=== PATIENT | female | born 1990 | race Caucasian/White ===

== ENCOUNTER 2017-06-29 10:03 | Day surgery (SDC) | payer MEDICAID, SELFPAY ==
[2017-06-29] VITALS (7 sets, daily range): BP systolic 105–130; BP diastolic 70–84; PULSE 74–80; RESP 16–18; TEMP 36.2–36.6; O2SAT 95–99; BMI 42.8
[2017-06-29] MEDS: MethylPREDNISolone Acetate 80 MG/ML Vial (11:20)
--- NOTE | 2017-06-29 11:20 | RAD_ITS ---
STUDY: SACROILIAC JOINT INJECTION. REASON FOR EXAM: Female, 27 years old. Chronic low back pain. FLUOROSCOPY TIME (if supplied): (0:06) minutes/seconds TECHNIQUE: A single image was obtained. There is evidence of a needle placement in the right sacroiliac joint. COMPARISON: None. FINDINGS: Fluoroscopic services provided for right sacroiliac joint injection. RAD/S-I Jts 3 or More Views IMPRESSION: Right sacroiliac joint injection. Electronically Signed: Rafael Tang MD at 13:27 EST Tel [phone], Service support ,
[2017-06-29] MEDS: Bupivacaine 0.25% 30 ML Vial (11:21)
--- NOTE | 2017-06-29 14:16 | OP.PCM_ITS ---
Problem List (1) Sacroiliac joint dysfunction Status: Chronic (2) Sacroiliitis Status: Chronic Report of Operation Date of Procedure: 06/29/17 Pre-Operative Diagnosis: Sacroiliitis, sacroiliac joint dysfunction Post-Operative Diagnosis: Sacroiliitis, sacroiliac joint dysfunction Description of Surgical Findings:: Procedure: Right- sided sacroiliac joint steroid injection under fluoroscopy guidance Preoperative diagnosis: Sacroiliitis, SI joint dysfunction Postoperative diagnosis: Sacroiliitis SI joint dysfunction Anesthesia: MAC Blood loss: Normal Complications: None Procedure in detail: History and physical today was reviewed risk and benefits this procedure explained, the patient understood and agreed to procedure informed consent was obtained IV inserted per routine protocol patient was taken to the operating placed in the prone position a pillow position underneath the abdomen the right side of her lower back and buttock area was prepped and draped in a sterile fashion using iodine ?3 and the fluoroscopy guidance and an oblique view the right SI joint was visualized the skin and subcutaneous tissue anesthetized approximately 3 cc of 1% lidocaine using a 25- gauge regular needle under direct physician fluoroscopy at approximately 15? angle using a 22-gauge 3-1/2 inch spinal needle needle was advanced via the skin the tip of the needle was maneuvered directed towards the inferior one third of the posterior SI joint once tip of the knee was at the vicinity of the SI joint after negative aspiration for blood or CSF a total of 1 cc of contrast were injected to confirm correct placement of the needle as well as cephalo- caudad spread after repeated negative aspiration confirmation AP oblique as well as lateral view a total of 4 cc of preservative-free 0.25% Marcaine with 40 mg of the throat was injected easily in and around the the sacral iliac joint. The needle was then removed intact patient experienced no sinus symptoms intravascular or intrathecal injection patient experienced no paresthesia the procedure was completed without any apparent difficulty any competition the patient appeared to tolerate well. Assessment and plan: This is a 27-year-old female with sacroiliitis SI joint dysfunction status post right-sided sacroiliac joint steroid injection under fluoroscopy guidance patient will continue current medications patient for approximately 2 weeks for possible repeat of procedure if indicated.
== END 2017-06-29 11:53 | disposition home or self-care (01) ==
LOC: SDC 10:04 → AC 10:05
PROVIDERS: Visit Provider Anesthesiology Pain Medicine
PROC: 3E0U3GC Introduction of Other Therapeutic Substance into Joints, Percutaneous Approach (ICD-10-PCS; CPT 27096; principal; 2017-06-29 11:15)
DX: M46.1 Sacroiliitis, not elsewhere classified (principal); M53.3 Sacrococcygeal disorders, not elsewhere classified; R51 Headache; F17.200 Nicotine dependence, unspecified, uncomplicated; Z79.899 Other long term (current) drug therapy
CPT/HCPCS: 01992; 27096; 72202; 76000; J7120

== ENCOUNTER → 2017-07-07 13:54 | Outpatient (CLI) | payer MEDICAID, SELFPAY ==
--- NOTE | 2017-07-07 14:00 | RAD_ITS ---
STUDY: X-RAY - LEFT KNEE REASON FOR EXAM: Female, 27 years old. Pain. Possible meniscal tear TECHNIQUE: 4 view(s) of the knee. COMPARISON: None. FINDINGS: Normal visualized distal femur. Normal visualized proximal tibia and fibula. Normal proximal tibiofibular articulation. Normal medial femorotibial compartment. Normal lateral femorotibial compartment. Normal patellofemoral articulation. There is a small calcification anterior to the patella in the subcutaneous soft tissues, probably representing a phlebolith. RAD/Knee 4 or More Views IMPRESSION: Small calcification anterior to the patella in the subcutaneous soft tissues, probably representing a phlebolith.. Otherwise normal examination Electronically Signed: Adam Lara MD, FACR at 14:30 EST , Service support ,
== END ==
DX: M25.562 Pain in left knee (principal)
CPT/HCPCS: 73564

== ENCOUNTER 2017-08-18 20:16 | Emergency (ER) | payer MEDICAID, SELFPAY ==
[2017-08-18 20:16] VITALS: BP 125/82; PULSE 83; RESP 14; TEMP 36.5; O2SAT 98; BMI 40.7
--- NOTE | 2017-08-18 20:39 | ED.VISSUMM ---
- ER Visit Summary Date of Service: 08/18/17 Chief Complaint: Tongue pain History of Present Illness: The patient is a 27 F presents to the emergency department with tongue pain. Patient states her symptoms began about 2 or 3 days ago. She states that she accidentally ate some hot wings at work. Since then, she has had increased swelling and pain of the tongue. States it feels full in her mouth. She denies any trouble speaking or swallowing. She states she went to urgent care. She had a negative strep. There were concern with her tongue swelling center here. She has never had this before. Physical Examination: Vital signs reviewed General: Well-nourished, well-developed Head: Normocephalic, atraumatic Eyes: Pupils equal and reactive, extraocular muscles intact ENT: Patient has no significant edema of the tongue. There is no significant ulceration. There is no trismus or stridor. She does have some mild erythema of the midline. Neck, supple, no lymphadenopathy Heart: Regular rate and rhythm Respiratory: No distress, clear bilaterally Abdomen: Soft, nontender, nondistended, no peritoneal signs Back: Nontender Extremities: Nontender, no edema, no cords Skin: Normal color no rash Neuro: Alert and oriented, no focal or lateralizing deficits Test Results: [] Emergency Department Course and Treatment: The patient has no significant appreciable edema of the tongue. There is no ulceration or evidence of infection. I do feel this is a local reaction from her exposure. The patient will be treated with viscous lidocaine and Decadron. I do not feel further workup is necessary. I did cancer genetic counselor her that if her symptoms persist or change, she should be reevaluated. She is comfortable this plan of care. Treatment Plan: [] Disposition: Charge Impression: Tongue irritation This note was generated with [employer] dictation software. It may contain incorrect words, spelling, and punctuation that were not noted in review of the chart prior to signing ED Disposition - Plan for ED Patient: Chief Complaint: Sore Throat Instructions: ED Erythema Prescriptions: Lidocaine HCl [Lidocaine HCl Viscous] 15 ml MM TID #150 ml Referrals: Antonette Kenyon DO [Primary Care Provider] -
--- NOTE | 2017-08-18 20:44 | ED.DCSUM_ITS ---
- ER Visit Summary Date of Service: 08/18/17 Chief Complaint: Tongue pain History of Present Illness: The patient is a 27 F presents to the emergency department with tongue pain. Patient states her symptoms began about 2 or 3 days ago. She states that she accidentally ate some hot wings at work. Since then, she has had increased swelling and pain of the tongue. States it feels full in her mouth. She denies any trouble speaking or swallowing. She states she went to urgent care. She had a negative strep. There were concern with her tongue swelling center here. She has never had this before. Physical Examination: Vital signs reviewed General: Well-nourished, well-developed Head: Normocephalic, atraumatic Eyes: Pupils equal and reactive, extraocular muscles intact ENT: Patient has no significant edema of the tongue. There is no significant ulceration. There is no trismus or stridor. She does have some mild erythema of the midline. Neck, supple, no lymphadenopathy Heart: Regular rate and rhythm Respiratory: No distress, clear bilaterally Abdomen: Soft, nontender, nondistended, no peritoneal signs Back: Nontender Extremities: Nontender, no edema, no cords Skin: Normal color no rash Neuro: Alert and oriented, no focal or lateralizing deficits Test Results: [] Emergency Department Course and Treatment: The patient has no significant appreciable edema of the tongue. There is no ulceration or evidence of infection. I do feel this is a local reaction from her exposure. The patient will be treated with viscous lidocaine and Decadron. I do not feel further workup is necessary. I did drug and alcohol counsellor her that if her symptoms persist or change, she should be reevaluated. She is comfortable this plan of care. Treatment Plan: [] Disposition: Charge Impression: Tongue irritation This note was generated with [employer] dictation software. It may contain incorrect words, spelling, and punctuation that were not noted in review of the chart prior to signing ED Disposition - Plan for ED Patient: Chief Complaint: Sore Throat Instructions: ED Erythema Prescriptions: Lidocaine HCl [Lidocaine HCl Viscous] 15 ml MM TID #150 ml Referrals: Antonette Kenyon DO [Primary Care Provider] -
--- NOTE | 2017-08-18 21:06 | ED.RN ---
Verbal and written d/c instructions given. All questions answered. Gait slow and steady out of department.
== END 2017-08-18 21:07 | disposition home or self-care (01) ==
PROVIDERS: Emergency Provider Emergency Medicine
DX: K14.6 Glossodynia (principal); Z72.0 Tobacco use; Z79.899 Other long term (current) drug therapy
CPT/HCPCS: 99283

== ENCOUNTER 2017-12-20 | Emergency (ER) | payer MEDICAID, SELFPAY ==
[2017-12-20 00:02] VITALS: BP 130/85; PULSE 100; RESP 15; TEMP 37.1; O2SAT 99; BMI 42.7
[2017-12-20 00:10] LABS: Bedside Glucose 106 mg/dL (70-110)
--- NOTE | 2017-12-20 00:14 | ED.VISSUMM ---
- ER Visit Summary Date of Service: 12/20/17 Chief Complaint: Left facial pain History of Present Illness: The patient is a 27 F past medical history of pseudotumor cerebri. Multiple prior surgeries. Patient states that she developed head pressure Thursday night. She denies nausea or vomiting. No fever. No head or facial trauma. She is on no blood thinners. Of note she has had 3 prior CAT scans done at [facility] in the last 3-4 years all of which were unremarkable. She denies any neurological deficits. Physical Examination: Well-appearing young female. Vital signs are stable and afebrile. Her blood pressure is 130/85. She does not look septic or toxic. She is in no acute distress. H EENT exam unremarkable. Pupils round reactive light. Extra motions are intact. Normal speech. No signs of trauma to her face or scalp. No rashes. TMs are normal bilaterally. She has reproducible tenderness on the left side of her face. There is no signs of swelling, redness or rash. Possible minimal left facial droop. Able to open and close her eyes without any difficulty. Forehead is spared. Normal speech. Neck no lymphadenopathy. Trachea midline. She has some musculoskeletal tenderness on the left. No meningismus. Full range of motion to her neck. She is able to touch her chin to her chest. Lungs clear to auscultation bilaterally. Heart regular rate and rhythm no murmur. Abdomen soft nontender. She is moving all 4 extremities. They are neurovascularly intact. Equal and symmetrical 5 out of 5 embedded nurse strength. Equal symmetrical dorsi and plantar flexion. Fingertip to nose and heel to molina all within normal limits. Back exam normal. Skin normal no rashes. She has a completely normal neurologic exam except possibly a very minimal left facial droop. Test Results: None. Patient has had 3 CAT scans of the brain the last several years all of which have been negative. Emergency Department Course and Treatment: Patient be given IM Toradol and discharged to home to follow-up with primary care physician. Treatment Plan: Tylenol and Motrin for pain. Follow-up with her PCP. Disposition: Discharge Impression: Acute left facial pain of uncertain etiology. This note was generated with [employer] software. It may contain incorrect words, spelling, and punctuation that were not noted in review of the chart prior to signing ED Disposition - Plan for ED Patient: Chief Complaint: Dizziness Referrals: Antonette Kenyon DO [Primary Care Provider] -
[2017-12-20] MEDS: Ketorolac 60 MG/2 ML Vial IM (00:18)
--- NOTE | 2017-12-20 00:19 | ED.DCSUM_ITS ---
- ER Visit Summary Date of Service: 12/20/17 Chief Complaint: Left facial pain History of Present Illness: The patient is a 27 F past medical history of pseudotumor cerebri. Multiple prior surgeries. Patient states that she developed head pressure Thursday night. She denies nausea or vomiting. No fever. No head or facial trauma. She is on no blood thinners. Of note she has had 3 prior CAT scans done at [facility] in the last 3-4 years all of which were unremarkable. She denies any neurological deficits. Physical Examination: Well-appearing young female. Vital signs are stable and afebrile. Her blood pressure is 130/85. She does not look septic or toxic. She is in no acute distress. H EENT exam unremarkable. Pupils round reactive light. Extra motions are intact. Normal speech. No signs of trauma to her face or scalp. No rashes. TMs are normal bilaterally. She has reproducible tenderness on the left side of her face. There is no signs of swelling, redness or rash. Possible minimal left facial droop. Able to open and close her eyes without any difficulty. Forehead is spared. Normal speech. Neck no lymphadenopathy. Trachea midline. She has some musculoskeletal tenderness on the left. No meningismus. Full range of motion to her neck. She is able to touch her chin to her chest. Lungs clear to auscultation bilaterally. Heart regular rate and rhythm no murmur. Abdomen soft nontender. She is moving all 4 extremities. They are neurovascularly intact. Equal and symmetrical 5 out of 5 tack picker strength. Equal symmetrical dorsi and plantar flexion. Fingertip to nose and heel to molina all within normal limits. Back exam normal. Skin normal no rashes. She has a completely normal neurologic exam except possibly a very minimal left facial droop. Test Results: None. Patient has had 3 CAT scans of the brain the last several years all of which have been negative. Emergency Department Course and Treatment: Patient be given IM Toradol and discharged to home to follow-up with primary care physician. Treatment Plan: Tylenol and Motrin for pain. Follow-up with her PCP. Disposition: Discharge Impression: Acute left facial pain of uncertain etiology. This note was generated with [employer] software. It may contain incorrect words, spelling, and punctuation that were not noted in review of the chart prior to signing ED Disposition - Plan for ED Patient: Chief Complaint: Dizziness Referrals: Antonetet Kenyon DO [Primary Care Provider] -
--- NOTE | 2017-12-20 00:19 | ED.DEP ---
ED Disposition - Plan for ED Patient: Disposition: Home or Assisted Living Chief Complaint: Dizziness Instructions: ED Cephalgia Unspecified Referrals: Antonette Kenyon DO [Primary Care Provider] - 1-2 Days if not improving Additional Instructions: Motrin and Tylenol for pain. If not improving follow-up with your primary care physician in the next several days. Return to ER if feeling worse.
--- NOTE | 2017-12-20 00:40 | ED.RN ---
PT GIVEN WRITTEN AND VERBAL DISCHARGE INSTRUCTIONS. PT EDUCATED TO RETURN TO ED WITH ANY NEW OR WORSENED SX N/T, WEAKNESS, SLURRED SPEECH. PT VERBALIZES UNDERSTANDING. PT DENIES ANY FURTHER QUESTIONS. REPORTS HER NECK IS LESS STIFF THAN IT WAS BEFORE. PT AMBULATES OUT OF DEPT WITH SPOUSE.
== END 2017-12-20 00:44 | disposition home or self-care (01) ==
LOC: ED 00:29
PROVIDERS: Emergency Provider Emergency Medicine
DX: R51 Headache (principal); G93.2 Benign intracranial hypertension; Z72.0 Tobacco use; Z79.899 Other long term (current) drug therapy
CPT/HCPCS: 82962; 96372; 99282

== ENCOUNTER 2018-10-11 07:56 | Emergency (ER) | payer MEDICAID, SELFPAY ==
[2018-07-01 15:07] VITALS: BMI 42.8
[2018-10-11 07:57] VITALS: BP 135/98; PULSE 98; RESP 16; TEMP 36.4; O2SAT 98; BMI 44.6
[2018-10-11 07:59] VITALS: BP 135/98; PULSE 98; RESP 16; TEMP 36.4; O2SAT 98
--- NOTE | 2018-10-11 08:12 | ED.VISSUMM ---
- ER Visit Summary Date of Service: 10/11/18 Chief Complaint: UTI History of Present Illness: The patient is a 28 F with a 4 or 5-day history of dysuria and urinary frequency. Patient's been trying to drink cranberry juice. She states pain is gotten worse and she is now having cramping and spasms in the suprapubic area. She states her urine is very foul-smelling. She has not had fever or chills. She is now noting some mild back pain. Patient has had prior hysterectomy. Physical Examination: Vital signs unremarkable. She is afebrile. Patient sitting upright in bed no acute distress. Heart is regular rate and rhythm. Lung sounds are clear. Abdomen is soft with tenderness of the suprapubic region. Back examination was no CVA tenderness. Test Results: Urine will be sent for a culture. Emergency Department Course and Treatment: Patient be treated with a 3-day course of Bactrim and Pyridium to help with pain. She be given naproxen. Treatment Plan: [] Disposition: Discharge Impression: Cystitis This note was generated with [employer] dictation software. It may contain incorrect words, spelling, and punctuation that were not noted in review of the chart prior to signing ED Disposition - Plan for ED Patient: Disposition: Home or Assisted Living Instructions: ED UTI Cystitis Female Prescriptions: Naproxen [Naprosyn] 500 mg PO BID PRN PRN #20 tablet PRN Reason: Pain Smz/Tmp Ds [Bactrim Ds] 1 tablet PO BID #6 tablet Phenazopyridine HCl [Pyridium] 200 mg PO TID #10 tablet Referrals: Stefan Aguiar MD [Primary Care Provider] - 1 Week
[2018-10-11] MEDS: Phenazopyridine 95 MG Tablet 190 MG PO (08:20)
[2018-10-11] MEDS: Naproxen 500 MG Tablet PO (08:21)
[2018-10-11] MEDS: Smz/Tmp Ds Tablet 1 TABLET PO (08:21)
== END 2018-10-11 08:24 | disposition home or self-care (01) ==
PROVIDERS: Emergency Provider Emergency Medicine; Family Provider Family Medicine; PCP Family Medicine
DX: N30.90 Cystitis, unspecified without hematuria (principal); Z72.0 Tobacco use
CPT/HCPCS: 87086; 87088; 99283

== ENCOUNTER 2018-10-13 16:30 | Emergency (ER) | payer MEDICAID, SELFPAY ==
[2018-10-13 15:51] VITALS: BMI 44.6
[2018-10-13 16:31] VITALS: BP 138/78; PULSE 121; RESP 18; TEMP 36.2; O2SAT 96; BMI 44.6
--- NOTE | 2018-10-13 16:44 | ED.VISSUMM ---
- ER Visit Summary Date of Service: 10/13/18 Chief Complaint: Pelvic pain History of Present Illness: The patient is a 28 F presenting with pelvic pain. Patient was sent by her CASH SALES AUDIT CLERK Dr. Frost for pelvic ultrasound to rule out ovarian torsion. She has a known left ovarian cyst. She states she has been having pain for the past 6 days. She was seen in the ED as well as at [facility]. She states she had a CT scan at [facility] that showed an ovarian cyst. When she followed up with Dr. Frost today she sent her for ultrasound of her pelvis. Physical Examination: Vitals are stable. Patient is afebrile. Alert no acute distress. HEENT exam is unremarkable. Neck is supple. Lungs are clear and equal bilaterally. Heart is regular rate and rhythm. Abdomen is soft left pelvic tenderness with no rebound or guarding Extremities are unremarkable. Skin is warm and dry. Remainder of exam is unremarkable. Emergency Department Course and Treatment: Patient was given Dilaudid, Zofran IV. CBC shows white count 12.8. hCG negative. Urinalysis unremarkable. Pelvic ultrasound shows status post hysterectomy. Nonvisualization right ovary. Marked enlargement of left ovary with a large irregular cyst. This is markedly enlarged when compared to the prior CT scan. On repeat evaluation, patient's pain is controlled. Discussed with Dr. Frost. Patient will be added on to the surgery schedule for tomorrow. Patient is agreeable with this plan. She will be n.p.o. after midnight. She will quill picking machine operator her prescription from Dr. Frost. Disposition: Discharge home Impression: Left ovarian cyst This note was generated with [employer] dictation software. It may contain incorrect words, spelling, and punctuation that were not noted in review of the chart prior to signing ED Disposition - Plan for ED Patient: Instructions: ED Cyst Ovarian Referrals: Stefan Aguiar MD [Primary Care Provider] - Jania Frost MD [STAFF PHYSICIAN] -
--- NOTE | 2018-10-13 16:49 | US_ITS ---
STUDY: ULTRASOUND TRANSVAGINAL CLINICAL: Female, 28 years old. Ovarian cysts. Left pelvic pain. History of hysterectomy. TECHNIQUE: Transvaginal COMPARISON: CT of the abdomen and pelvis, May 21, 2017. FINDINGS: The uterus is surgically absent. The right ovary is not visualized. There is no evidence of right adnexal mass. Normal left ovary, measuring 14.6 x 10.1 x 8.8 cm. There is a 13.5 x 6.5 x 8.3 cm irregular cyst. There is normal vascularity in the left adnexa. Polycystic ovary disease: No. US/Transvaginal Non- IMPRESSION: 1. Status post hysterectomy. 2. Nonvisualization right ovary. 3. Marked enlargement of left ovary with a large irregular cyst. This is markedly enlarged when compared to the prior CT scan. Electronically Signed: Luis Strickland DO at 18:22 EDT Tel [phone], Service support ,
[2018-10-13] MEDS: HYDROmorphone 0.5 MG/0.5 ML SYRINGE IV (16:52)
[2018-10-13] MEDS: Ondansetron 4 MG/2 ML Vial IV (16:52)
[2018-10-13] MEDS: 0.9% Normal Saline 1,000 ML 1000 ML IV (16:52)
[2018-10-13 17:17] LABS: Absolute Lymphocyte Count 2.64 X10^3/ul (0.83-4.51); Absolute Neutrophil Count 9.1 X10^3/uL (2.0-7.7); Basophil# 0.02 X10^3/uL; Basophil% 0.2 % (0-1); Eosinophil# 0.14 X10^3/uL; Eosinophils% 1.1 % (0-5); Hematocrit 39.6 % (37-47); Hemoglobin 13.1 g/dl (12.0-15.0); Lymphocyte # 2.64 X10^3/ul (4.0); Lymphocyte % 20.7 % (19-41); Mean Corp Hgb Conc 33.1 g/gl (32-36); Mean Corpuscular Hgb 29.4 pg (27.0-32.0); Mean Corpuscular Volume 88.8 fL (81-99); Mean Platelet Vol. 10.7 fl (6.2-12.0); Monocyte# 0.87 X10^3/uL; Monocyte% 6.8 % (0-10); Neutrophil # 9.07 X10^3/uL (2.7-7.7); Neutrophil % 70.9 % (47-70); Platelet Count 302 K/mm3 (150-450); RBC Distribution Width CV 13.7 % (11.6-14.6); RBC Distribution Width SD 43.7 fl (35.1-43.9); Red Blood Count 4.46 M/mm3 (4.2-5.4); White Blood Count 12.8 K/mm3 (4.4-11.0)
[2018-10-13 17:23] LABS: POSITIVE COUNT NO; POSITIVE DIFFERENTIAL NO; POSITIVE MORPHOLOGY NO
[2018-10-13 18:27] LABS: Internal QC Validated? YES +Cl - CLEAR BKGD; Pregnancy, Serum, hCG Quali. NEGATIVE Negative
[2018-10-13 18:34] LABS: Color, Urine Yellow (Yellow); Glucose, Dipstick Normal (Normal); Ketone-Dipstick 15 mg/dl (Negative); Leukocyte Esterase-Dipstick 100 /ul (Negative); Nitrite-Dipstick Negative (Negative); Occult Blood-Urine 10 /ul (Negative); Protein-Dipstick 30 mg/dl (Negative); Specific Gravity, Urine 1.025 (1.002-1.030); Urine Bilirubin Dipstick Negative (Negative); Urine Clarity Clear (Clear); Urine Urobilinogen 1 mg/dl (Normal)
[2018-10-13] MEDS: HYDROmorphone 1 MG/ML Syringe IV (18:45)
[2018-10-13 18:52] LABS: Bacteria 1+ /hpf (None Seen); Mucous, Urine 1+ /hpf (<or=2+); Red Blood Cells-Urine 0-5 SEEN /hpf (0-5); Squamous Epithelial Cells - UA 0-5 SEEN /hpf (5-10); White Blood Cells 0-5 SEEN /hpf (0-5)
[2018-10-13 19:08] VITALS: BP 117/89; PULSE 82; RESP 16; O2SAT 98
--- NOTE | 2018-10-13 20:18 | ED.DEP ---
ED Disposition - Plan for ED Patient: Instructions: ED Cyst Ovarian Referrals: Stefan Aguiar MD [Primary Care Provider] - Jania Frost MD [STAFF PHYSICIAN] -
[2018-10-13 20:37] VITALS: BP 121/78; PULSE 78; RESP 16; O2SAT 98
== END 2018-10-13 20:38 | disposition home or self-care (01) ==
LOC: ED 17:17
PROVIDERS: Emergency Provider Emergency Medicine; Family Provider Family Medicine; PCP Family Medicine
DX: N83.202 Unspecified ovarian cyst, left side (principal); Z72.0 Tobacco use
CPT/HCPCS: 76830; 81001; 84703; 85025; 93976; 96361; 96374; 96375; 96376; 99283; J7030; A4216; J2405

== ENCOUNTER 2018-10-14 16:00 | Observation (INO) | payer MEDICAID, SELFPAY ==
[2018-10-13 16:31] VITALS: BMI 44.6
[2018-10-14] VITALS (10 sets, daily range): BP systolic 109–141; BP diastolic 63–82; PULSE 78–96; RESP 16–22; TEMP 36.4–37.3; O2SAT 88–100; BMI 44.4
--- NOTE | 2018-10-14 08:06 | PCM.HP.STD ---
Problem List (1) Ovarian cyst Status: Acute (2) Acute pelvic pain Status: Acute (3) Smoker Status: Chronic (4) Family history of skin cancer Status: Chronic (5) Recent weight loss Status: Chronic (6) History of abdominoplasty Status: Chronic (7) Swelling of vulva Status: Chronic Comment: mons pubis swelling (8) Late effect of complications of surgical and medical care Status: Chronic Comment: painful scar contour deformity lower anterior abdominal wall (9) Sacroiliac joint dysfunction Status: Chronic (10) Sacroiliitis Status: Chronic History of Present Illness Date of Admission: 10/14/18 The patient is a 28 year old F presents with acute pelvic pain and ovarian cyst. she has been seen in the ER twice in the last few days and pelvic ultrasound showed ovarian cyst 13 cm in size. she had her pain controlled with IV dilaudid and was comfortable going home and planning surgery for today. she denies any vaginal bleeding. Past Medical History Past Medical History (Chronic Problems): Chronic Problems (Last Reviewed 10/13/18 @ 15:50 by Lisa Sal) Smoker (Chronic) Family history of skin cancer (Chronic) Recent weight loss (Chronic) History of abdominoplasty (Chronic) Swelling of vulva (Chronic) mons pubis swelling Late effect of complications of surgical and medical care (Chronic) painful scar contour deformity lower anterior abdominal wall Sacroiliac joint dysfunction (Chronic) Sacroiliitis (Chronic) Medical History: Medical History (Last Updated 10/14/18 @ 08:11 by Jania Frost MD) Carpal tunnel syndrome G56.00 Fatigue R53.83 H/O: hysterectomy Z90.710 Headache R51 pseudo angel cerebri Allergies nickel Allergy (Verified 10/13/18 16:31) Rash diphenhydramine [From Benadryl] Adverse Reaction (Verified 10/13/18 16:31) Other morphine Adverse Reaction (Verified 10/13/18 16:31) Other NUCOPHED Allergy (Uncoded 10/13/18 16:31) Swelling Home Medications: Ambulatory Orders Medication Instructions Recorded Naproxen [Naprosyn] 500 mg PO BID PRN PRN #20 tab 10/11/18 Smz/Tmp Ds [Bactrim Ds] 1 tab PO BID #6 tab 10/11/18 Surgical History: Surgical History (Last Reviewed 10/13/18 @ 15:50 by Lisa Sal) History of abdominoplasty Z98.890 2014 Revision abdominoplasty 2015 History of carpal tunnel surgery Z98.890 RIGHT HAND 2014 LEFT HAND 2016 History of delivery Z98.891 04/28/2006, 08/13/2007 Smoking Status: Current every day smoker Review of Systems Constitutional: Denies: Fever, Malaise Eyes: Denies: Blurred vision, Vision Change HEENT: Denies: Head Aches, Visual Changes Cardiovascular: Denies: Chest Pain, Palpitations Respiratory: Denies: Cough, Shortness of Breath, Wheezing Gastrointestinal: Reports: Abdominal Pain, Nausea. Denies: Diarrhea, Vomiting Genitourinary: Denies: Dysuria, Hematuria Gynecological: Denies: Vaginal bleeding, Vaginal discharge Musculoskeletal: Denies: Joint Pain, Muscle pain Skin: Denies: Lesions, Rash Neurological: Denies: Blurred vision, Focal weakness, Headaches Psychiatric: Denies: Anxiety, Depression Endocrine: Denies: Heat/ Cold Intolerance Hematologic/ Lymphatic: Denies: Easy Bruising, Easy Bleeding VTE Information - Inpt Only VTE Present on Admission: No - Physical Exam General: Alert, Oriented x3 HEENT: EOMI, Normocephalic Oral: Moist Mucosa Neck: Trachea Midline, Thyroid Normal Size and Texture Lungs: Clear to auscultation, Normal air movement Cardiovascular: Regular rate Abdomen: Soft, Tender Extremities: No edema Body Mass Index (BMI) 44.6 Finger Stick Blood Glucose 106 Assessment/Plan All Active Problems (Last Reviewed 10/13/18 @ 15:50 by Lisa Sal) Ovarian cyst (Acute) Acute pelvic pain (Acute) 28 yo with pelvic pain and ovarian cyst plan laparoscopic ovarian cystectomy/possible oophorectomy.
--- NOTE | 2018-10-14 12:00 | OV_PTH ---
PATIENT: GORAN MENDEZ LOC: MS3 U#:[id number] AGE/SX: 28/F ROOM: MS311 RE10/14/[address]: Dr. Jania Frost MD : [id number] BED: 1 DIS: 10/15/2018 SPEC #: [id number] RECD: 10/15/18 08:20 STATUS: MARILEE GARZA #: [id number] STEPHANIE: 10/14/18 12:[address]: Jania Frost DEPT: SURGICAL PATHOLOGY RECD BY: Collin Krishnan ENTERED: 10/15/18 09:21 SP TYPE: OVARY OTHR DR: MD Stefan Galeana MD Tissues: Left ovary Procedures: Surgery Specimen Level IV HEADER OPERATION: Extensive laparoscopic lysis of adhesions, laparoscopic left oophorectomy PRE-OP DIAGNOSIS: Left ovarian cyst TISSUE SUBMITTED: Left ovary MICROSCOPIC DIAGNOSIS Left ovary, oophorectomy: Follicular and hemorrhagic corpus luteal cysts. AM:teja 10/19/18 MICROSCOPIC DESCRIPTION Slides are reviewed. GROSS DESCRIPTION Received in fixative is one container labeled with the patient's name and designated left ovary. The specimen consists of a lobulated fragment of pink-sepulveda soft tissue measuring 5.5 x 3 x 2.3 cm and weighing 21.7 gm. The external surface of the specimen is inked and the specimen is serially sectioned to reveal multiple cysts ranging in size from 0.2 to 1 cm in greatest dimension. Gasket Former sections are submitted in four cassettes. / AM:teja 10/15/18 TC:5 CPT: 95787
[2018-10-14] MEDS: Bupivacaine 0.25% 30 ML Vial (13:30)
--- NOTE | 2018-10-14 14:10 | OP.PCM_ITS ---
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 Small bowel to anterior abdominal wall adhesions. Sigmoid to bladder adhesions. department assistant: Lazaro Munoz Type of Anesthesia:: General Special Medications: none Specimen's removed: left ovary Estimated Blood Loss (mL): 100 Fluids Replaced: crystalloid Description of Procedure: Patient was taken to the operating room and placed under general anesthesia was prepped and draped in normal sterile fashion in the dorsal lithotomy position. Sponge stick was placed in the vagina SCDs were on preoperatively and bladder was drained of clear urine. Attention was then paid to the abdomen in the left upper quadrant incision was made and 5 mm port site placed under direct visualization. Abdomen was insufflated with CO2 gas and an additional left and right lower quadrant 5 m port was placed under direct visualization. Severe adhesions were noted see operative findings for details. The ovary was noted to be enlarged and cystic on the left side and buried underneath the sigmoid colon and therefore general surgery was consulted. Please see general surgery for their operative dictation. After all lysis of adhesions were completed and the left ovary was removed the 12 mm port site was closed with a Terrence Dominguez and an 0 Vicryl suture in the fascia and then all port sites were removed and instruments removed from the vagina/port sites were closed with 3-0 Monocryl and patient was awoken and taken recovery in stable condition. Grafts/Implants Used: none - Complications none - Admit VTE Documentation VTE Present on Admission: No VTE Mechan Device Prophylaxis: SCD's
--- NOTE | 2018-10-14 14:10 | DCINST_ITS ---
Discharge Diet: No Restrictions - Increase fluid intake for the next 48 hours. Discharge Activity: Return to Normal Activity, May Drive - when you are no longer taking narcotic pain medications., May Shower, May Take a Tub Bath - in 7 days Additional Activity Instructions:: Ambulate often the next week after surgery. Nothing in the vagina for 5 days. Call your doctor if your incision/area has: Continuous Slow Oozing, Sudden Increased Bleeding, Increased Pain/ Swelling, Increased Redness, Foul Smelling Discharge Call your doctor if you observe: Fever of 101 or Higher Allergies/Adverse Reactions: Allergies nickel Allergy (Verified 10/14/18 09:38) Rash diphenhydramine [From Benadryl] Adverse Reaction (Verified 10/14/18 09:38) Other morphine Adverse Reaction (Verified 10/14/18 09:38) Other NUCOPHED Allergy (Uncoded 10/14/18 09:38) Swelling Medications to take at Discharge Naproxen [Naprosyn] 500 mg PO BID PRN PRN #20 tab 10/11/18 Smz/Tmp Ds [Bactrim Ds] 1 tab PO BID #6 tab 10/11/18 Primary Care Physician: Stefan Aguiar MD [Primary Care Provider] - Test Results: Test results from this visit will be discussed in further detail at your follow- up appointment, if applicable. Please Follow Up With: Jania Frost MD - [phone] When: 2-3 weeks
[2018-10-14] MEDS: Ketorolac 30 MG/ML Syringe IV ×2 (15:29→21:14)
[2018-10-14] MEDS: Dextrose 5%-Lactated Ringers 1,000 ML 150 ML IV ×2 (16:16→22:41)
[2018-10-14] MEDS: HYDROmorphone 1 MG/ML Syringe IV ×2 (16:22→18:19)
[2018-10-14] MEDS: 0.9% NaCl Peripheral Flush Adult/Peds IV ×3 (16:22→21:13)
--- NOTE | 2018-10-14 17:28 | PCM.OPRPT ---
Problem List (1) Intra-abdominal adhesions Status: Acute Report of Operation Date of Procedure: 10/14/18 Pre-Operative Diagnosis: Intra-abdominal adhesions Post-Operative Diagnosis: Same Surgery/Procedure Performed:: Laparoscopic lysis of intra-abdominal adhesions Type of Anesthesia:: General Description of Procedure: I was called by Dr. Stefan Kat to come in with assistance with the intra-abdominal adhesions. The patient was in the supine position and her legs were up in stirrups the patient had 3 ports in her abdomen. The surgery is being performed for a large ovarian cyst on the left side in order to gain access to this area the pelvic adhesions needed to be taken down sharply. I placed a #5 trocar in the right upper quadrant. I used sharp dissection and took down all of the intra-abdominal adhesions without injury to the small intestine. Once I had these down I then went to the sigmoid colon and took these down with the vidian sure strap and mobilized the sigmoid colon off of the large left ovarian cyst. I had good hemostasis. When this was completed Dr. Stefan Kat remove the left ovary. She closed the abdomen. - Admit VTE Documentation VTE Present on Admission: No VTE Mechan Device Prophylaxis: SCD's VTE Pharm Prophylaxis ordered?: No Reason prophylaxis not ordered:: Treatment Not Indicated
--- NOTE | 2018-10-14 17:31 | OP.PCM_ITS ---
Problem List (1) Intra-abdominal adhesions Status: Acute Report of Operation Date of Procedure: 10/14/18 Pre-Operative Diagnosis: Intra-abdominal adhesions Post-Operative Diagnosis: Same Surgery/Procedure Performed:: Laparoscopic lysis of intra-abdominal adhesions Type of Anesthesia:: General Description of Procedure: I was called by Dr. Stefan Kta to come in with assistance with the intra- abdominal adhesions. The patient was in the supine position and her legs were up in stirrups the patient had 3 ports in her abdomen. The surgery is being performed for a large ovarian cyst on the left side in order to gain access to this area the pelvic adhesions needed to be taken down sharply. I placed a #5 trocar in the right upper quadrant. I used sharp dissection and took down all of the intra-abdominal adhesions without injury to the small intestine. Once I had these down I then went to the sigmoid colon and took these down with the vidian sure strap and mobilized the sigmoid colon off of the large left ovarian cyst. I had good hemostasis. When this was completed Dr. Stefan Kat remove the left ovary. She closed the abdomen. - Admit VTE Documentation VTE Present on Admission: No VTE Mechan Device Prophylaxis: SCD's VTE Pharm Prophylaxis ordered?: No Reason prophylaxis not ordered:: Treatment Not Indicated
--- NOTE | 2018-10-14 17:50 | PCM.PN.OB ---
Patient Problems: Active and Suspected Problems (Last Updated 10/14/18 @ 08:11 by Jania Frost MD) Intra-abdominal adhesions (Acute) Subjective: patient seen pain fairly controlled no CP SOB N V - Physical Exam General: Alert, Oriented x3 Vital Signs Temp Pulse Resp BP Pulse Ox 97.9 F 78 16 109/73 98 10/14/18 16:09 10/14/18 16:09 10/14/18 16:09 10/14/18 16:09 10/14/18 16:09 Oxygen Flow Rate (L/min) 2 Oxygen Delivery Method Nasal Cannula Weight: 250 lb 10.649 oz Body Mass Index (BMI) 44.4 Finger Stick Blood Glucose 106 Intake and Output for Last 24 Hours 10/12/18 10/13/18 10/14/18 23:59 23:59 23:59 Intake Total 1800 / 1800 Output Total 100 / 100 Balance 1700 / 1700 Laboratory Tests Past 24 Hrs 10/14/18 09:45 Blood Type O POSITIVE Antibody Screen NEGATIVE Medical Necessity - Tobacco Use Smoking Status: Current every day smoker Assessment/Plan All Active Problems (Last Updated 10/14/18 @ 08:11 by Jania Frost MD) Ovarian cyst (Acute) Acute pelvic pain (Acute) Intra-abdominal adhesions (Acute) s/p extensive lysis of adhesions and left oophorectomy POD 0 1. gen surgery intraoperative consult for adhesiolysis- appreciate diet managment, advance once good bowel sounds 2. routine post op care- ambulate, lovenox tomorrow for DVT prophylaxis, scds in bed 3. IVFs
[2018-10-14] MEDS: Acetaminophen 500 MG Tablet 1000 MG PO (18:18)
--- NOTE | 2018-10-14 22:32 | EKG12_ITS ---
Test Reason : CP Blood Pressure : / mmHG Vent. Rate : 087 BPM Atrial Rate : 087 BPM P-R Int : 138 ms QRS Dur : 074 ms QT Int : 356 ms P-R-T Axes : 046 074 063 degrees QTc Int : 428 ms Normal sinus rhythm Normal ECG Confirmed by UMU YOU ([id number]), field map editor RENÉE GARCIA ([id number]) on 10/20/2018 12:52:52 PM Referred By: Jania Frost Confirmed By:MICHELLE YOU
[2018-10-15] MEDS: HYDROmorphone 1 MG/ML Syringe IV ×2 (01:07→08:43)
[2018-10-15] MEDS: oxyCODONE 5 MG Tablet PO (02:23)
[2018-10-15 04:07] VITALS: BP 120/64; PULSE 81; RESP 18; TEMP 36.9; O2SAT 97
[2018-10-15] MEDS: Ketorolac 30 MG/ML Syringe IV (04:09)
[2018-10-15 07:26] LABS: Hemoglobin 10.6 g/dl (12.0-15.0); Mean Corp Hgb Conc 32.1 g/gl (32-36); Mean Corpuscular Hgb 29.1 pg (27.0-32.0); Mean Corpuscular Volume 90.7 fL (81-99); Platelet Count 279 K/mm3 (150-450); RBC Distribution Width CV 13.5 % (11.6-14.6); RBC Distribution Width SD 43.5 fl (35.1-43.9); Red Blood Count 3.64 M/mm3 (4.2-5.4); White Blood Count 13.3 K/mm3 (4.4-11.0)
[2018-10-15 07:30] LABS: Scan Indicated on CBC? Y/N NO
--- NOTE | 2018-10-15 07:58 | PCM.PN.OB ---
Patient Problems: Active and Suspected Problems (Last Updated 10/14/18 @ 08:11 by Jania Frost MD) Intra-abdominal adhesions (Acute) Subjective: Doing well. Pain controlled. Had BM this am. Plans home today. - Physical Exam General: Alert, Oriented x3 Abdomen: Soft, Non-Distended, - - dressing dry and intact Vital Signs Temp Pulse Resp BP Pulse Ox 98.5 F 81 18 120/64 97 10/15/18 04:07 10/15/18 04:07 10/15/18 04:07 10/15/18 04:07 10/15/18 04:07 Oxygen Flow Rate (L/min) 2 Oxygen Delivery Method Room Air Weight: 250 lb 10.649 oz Body Mass Index (BMI) 44.4 Finger Stick Blood Glucose 106 Intake and Output for Last 24 Hours 10/13/18 10/14/18 10/15/18 23:59 23:59 23:59 Intake Total 3666 / 3666 1441 / 1441 Output Total 1000 / 1000 1400 / 1400 Balance 2666 / 2666 41 / 41 Laboratory Tests Past 24 Hrs 10/14/18 10/15/18 09:45 06:27 WBC 13.3 H RBC 3.64 L Hgb 10.6 L Hct 33.0 L MCV 90.7 MCH 29.1 MCHC 32.1 RDW 13.5 RDW Differential 43.5 Plt Count 279 MPV 11.0 Blood Type O POSITIVE Antibody Screen NEGATIVE Medical Necessity - Tobacco Use Smoking Status: Current every day smoker Assessment/Plan All Active Problems (Last Updated 10/14/18 @ 08:11 by Jania Frost MD) Ovarian cyst (Acute) Acute pelvic pain (Acute) Intra-abdominal adhesions (Acute) Postop left oopherectomy with adhesions. Routine care Discharge home today
[2018-10-15 08:56] VITALS: BP 93/58; PULSE 83; RESP 18; TEMP 36.9; O2SAT 99
== END 2018-10-15 10:33 | disposition home or self-care (01) ==
LOC: MS3 10-15 08:54 → SDC 10-15 09:10
PROVIDERS: Admitting Provider Obstetrics & Gynecology; Family Provider Family Medicine; PCP Family Medicine; Referring Provider Obstetrics & Gynecology; Visit Provider Obstetrics & Gynecology
PROC: (CPT 58661; principal; 2018-10-14 11:45)
DX: N83.12 Corpus luteum cyst of left ovary (principal); Z90.710 Acquired absence of both cervix and uterus; F17.200 Nicotine dependence, unspecified, uncomplicated; K66.0 Peritoneal adhesions (postprocedural) (postinfection); F41.9 Anxiety disorder, unspecified
CPT/HCPCS: 00840; 58661; 36415; 85027; 86850; 86900; 88305; 93005; 96361; 96374; 96375; 96376; 99218; 99406; J7120; A4216; G0378; G0379; J2405

== ENCOUNTER → 2018-11-01 | Outpatient (CLI) | payer MEDICAID, SELFPAY ==
[2018-11-01 14:47] VITALS: BMI 44.4
[2018-11-01 15:57] LABS: Estradiol 92.5 pg/mL; Follicle Stimulating Hormone 4.6 mIU/mL
== END | disposition home or self-care (01) ==
LOC: PAVLAB 14:56
PROVIDERS: Family Provider Family Medicine; PCP Family Medicine; Visit Provider Obstetrics & Gynecology
DX: N95.1 Menopausal and female climacteric states (principal)
CPT/HCPCS: 36415; 82670; 83001

== ENCOUNTER 2019-01-03 20:03 | Emergency (ER) | payer MEDICAID, SELFPAY ==
[2018-11-01 14:47] VITALS: BMI 44.4
[2019-01-03 20:05] VITALS: BP 113/63; PULSE 98; PULSE 99; RESP 17; RESP 18; TEMP 37.7; O2SAT 96; O2SAT 98; BMI 41.6
[2019-01-03 21:31] LABS: Mucous, Urine 0 SEEN /hpf (<or=2+)
[2019-01-03 21:33] LABS: Color, Urine Yellow (Yellow); Glucose, Dipstick Normal (Normal); Ketone-Dipstick 5 mg/dl (Negative); Leukocyte Esterase-Dipstick 25 /ul (Negative); Nitrite-Dipstick Negative (Negative); Occult Blood-Urine Negative /ul (Negative); Protein-Dipstick 15 mg/dl (Negative); Specific Gravity, Urine 1.025 (1.002-1.030); Urine Bilirubin Dipstick Negative (Negative); Urine Clarity Sl. Cloudy (Clear); Urine Urobilinogen Normal (Normal)
[2019-01-03 21:50] LABS: Absolute Lymphocyte Count 2.82 X10^3/uL (0.83-4.51); Absolute Neutrophil Count 7.1 X10^3/uL (2.0-7.7); Basophil# 0.04 X10^3/uL; Basophil% 0.4 % (0-1); Eosinophil# 0.13 X10^3/uL; Eosinophils% 1.2 % (0-5); Hematocrit 39.4 % (37-47); Lymphocyte # 2.82 X10^3/ul (4.0); Lymphocyte % 25.7 % (19-41); Mean Corpuscular Hgb 29.8 pg (27.0-32.0); Mean Corpuscular Volume 90.4 fL (81-99); Mean Platelet Vol. 10.6 fl (6.2-12.0); Monocyte# 0.81 X10^3/uL; Monocyte% 7.4 % (0-10); NRBC Flagged by Analyzer 0 % (0-5); Neutrophil # 7.13 X10^3/uL (2.7-7.7); Neutrophil % 64.9 % (47-70); Platelet Count 318 K/mm3 (150-450); RBC Distribution Width CV 13.3 % (11.6-14.6); RBC Distribution Width SD 44.1 fl (35.1-43.9); Red Blood Count 4.36 M/mm3 (4.2-5.4)
[2019-01-03 21:56] LABS: Internal QC Validated? YES +Cl - CLEAR BKGD; Pregnancy, Serum, hCG Quali. NEGATIVE Negative
--- NOTE | 2019-01-03 22:00 | CT_ITS ---
STUDY: CT ABDOMEN AND PELVIS WITH CONTRAST REASON FOR EXAM: Female, 28 years old. Right lower quadrant pain. Previous left ovary removal. TECHNIQUE: Transaxial images were obtained from the dome of the diaphragm to the symphysis pubis with oral contrast. 100ML IV/Oral Isovue 370 was administered. Sagittal and coronal images were reconstructed. Individualized dose optimization techniques were used for this CT. COMPARISON: 05/21/2017 CT abdomen and pelvis. FINDINGS: Partially visualized lower chest: [Lung bases unremarkable.] Liver: [No concerning lesions.] Hepatic hypodensities several of which show peripheral enhancement and are most likely hemangiomas are similar to previous Gallbladder and biliary tree: No visible gallstones. No pericholecystic inflammation. No biliary ductal dilation. Pancreas: No pancreatic lesions or inflammation. Spleen: Normal size, no splenic lesions. Incidental calcified granulomas. Adrenal glands: No concerning masses. Kidneys and ureters: No hydronephrosis or renal stones. No concerning masses. No ureteral dilation. Bowel: [Noninflamed appendix.] No obstruction or inflammation of the bowel. Urinary bladder: No stones or wall thickening. Reproductive: Status post hysterectomy. Despite the provided history of left ovary removal, there is a 7.8 x 10.0 x 10.8 cm TRV X AP X craniocaudad complex cystic mass in the left adnexa, with a 3.4 cm diameter daughter cyst within the anterior, upper aspect of this larger cystic mass which extends into the left lower pelvis. Right ovary unremarkable. Vascular: No abdominal aortic aneurysm. Retroperitoneal and peritoneal spaces: No ascites or free air. No retroperitoneal lesions. Osseous: No acute osseous abnormality. Abdominal and pelvic wall: No concerning findings. Chronic postoperative changes into wall the pelvis. CT/Abdomen/Pelvis WITH Contrast IMPRESSION: Despite the provided history of previous left ovary removal, there is a 10.8 cm in greatest dimension complex cystic mass in the left adnexa emanating from the expected location of the left ovary. 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 A seroma or postoperative fluid collection is less likely given the presence of the daughter cyst within this larger cyst. Please correlate with detailed operative history. PROJECT PROGRAM MANAGER consult suggested. Electronically Signed: Renato Nixon, at 0:34 EDT Tel , Service support ,
[2019-01-03 22:02] LABS: Red Blood Cells-Urine 0-5 SEEN /hpf (0-5); Squamous Epithelial Cells - UA 0-5 SEEN /hpf (5-10); White Blood Cells 5-10 SEEN /hpf (0-5)
[2019-01-03 22:03] LABS: Bacteria 1+ /hpf (None Seen)
[2019-01-03 22:06] LABS: Anion Gap 5 (5-15); BUN 11 mg/dL (7-18); BUN/Creat Ratio 15.3 RATIO (10-20); Chloride 106 mmol/L (98-107); Creatinine, Serum 0.72 mg/dL (0.55-1.02); EST Glomerular Filtration Rate 101 mL/min (>60); Est Glom Filt Rate - Afr Amer 122 mL/min (>60); Estimated Creatinine Clearance 94.51 ml/min; Glucose 87 mg/dL (74-106); Potassium 4.1 mmol/L (3.5-5.1); Sodium Level 136 mmol/L (136-145)
[2019-01-03] MEDS: HYDROmorphone 0.5 MG/0.5 ML SYRINGE IV (22:21)
[2019-01-03] MEDS: Ondansetron 4 MG/2 ML Vial IV (22:21)
[2019-01-03 22:25] VITALS: BP 121/87; PULSE 90; RESP 16; TEMP 36.6; O2SAT 100
[2019-01-04] VITALS: RESP 14
--- NOTE | 2019-01-04 00:01 | ED.VISSUMM ---
- ER Visit Summary Date of Service: 01/04/19 Chief Complaint: Lower abdominal pain History of Present Illness: The patient is a 28 F who presents with lower abdominal pain that has been getting progressively worse over the past week. Patient describes her pain as stabbing. Patient states nothing makes the pain better or worse. Patient states this feels similar to the pain she had before her last surgery. Patient states she had a recent left oophorectomy and adhesio lysis. Patient states this was performed by both Dr. Frost and Dr. Munoz. She admits to nausea but denies any vomiting. Patient states pain radiates into her back. Patient states she does have some pressure in her lower abdomen is worse with urination. Patient admits to subjective chills but denies any fevers. Physical Examination: Vital signs are stable. Patient is afebrile. Patient is in no acute distress. Oral mucosa is pink and moist. Neck is supple. Trachea is midline. There is no JVD noted. Heart was regular rate and rhythm. Lungs are clear and equal bilateral. Abdomen is soft. Bowel sounds are normal. There is lower abdominal tenderness. There is no rebound or guarding noted. Skin is warm dry. Cranial nerves II through XII are intact. There are no focal motor or sensory deficits noted. The remaining physical exam is within normal limits. Test Results: CBC and basic metabolic profile within normal limits. Urinalysis showed leukocyte esterase of 25 with 5-10 white blood cells and 1+ bacteria. There is 0-[address] scan of the abdomen and pelvis was obtained. There is a 10.8 cm complex cyst in the area of the left adnexa. This is concerning for left ovarian neoplasm however, patient has had a left oophorectomy. Emergency Department Course and Treatment: Patient was given IV fluids. Patient was given a dose of Dilaudid and Zofran here. Case was discussed with Dr. Frost. She will be in to evaluate the patient. She will admit the patient for observation. Patient understood and was agreeable with the plan. All questions were answered. Disposition: Admit to hospital for observation Impression: 1. Left adnexal cyst 2. Pelvic pain This note was generated with [employer] software. It may contain incorrect words, spelling, and punctuation that were not noted in review of the chart prior to signing ED Disposition - Plan for ED Patient: Disposition: Acute Care Hospital [facility] Diagnosis: Adnexal cyst, Pelvic pain Referrals: Stefan Aguiar MD [Primary Care Provider] - Jania Frost MD [STAFF PHYSICIAN] -
--- NOTE | 2019-01-04 00:19 | ED.RN ---
PT REQUESTING PAIN MEDICATION, DR. OLMEDO AWARE.
--- NOTE | 2019-01-04 01:54 | PCM.CONS.GEN ---
Problem List (1) Adnexal cyst Status: Acute (2) Pelvic pain Status: Acute Reason for Consult Date of Consultation: 01/04/19 Reason for Consultation: pelvic pain left pelvic lesion History of Present Illness: The patient is a 28 year old F presents with an increasing one-week history of left-sided pelvic pain. To 9 months ago she had a left oophorectomy and extensive lysis of adhesions due to large left ovarian cyst and pelvic pain. Patient states she started feeling pain similar to what she had before and it began increasing to the point that she is painful enough to warrant evaluation. CT scan shows a 10 cm left-sided cystic fluid collection in the left ovarian fossa with a small circular cystic structure within larger fluid collection possible ovarian remnant versus fluid collection. Patient is afebrile and hemodynamically stable with no leukocytosis or anemia. pain is improved with IV Dilaudid and antiemetics. Past Medical History Past Medical History (Chronic Problems): Chronic Problems (Last Reviewed 11/01/18 @ 14:29 by Leyla Brasher) Sacroiliitis (Chronic) Sacroiliac joint dysfunction (Chronic) Late effect of complications of surgical and medical care (Chronic) painful scar contour deformity lower anterior abdominal wall Swelling of vulva (Chronic) mons pubis swelling History of abdominoplasty (Chronic) Recent weight loss (Chronic) Family history of skin cancer (Chronic) Smoker (Chronic) Medical History: Medical History (Last Reviewed 11/01/18 @ 14:29 by Leyla Brasher) Carpal tunnel syndrome G56.00 Fatigue R53.83 H/O: hysterectomy Z90.710 Headache R51 pseudo angel cerebri Allergies nickel Allergy (Verified 01/03/19 20:05) Rash diphenhydramine [From Benadryl] Adverse Reaction (Verified 01/03/19 20:05) Other morphine Adverse Reaction (Verified 01/03/19 20:05) Other NUCOPHED Allergy (Uncoded 10/14/18 09:38) Swelling Home Medications: Ambulatory Orders Medication Instructions Recorded NK 01/03/19 Surgical History: Surgical History (Last Updated 11/01/18 @ 14:31 by Leyla Brasher) History of abdominoplasty Z98.890 2014 Revision abdominoplasty 2015 History of carpal tunnel surgery Z98.890 RIGHT HAND 2014 LEFT HAND 2016 History of delivery Z98.891 04/28/2006, 08/13/2007 S/P left oophorectomy Onset Date: ~10/14/18 Z90.721 Lap, extensive lysis of adhesions Surgical History: hysterectomy, - - left 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 Smoking Status: Current every day smoker Review of Systems Constitutional: Reports: Chills Cardiovascular: Denies: Chest Pain, Syncope Respiratory: Denies: Cough Gastrointestinal: Reports: Abdominal Pain, Nausea, - - positive flatus Genitourinary: Denies: Dysuria Gynecological: Denies: Vaginal bleeding, Vaginal discharge Musculoskeletal: Denies: Back Pain Patient Problems: Active and Suspected Problems (Last Reviewed 11/01/18 @ 14:29 by Lyela Brasher) Adnexal cyst (Acute) Pelvic pain (Acute) - Physical Exam General: Alert, Oriented x3 HEENT: Normocephalic Neck: Thyroid Normal Size and Texture Lungs: Normal air movement Cardiovascular: Regular rate Abdomen: Non-Distended, Passing Flatus, Tender Extremities: No edema Skin: No rashes Psych/Mental Status: Normal Affect Vital Signs Temp Pulse Resp BP Pulse Ox 97.9 F 90 14 121/87 H 100 01/03/19 22:25 01/03/19 22:25 01/04/19 00:00 01/03/19 22:25 01/03/19 22:25 Oxygen Delivery Method Room Air Weight: 235 lb 0.204 oz Body Mass Index (BMI) 41.6 Finger Stick Blood Glucose 106 Laboratory Tests Past 24 Hrs 01/03/19 01/03/19 01/03/19 21:18 21:31 21:31 WBC 11.0 RBC 4.36 Hgb 13.0 Hct 39.4 MCV 90.4 MCH 29.8 MCHC 33.0 RDW Std Deviation 44.1 H RDW Coeff of Terry 13.3 Plt Count 318 MPV 10.6 Immature Gran % (Auto) 0.400 Neut % (Auto) 64.9 Lymph % (Auto) 25.7 Mcminn % (Auto) 7.4 Eos % (Auto) 1.2 Baso % (Auto) 0.4 Absolute Neuts (auto) 7.1 Absolute Lymphs (auto) 2.82 Nucleated RBC % 0 Sodium 136 Potassium 4.1 Chloride 106 Carbon Dioxide 25.0 Anion Gap 5 BUN 11 Creatinine 0.72 Estim Creat Clear Calc 94.51 Est GFR (MDRD) Af Amer 122 Est GFR (MDRD) Non-Af 101 BUN/Creatinine Ratio 15.3 Glucose 87 Calcium 9.0 Serum , Qual Urine Color Yellow Urine Clarity Sl. Cloudy Urine pH 5.0 Ur Specific Alviso 1.025 Urine Protein 15 H Urine Glucose (UA) Normal Urine Ketones 5 H Urine Occult Blood Negative Urine Nitrite Negative Urine Bilirubin Negative Urine Urobilinogen Normal Ur Leukocyte Esterase 25 H Urine RBC 0-5 SEEN Urine WBC 5-10 SEEN Ur Squamous Epith Cells 0-5 SEEN Urine Bacteria 1+ Urine Mucus 0 SEEN 01/03/19 21:31 WBC RBC Hgb Hct MCV MCH MCHC RDW Std Deviation RDW Coeff of Terry Plt Count MPV Immature Gran % (Auto) Neut % (Auto) Lymph % (Auto) Mcminn % (Auto) Eos % (Auto) Baso % (Auto) Absolute Neuts (auto) Absolute Lymphs (auto) Nucleated RBC % Sodium Potassium Chloride Carbon Dioxide Anion Gap BUN Creatinine Estim Creat Clear Calc Est GFR (MDRD) Af Amer Est GFR (MDRD) Non-Af BUN/Creatinine Ratio Glucose Calcium Serum , Qual NEGATIVE Urine Color Urine Clarity Urine pH Ur Specific [place] Urine Protein Urine Glucose (UA) Urine Ketones Urine Occult Blood Urine Nitrite Urine Bilirubin Urine Urobilinogen Ur Leukocyte Esterase Urine RBC Urine WBC Ur Squamous Epith Cells Urine Bacteria Urine Mucus Assessment/Plan All Active Problems (Last Reviewed 11/01/18 @ 14:29 by Leyla Brasher) Adnexal cyst (Acute) Pelvic pain (Acute) Ovarian cyst (Acute) Acute pelvic pain (Acute) Intra-abdominal adhesions (Acute) 28 yo presents with left pelvic cystic mass and pain, ovarian remnant vs fluid collection discussed with patients options of STO and general surgery consult for surgical evaluation. patient requesting to be managed as an outpatient and fu in the office tomorrow and have imaging done. patient stable for discharge to be followed up closely as OP. ct home [facility] [place] script and fu in office 01/04/19 for general surgery consult Multi Select Codes - Visit Charges Office Visit/Consults: [id number] OV L4 Est
[2019-01-04] MEDS: HYDROmorphone 1 MG/ML Syringe IV (01:55)
[2019-01-04] MEDS: proMETHazine 25 MG/ML Syringe 12.5 MG IV (01:55)
[2019-01-04 02:11] VITALS: PULSE 97; RESP 14; O2SAT 98
== END 2019-01-04 02:12 | disposition home or self-care (01) ==
PROVIDERS: Emergency Provider Emergency Medicine; Family Provider Family Medicine; PCP Family Medicine
DX: N83.8 Other noninflammatory disorders of ovary, fallopian tube and broad ligament (principal); R10.2 Pelvic and perineal pain; Z90.721 Acquired absence of ovaries, unilateral; Z72.0 Tobacco use
CPT/HCPCS: 74177; 80048; 81001; 84703; 85025; 96374; 96375; 96376; 99283; Q9967; A4216; J2405

== ENCOUNTER → 2019-01-04 11:36 | Outpatient (CLI) | payer MEDICAID, SELFPAY ==
[2019-01-03 20:05] VITALS: BMI 41.6
[2019-01-04 11:58] VITALS: BP 115/70; PULSE 86; RESP 14; TEMP 37.1; O2SAT 99; BMI 41.3
--- NOTE | 2019-01-04 12:45 | NURSING ---
DR MACHADO TO BEDSIDE TO SPEAK WITH PT AND S.O. ABOUT PROCEDURE. PT NOT IN AGREEMENT TO HAVE DRAIN EXITING BUTTOCK AREA DESPITE RISK FOR ANTERIOR ENTRY. [facility] ALSO AT BEDSIDE SPEAKING WITH PT. TO REFUSED PROCEDURE. FIELD SUPPORT ENGINEERCRYSTAL, NOTIFIED DR ALEXANDER OF PATIENT'S WISHES. THIS RN CALLED DR RUFFIN AND LEFT VMAIL WITH CALL BACK NUMBER TO UPDATE ON PT.
[2019-01-04 13:02] LABS: Absolute Lymphocyte Count 2.05 X10^3/uL (0.83-4.51); Absolute Neutrophil Count 5.3 X10^3/uL (2.0-7.7); Basophil# 0.04 X10^3/uL; Basophil% 0.5 % (0-1); Eosinophil# 0.12 X10^3/uL; Eosinophils% 1.5 % (0-5); Hematocrit 38.1 % (37-47); Hemoglobin 12.3 g/dL (12.0-15.0); Lymphocyte # 2.05 X10^3/ul (4.0); Lymphocyte % 25.2 % (19-41); Mean Corp Hgb Conc 32.3 g/dL (32-36); Mean Corpuscular Hgb 29.3 pg (27.0-32.0); Mean Corpuscular Volume 90.7 fL (81-99); Mean Platelet Vol. 10.7 fl (6.2-12.0); Monocyte# 0.64 X10^3/uL; Monocyte% 7.9 % (0-10); NRBC Flagged by Analyzer 0 % (0-5); Neutrophil # 5.27 X10^3/uL (2.7-7.7); Neutrophil % 64.5 % (47-70); Platelet Count 280 K/mm3 (150-450); RBC Distribution Width CV 13.4 % (11.6-14.6); RBC Distribution Width SD 44.1 fl (35.1-43.9); White Blood Count 8.2 K/mm3 (4.4-11.0)
[2019-01-04 13:07] LABS: Anion Gap 3 (5-15); BUN 10 mg/dL (7-18); Calcium,Total 8.8 mg/dL (8.5-10.1); Chloride 107 mmol/L (98-107); Creatinine, Serum 0.71 mg/dL (0.55-1.02); EST Glomerular Filtration Rate 102 mL/min (>60); Est Glom Filt Rate - Afr Amer 123 mL/min (>60); Estimated Creatinine Clearance 95.84 ml/min; Glucose 89 mg/dL (74-106); Potassium 4.1 mmol/L (3.5-5.1); Sodium Level 137 mmol/L (136-145)
[2019-01-05 15:07] LABS: Cancer Antigen 125 2303 10.8 U/mL (0.0-38.1)
== END ==
PROVIDERS: Obstetrics & Gynecology; Family Provider Family Medicine; PCP Family Medicine; Referring Provider Surgery; Visit Provider Surgery
DX: R19.00 Intra-abdominal and pelvic swelling, mass and lump, unspecified site (principal); N83.209 Unspecified ovarian cyst, unspecified side; N94.9 Unspecified condition associated with female genital organs and menstrual cycle
CPT/HCPCS: 80048; 85025; 86304; J7040; A4216

== ENCOUNTER 2019-01-05 20:12 | Emergency (ER) | payer MEDICAID, SELFPAY ==
[2019-01-04 11:58] VITALS: BMI 41.3
[2019-01-05 20:13] VITALS: BP 120/83; PULSE 96; RESP 24; TEMP 36.3; O2SAT 98; BMI 44.2
[2019-01-05 22:27] VITALS: BP 115/78; PULSE 92; RESP 14; O2SAT 98
--- NOTE | 2019-01-05 22:51 | US_ITS ---
HISTORY: Follow-up adnexal cyst. Severe pain. Hysterectomy. Left ovary was removed. Ovarian remnant remains. Comparison CT scan is dated January 03, 2019 Previous ultrasound is available from October 13, 2018. 65 images. Findings: Transabdominal imaging: The left ovarian cystic mass is demonstrated. The uterus is been removed. The right ovary is not identified. No free fluid is perceived. Endovaginal imaging: The left ovary and cystic mass on the left ovary measured 13.3 x 7.9 x 8.4 cm It has well-defined margins and is anechoic centrally. There is an invagination of the second septated cystic portion into the depth of the lesion. Normal left ovarian parenchyma about the cyst is not perceived. Right ovarian remnant is demonstrated. It measures 2.5 x 1.7 x 2 cm. Color Doppler imaging fails to demonstrate flow within the right ovary. Pulse-wave Doppler imaging suggests possible flow. US/Transvaginal Non- IMPRESSION: 13.3 x 7.9 x 8.4 cm cystic left adnexal mass consistent with a left ovarian cyst similar to that seen on the recent CT scan. This structure is very similar to the ultrasound of October 13, 2018. The previous study better demonstrated the compressed left ovarian parenchyma in the periphery of the cysts. Absence of change suggests benignity. As I cannot identify any left ovarian parenchyma, I cannot assess for blood flow to the left ovarian parenchyma. Therefore, I cannot exclude left ovarian torsion. at 0006 Reported and signed by: Nixon Goldman MD Electronically Signed: Nixon Goldman MD at 0:05 EDT Tel , Service support ,
[2019-01-05] MEDS: 0.9% Normal Saline 1,000 ML 1000 ML IV (23:09)
[2019-01-05] MEDS: Ondansetron 4 MG/2 ML Vial IV (23:09)
[2019-01-05] MEDS: fentaNYL 100 MCG/2 ML Ampul 50 MCG IV (23:09)
[2019-01-05 23:10] LABS: Absolute Lymphocyte Count 2.85 X10^3/uL (0.83-4.51); Absolute Neutrophil Count 5.7 X10^3/uL (2.0-7.7); Basophil# 0.03 X10^3/uL; Basophil% 0.3 % (0-1); Eosinophil# 0.14 X10^3/uL; Eosinophils% 1.5 % (0-5); Hematocrit 35.9 % (37-47); Hemoglobin 11.6 g/dL (12.0-15.0); Lymphocyte # 2.85 X10^3/ul (4.0); Lymphocyte % 30.1 % (19-41); Mean Corp Hgb Conc 32.3 g/dL (32-36); Mean Corpuscular Hgb 29.5 pg (27.0-32.0); Mean Corpuscular Volume 91.3 fL (81-99); Mean Platelet Vol. 10.7 fl (6.2-12.0); Monocyte# 0.74 X10^3/uL; Monocyte% 7.8 % (0-10); NRBC Flagged by Analyzer 0 % (0-5); Neutrophil # 5.68 X10^3/uL (2.7-7.7); Platelet Count 287 K/mm3 (150-450); RBC Distribution Width CV 13.5 % (11.6-14.6); RBC Distribution Width SD 45.4 fl (35.1-43.9); Red Blood Count 3.93 M/mm3 (4.2-5.4); White Blood Count 9.5 K/mm3 (4.4-11.0)
[2019-01-05 23:14] LABS: Partial Thromboplast Time 30.2 Seconds (24.1-36.2); Prothrombin Time (Protime)PT. 12.6 SECONDS (11.7-14.9)
[2019-01-05 23:21] LABS: Anion Gap 4 (5-15); BUN 12 mg/dL (7-18); BUN/Creat Ratio 15.6 RATIO (10-20); Calcium,Total 8.9 mg/dL (8.5-10.1); Chloride 107 mmol/L (98-107); Creatinine, Serum 0.77 mg/dL (0.55-1.02); EST Glomerular Filtration Rate 93 mL/min (>60); Est Glom Filt Rate - Afr Amer 113 mL/min (>60); Estimated Creatinine Clearance 88.37 ml/min; Glucose 83 mg/dL (74-106); Potassium 4.1 mmol/L (3.5-5.1); Sodium Level 139 mmol/L (136-145)
--- NOTE | 2019-01-05 23:41 | ED.VIS.GEN ---
History of Present Illness Chief Complaint: Abd Pain Informant: Patient Onset: Days - 10 Narrative: Patient having lower pelvis pain left side past 10 days. History of hysterectomy, reports 10 weeks ago had her left ovary removed due to large cyst by Dr. Weems. Reports was in the ED 2 evenings ago found to have a large cyst left adnexa reporting to having remnants of the ovary. She reports Dr. Weems did see her in the emergency department, reports that plans of admission for surgery. Reports there were calls made to surgery team, stating that her that decision was made for percutaneous drainage. She states she went outpatient yesterday, due to her anxiety, was unable to get it performed, therefore was told she needed to find a specialist that could perform it for her. This evening 2 hours ago, this was prior to arrival she is felt a tearing sensation with pain in her pelvis. Nausea without vomiting. No fevers. Still has her right ovary however no pain on that side. Review of records noted CT scan performed 2 evenings ago noted a large left ovarian complex cyst lesion. Largest diameter 10.8 cm. Prior similar symptoms: Yes Past Medical History - Allergies and Home Meds Allergies/Adverse Reactions: Allergies nickel Allergy (Verified 01/05/19 22:25) Rash diphenhydramine [From Benadryl] Adverse Reaction (Verified 01/05/19 22:25) Other morphine Adverse Reaction (Verified 01/05/19 22:25) Other NUCOPHED Allergy (Uncoded 01/05/19 22:25) Swelling Primary Care Physician: Stefan Aguiar MD [Primary Care Provider] - Surgical History: hysterectomy, - - left oophorectomy 10/14/18 Smoking Status: Current every day smoker Review of Systems General: Denies: Chills, Fever, Sweats Eyes: Denies: Visual changes - bilaterally, Diplopia ENT: Denies: Rhinorrhea, Sore throat Cardiovascular: Denies: Chest pain, Palpitations Respiratory: Denies: Dyspnea, Cough, Dyspnea on exertion Gastrointestinal: Reports: Nausea. Denies: Abdominal pain, Vomiting, Diarrhea, Melena, Hematochezia Genitourinary: Reports: - - Pelvic pain. Denies: Dysuria, Hematuria, Frequency Musculoskeletal: Denies: Back pain, Extremity Pain Skin: Denies: Rash, Wounds Neurological: Denies: Headache, Weakness, Numbness Physical Exam Vital Signs/Narrative: Vital Signs Temp Pulse Resp BP Pulse Ox 01/05/19 22:27 92 14 115/78 98 01/05/19 20:13 97.3 F L 96 24 H 120/83 H 98 Inital Vital Signs reviewed: Yes General: Well nourished, Well developed, Obese, - - Tearful, nontoxic Head: Normocephalic, Atraumatic Eyes: Perrl, EOMI ENT: Moist mucous membranes, No rhinorrhea Neck: Supple, Nontender Cardiovascular: Regular rate, Regular rhythm, No murmurs Respiratory: No distress, CTA bilaterally, Chest nontender Abdomen: Soft, Nondistended, Normal bowel sounds, - - Tender at left pelvis without guarding or rebound Back: Nontender, Normal Inspection Extremities: Nontender, No edema Skin: Normal color, No rash Neurological: Alert, Oriented x3, Cranial nerves II-XII grossly intact, Normal Strength, Normal Sensation Psychological: Tearful Diagnostic/Tx/Re-eval - Medical Decision Making After evaluation with her reported history, I discussed with Dr. Weems knows the patient well, states she saw the patient had multiple calls to the specialist from different hospitals including [facility], reports with the discussions the recommendations for was for percutaneous drainage and not surgery. Reports there was 2 attempts for percutaneous drainage however with her anxiety this was discontinued. She reports that she told the patient she would admit the patient for plan sedation through the OR for the procedure however patient reported to her that she had to get to a job therefore declined that admission. She reports and agrees with laboratory work-up and ultrasound for evaluation. States the cyst is still there she will she is willing to keep the patient for plan OR for the percutaneous drainage. Currently results are pending. Clinical Impression(s) from Imaging Studies Transvaginal US 01/05/19 22:51 IMPRESSION: 13.3 x 7.9 x 8.4 cm cystic left adnexal mass consistent with a left ovarian cyst similar to that seen on the recent CT scan. This structure is very similar to the ultrasound of October 13, 2018. The previous study better demonstrated the compressed left ovarian parenchyma in the periphery of the cysts. Absence of change suggests benignity. As I cannot identify any left ovarian parenchyma, I cannot assess for blood flow to the left ovarian parenchyma. Therefore, I cannot exclude left ovarian torsion. at 0006 Reported and signed by: Nixon Goldman MD Electronically Signed: Nixon Goldman MD at 0:05 EDT Tel , Service support , Abnormal Lab Results 01/05/19 01/05/19 01/05/19 22:40 22:40 22:40 WBC 9.5 RBC 3.93 L Hgb 11.6 L Hct 35.9 L MCV 91.3 MCH 29.5 MCHC 32.3 RDW Std Deviation 45.4 H RDW Coeff of Terry 13.5 Plt Count 287 MPV 10.7 Immature Gran % (Auto) 0.300 Neut % (Auto) 60.0 Lymph % (Auto) 30.1 Assumption % (Auto) 7.8 Eos % (Auto) 1.5 Baso % (Auto) 0.3 Absolute Neuts (auto) 5.7 Absolute Lymphs (auto) 2.85 Nucleated RBC % 0 PT 12.6 INR 1.0 APTT 30.2 Sodium 139 Potassium 4.1 Chloride 107 Carbon Dioxide 28.0 Anion Gap 4 L BUN 12 Creatinine 0.77 Estim Creat Clear Calc 88.37 Est GFR (MDRD) Af Amer 113 Est GFR (MDRD) Non-Af 93 BUN/Creatinine Ratio 15.6 Glucose 83 Calcium 8.9 Patient treated for pain symptoms labs are stable. Ultrasound noted adnexal cyst 13.3 cm at its largest. Report of radiology cannot rule out ovarian torsion however over has been removed. Reevaluation the patient, she discussed again that she had a second opinion from the [facility] gynecology yesterday morning prior to her potential procedure. Reported that she surgery can be performed into Wednesdays. I discussed the plan of care from gynecology here, she did not want percutaneous drainage therefore she did not want admission. Discussed with patient she needs to follow-up with her medical insurance coding specialist for care that she desires, discuss if she has worsening symptoms she discussed with her knee specialist for definitive treatment. All questions were answered. I did update Dr. Weems. ED Disposition - Plan for ED Patient: Disposition: Home or Assisted Living Diagnosis: complex left adnexal cyst Prescriptions: Ondansetron [Zofran Odt] 4 mg PO Q8H PRN PRN #10 tablet PRN Reason: Nausea Referrals: Stefan Aguiar MD [Primary Care Provider] - Additional Instructions: Follow-up with your bi lead specialist at [facility] as you have scheduled for definitive treatment.
[2019-01-06 00:38] VITALS: BP 118/87; PULSE 80; RESP 15; O2SAT 98
[2019-01-06] MEDS: HYDROmorphone 1 MG/ML Syringe IV (00:39)
[2019-01-06] MEDS: Ondansetron 4 MG/2 ML Vial IV (00:41)
[2019-01-06 00:44] VITALS: BP 118/87; PULSE 87; RESP 16; O2SAT 98
== END 2019-01-06 00:59 | disposition home or self-care (01) ==
PROVIDERS: Emergency Provider Emergency Medicine; Family Provider Family Medicine; PCP Family Medicine
DX: N83.202 Unspecified ovarian cyst, left side (principal); F17.200 Nicotine dependence, unspecified, uncomplicated; E66.9 Obesity, unspecified
CPT/HCPCS: 76830; 80048; 85025; 85610; 85730; 93976; 96361; 96374; 96375; 96376; 99283; J7030; A4216; J2405

== ENCOUNTER 2019-06-22 16:44 | Emergency (ER) | payer MEDICAID, SELFPAY ==
[2019-06-22 16:45] VITALS: BP 129/74; PULSE 106; RESP 16; TEMP 36.6; O2SAT 98; BMI 42.5
--- NOTE | 2019-06-22 17:12 | ED.VIS.GEN ---
History of Present Illness Chief Complaint: Abd Pain Detail of Chief Complaint: Poor a couple of weeks now severe stabbing with nausea and vomiting Informant: Patient Onset: Today - They severe described as stabbing, Weeks Context: Sudden Onset - Suddenly worse today. Timing: Intermittent Quality: Pain Location: Left of the umbilicus Current Severity: Mild Maximum Severity: Moderate Worsened by: Movement, vomiting Relieved by: Nothing Associated Symptoms: No associated fever or chills. History diarrhea secondary to IBD Narrative: Patient is a 29-year-old woman who presents with abdominal pain that is been present for 2 to 3 weeks. The pain abruptly got worse today and associated with nausea and vomiting. She is had diarrhea 3-4 times per day. She has history of Crohn's. She has not noted any blood in the stool. She is scheduled for an EGD and colonoscopy by Dr. Munoz. She did have laparoscopic surgery by Dr. Munoz and Dr. Jania Frost for adhesions and ovarian cyst that needed removal. She denies fever or chills. She denies night sweats. She denies unintentional weight loss. She does complain of headache with visual disturbance secondary to pseudotumor cerebri . She denies rhinorrhea, congestion or postnasal drainage. Denies sore throat. She denies cough or shortness of breath. She denies chest discomfort. She denies dysuria, frequency, urgency or hematuria. Prior similar symptoms: Yes Recent Illness/Hospitalization: No - Past Medical History (1) Intra-abdominal adhesions Status: Acute (2) Ovarian cyst Status: Acute (3) History of abdominoplasty Status: Chronic (4) Sacroiliac joint dysfunction Status: Chronic Past Medical History - Allergies and Home Meds Allergies/Adverse Reactions: Allergies nickel Allergy (Verified 06/22/19 16:48) Rash diphenhydramine [From Benadryl] Adverse Reaction (Verified 06/22/19 16:48) Other morphine Adverse Reaction (Verified 06/22/19 16:48) Other NUCOPHED Allergy (Uncoded 06/22/19 16:48) Swelling Primary Care Physician: Bertrand Bailey,Out of [NON-STAFF] - Prior records reviewed: Yes Surgical History: hysterectomy, - - left oophorectomy 10/14/18 Lives: Spouse/ Significant Other Smoking Status: Current every day smoker Alcohol: Rare Drugs: None Review of Systems General: Denies: Chills, Fever, Malaise, Sweats, Weight loss Eyes: Denies: Visual changes - bilaterally, Blurred Vision - bilaterally ENT: Denies: Rhinorrhea, Sore throat Cardiovascular: Denies: Chest pain, Palpitations Respiratory: Denies: Dyspnea, Cough, Dyspnea on exertion Gastrointestinal: Reports: Abdominal pain, Nausea, Vomiting, Diarrhea. Denies: Constipation, Melena, Hematochezia Genitourinary: Denies: Dysuria, Hematuria, Frequency Musculoskeletal: Denies: Myalgias, Arthralgias, Neck pain, Back pain, Swelling, Extremity Pain, -, - Skin: Denies: Rash, Wounds Endocrine: Denies: Polyuria, Polydipsia Hematologic: Denies: Easy bruising, Easy bleeding Physical Exam Vital Signs/Narrative: Vital Signs Temp Pulse Resp BP Pulse Ox 06/22/19 16:45 97.8 F 106 H 16 129/74 H 98 Inital Vital Signs reviewed: Yes General: Well nourished, Well developed, Obese, Acute Distress Head: Normocephalic, Atraumatic Eyes: Perrl, EOMI. Negative for: Pale conjunctiva, Scleral icterus ENT: No rhinorrhea, TM's clear. Negative for: Nasal congestion Neck: Supple, Nontender, No lymphadenopathy, No JVD Cardiovascular: Regular rate, Regular rhythm, No murmurs, Normal S1, Normal S2 Respiratory: No distress, CTA bilaterally, Chest nontender Abdomen: Soft, Nondistended, Normal bowel sounds, No masses, Ventral hernia. Negative for: Nontender Rectal: Deferred Back: Nontender, Normal Inspection Extremities: Nontender, No edema Skin: Normal color, No rash Neurological: Alert, Oriented x3, Cranial nerves II-XII grossly intact, Normal Strength, Normal Sensation Psychological: Normal affect, Normal Mood Diagnostic/Tx/Re-eval Impressions Abdomen/Pelvis CT 06/22/19 18:36 IMPRESSION: Resolution of the large lobulated cystic mass along the left pelvic sidewall on the prior study. The remainder of the findings are grossly unchanged. Electronically Signed: Luis Strickland DO at 20:30 EST Tel [phone], Service support , 06/22/19 18:36 Abdomen/Pelvis WITH Contrast [CT] Stat Laboratory Results 06/22/19 06/22/19 17:15 17:15 WBC 11.3 H RBC 4.53 Hgb 13.3 Hct 40.7 MCV 89.8 MCH 29.4 MCHC 32.7 RDW Std Deviation 45.1 H RDW Coeff of Terry 13.7 Plt Count 322 MPV 10.6 Immature Gran % (Auto) 0.400 Neut % (Auto) 68.6 Lymph % (Auto) 21.9 Nelson % (Auto) 7.1 Eos % (Auto) 1.6 Baso % (Auto) 0.4 Absolute Neuts (auto) 7.7 Absolute Lymphs (auto) 2.46 Nucleated RBC % 0 Sodium 136 Potassium 3.9 Chloride 105 Carbon Dioxide 26.0 Anion Gap 5 BUN 12 Creatinine 0.81 Estim Creat Clear Calc 86.90 Est GFR (MDRD) Af Amer 105 Est GFR (MDRD) Non-Af 87 BUN/Creatinine Ratio 14.7 Glucose 130 H Calcium 8.9 Since her white count was elevated CT was obtained. CT does not reveal any acute pathology to explain her pain or leukocytosis. Patient was informed of her results. She was discharged home. She was directed keep her appointment with Dr. Munoz for scheduled EGD and colonoscopy. - Medical Decision Making Patient reported ripping pain when she coughed and je from a supine position. There may be a ventral hernia. Will administer IV analgesia and will obtain blood work. Once patient's pain has improved we will reevaluate to determine if imaging is warranted. Inform the etiology of her pain is unknown. Patient asked if supplements she is taking could cause this. Her significant other states that her pain started when she started taking the supplements. I recommended not taking supplements. ED Disposition - Plan for ED Patient: Disposition: Home or Assisted Living Diagnosis: Abdominal pain of unknown etiology Instructions: ABDOMINAL PAIN, Unknown Cause, (Female) Referrals: [facility] Doctor,Out of [NON-STAFF] - Lazaro Munoz MD [STAFF PHYSICIAN] - Keep Sharyn appointment Additional Instructions: I recommend that you discontinue taking the supplement since the pain started after you taking the dietary supplements.
[2019-06-22] MEDS: Ketorolac 15 MG/ML Vial IV (17:22)
[2019-06-22 17:42] LABS: Anion Gap 5 (5-15); BUN 12 mg/dL (7-18); BUN/Creat Ratio 14.7 RATIO (10-20); Calcium,Total 8.9 mg/dL (8.5-10.1); Chloride 105 mmol/L (98-107); Creatinine, Serum 0.81 mg/dL (0.55-1.02); EST Glomerular Filtration Rate 87 mL/min (>60); Est Glom Filt Rate - Afr Amer 105 mL/min (>60); Glucose 130 mg/dL (74-106); Potassium 3.9 mmol/L (3.5-5.1); Sodium Level 136 mmol/L (136-145)
[2019-06-22 17:50] LABS: Absolute Lymphocyte Count 2.46 X10^3/uL (0.83-4.51); Absolute Neutrophil Count 7.7 X10^3/uL (2.0-7.7); Basophil# 0.05 X10^3/uL; Basophil% 0.4 % (0-1); Eosinophil# 0.18 X10^3/uL; Eosinophils% 1.6 % (0-5); Hematocrit 40.7 % (37-47); Hemoglobin 13.3 g/dL (12.0-15.0); Lymphocyte # 2.46 X10^3/ul (4.0); Lymphocyte % 21.9 % (19-41); Mean Corp Hgb Conc 32.7 g/dL (32-36); Mean Corpuscular Hgb 29.4 pg (27.0-32.0); Mean Corpuscular Volume 89.8 fL (81-99); Mean Platelet Vol. 10.6 fl (6.2-12.0); Monocyte% 7.1 % (0-10); NRBC Flagged by Analyzer 0 % (0-5); Neutrophil # 7.72 X10^3/uL (2.7-7.7); Neutrophil % 68.6 % (47-70); Platelet Count 322 K/mm3 (150-450); RBC Distribution Width CV 13.7 % (11.6-14.6); RBC Distribution Width SD 45.1 fl (35.1-43.9); Red Blood Count 4.53 M/mm3 (4.2-5.4); White Blood Count 11.3 K/mm3 (4.4-11.0)
--- NOTE | 2019-06-22 18:36 | CT_ITS ---
STUDY: CT ABDOMEN AND PELVIS WITH CONTRAST REASON FOR EXAM: Female, 29 years old. Pain and vomiting. Leukocytosis. History of kidney stones. History of hysterectomy. RADIATION DOSAGE (If Supplied By Facility): CTDIvol = ( 19.40 ) mGy, DLP = ( 1420.48 ) mGycm TECHNIQUE: Transaxial images were obtained from the dome of the diaphragm to the symphysis pubis with oral contrast. Oral and amp; IV Gastrografin and amp; 100mL Isovue-300 was administered. Sagittal and coronal images were reconstructed. Individualized dose optimization techniques were used for this CT. COMPARISON: January 03, 2019. FINDINGS: The visualized lung bases are unremarkable. The visualized portions of the heart are within normal limits. The liver is enlarged. There is a irregular low attenuation area in the mid right lobe may represent a partially filled in hemangioma. Vague low attenuations are also seen about the right portal vein. Normal gallbladder and extrahepatic biliary system. There are multiple benign calcified granulomata of the spleen. Normal pancreas. Normal bilateral adrenal glands. Normal right kidney. Normal left kidney. Normal visualized stomach. Normal small intestine. Normal colon. The appendix is visualized and appears normal. Normal abdominal aorta. Normal inferior vena cava. Normal retroperitoneum. Normal urinary bladder. Normal vaginal cuff. No pelvic lymphadenopathy. There is follicles seen within a retained right ovary along the right pelvic sidewall. There is a small hypodensity along the left pelvic sidewall which may represent a small retained ovary. Large cystic mass in this area on the prior study is now absent. No free air or free fluid is seen within the peritoneal cavity. Umbilical hernia of omental fat. Stable osseous changes. CT/Abdomen/Pelvis WITH Contrast IMPRESSION: Resolution of the large lobulated cystic mass along the left pelvic sidewall on the prior study. The remainder of the findings are grossly unchanged. Electronically Signed: Luis Strickland DO at 20:30 EST Tel [phone], Service support ,
[2019-06-22] MEDS: Ondansetron ODT 4 MG Tablet PO (18:47)
[2019-06-22 21:12] VITALS: BP 121/95; PULSE 81; RESP 16; O2SAT 99
[2019-06-22 22:07] VITALS: PULSE 89; RESP 16; O2SAT 98
== END 2019-06-22 22:07 | disposition home or self-care (01) ==
PROVIDERS: Emergency Provider Emergency Medicine; PCP Nurse Practitioner Primary Care
DX: R10.33 Periumbilical pain (principal); E66.9 Obesity, unspecified; F17.200 Nicotine dependence, unspecified, uncomplicated
CPT/HCPCS: 74177; 80048; 85025; 96374; 99284; Q9967; A4216

== ENCOUNTER 2019-07-27 07:48 | Day surgery (SDC) | payer MEDICAID, SELFPAY ==
[2019-07-06 08:57] VITALS: BMI 42.5
--- NOTE | 2019-07-06 11:48 | HP_ITS ---
Intake Vital Signs 07/06/19 Height 5 ft 4 in 07/06/19 Weight: 243 lb 1 oz 07/06/19 BMI 41.7 07/06/19 BP 104/70 07/06/19 Blood Pressure Location Rt brachial 07/06/19 Position Sitting 07/06/19 Respiration 18 07/06/19 Pulse 87 07/06/19 Pulse Oximetry (%) 99 Intake Visit Reasons: Colonoscopy Chief Complaint: abd pain Pillowcase Cleaner Required: No Is patient in pain?: No Allergies diphenhydramine [From Benadryl] Allergy (Mild, Verified 07/06/19 08:55) rash nickel Allergy (Verified 06/22/19 16:48) Rash morphine Adverse Reaction (Verified 07/06/19 08:55) mental status change NUCOPHED Allergy (Uncoded 06/22/19 16:48) Swelling Medications Chrom Yariel/Brindal Childs [Garcinia Cambogia Tablet] 3 ea PO BIDCM 06/22/19 [History Confirmed 07/06/19] Ergocalciferol [Vitamin D] 50,000 unit PO TUSA 06/22/19 [History Confirmed 07/06/19] Mills-3 Fatty Acids/Fish Oil [Fish Oil 1,000 mg Capsule] 1 ea PO DAILY 06/22/19 [History Confirmed 07/06/19] bisacodyl 5 mg tablet,delayed release 5 mg PO ONCE PRN 07/06/19 [History Confirmed 07/06/19] calcium carbonate 200 mg calcium (500 mg) chewable tablet 200 mg PO BID PRN 07/06/19 [History Confirmed 07/06/19] ferrous sulfate 325 mg (65 mg iron) tablet 325 mg PO DAILY 07/06/19 [History Confirmed 07/06/19] Is last menstrual period known: No Post menopausal: No Patient : No PFSH Medical History Anxiety (Acute) Carpal tunnel syndrome (Acute) Fatigue (Acute) GERD (gastroesophageal reflux disease) (Acute) Headache (Acute) pseudo angel cerebri (Acute) Surgical History H/O: hysterectomy (Acute) History of abdominoplasty (Acute) History of arthroplasty of right knee (Acute) History of carpal tunnel surgery (Acute) History of delivery (Acute) S/P left oophorectomy (Acute ~10/14/18) Family History Mother Arthritis High cholesterol Thyroid disorder Diabetes Grandmother History of blood transfusion Bowel disease Skin cancer Colon cancer Diabetes Kidney disease Breast cancer Heart disease Grandfather Diabetes Hypertension CVA (cerebral vascular accident) Kidney disease Colon cancer Father Diabetes Heart disease High cholesterol Hypertension Social History (Updated 07/06/19 @ 11:48 by Lazaro Munoz MD) Smoking Status: Current every day smoker alcohol intake: never substance use type: does not use caffeine: Yes what type of physical activity do you participate in: none seatbelt use: always do you feel safe at home: Yes 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 Patient has had a longstanding history of persistent lower abdominal pain that is fairly constant she has alternating diarrhea constipation and every once in a while will notice some rectal bleeding. She has significant GERD many times needs to take numerous times in order to relieve this. She has never had an upper endoscopy. In the past the patient has had a CAT scan which showed some thickening of the right side of her colon. ROS General General: Yes fatigue; no weight change, appetite, colon cancer, breast cancer or weakness HEENT HEENT: No difficulty swallowing, eye injury, eye surgery, swollen glands or hoarseness Endo Endocrine: No thyroid disease, diabetes mellitus, thyroid cancer, Hair loss, heat intolerance or cold intolerance Musc Musculoskeletal: Yes back problems; no arthritis, rheumatoid arthritis, gout or joint pain Cardio Cardiovascular: No murmur, pacemaker, heart disease, atrial fibrillation, high blood pressure, heart attack, heart stent, palpitations, shortness of breat with exertion or chest pain Psych Psychiatric: Yes anxiety; no depression or hearing voices Resp Respiratory: No shortness of breath, No sleep apnea, No cough, No COPD, No asthma, No emphysema, No wheezing Gastro Gastrointestinal: Yes abdominal pain, No nausea or vomiting, Yes diarrhea, Yes constipation, No blood in stool, No acid reflux, Yes hemorrhoids, No ulcers, No gallbladder problem, No black,tarry stools Paul Hematologic: No blood thinners, No blood disorders, No bleeding, No anemia, No blood clots Neuro Neurologic: No weakness Exam Const General: no acute distress, well developed, well hydrated Orientation: oriented to person, oriented to place, oriented to time [facility] Head: normocephalic, atraumatic Ears: external ears normal Mouth: moist mucous membranes Eyes Sclera: sclerae normal Pupils: normal by confrontation Neck Neck: no lymphadenopathy noted Neck mass: No Thyroid: thyroid normal, symmetrical Chest Chest palpation & inspection: normal inspection of the chest Resp Effort & Inspection: normal respiratory effort Auscultation: clear to auscultation bilaterally Percussion: percussion normal Cardio Rate: regular rate Rhythm: regular rhythm Heart Sounds: no murmurs GI Inspection: obesity Palpation: soft, no hepatosplenomegaly, no masses, nontender Rectal Exam: other Other: Rectal exam deferred. Extrem General: normal to inspection, no clubbing, cyanosis or edema Assessment & Plan Problems 1. Gastroesophageal reflux disease, esophagitis presence not specified K21.9 2. Rectal hemorrhage K62.5 3. Lower abdominal pain R10.30 Plan I have discussed the above with the patient. I have offered the patient colonoscopy As well as an EGDfor evaluation. I have explained the risks/benefits of the procedure and described the procedure. I have discussed the risks with the patient, including but not limited to: infection, bleeding, perforation of the GI tract requiring emergency surgery, inability to complete the procedure, injury to any internal organs, complications of anesthesia, etc. - the patient understands and agrees to proceed. I have answered all the patient's questions to the patient's satisfaction and the patient has no further questions. The patient has been given instructions for the colon cleansing preparation. We will be doing random colon biopsies on her. Coding Level of Care Code Off vis,new,level 3 Diagnoses Gastroesophageal reflux disease, esophagitis presence not specified K21.9 ??Esophagitis presence: esophagitis presence not specified Rectal hemorrhage K62.5 Lower abdominal pain R10.30 07/06/19 1149 <Electronically signed by Lazaro sadler MD> Date _ Lazaro Munoz MD
[2019-07-27 08:05] VITALS: BP 123/86; PULSE 100; RESP 20; TEMP 36.7; O2SAT 100; BMI 41.1
[2019-07-27] MEDS: Lactated Ringers 1,000 ML 100 ML IV (08:14)
--- NOTE | 2019-07-27 08:30 | HP.PCM_ITS ---
History and Physical Date of Admission: 07/27/19 [facility] Medical Records Department [address] [place] [address] History and Physical 07/06/19 1148 MR#: [id number] Acct: [id number] Name: GORAN MENDEZ Rep #:[id number] : 1990 29 From: Lazaro Munoz MD PCP: GREG Dueñas [place] [facility] [place] Intake Vital Signs 07/06/19 Height 5 ft 4 in 07/06/19 Weight: 243 lb 1 oz 07/06/19 BMI 41.7 07/06/19 BP 104/70 07/06/19 Blood Pressure Location Rt brachial 07/06/19 Position Sitting 07/06/19 Respiration 18 07/06/19 Pulse 87 07/06/19 Pulse Oximetry (%) 99 Intake Visit Reasons: Colonoscopy Chief Complaint: abd pain [employer] Counter Person Required: No Is patient in pain?: No Allergies diphenhydramine [From Benadryl] Allergy (Mild, Verified 07/06/19 08:55) rash nickel Allergy (Verified 06/22/19 16:48) Rash morphine Adverse Reaction (Verified 07/06/19 08:55) mental status change NUCOPHED Allergy (Uncoded 06/22/19 16:48) Swelling Medications Chrom Yariel/Brindal Childs [Garcinia Cambogia Tablet] 3 ea PO BIDCM 06/22/19 [History Confirmed 07/06/19] Ergocalciferol [Vitamin D] 50,000 unit PO TUSA 06/22/19 [History Confirmed 07/06/19] Edgerton-3 Fatty Acids/Fish Oil [Fish Oil 1,000 mg Capsule] 1 ea PO DAILY 06/22/19 [History Confirmed 07/06/19] bisacodyl 5 mg tablet,delayed release 5 mg PO ONCE PRN 07/06/19 [History Confirmed 07/06/19] calcium carbonate 200 mg calcium (500 mg) chewable tablet 200 mg PO BID PRN 07/06/19 [History Confirmed 07/06/19] ferrous sulfate 325 mg (65 mg iron) tablet 325 mg PO DAILY 07/06/19 [History Confirmed 07/06/19] Is last menstrual period known: No Post menopausal: No Patient : No PFSH Medical History Anxiety (Acute) Carpal tunnel syndrome (Acute) Fatigue (Acute) GERD (gastroesophageal reflux disease) (Acute) Headache (Acute) pseudo angel cerebri (Acute) Surgical History H/O: hysterectomy (Acute) History of abdominoplasty (Acute) History of arthroplasty of right knee (Acute) History of carpal tunnel surgery (Acute) History of delivery (Acute) S/P left oophorectomy (Acute ~10/14/18) Family History Mother Arthritis High cholesterol Thyroid disorder Diabetes Grandmother History of blood transfusion Bowel disease Skin cancer Colon cancer Diabetes Kidney disease Breast cancer Heart disease Grandfather Diabetes Hypertension CVA (cerebral vascular accident) Kidney disease Colon cancer Father Diabetes Heart disease High cholesterol Hypertension Social History (Updated 07/06/19 @ 11:48 by Lazaro Munoz MD) Smoking Status: Current every day smoker alcohol intake: never substance use type: does not use caffeine: Yes what type of physical activity do you participate in: none seatbelt use: always do you feel safe at home: Yes 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 Patient has had a longstanding history of persistent lower abdominal pain that is fairly constant she has alternating diarrhea constipation and every once in a while will notice some rectal bleeding. She has significant GERD many times needs to take numerous times in order to relieve this. She has never had an upper endoscopy. In the past the patient has had a CAT scan which showed some thickening of the right side of her colon. ROS General General: Yes fatigue; no weight change, appetite, colon cancer, breast cancer or weakness HEENT HEENT: No difficulty swallowing, eye injury, eye surgery, swollen glands or hoarseness Endo Endocrine: No thyroid disease, diabetes mellitus, thyroid cancer, Hair loss, heat intolerance or cold intolerance Musc Musculoskeletal: Yes back problems; no arthritis, rheumatoid arthritis, gout or joint pain Cardio Cardiovascular: No murmur, pacemaker, heart disease, atrial fibrillation, high blood pressure, heart attack, heart stent, palpitations, shortness of breat with exertion or chest pain Psych Psychiatric: Yes anxiety; no depression or hearing voices Resp Respiratory: No shortness of breath, No sleep apnea, No cough, No COPD, No asthma, No emphysema, No wheezing Gastro Gastrointestinal: Yes abdominal pain, No nausea or vomiting, Yes diarrhea, Yes constipation, No blood in stool, No acid reflux, Yes hemorrhoids, No ulcers, No gallbladder problem, No black,tarry stools Paul Hematologic: No blood thinners, No blood disorders, No bleeding, No anemia, No blood clots Neuro Neurologic: No weakness Exam Const General: no acute distress, well developed, well hydrated Orientation: oriented to person, oriented to place, oriented to time [facility] Head: normocephalic, atraumatic Ears: external ears normal Mouth: moist mucous membranes Eyes Sclera: sclerae normal Pupils: normal by confrontation Neck Neck: no lymphadenopathy noted Neck mass: No Thyroid: thyroid normal, symmetrical Chest Chest palpation & inspection: normal inspection of the chest Resp Effort & Inspection: normal respiratory effort Auscultation: clear to auscultation bilaterally Percussion: percussion normal Cardio Rate: regular rate Rhythm: regular rhythm Heart Sounds: no murmurs GI Inspection: obesity Palpation: soft, no hepatosplenomegaly, no masses, nontender Rectal Exam: other Other: Rectal exam deferred. Extrem General: normal to inspection, no clubbing, cyanosis or edema Assessment & Plan Problems 1. Gastroesophageal reflux disease, esophagitis presence not specified K21.9 2. Rectal hemorrhage K62.5 3. Lower abdominal pain R10.30 Plan I have discussed the above with the patient. I have offered the patient colonoscopy As well as an EGDfor evaluation. I have explained the risks/benefits of the procedure and described the procedure. I have discussed the risks with the patient, including but not limited to: infection, bleeding, perforation of the GI tract requiring emergency surgery, inability to complete the procedure, injury to any internal organs, complications of anesthesia, etc. - the patient understands and agrees to proceed. I have answered all the patient's questions to the patient's satisfaction and the patient has no further questions. The patient has been given instructions for the colon cleansing preparation. We will be doing random colon biopsies on her. Coding Level of Care Code Off vis,new,level 3 Diagnoses Gastroesophageal reflux disease, esophagitis presence not specified K21.9 ??Esophagitis presence: esophagitis presence not specified Rectal hemorrhage K62.5 Lower abdominal pain R10.30 07/06/19 1149 <Electronically signed by Lazaro sadler MD> Date _ Lazaro Munoz MD 07/07/19 1036 <Electronically signed by Lazaro sadler MD> Date: Time: __ Lazaro Munoz MD CC: [employer]OUNTS SUPERVISOR-C Jewel Caba; Lazaro Munoz MD ~ Date Dictated: 07/06/19 1148 Date Transcribed: 07/06/19 1551 Director Of Institutional Sales: NR Signed I have re-examined the patient. There are no clinical changes since date of exam.
--- NOTE | 2019-07-27 08:45 | GASB_PTH ---
PATIENT: GORAN MENDEZ LOC: EN U#:[id number] AGE/SX: 29/F ROOM: RE07/27/[address]: Dr. Lazaro Munoz MD : 1990 BED: DIS: 07/27/2019 SPEC #: [id number] RECD: 07/27/19 11:40 STATUS: MARILEE GREG #: [id number] STEPHANIE: 07/27/19 08:[address]: Lazaro Munoz DEPT: SURGICAL PATHOLOGY RECD BY: Sydney Ricardo ENTERED: 07/27/19 12:37 SP TYPE: Gastric Bx OTHR DR: Jewel Caba, DATA ENTRY ASSISTANT-C Tissues: A - BOWEL BIOPSY B - Gastric mucous membrane C - Colon, NOS Procedures: Surgery Specimen Level IV HEADER OPERATION: Colonoscopy, [place] [place]OP DIAGNOSIS: GERD, rectal hemorrhage, lower abdominal pain TISSUE SUBMITTED: A. Small bowel biopsy, B. Antrum biopsy for histo and H. pylori, C. Random colonic biopsy MICROSCOPIC DIAGNOSIS A. Small bowel biopsy: A fragment of small intestinal mucosa, no pathologic diagnosis. B. Antrum, biopsy: Mild gastritis. See microscopic description and comment. C. Colon, random biopsy: Fragments of colonic mucosa, no pathologic diagnosis. SJ:rg 07/28/19 COMMENT B. The results of immunohistochemistry for Helicobacter pylori will be reported separately ([id number]). MICROSCOPIC DESCRIPTION Slides are reviewed. B. The specimen shows fragments of gastric mucosa with chronic inflammatory cell infiltrates in the lamina propria consisting of lymphocytes and plasma cells, consistent with mild chronic gastritis. GROSS DESCRIPTION A - Received in fixative is one container labeled with the patient's name and designated small bowel biopsy. The specimen consists of one irregular fragment of light sepulveda soft tissue that measures 0.5 x 0.3 x 0.1 cm. The specimen is totally submitted in one cassette. B - Received in fixative is one container labeled with the patient's name and designated antrum biopsy. The specimen consists of one irregular fragment of light sepulveda soft tissue that measures 0.6 x 0.2 x 0.1 cm. The specimen is totally submitted in one cassette. C - Received in fixative is one container labeled with the patient's name and designated random colon biopsy. The specimen consists of multiple irregular fragments of light sepulveda soft tissue that in aggregate measure 2 x 0.6 x 0.1 cm. The specimen is totally submitted in one cassette. / SJ:rg 07/27/19 TC:3 CPT: 46916 x3
--- NOTE | 2019-07-27 08:45 | IMM_PTH ---
PATIENT: GORAN MENDEZ LOC: EN U#:[id number] AGE/SX: 29/F ROOM: RE07/27/[address]: Dr. Lazaro Munoz MD : 1990 BED: DIS: 07/27/2019 SPEC #: [id number] RECD: 07/27/19 15:29 STATUS: MARILEE GREG #: [id number] STEPHANIE: 07/27/19 08:[address]: Lazaro Munoz DEPT: IMMUNOHISTOCHEMISTRY RECD BY: Mari Gibbons ENTERED: 07/27/19 15:29 SP TYPE: IMMUNO OTHR DR: GREG Dueñas Tissues: B - Stomach, NOS Procedures: H Pylori (initial) PHYSICIAN & INSTITUTION [place] [address] SPECIMEN INFORMATION: Tissue Source: B - Antrum biopsy Clinical Info: GERD, rectal hemorrhage, lower abdomen pain Specimen Number: [id number] CPT code: 31554 METHODOLOGY: Deparaffinized sections of prefer/formalin-fixed tissue or PAP/DQ stained slides are incubated with monoclonal/polyclonal antibodies/oligonucleotide probes. Localization is made via biotin free immunoperoxidase method. Appropriate controls are performed and reacted as expected. Results on target cell population are indicated in the following table: RESULTS: ANTIBODY / CLONE RESULT Block B H Pylori (polyclonal) negative These tests were developed and their performance characteristics determined by [facility]. They may not have been cleared or approved by the U.S. Food and Drug Administration. The FDA has determined that such clearance or approval is not necessary. INTERPRETATION: B. Antrum biopsy: Negative for Helicobacter pylori organisms. SJ:teja 07/28/19
[2019-07-27 09:09] VITALS: BP 109/68; BP 123/86; PULSE 79; RESP 20; TEMP 36.5; O2SAT 95
--- NOTE | 2019-07-27 09:11 | OP.EGD_ITS ---
Patient Name: Heather Parrish Procedure Date: 07/27/2019 8:37 AM Date of : 1990 Age: 29 Procedure: Upper GI endoscopy Indications: Gastro-esophageal reflux disease, Nausea Providers: Lazaro Munoz MD Referring MD: Jewel Caba Medicines: See the Anesthesia note for documentation of the administered medications Patient Profile: This is a 29 year old female. Refer to note in patient chart for documentation of history and physical. Complications: No immediate complications. Procedure: Pre-Anesthesia Assessment: - Prior to the procedure, a History and Physical was performed, and patient medications and allergies were reviewed. The patient's tolerance of previous anesthesia was also reviewed. The risks and benefits of the procedure and the sedation options and risks were discussed with the patient. All questions were answered, and informed consent was obtained. Prior Anticoagulants: The patient has taken no previous anticoagulant or antiplatelet agents. ASA Grade Assessment: II - A patient with mild systemic disease. After reviewing the risks and benefits, the patient was deemed in satisfactory condition to undergo the procedure. After obtaining informed consent, the endoscope was passed under direct vision. Throughout the procedure, the patient's blood pressure, pulse, and oxygen saturations were monitored continuously. The gastroscope was introduced through the mouth, and advanced to the second part of duodenum. The upper GI endoscopy was accomplished without difficulty. The patient tolerated the procedure well. Scope In: 8:45:46 AM Scope Out: 8:48:13 AM Total Procedure Duration Time 0 hours 2 minutes 27 seconds Findings: The examined esophagus was normal. The Z-line was regular and was found 40 cm from the incisors. No biopsies or other specimens were collected for this exam. The entire examined stomach was normal. Biopsies were taken with a cold forceps for Helicobacter pylori testing. The examined duodenum was normal. Biopsies for histology were taken with a cold forceps for evaluation of celiac disease. Impression: - Normal esophagus. - Z-line regular, 40 cm from the incisors. No specimens collected. - Normal stomach. Biopsied. - Normal examined duodenum. Biopsied. Recommendation: - Await pathology results. - Repeat upper endoscopy (date not yet determined) for surveillance. - Return to my office in 1 week. - Continue present medications. Procedure Code(s): --- Professional --- 01872, Esophagogastroduodenoscopy, flexible, transoral; with biopsy, single or multiple Diagnosis Code(s): --- Professional --- K21.9, Gastro-esophageal reflux disease without esophagitis R11.0, Nausea CPT copyright 2017 [employer]. All rights reserved. The codes documented in this report are preliminary and upon icd 9 coder review may be revised to meet current compliance requirements. MD Lazaro You MD 07/27/2019 9:09:13 AM This report has been signed electronically. Number of Addenda: 0 Note Initiated On: 07/27/2019 8:37 AM
--- NOTE | 2019-07-27 09:11 | OP.CCLET_ITS ---
07/27/2019 Jewel Caba Re : Upper GI endoscopy procedure for Heather Parrish Dear Rosales This procedure was performed on Saturday, July 27, 2019. My impressions and recommendations are as follows: Impressions : - Normal esophagus. - Z-line regular, 40 cm from the incisors. No specimens collected. - Normal stomach. Biopsied. - Normal examined duodenum. Biopsied. Recommendations : - Await pathology results. - Repeat upper endoscopy (date not yet determined) for surveillance. - Return to my office in 1 week. - Continue present medications. My findings are described in the full procedure note, which is enclosed. If I can be of further assistance, please feel free to contact me at Doctor phone number(s): , Fax: [phone], Work: . Sincerely, MD Lazaro You MD 07/27/2019 9:09:13 AM This report has been signed electronically.
--- NOTE | 2019-07-27 09:14 | OP.COLON_ITS ---
Patient Name: Heather Parrish Procedure Date: 07/27/2019 8:49 AM Date of : 1990 Age: 29 Procedure: Colonoscopy Indications: Clinically significant diarrhea of unexplained origin, Rectal bleeding, Abnormal CT of the GI tract Providers: Lazaro Munoz MD Referring MD: Jewel Caba Medicines: See the Anesthesia note for documentation of the administered medications Patient Profile: This is a 29 year old female. Refer to note in patient chart for documentation of history and physical. Last Colonoscopy: date unknown. Unable to locate last colonoscopy report. Complications: No immediate complications. Procedure: Pre-Anesthesia Assessment: - Prior to the procedure, a History and Physical was performed, and patient medications and allergies were reviewed. The patient's tolerance of previous anesthesia was also reviewed. The risks and benefits of the procedure and the sedation options and risks were discussed with the patient. All questions were answered, and informed consent was obtained. Prior Anticoagulants: The patient has taken no previous anticoagulant or antiplatelet agents. ASA Grade Assessment: II - A patient with mild systemic disease. After reviewing the risks and benefits, the patient was deemed in satisfactory condition to undergo the procedure. - Prior to the procedure, a History and Physical was performed, and patient medications and allergies were reviewed. The patient's tolerance of previous anesthesia was also reviewed. The risks and benefits of the procedure and the sedation options and risks were discussed with the patient. All questions were answered, and informed consent was obtained. Prior Anticoagulants: The patient has taken no previous anticoagulant or antiplatelet agents. ASA Grade Assessment: II - A patient with mild systemic disease. After reviewing the risks and benefits, the patient was deemed in satisfactory condition to undergo the procedure. After I obtained informed consent, the scope was passed under direct vision. Throughout the procedure, the patient's blood pressure, pulse, and oxygen saturations were monitored continuously. The colonoscope was introduced through the anus and advanced to the cecum, identified by appendiceal orifice and ileocecal valve. The colonoscopy was performed without difficulty. The patient tolerated the procedure well. The quality of the bowel preparation was good. Scope In: 8:50:40 AM Scope Withdrawal Time 0 hours 7 minutes 27 seconds Scope Out: 9:04:11 AM Total Procedure Duration Time 0 hours 13 minutes 31 seconds Findings: The colon (entire examined portion) appeared normal. Biopsies for histology were taken with a cold forceps from the entire colon for evaluation of microscopic colitis. Scattered small and large-mouthed diverticula were found in the sigmoid colon. No biopsies or other specimens were collected for this exam. Non-bleeding internal hemorrhoids were found during retroflexion. The hemorrhoids were mild and small. The exam was otherwise without abnormality. Impression: - The entire examined colon is normal. Biopsied. - Diverticulosis in the sigmoid colon. No specimens collected. - Non-bleeding internal hemorrhoids. - The examination was otherwise normal. Recommendation: - Discharge patient to home. - Resume previous diet. - Continue present medications. - Await pathology results. - Repeat colonoscopy in 10 years for surveillance. Patient will more than likely need another colonoscopy in greater than 10 years. We will wait to make further assessment after we get the random colon biopsies back. - Return to my office in 1 week. Procedure Code(s): --- Professional --- 93926, Colonoscopy, flexible; with biopsy, single or multiple Diagnosis Code(s): --- Professional --- K64.8, Other hemorrhoids R19.7, Diarrhea, unspecified K62.5, Hemorrhage of anus and rectum K57.30, Diverticulosis of large intestine without perforation or abscess without bleeding R93.3, Abnormal findings on diagnostic imaging of other parts of digestive tract CPT copyright 2017 [employer]. All rights reserved. The codes documented in this report are preliminary and upon pickling solution maker review may be revised to meet current compliance requirements. MD Lazaro You MD 07/27/2019 9:14:02 AM This report has been signed electronically. Number of Addenda: 0 Note Initiated On: 07/27/2019 8:49 AM
[2019-07-27 09:15] VITALS: BP 108/68; BP 123/86; PULSE 77; RESP 18; O2SAT 94
--- NOTE | 2019-07-27 09:15 | OP.CCLET_ITS ---
07/27/2019 Jewel Caba Re : Colonoscopy procedure for Heather Parrish Dear Rosales This procedure was performed on Saturday, July 27, 2019. My impressions and recommendations are as follows: Impressions : - The entire examined colon is normal. Biopsied. - Diverticulosis in the sigmoid colon. No specimens collected. - Non-bleeding internal hemorrhoids. - The examination was otherwise normal. Recommendations : - Discharge patient to home. - Resume previous diet. - Continue present medications. - Await pathology results. - Repeat colonoscopy in 10 years for surveillance. Patient will more than likely need another colonoscopy in greater than 10 years. We will wait to make further assessment after we get the random colon biopsies back. - Return to my office in 1 week. My findings are described in the full procedure note, which is enclosed. If I can be of further assistance, please feel free to contact me at Doctor phone number(s): , Fax: [phone], Work: . Sincerely, MD Lazaro You MD 07/27/2019 9:14:02 AM This report has been signed electronically.
[2019-07-27 09:20] VITALS: BP 115/64; BP 123/86; PULSE 78; RESP 20; O2SAT 94
[2019-07-27 09:27] VITALS: BP 121/64; BP 123/86; PULSE 80; RESP 20; TEMP 36.9; O2SAT 95
[2019-07-27 09:40] VITALS: BP 123/86
== END 2019-07-27 09:41 | disposition home or self-care (01) ==
LOC: EN 07:49 → AC 07:50
PROVIDERS: PCP Nurse Practitioner Primary Care; Referring Provider Nurse Practitioner Primary Care; Visit Provider Surgery
PROC: 0DJD8ZZ Inspection of Lower Intestinal Tract, Via Natural or Artificial Opening Endoscopic (ICD-10-PCS; CPT 45378; principal; 2019-07-27 08:40)
DX: K29.70 Gastritis, unspecified, without bleeding (principal); K57.30 Diverticulosis of large intestine without perforation or abscess without bleeding; K64.8 Other hemorrhoids; K21.9 Gastro-esophageal reflux disease without esophagitis; D64.9 Anemia, unspecified; F17.200 Nicotine dependence, unspecified, uncomplicated
CPT/HCPCS: 43239; 45380; 88305; 88342; J7120; J1610; J2405

== ENCOUNTER 2019-12-28 08:19 | Day surgery (SDC) | payer MEDICAID, SELFPAY ==
--- NOTE | 2019-11-17 03:03 | HP_ITS ---
Intake H&P no changes I have re-examined the patient. There are no clinical changes since date of exam. Intake Visit Reasons: Bilat elbows Chief Complaint: left elbow Accompanied by: self Is patient in pain?: Yes Pain scale (1-10): 10 Allergies diphenhydramine [From Benadryl] Allergy (Mild, Verified 08/03/19 08:07) rash nickel Allergy (Verified 08/03/19 08:07) Rash morphine Adverse Reaction (Verified 08/03/19 08:07) mental status change NUCOPHED Allergy (Uncoded 07/27/19 08:04) Swelling Medications Ergocalciferol [Vitamin D] 50,000 unit PO TUSA 06/22/19 [History Confirmed 11/17/19] calcium carbonate 200 mg calcium (500 mg) chewable tablet 200 mg PO BID PRN 07/06/19 [History Confirmed 11/17/19] pregabalin 25 mg capsule ea PO 11/17/19 [History Confirmed 11/17/19] PFSH Medical History Sacroiliitis (Chronic) Sacroiliac joint dysfunction (Chronic) Late effect of complications of surgical and medical care (Chronic) Swelling of vulva (Chronic) Recent weight loss (Chronic) Family history of skin cancer (Chronic) Smoker (Chronic) Ovarian cyst (Acute) Acute pelvic pain (Acute) Intra-abdominal adhesions (Acute) Anxiety (Acute) Carpal tunnel syndrome (Acute) Fatigue (Acute) GERD (gastroesophageal reflux disease) (Acute) Headache (Acute) pseudo angel cerebri (Acute) Surgical History (Updated 08/03/19 @ 08:09 by Erin Quan) History of abdominoplasty (Chronic) H/O: hysterectomy (Acute) History of abdominoplasty (Acute) History of arthroplasty of right knee (Acute) History of carpal tunnel surgery (Acute) History of delivery (Acute) History of esophagogastroduodenoscopy (EGD) (Acute ~07/27/19) S/P left oophorectomy (Acute ~10/14/18) history c-scope (Acute ~07/27/19) Social History (Updated 11/17/19 @ 15:[address] 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 Abby Pressley, DO 11/17/19 7214. GORAN MERCADO is a 29 year old F NEW patient here today for left arm pain. She has numbness of her left 3rd through 5th digits and she has pain from her left elbow to her wrist. She states that the numbness is constant but the burning and pins/needles comes and goes frequently. She states she is loosing strength of her left arm. She states she wears a splint at night but this is not effective. She is unable to put any pressure on her left elbow without this causing her symptoms to worsen. She has tried health and social care teacher and ulnar nerve massage. She has had a left carpal tunnel release around 8-10 years ago. She has tried NSAIDs in the past but they are no longer effective. She has full extension of her left elbow. She has had BL carpal tunnel releases done and she has had right ulnar nerve transposition. Ortho Exam Left Elbow Skin/Wound: No eccymosis, No erythema, No Swelling Test: Yes Ulnar Nerve Subluxation, Yes Froment's, Yes Hypothenar Atrophy ROM: Yes Flexion 0-140, Extension 0, Supination 0-90 and Pronation 0-80 ELBOW: left elbow subluxation Assessment & Plan Problems 1. Ulnar neuropathy at elbow of left upper extremity G56.22 Plan Patient educated that she does have symptoms of ulnar neuropathy. Patient educated that since she has tried the conservative treatments with the night bracing, HEP and NSAIDs she would be a canidate for surgery. Reviewed the pre- operative plans with the patient. Risks and benefits of the procedure were fully explained, including but not limited to infection, neurovascular injury, continued pain, arthritis, stiffness, need for further surgery, re-injury, DVT, PE, general risks of anesthesia, and loss of limb or life. The patient understands all the risks and does wish to proceed with written consent. Patient wishes to proceed with left ulnar nerve release vs transposition. We discussed the current risk associated COVID-19. While it is understood that there is a community spread of COVID 19 the risk of delta COVID-19 while at [facility] is very low, however, the risk cannot be completely mitigated because of the community spread of the disease. We discussed in detail the risk of exposure to and or potential harm posed by the COVID-19 virus with having a surgery/procedure at this time versus the risk of delaying the surgery/procedure. Is not possible to know either the risk of delaying the surgery procedure or chance of getting an infection with perfect accuracy, but a joint decision was made to proceed at this time with a schedule surgery/procedure as indicated on the consent form. Patient was notified that we will need to comply with any screening or testing [facility] wishes to perform or that surgery may be delayed for any positive results. Follow up 2 weeks post op or sooner if pain, swelling, numbness or associated symptoms, or concerns develop. All questions answered. Patient in agreement of plan. Coding Level of Care Code Off vis,new,level 3 Diagnoses Ulnar neuropathy at elbow of left upper extremity G56.22 11/17/19 1504 <Electronically signed by Abby Pressley DO> Date Abby Pressley DO
[2019-11-18 08:06] VITALS: BMI 41.1
[2019-12-12 13:49] VITALS: BMI 41.1
[2019-12-28] VITALS (7 sets, daily range): BP systolic 100–138; BP diastolic 56–98; PULSE 78–96; RESP 16–18; TEMP 36.1–36.3; O2SAT 92–100; BMI 43.3
[2019-12-28] MEDS: Lactated Ringers 1,000 ML 100 ML IV ×2 (08:57→11:30)
[2019-12-28] MEDS: Cefazolin 2 GM in 0.9% Normal Saline 100 ML IV (11:06)
--- NOTE | 2019-12-28 12:35 | PCM.DC.ORTHO ---
Discharge Diet: No Restrictions - Leave dressing clean dry and intact, call with concerns, follow-up in 2 weeks Discharge Activity: May Not Drive May shower in (days): 1 Ice area for (Minutes): 20 - Every hour while awake. Weight Bearing Status: Weight bearing as tolerated Keep extremity elevated above heart level: Operative Extremity Call your doctor if your incision/area has: Continuous Slow Oozing, Sudden Increased Bleeding, Increased Pain/ Swelling, Increased Redness, Foul Smelling Discharge Call your doctor if you observe: Fever of 101 or Higher, Coldness, Increased Pain, Numbness or Tingling, Change in Color, Calf discomfort Allergies/Adverse Reactions: Allergies diphenhydramine [From Benadryl] Allergy (Mild, Verified 12/28/19 08:35) rash nickel Allergy (Verified 12/28/19 08:35) Rash morphine Adverse Reaction (Verified 12/28/19 08:35) mental status change NUCOPHED Allergy (Uncoded 12/28/19 08:35) Swelling Medications to take at Discharge Ergocalciferol [Vitamin D] 50,000 unit PO TUSA 06/22/19 calcium carbonate 200 mg calcium (500 mg) chewable tablet 200 mg PO BID PRN 07/06/19 pregabalin 25 mg capsule 25 mg PO DAILY 11/17/19 Oxycodone HCl/Acetaminophen [Percocet 5/325] 1 - 2 tab PO Q6H PRN PRN 5 Days #28 tab 12/28/19 The following prescriptions were given: Oxycodone HCl/Acetaminophen [Percocet 5/325] 1 - 2 tab PO Q6H PRN PRN 5 Days #28 tab PRN Reason: Pain Transmission Status: Received by YOBANY TRE[address] [place] [address] Primary Care Physician: Jewel Caba NP-C [Primary Care Provider] - Test Results: Test results from this visit will be discussed in further detail at your follow-up appointment, if applicable. Please Follow Up With: Abby Pressley, DO - [phone]
--- NOTE | 2019-12-28 12:36 | PCM.OPRPT ---
Report of Operation Date of Procedure: 12/28/19 Pre-Operative Diagnosis: left ulnar neuritis/cubital tunnel Post-Operative Diagnosis: same Surgery/Procedure Performed:: left ulnar nerve release/cubital tunnel release supervisor looping: Eliot Manjarrez Type of Anesthesia:: General Anesthesiologist: Milton Chand Estimated Blood Loss (mL): min Fluids Replaced: 1000ml lr Description of Procedure: Preop note Patient is a 29-year-old female with continued left arm ulnar nerve symptoms. Patient states she had the same symptoms on the right side she had an ulnar nerve release done at an outside physician and had immune mediated improvement. Patient has a nerve conduction study which is not consistent with ulnar neuritis however her symptoms are consistent with ulnar neuritis with positive cubital tunnel symptoms maximal flexion for 20 seconds did produce her findings and advancing Tinel's at the level of the positive Tinel's at the level of the elbow mute medially also did produce symptoms. We did discuss the risks of doing a surgery not having relief patient states that she had good relief of symptoms with her right elbow surgery and she is have the same symptoms of the left we did discuss clinical symptoms clinical syndrome of ulnar neuritis and patient elected to proceed with left ulnar nerve release possible transposition. Risk benefits and alternatives surgery discussed with patient. Risk include but not limited to blood loss, blood clot, infection, neurovascular, failure procedure, loss of life and loss of limb. Patient is aware would like proceed with left ulnar nerve release and/or transposition Operative note Patient seen and examined preop holding area. Left arm was marked marked. Patient brought to the operating room placed supine on the operating table. Sign, anesthesia, antibiotics were administered. The left arm was prepped and draped in usual sterile fashion we did place a sterile tourniquet after she was prepped and draped. We then marked out our incision for a medial epicondyle and olecranon and made our incision site about 3 cm proximal and distal to the center location between the 2 bony landmarks. We then elevate exsanguinated tourniquet was raised on the arm to a pressure of 250 torr. Timeout was performed. We then used a 15 blade to create our skin incision. We dissected down to the level of the ulnar nerve which was palpated. We found it proximally first and then released it sequentially down distally. We started proximally patient had we released the cubital tunnel retinaculum, 2 heads of the FCU the arcade of [place] in between Elizalde's ligament and the MCL. She was quite tight at the medial epicondyle epitrochlear area and she had a adhesed in the notch when this was completely released and all 7 sites of compression. We then after releasing the nerve we did flex and extend the arm and the nerve did not sublux out of its location behind the medial condyle. I then again irrigated the incision with copious muscle sterile saline. We closed the deep fatty Giblerto fascia layer with 2-0 Vicryl the skin subcuticular with 3-0 Vicryl in a running 4 Monocryl. Sterile dressings were applied tourniquet deflated. Patient taught procedure no complication transfer recovery room stable condition after splint was applied also to the left upper extremity. Postoperative note Pharmacy has prescription for pain Call with increased pain numbness tingling further issues arise Discussed with family Dragon disclaimer This note was generated with [employer] dictation software. It may contain incorrect words, spelling, and punctuation that were not noted in checking the note before signing.
[2019-12-28] MEDS: oxyCODONE 5 MG Tablet PO (14:36)
[2019-12-28] MEDS: Acetaminophen 325 MG Tablet PO (14:37)
== END 2019-12-28 14:56 | disposition home or self-care (01) ==
LOC: SDC 08:20 → AC 08:21
PROVIDERS: Anesthesiology; PCP Nurse Practitioner Primary Care; Referring Provider Orthopaedic Surgery; Visit Provider Orthopaedic Surgery
PROC: (CPT 64718; principal; 2019-12-28 09:50)
DX: G56.22 Lesion of ulnar nerve, left upper limb (principal); F17.200 Nicotine dependence, unspecified, uncomplicated; Z20.828 Contact with and (suspected) exposure to other viral communicable diseases
CPT/HCPCS: 64718; 87635; 94799; J7120; J2405; U0003

== ENCOUNTER 2021-10-13 15:57 | Emergency (ER) | payer MEDICAID, SELFPAY ==
[2021-10-13 15:58] VITALS: BP 124/96; PULSE 102; RESP 16; TEMP 36.8; O2SAT 98; BMI 44.2
--- NOTE | 2021-10-13 18:00 | RAD_ITS ---
STUDY: LEFT FOOT X-RAY SERIES OF 1801 HOURS ON 10/13/2021 CLINICAL: 31-year-old female with trauma to left foot and pain. TECHNIQUE: 3 view(s) of the left foot. COMPARISON: None. FINDINGS: There is a normal variant accessory bone to the posterior medial left tarsonavicular--also noted on a study of the right foot on 11/04/2016. There is no evidence of fractures or dislocations. No osseous lytic or sclerotic or mass lesions are present. There is no evidence of arthritic or degenerative changes. Mild hammertoe deformities of second through fifth toes. Soft tissue swelling of the dorsal aspect of the distal left foot. RAD/Foot min 3 Views IMPRESSION: 1. No fractures or dislocations. 2. Normal variant accessory bone to the posterior medial left tarsonavicular. 3. No evidence of arthritic or degenerative changes. 4. Mild hammertoe deformities of the second through fifth toes. 5. Soft tissue swelling the dorsal aspect of the distal left foot. Electronically Signed: Alejandro Penaloza MD at 18:28 EDT ,
--- NOTE | 2021-10-13 18:58 | ED.VIS.LOWEX ---
HPI History of Present Illness Chief Complaint: Lower Extremity Injury Narrative Narrative: Patient presents with plantar pain of the left foot, it is distal plantar region. She stepped on a cord a few days ago. No other injury PFSH PFSH Medical History (Updated 10/13/21 @ 19:[address] Giles Goodman MD) Acute pelvic pain Anxiety Carpal tunnel syndrome Family history of skin cancer Fatigue GERD (gastroesophageal reflux disease) Headache Intra-abdominal adhesions Late effect of complications of surgical and medical care Ovarian cyst pseudo angel cerebri Recent weight loss Sacroiliac joint dysfunction Sacroiliitis Smoker Swelling of vulva Home Medications dicyclomine 10 mg capsule 10 mg PO DAILY cap 05/31/20 [History Last Taken Unknown] naproxen [Naprosyn] 500 mg PO BID #14 tab 10/13/21 [Rx Last Taken Unknown] Allergy/AdvReac Type Severity Reaction Status Date / Time diphenhydramine Allergy Mild rash Verified 10/13/21 16:01 [From Benadryl] nickel Allergy Rash Verified 10/13/21 16:01 morphine AdvReac mental Verified 10/13/21 16:01 status change NUCOPHED Allergy Swelling Uncoded 10/13/21 16:01 Family History Mother Arthritis High cholesterol Thyroid disorder Diabetes Grandmother History of blood transfusion Bowel disease Skin cancer Colon cancer Diabetes Kidney disease Breast cancer Heart disease Grandfather Diabetes Hypertension CVA (cerebral vascular accident) Kidney disease Colon cancer Father Diabetes Heart disease High cholesterol Hypertension Surgical History H/O: hysterectomy history c-scope (~07/27/19) History of abdominoplasty History of abdominoplasty History of arthroplasty of right knee History of carpal tunnel surgery History of delivery History of esophagogastroduodenoscopy (EGD) (~07/27/19) S/P left oophorectomy (~10/14/18) Social History Smoking Status: Current every day smoker tobacco type: cigarettes alcohol intake: never substance use type: does not use caffeine: Yes what type of physical activity do you participate in: none seatbelt use: always do you feel safe at home: Yes 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 Head: Normocephalic, Atraumatic Neck: No C-spine tenderness Cardiovascular: Normal distal pulses Back: Nontender, Normal Inspection. Extremities: Left foot shows tenderness over the plantar region distally. There is no abrasions or lacerations no step-offs. No bony tenderness on the dorsum of the foot. Skin: No abrasions, no lacerations Neurological: Normal strength and sensation Const Vital Signs: 10/13/21 15:58 Temperature 98.3 F Temperature Source Temporal Pulse Rate 102 H Respiratory Rate 16 Blood Pressure 124/96 H Blood Pressure Mean 105 Pulse Ox 98 Oxygen Delivery Method Room Air MDM MDM MDM Narrative Medical decision making narrative: Patient has a normal x-ray. She has a contusion which I will treat symptomatically. Radiography Diagnostic Testing: Clinical Impression(s) from Imaging Studies Foot X-Ray 10/13/21 18:00 IMPRESSION: 1. No fractures or dislocations. 2. Normal variant accessory bone to the posterior medial left tarsonavicular. 3. No evidence of arthritic or degenerative changes. 4. Mild hammertoe deformities of the second through fifth toes. 5. Soft tissue swelling the dorsal aspect of the distal left foot. Electronically Signed: Alejandro Penaloza MD at 18:28 EDT , X-ray read by me and radiologist is normal Discharge Plan Triage Chief Complaint: Lower Extremity Injury ED Provider: Giles Goodman Dx/Rx/DC Orders Clinical Impression: Contusion of foot, Acute foot pain Instructions: Bone Contusion Prescriptions: New naproxen [Naprosyn] 500 mg tablet 500 mg PO BID Qty: 14 RF: 0 No Action dicyclomine 10 mg capsule 10 mg PO DAILY RF: 0 Primary Care Provider: Erika Reynolds Referrals: Erika Reynolds MD [Primary Care Provider] - Toyin Moreno DPM [STAFF PHYSICIAN] - 3-5 Days Disposition Disposition: Home, Self Care
--- NOTE | 2021-10-13 19:10 | NURSING ---
shoe given to pt. pt refused to have shoe put on. taken shoe home in bag.
== END 2021-10-13 19:10 | disposition home or self-care (01) ==
PROVIDERS: Emergency Provider Emergency Medicine; PCP Internal Medicine; Visit Provider Emergency Medicine
DX: S90.32XA Contusion of left foot, initial encounter (principal); W22.8XXA Striking against or struck by other objects, initial encounter; F17.210 Nicotine dependence, cigarettes, uncomplicated
CPT/HCPCS: 73630; 99283

== ENCOUNTER → 2021-11-12 | Outpatient (CLI) | payer MEDICAID, SELFPAY | END | disposition home or self-care (01) | LOC: MRI 15:54 | PROVIDERS: PCP Internal Medicine; Visit Provider Orthopaedic Surgery | DX: M46.1 Sacroiliitis, not elsewhere classified (principal); M53.3 Sacrococcygeal disorders, not elsewhere classified ==

== ENCOUNTER → 2021-11-15 | Outpatient (CLI) | payer MEDICAID, SELFPAY ==
--- NOTE | 2021-11-15 06:44 | CT_ITS ---
STUDY: CT CHEST WITH T WITHOUT CONTRAST REASON FOR EXAM: Female, 31 years old. COncern for Sarcoidosis RADIATION DOSAGE (If Supplied By Facility): CTDIvol = ( 14.91 ) mGy, DLP = ( 684.94 ) mGycm TECHNIQUE: Transaxial imaging was performed pre-and post contrast administration of IV 100mL Isovue-300. Individualized dose optimization techniques were used for this CT. COMPARISON: None. FINDINGS: The lungs are normal. There is no demonstrated pleural abnormality. Normal heart and pericardium. Coronary artery calcification Normal mediastinum. Normal hilar regions. Normal enhanced and unenhanced pulmonary arteries. Normal aorta arch and descending thoracic aorta. Normal osseous structures. There is no demonstrated abnormality of the visualized upper abdomen. CT/Chest WITH Contrast IMPRESSION: Normal unenhanced and enhanced CT chest examination. Electronically Signed: Irvin Kahn MD at 11:06 EDT ,
== END | disposition home or self-care (01) ==
LOC: CT 06:43
PROVIDERS: PCP Internal Medicine; Referring Provider Internal Medicine Critical Care Medicine; Visit Provider Internal Medicine Critical Care Medicine
DX: M32.9 Systemic lupus erythematosus, unspecified (principal)
CPT/HCPCS: 71260; Q9967

== ENCOUNTER → 2021-11-29 | Outpatient (CLI) | payer MEDICAID, SELFPAY ==
--- NOTE | 2021-11-29 14:02 | PFTCOMP ---
COMPLETE PULMONARY FUNCTION TEST INTERPRETATION Brief HPI: Patient is a 31-year-old female, currently under the care of myself, who presents to [facility] for complete pulmonary function tests secondary to diagnosis of SLE. Respiratory therapist reports good effort and reproducible results. Interpretation: Forced expiration spirometry shows no large airways obstructive ventilatory defect with an FEV1 of 73% predicted. There is no significant bronchodilator response by strict ATS criteria. Spirograms are of good quality and plateau normally. The respiratory flow volume loop shows decreased expiratory flow rates at high lung volumes consistent with small airways obstruction. Lung volumes by body plethysmography show a normal total lung capacity at 4.43 L, 90% predicted. All other lung volumes are within normal limits. Diffusion capacity by carbon monoxide is decreased at 47% predicted. The airway resistance is normal. No previous pulmonary function tests were available for review. Impression: Isolated reduction diffusion capacity consistent with a pulmonary vascular disorder
== END | disposition home or self-care (01) ==
LOC: PSN 09:16
PROVIDERS: PCP Internal Medicine; Referring Provider Internal Medicine Critical Care Medicine; Visit Provider Internal Medicine Critical Care Medicine
DX: M32.9 Systemic lupus erythematosus, unspecified (principal)
CPT/HCPCS: 94010; 94060; 94726; 94729

== ENCOUNTER → 2022-01-01 | Outpatient (CLI) | payer MEDICAID, SELFPAY | END | disposition home or self-care (01) | LOC: SL 20:15 | PROVIDERS: PCP Internal Medicine; Referring Provider Internal Medicine Critical Care Medicine; Visit Provider Internal Medicine Critical Care Medicine | DX: G47.10 Hypersomnia, unspecified (principal) | CPT/HCPCS: 95810 ==

== ENCOUNTER 2022-04-30 07:47 | Day surgery (SDC) | payer MEDICAID, SELFPAY ==
[2022-04-30] VITALS (11 sets, daily range): BP systolic 109–128; BP diastolic 54–90; PULSE 69–87; RESP 14–16; TEMP 36.1–37; O2SAT 91–97; BMI 41.3
[2022-04-30] MEDS: Lactated Ringers 1,000 ML 15 ML IV (08:00)
--- NOTE | 2022-04-30 08:28 | PCM.HP.STD ---
HPI - General HPI Narrative GORAN MERCADO, is a 31 F who presents for right knee arthroscopy, lateral release, possible other intra articular procedures. No changes to H and P. Narcotic counselling done. Wishes to proceed. MR#: [id number] Acct: [id number] Name:GORAN ARRIAGA Rep #: [id number] : 1990 ? ? Provider: Dr. Contreras Alvarado MD Age/Sex:? 31/F ? ? Location: [facility] Status: Signed Intake Intake Visit Reasons:?RIGHT KNEE Chief Complaint: right knee pain Is patient in pain?: Yes (right knee) Pain scale (1-10): 8 Allergies Antihistamines - Alkylamine Allergy (Severe, Verified 03/25/22 14:25) Rash/Behaviorsdiphenhydramine [From Benadryl] Allergy (Mild, Verified 03/25/22 14:25) rashcodeine Allergy (Verified 03/25/22 14:25) Swellingnickel Allergy (Verified 03/25/22 14:25) Rashpseudoephedrine Allergy (Verified 03/25/22 14:25) Swellingmorphine Adverse Reaction (Verified 03/25/22 14:25) mental status change Medications phentermine 37.5 mg tablet 37.5 mg PO DAILY 03/25/22 [History Confirmed 03/25/22] PFSH Medical History?(Updated 03/25/22 @ 15:47 by Contreras Alvarado MD) Acute pelvic pain Anxiety Carpal tunnel syndrome Family history of skin cancer Fatigue GERD (gastroesophageal reflux disease) Headache Intra-abdominal adhesions Late effect of complications of surgical and medical care Ovarian cyst Patellofemoral syndrome, right pseudo angel cerebri Recent weight loss Sacroiliac joint dysfunction Sacroiliitis Smoker Swelling of vulva Surgical History?(Updated 12/13/21 @ 12:20 by Marsha Sahu) H/O: hysterectomy history c-scope (~07/27/19) History of abdominoplasty History of abdominoplasty History of arthroplasty of right knee History of carpal tunnel surgery History of delivery History of esophagogastroduodenoscopy (EGD) (~07/27/19) S/P left oophorectomy (~10/14/18) Family History? Mother Arthritis High cholesterol Thyroid disorder DiabetesGrandmother History of blood transfusion Bowel disease Skin cancer Colon cancer Diabetes Kidney disease Breast cancer Heart diseaseGrandfather Diabetes Hypertension CVA (cerebral vascular accident) Kidney disease Colon cancerFather Diabetes Heart disease High cholesterol Hypertension Social History?(Updated 11/08/21 @ 07:43 by Kelly Marley) Smoking Status:? Current every day smoker tobacco type: cigarettes Tobacco: How many years used:? 19 Electronic Cigarette Use:? not used second hand exposure:? Yes alcohol intake:? never substance use type:? does not use caffeine:? Yes what type of physical activity do you participate in:? none seatbelt use:? always do you feel safe at home:? 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 Contreras Alvarado MD 03/25/22 0907. GORAN MERCADO is a 31 year old F here today for right knee pain.? Since age 8, worsening pain. 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 Has a brain tumor, has extreme claustrophobia had a panic attack last MRI, is unable and refuses. Had a growth removed on the left knee removed posteriorly in the past. Possibly had a prior knee scope or other procedure on the right side as a teenager, can't remember exactly why, and have them drained. Pain there all the time, wakes the patient up, standing and sitting are bad. 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 [place] - had cortisone a few years ago with no help.? She is down to smoking half a pack of cigarettes a day from 3 packs. Pain mostly medially, feels unstable. Ortho Exam General General: Yes no acute distress Neurologic: Yes alert and Yes oriented x3 Psychologic: Yes reasonable and appropriate Right Knee Skin/Wound: Yes CDI, No erythema, No ecchymosis and No swelling Knee ROM: Yes ROM-Flexion 0-140 Examination: Yes Med jt line tenderness, No Lat jt line tenderness, No TTP inf pole patella, Yes Crepitus, Yes Pain with flexion, Yes Pain with extention, Yes Grecia's Test, No TTP Patellar tendon, No TTP Tibial tubercle, No TTP Pes Anserine and No Illiotibial band tenderness Quad Atrophy: No Stability: NML: Anterior Drawer, NML: Rufina, NML: Posterior Drawer, NML: Valgus 0, NML: Valgus 30, NML: Varus 0 and NML: Varus 30 Patella Translation: 1 Apprehension with Lateral Translation: No Patella Grind: Yes KNEE: Increased habitus.? Valgus alignment of her lower extremities.? She moderately to severely guarded at the knee making the ligamentous exam difficult.? Normal sensation and motor function in the foot the foot is warm and well-perfused.? Negative J sign.? Most of her pain seems centered at the medial aspect of the knee even with light touch. no effusion Left Knee Patella Translation: 1 Supplemental Info Trays taken today of the right knee 4 views were obtained.? Joint spaces are well-maintained slight sclerosis of the medial tibial plateau.? There is lateral tilt on the patellofemoral sunrise view. Coding Level of Care Code Off vis,new,level 4 Diagnoses Right knee pain? M25.561 Patellofemoral syndrome, right? M22.2X1 Time Spent (min) 45 Assessment and Plan Assessment and Plan (1) Right knee pain: (2) Patellofemoral syndrome, right: ?Status:?Acute ?Plan: 31-year-old female with right knee pain evidence of lateral tilt of the patella on x-rays with some medial sided pain in her knee as well as some pain seeming to arise from the patellofemoral joint / lateral overload.? She is extremely claustrophobic unable to obtain an MRI and unwilling to try again. She has had a past history of extensive conservative management including 2 cortisone injections.? We talked about other options for her activity modifications bracing anti-inflammatories Iovera cryotherapy skin procedure or surgery which would be right knee diagnostic arthroscopy as well as doing a lateral release possible debridement and possible partial meniscectomy.? I did warn her that this is less than ideal given that we lack a complete picture of the knee with being unable to obtain an MRI.? There could be findings that I would encounter that may necessitate simply documenting or diagnosing that I would be unable to treat at that time although I think the chance of this is fairly low.? We discussed the pros and cons risks and benefits of each of these methods of treatment she would like to go ahead with a surgical solution for this. Pros and cons risks and benefits were discussed with the patient including but not limited to infection, pain, stiffness, bleeding, damage to surrounding structures, neurovascular injury, instability of the patella, chondromalacia, recurrence or retear, failure or wear of hardware or fixation, instability, fracture, deep vein thrombosis and pulmonary embolism, anesthetic risks, patient dissatisfaction, need for further surgery and other risks.? Patient understood and wished to proceed with surgery, and signed the informed consent documentation. [facility] Medical History Acute pelvic pain Anemia Anxiety Anxiety Carpal tunnel syndrome Family history of skin cancer Fatigue GERD (gastroesophageal reflux disease) Headache History of pain when walking Intra-abdominal adhesions Late effect of complications of surgical and medical care Ovarian cyst Patellofemoral syndrome, right pseudo angel cerebri Recent weight loss Sacroiliac joint dysfunction Sacroiliitis Smoker Swelling of vulva Wears glasses Home Medications NK 04/23/22 [History Last Taken Unknown] Allergy/AdvReac Type Severity Reaction Status Date / Time Antihistamines - Alkylamine Allergy Severe Rash/Behavi Verified 04/30/22 08:00 ors diphenhydramine Allergy Mild rash Verified 04/30/22 08:00 [From Benadryl] codeine Allergy Swelling Verified 04/30/22 08:00 nickel Allergy Rash Verified 04/30/22 08:00 pseudoephedrine Allergy Swelling Verified 04/30/22 08:00 morphine AdvReac mental Verified 04/30/22 08:00 status change Family History (Reviewed 03/26/22 @ 14:00 by Latanya Clark ARCHITECTURAL EXAMINER, ARCHITECTURAL EXAMINER-C) Mother Arthritis High cholesterol Thyroid disorder Diabetes Grandmother History of blood transfusion Bowel disease Skin cancer Colon cancer Diabetes Kidney disease Breast cancer Heart disease Grandfather Diabetes Hypertension CVA (cerebral vascular accident) Kidney disease Colon cancer Father Diabetes Heart disease High cholesterol Hypertension Surgical History H/O: hysterectomy history c-scope (~07/27/19) History of abdominoplasty History of abdominoplasty History of arthroplasty of right knee History of carpal tunnel surgery History of delivery History of esophagogastroduodenoscopy (EGD) (~07/27/19) Hx of decompression of ulnar nerve S/P left oophorectomy (~10/14/18) Social History (Reviewed 03/26/22 @ 14:00 by Latanya Clark ARCHITECTURAL EXAMINER, ARCHITECTURAL EXAMINER-C) Smoking Status: Current every day smoker tobacco type: cigarettes Tobacco: How many years used: 19 Electronic Cigarette Use: not used second hand exposure: Yes alcohol intake: never substance use type: does not use caffeine: Yes what type of physical activity do you participate in: none seatbelt use: always do you feel safe at home: Yes 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
[2022-04-30] MEDS: Cefazolin 2 GM in 0.9% Normal Saline 100 ML IV (08:50)
[2022-04-30] MEDS: Epinephrine (1 mg/ml) 1 MG/ML VIAL (09:14)
--- NOTE | 2022-04-30 10:04 | PCM.OPRPT ---
Problems Associated Problem List Diagnoses (1) Patellofemoral syndrome, right: (2) Osteoarthritis of right knee: (3) Tear of medial meniscus of right knee: Report of Operation Date of Procedure: 04/30/22 Pre-Operative Diagnosis: right knee PF pain Post-Operative Diagnosis: same, OA medial compartment, MM tear Surgery/Procedure Performed:: Right knee arthritis, debridement, partial medial meniscectomy, lateral release. Description of Surgical Findings:: small fraying inner surface anterior horn MM, grade 1-2 OA medial compartment Surgeon: Contreras Alvarado Type of Anesthesia: General and Local Anesthesiologist: Nikolas Akers Estimated Blood Loss (mL): 10 Description of Procedure: Patient was brought to the operating room theater.? Placed supine on the operating room table.? All bony prominences appropriately padded.? SCD on the nonoperative side.? 2 g IV Ancef administered prior to the start of the procedure.? General anesthesia induced.? Stress positioner for the patient's right lower extremity.? Tourniquet applied to the right thigh appropriately padded.? Right lower extremity prepped and draped in the usual sterile fashion with chlorhexidine-based prep solution allowing over 3 minutes drying time prior to draping.? Preoperative timeout performed to confirm the site patient and the surgery. Began by making standard anterolateral and anteromedial arthroscopy portals.? I examined the full intra-articular extent of the knee.? No loose bodies gutters normal.? Patellofemoral joint cartilage normal, tight lateral facet compartment. Grade 1-2 chondrosis of the medial compartment on both the femoral and tibial sides again gently debrided to smooth margins.? Small amount inner surface fraying anterior horn MM, debrided minimally. ? Took arthroscopy pictures throughout.? Lateral compartment was entered.? Cartilage was normal normal meniscus stable and solid to probing.? ACL and PCL appeared normal. Ligamentum mucosum removed. Probed posterior aspect MM, slight fraying undersurface near junction of mid body and posterior horn area. Stimulated healing with spinal needle trephination, but this area stable no tears necessitating repair. Made accessory superolateral portal. Using J hook cautery, performed lateral release along length of patella, 1cm inferior to the retinaculum. Normal drive through sign and medial and lateral translation of patella without excess instability after. Arthroscope withdrawn case terminated tourniquet let down meticulous hemostasis achieved.? 3-0 Monocryl to close the portals.? 10 cc of quarter percent plain bupivacaine instilled around the portal sites.? Skin cleaned with wet and dry dressing followed by Acacian of Steri-Strips Adaptic 4 x 4 gauze ABD pad dressings and a sterile 6 inch Tobias bandage. Patient woken up with her general anesthetic transferred off the operating room table taken postanesthetic care unit in stable condition.? All sponge and monitoring counts were correct no complications.? Plan to the patient weightbearing as tolerated on crutches discharged home per day surgery criteria. Complications none Admit VTE Documentation VTE Present on Admission: No VTE Mechan Device Prophylaxis: SCD's Reason prophylaxis not ordered:: Treatment Not Indicated Procedures Musculoskeletal [id number]-29xxx: Other Procedure See Report
--- NOTE | 2022-04-30 10:11 | DCINST_ITS ---
Discharge Instructions Diet Discharge Diet: No restrictions Activity Discharge Activity: Return to Normal Activity and Use Crutches Weight Bearing Status: Weight bearing as tolerated Dressing / Incision Call your doctor if your incision/area has: Continuous Slow Oozing, Sudden Increased Bleeding, Increased Pain/ Swelling, Increased Redness, Foul Smelling Discharge and Swelling at the incision site Remove Dressing in: leave in place till F/U Cleanse incision/area with: Do not get Incision Wet Follow Up Care Please Follow Up With: Contreras Alvarado MD When: 2 days if able, otherwise 2 weeks Test Results: Test results from this visit will be discussed in further detail at your follow- up appointment, if applicable. Discharge Plan Admission Attending Provider: Contreras Alvarado Primary Care Provider: Erika Reynolds Discharge Orders/Prescriptions Prescriptions: New oxycodone-acetaminophen [Percocet] 5-325 mg tablet 1 tab PO Q4H MDD 6 PRN (Reason: pain) 7 Days Qty: 20 0RF Referrals / Follow Up: Erika Reynolds MD [Primary Care Provider] - Contreras Alvarado MD [Med Staff - Active Staff] - Disposition Disposition (needs filled in before D/C Order can be placed): Home, Self Care
[2022-04-30] MEDS: Acetaminophen 325 MG Tablet PO (11:48)
[2022-04-30] MEDS: oxyCODONE 5 MG Tablet PO (11:48)
== END 2022-04-30 12:20 | disposition home or self-care (01) ==
LOC: SDC 07:48 → AC 07:48
PROVIDERS: PCP Internal Medicine; Referring Provider Orthopaedic Surgery Sports Medicine; Visit Provider Orthopaedic Surgery Sports Medicine
PROC: (CPT 29870; principal; 2022-04-30 08:50)
DX: S83.241A Other tear of medial meniscus, current injury, right knee, initial encounter (principal); M22.2X1 Patellofemoral disorders, right knee; M17.11 Unilateral primary osteoarthritis, right knee; X58.XXXA Exposure to other specified factors, initial encounter; F17.210 Nicotine dependence, cigarettes, uncomplicated
CPT/HCPCS: 29881; 29873; 01400; J7120; J2405

== ENCOUNTER 2022-06-03 11:30 | Outpatient (RCR) | payer MEDICAID, SELFPAY ==
--- NOTE | 2022-05-14 15:23 | HP.PTEVAL_ITS ---
Patient's Visit Information GORAN MERCADO is a 31 year old F referred to Physical Therapy by Dr. Contreras Alvarado MD with a diagnosis of Right Knee Sx. Date of Evaluation: 05/14/22 Physical Therapist: Carolina Chopra DPT - Visit Plan Frequency: 2x /Week Duration: 4 Weeks Plan: Focus on LE and core strength/stabilization after right knee surgery 04/30/22. HEP Given IE: quad set, Extn Stretching, heel slides supine and seated, SLR, HS Stretch - Subjective Patient reports that she went in 04/30/22 for right knee surgery- he just cleaned it out. 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 She can sit or stand. She reports that she can bend the knee but it hurts and she feels like the knee wants to hyper extend when she is walking and just feels weak. Worst: 4/10 Agg: bending and straightening all the way. She can't sit or stand for too long. Best: 0/10 most of the time. Eases: move it or sit down- ice machine. No radiating pain- stays in the knee. Reports the pain is more muscle pains. No N/T in the toes. Went back to see MD and he said everything looks great- and then told her she only needed to come back until 6 weeks just in case she needs it. She feels that her knee is 99% better. Sleep: disturbed- no preference on position. PMHx/Meds: no changes since yesterday but wanted to make sure Lupus Dx was in the chart. - Objective Posture: FH, RS- can correct but does not maintain. Gait: decreased stance on the right LE with poor heel/toe pattern due to decreased ROM, Stairs: asc/desc non recip with 2 HR- poor control with descent and pushes off and uses UE for propulsion with recip.HR/TR: able. SLS: 5 sec reports instability ROM: 10-100 degrees with pain at end ranges. Strength: Core: fair, Hip: 4/5 throughout Knee: 4/5 with strength testing- quad set is visible but not strong- mild lag with SLR- better with verbal cues to contract then lift, Ankle: 5/5. Flex: HS: mild, Gastroc: mild. Girth: Patella 45 cm, 6 above 66 cm - Balance/Special Test Scores Lower Extremity Functional Score: 28 - Goals Goal 1:: Patient will be I with HEP and progression Goal Time Frame: 4-6 Weeks Goal 2:: Patient will ambulate >300 feet with a normalized gait pattern Goal Time Frame: 4-6 Weeks Goal 3:: Patient will asc/desc 8 stairs recip with 1 HR Goal Time Frame: 4-6 Weeks Goal 4:: Patient will report 80% improvement Goal Time Frame: 4-6 Weeks - Rehabilitation Potential Physical Therapy Diagnosis: Patient presents with hypomobility- she has decreased LE and core strength/stabilization, proprioception, ROM and muscular endurance leading to abnormal gait and increased pain with ADL's Rehabilitation Potential: Good - Anticipated Interventions Patient/Client Instruction: Educate patient on: Benefits of Fitness Program Therapeutic Exercise to Include: Strength training, Endurance training, Balance training, Coordination, Agility training, Body mechanics, Postural training, Flexibilty training, Gait and locomotor training, Neuromotor development, Passive ROM, Active ROM, Dynamic Lumbar Stabilization, Scapular Strength/Stabilization For the Purpose of:: To improve muscle performance and motor function TENS: Yes Cryotherapy (ice pack, ice massage): Yes Thermo therapy (hot pack): Yes Ultrasound (thermal/non thermal): No Thank you for the opportunity to evaluate your patient. For Medicare and Medicare HMO plans, please review the plan of care and approve it. It will need to be FAXED BACK to us at [phone] for Medicare purposes. For Medicare only, by signing this I certify the plan of care. Please let me know if there are questions or concerns regarding this plan of care. Physician Signature: Date:
--- NOTE | 2022-08-18 07:19 | HP.PT.NRP ---
GORAN MERCADO was seen in my office for initial evaluation on 05/14/22. The following Plan of Care was established for this patient: Initial Frequency: 2x /Week Initial Duration: 4 Weeks Patient/Client Instruction: Educate patient on: Benefits of Fitness Program Therapeutic Exercise to Include: Strength training, Endurance training, Balance training, Coordination, Agility training, Body mechanics, Postural training, Flexibilty training, Gait and locomotor training, Neuromotor development, Passive ROM, Active ROM, Dynamic Lumbar Stabilization, Scapular Strength/Stabilization For the Purpose of:: To improve muscle performance and motor function TENS: Yes Cryotherapy (ice pack, ice massage): Yes Thermo therapy (hot pack): Yes Ultrasound (thermal/non thermal): No This patient was last seen in our office . Pertinent comments regarding their Physical therapy will appear below: Patient was last seen Jun 03 in PT- she was to try home exercise program and follow up as needed. She has not contacted PT in over 30 days and is appropriate to be d/c. At this point I will be discontinuing this patient from physical therapy. I would be happy to see this patient again in the future if found appropriate by the physician. Thank you! Carolina Chopra, BLESSINGT Balance/Gait/Functional tests - Balance/Special Test Scores Lower Extremity Functional Score: 64
== END 2022-06-03 19:00 | disposition home or self-care (01) ==
LOC: PT 11:30
PROVIDERS: PCP Internal Medicine; Referring Provider Orthopaedic Surgery Sports Medicine; Visit Provider Orthopaedic Surgery Sports Medicine
DX: M17.11 Unilateral primary osteoarthritis, right knee (principal); S83.241D Other tear of medial meniscus, current injury, right knee, subsequent encounter
CPT/HCPCS: 97110; 97161; 97164

== ENCOUNTER 2022-11-25 23:07 | Emergency (ER) | payer MEDICAID, SELFPAY ==
[2022-11-25 23:11] VITALS: BP 137/83; PULSE 90; RESP 18; TEMP 36.1; O2SAT 99; BMI 43.1
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
== END 2022-11-25 23:59 | disposition home or self-care (01) ==
LOC: ED 23:50
PROVIDERS: Emergency Provider Emergency Medicine; PCP Internal Medicine; Visit Provider Emergency Medicine
DX: S61.412A Laceration without foreign body of left hand, initial encounter (principal); F17.210 Nicotine dependence, cigarettes, uncomplicated; Z23 Encounter for immunization; W26.0XXA Contact with knife, initial encounter
CPT/HCPCS: 12001; 90715; 99282

== ENCOUNTER 2023-07-25 19:07 | Emergency (ER) | payer BC, SELFPAY ==
[2023-07-25 19:08] VITALS: BP 140/85; PULSE 98; RESP 15; TEMP 36.6; O2SAT 97; BMI 44.4
--- NOTE | 2023-07-25 19:48 | EX.ED.VIS.HA ---
HPI <Beena Chapa RN - Last Filed: 07/25/23 20:37> History of Present Illness Chief Complaint: Headache Informant: patient Onset/Context/Timing Onset: Weeks (1) Context: Gradual Timing: Continuous Quality -Headache: Positive for Similar Prior Headaches and Other (Stabbing) Location: Right side Current Severity: 10/10 Maximum Severity: 10/10 Worsened by: Light Relieved by: Darkness, rest Associated Symptoms/Injury Associated Symptoms: Positive for Nausea, Visual Changes and Photophobia; Negative for Fever, Vomiting, Sinus Pressure, Numbness, Tingling, Preceding Aura, Blurred Vision or Visual Loss Narrative Narrative: Patient with past medical history significant for pseudotumor cerebri, fibromyalgia, lupus, and migraines presented to the ED for right-sided headache beginning within the last week. Patient also reports a nosebleed with clear drainage for the past 2 to 3 weeks that she attributes to increased intracranial pressure from her pseudotumor cerebri. Patient reports taking Tylenol 500 mg with last dose at 3:30 PM today without relief. She also endorses photosensitivity, dizziness, and nausea. She does report that she did hit the right side of her head on a car door today. Denies LOC. Patient reports she sees a neuro local company tanker driver for her pseudotumor cerebri. She says she knows her pressure is increased at this time based on her current symptoms. She said her last measured pressure was 80. Patient reports that she is normally transferred from here to [facility] for neuro optometry. She states she does not want to go there today. Patient denies fever, chills, chest pain, shortness of breath vomiting, or diarrhea. Prior similar symptoms: Yes Recent Illness/Hospitalization: No PFSH <Beena Chapa RN - Last Filed: 07/25/23 20:37> PFSH Medical History Acute pelvic pain Anemia Anxiety Anxiety Carpal tunnel syndrome Family history of skin cancer Fatigue GERD (gastroesophageal reflux disease) Headache History of pain when walking Intra-abdominal adhesions Late effect of complications of surgical and medical care Left knee pain Osteoarthritis of right knee Ovarian cyst Patellofemoral syndrome, right pseudo angel cerebri Recent weight loss Sacroiliac joint dysfunction Sacroiliitis Smoker Swelling of vulva Tear of medial meniscus of right knee Wears glasses Home Medications acetaminophen 500 mg tablet (Tylenol Extra Strength) 500 mg PO Q6H PRN pain 05/02/22 [History Last Taken Unknown] Allergy/AdvReac Type Severity Reaction Status Date / Time Antihistamines - Alkylamine Allergy Severe Rash/Behavi Verified 07/25/23 19:13 ors diphenhydramine Allergy Mild rash Verified 07/25/23 19:13 [From Benadryl] codeine Allergy Swelling Verified 07/25/23 19:13 nickel Allergy Rash Verified 07/25/23 19:13 pseudoephedrine Allergy Swelling Verified 07/25/23 19:13 lidocaine AdvReac Intermediate MRSA Verified 07/25/23 19:13 morphine AdvReac mental Verified 07/25/23 19:13 status change Family History Mother Arthritis High cholesterol Thyroid disorder Diabetes Grandmother History of blood transfusion Bowel disease Skin cancer Colon cancer Diabetes Kidney disease Breast cancer Heart disease Grandfather Diabetes Hypertension CVA (cerebral vascular accident) Kidney disease Colon cancer Father Diabetes Heart disease High cholesterol Hypertension Surgical History H/O: hysterectomy history c-scope (~07/27/19) History of abdominoplasty History of abdominoplasty History of arthroplasty of right knee History of carpal tunnel surgery History of delivery History of esophagogastroduodenoscopy (EGD) (~07/27/19) Hx of decompression of ulnar nerve S/P left oophorectomy (~10/14/18) Social History Smoking Status: Current every day smoker tobacco type: cigarettes Tobacco: How many years used: 19 Electronic Cigarette Use: not used second hand exposure: Yes alcohol intake: never substance use type: does not use caffeine: Yes what type of physical activity do you participate in: none seatbelt use: always do you feel safe at home: Yes 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 <Beena Chapa RN - Last Filed: 07/25/23 20:37> ROS ED Constitutional Constitutional ED: Denies chills, fever(s) or sweats Eyes Eyes: Reports blurry vision; Denies change in vision or diplopia ENT ENT ED: Reports ear pain and rhinorrhea; Denies sore throat Cardiovascular Cardiovascular: Denies chest pain, orthopnea, palpitations or racing heartbeat Respiratory/Chest Respiratory/Chest: Denies cough, dyspnea or orthopnea Gastrointestinal Gastrointestinal: Reports nausea; Denies abdominal pain, constipation, diarrhea or vomiting Genitourinary Genitourinary ED: Denies dysuria, hematuria or urinary frequency Musculoskeletal Musculoskeletal: Reports arthralgias and myalgias Integumentary Denies abscess, Abrasions or rash Neurologic Neurologic: Reports headache(s); Denies paresthesias or weakness EXAM <Beena Chapa RN - Last Filed: 07/25/23 20:37> Physical Exam Narrative Exam Narrative: Patient awake alert, well-kept. Const Vital Signs: 07/25/23 19:08 Temperature 97.9 F Temperature Source Temporal Pulse Rate 98 Respiratory Rate 15 Blood Pressure 140/85 H Blood Pressure Mean 103 Pulse Ox 97 Oxygen Delivery Method Room Air Positive well nourished and well developed General Appearance ED: well developed and NAD HEENT Reports normocephalic and moist mucous membranes HEENT Narrative: Tenderness to right temporal area with palpation. tenderness Face and Sinus: Negative for sinus tenderness Eyes PERRL and EOMs intact bilaterally Neck no lymphadenopathy, supple and no meningeal signs General: Negative for tenderness Resp normal respiratory effort and clear to auscultation bilaterally Auscultation: Negative for rales, rhonchi or wheezes Cardio regular rate, regular rhythm, S1 normal heart sound and S2 normal heart sound GI non-tender and non-distended Auscultation: normoactive bowel sounds Palpation: soft Extremity normal to inspection, full ROM and normal capillary refill General Extremety ED: Negative for edema or tenderness General Extremity: Negative for edema Neuro oriented x3 [place] Coma Scale: document GCS findings Spontaneous Obeys Commands Oriented 15 Sensorium / Orientation: awake and alert Gait (Neuro): normal gait Motor Exam: strength 5/5 throughout Psych mental status grossly normal Skin Lesions: no lesions Rashes: no rashes <Dr. Fernandez Conklin MD - Last Filed: 07/25/23 20:18> Physical Exam Const Vital Signs: 07/25/23 19:08 Temperature 97.9 F Temperature Source Temporal Pulse Rate 98 Respiratory Rate 15 Blood Pressure 140/85 H Blood Pressure Mean 103 Pulse Ox 97 Oxygen Delivery Method Room Air Neuro [place] Coma Scale: document GCS findings 15 MDM <Beena Chapa RN - Last Filed: 07/25/23 20:37> [facility] Narrative Medical decision making narrative: Patient was ordered Toradol and Zofran IV for pain and nausea. I have personally performed a face to face assessment of the patient and have reviewed the [facility] Note. I performed a substantive portion of the visit including all aspects of the following. My luciano findings include: History is 33-year-old female history of pseudotumor cerebri. Gets frequent headaches. Has had extensive workup including CAT scans and MRIs. She has had lumbar puncture cerebral fluid drainage done at the [facility]. Basically having a headache again today. No fever. No trauma. No blood thinners. No new symptoms. Exam is [well-appearing 33-year-old female. Vital signs stable afebrile. H EENT exam pupils round react light. Extra motions are intact. No facial droop. Normal speech. No trauma to her face or scalp. Neck nontender no meningismus. Able to flex touch chin to chest. Lungs clear to auscultation. Heart regular rhythm no murmur. Chest wall and ribs nontender. Abdomen soft nontender. Moving all 4 extremities. 5 out of 5 medical charge entry specialist strength left 4-5 on the right that is chronic she always has less medical charge entry specialist strength on the right. Dorsi and plantarflexion intact. She is awake alert. Answer questions following commands. NIH score is 0. She has chronic decreased medical charge entry specialist strength on the right compared to left is not new.] Medical Decision Making [patient with pseudotumor cerebri. With a headache. Treated with IV Toradol and Zofran. Will be reassessed. I do not think she needs any imaging. She has had numerous CAT scans and MRIs of her brain. There is no anatomical abnormalities seen in the past.] Other additions or changes: [None] History & Record Review Discussion w/independent historian: Patient Differential Diagnosis Differential Diagnosis: Migraine Management Discussion w/another healthcare provider: Other (Dr. Conklin, ED provider) Treatment and Re-Evaluation Narrative: Upon reevaluation, patient sitting in bed awake and alert. Patient reports her headache has decreased to 8/10 from 10/10. Patient reports we will not be able to get rid of her headache completely. She feels she is fine to go home. Patient to be discharged. <Dr. Fernandez Conklin MD - Last Filed: 07/25/23 20:18> [facility] Narrative Medical decision making narrative: Patient was ordered Toradol and Zofran IV for pain and nausea. I have personally performed a face to face assessment of the patient and have reviewed the [facility] Note. I performed a substantive portion of the visit including all aspects of the following. My luciano findings include: History is 33-year-old female history of pseudotumor cerebri. Gets frequent headaches. Has had extensive workup including CAT scans and MRIs. She has had lumbar puncture cerebral fluid drainage done at the [facility]. Basically having a headache again today. No fever. No trauma. No blood thinners. No new symptoms. Exam is [well-appearing 33-year-old female. Vital signs stable afebrile. H EENT exam pupils round react light. Extra motions are intact. No facial droop. Normal speech. No trauma to her face or scalp. Neck nontender no meningismus. Able to flex touch chin to chest. Lungs clear to auscultation. Heart regular rhythm no murmur. Chest wall and ribs nontender. Abdomen soft nontender. Moving all 4 extremities. 5 out of 5 medical charge entry specialist strength left 4-5 on the right that is chronic she always has less medical charge entry specialist strength on the right. Dorsi and plantarflexion intact. She is awake alert. Answer questions following commands. NIH score is 0. She has chronic decreased medical charge entry specialist strength on the right compared to left is not new.] Medical Decision Making [patient with pseudotumor cerebri. With a headache. Treated with IV Toradol and Zofran. Will be reassessed. I do not think she needs any imaging. She has had numerous CAT scans and MRIs of her brain. There is no anatomical abnormalities seen in the past.] Other additions or changes: [None] Discharge Plan Triage Chief Complaint: Headache ED Provider: Fernandez Conklin Dx/Rx/DC Orders Clinical Impression: Migraine Instructions: ED, Migraine (Classical) Prescriptions: No Action acetaminophen [Tylenol Extra Strength] 500 mg tablet 500 mg PO Q6H PRN (Reason: pain) Primary Care Provider: Erika Reynolds Referrals: Erika Reynolds MD [Primary Care Provider] - Activity Restrictions/Additional Instructions: Follow-up with neuro optometry in 1 to 2 weeks. Drink plenty of fluids to avoid dehydration. Return for worsening or concerning symptoms. Disposition Disposition: Home, Self Care
--- OUTSIDE RECORDS SUMMARY | 2023-07-25 19:50 | XMS RPT_ITS | CCD ---
Author Name Unknown Address [address] [place] [address] Organization [facility] Care Team Providers Care Dinkey Brakeman Name Role Phone Neftali Valladares Primary Care Provider [phone] Rod Reynolds MD Primary Care Provider [phone] Neftali Valladares Primary Care Provider Rod Reynolds MD Primary Care Provider RAYMOND, INDERPRIT Attending Unavailable GANTA, ROD Primary Care Unavailable ALISHA, MONICA Referring Unavailable RAYMOND, INDERPRIT Attending Unavailable GANTA, ROD Primary Care Unavailable RAYMOND, INDERPRIT Referring Unavailable RAYMOND, INDERPRIT Referring Unavailable RAYMOND, INDERPRIT Attending Unavailable GANTA, ROD Primary Care Unavailable Gail LEMUS, Rod Primary Care Provider Rod Reynolds MD Primary Care Provider [phone] ARNAUD VAUGHAN Referring Unavailable JESSICA BUCK Attending Unavailable GANTA, ROD Primary Care Unavailable GANTA, ROD Primary Care Unavailable GANTA, ROD Attending Unavailable GANTA, RDO Primary Care Unavailable GANTA, ROD Primary Care Unavailable GANTA, ROD Attending Unavailable GANTA, ROD Primary Care Unavailable GANTA, ROD Attending Unavailable GANTA, ROD Primary Care Unavailable JOIARNAUD Attending Unavailable GANTA, ROD Primary Care Unavailable ARNAUD VAUGHAN Referring Unavailable GANTA, ROD Primary Care Unavailable ARNAUD VAUGHAN Referring Unavailable GANTA, ROD Primary Care Unavailable ALEX MEEK Attending Unavailable GANTA, ROD Primary Care Unavailable TESTALEX RIZVI Referring Unavailable GANTA, ROD Primary Care Unavailable GANTA, ROD Primary Care Unavailable RAMON JOSEPH Referring Unavailable GANTA, ROD Primary Care Unavailable ARNAUD VAUGHAN Attending Unavailable GANTA, ROD Primary Care Unavailable ARNAUD VAUGHAN Attending Unavailable Allergies Allergy Classification Reported Allergen(s) Allergy Type Date of Onset Reaction(s) Facility (20 sources) Cefaclor; Translations: [CEFACLOR] Drug Allergy 07-15-19 06 Mental Status Change [place], [place] (20 sources) diphenhydrAMINE Drug Allergy 09-08-19 15 Other (See Comments), Other: See Comments [place] (20 sources) Morphine; Translations: [MORPHINE] Drug Allergy 10-24-19 09 Other (See Comments), Mental Status Change [place] (20 sources) nickel; Translations: [NICKEL] Drug Allergy 09-26-19 06 Rash [facility] Work Phone: (20 sources) Propylamine derivative antihistamine; Translations: [ANTIHISTAMINES - ALKYLAMINE] Drug Allergy 11-14-19 21 Other: See Comments [facility] Work Phone: (2 sources) diphenhydrAMINE; Translations: [DIPHENHYDRAMINE HCL] Drug Allergy 09-08-19 15 [facility] Other [facility] (4 sources) Bupivacaine Drug Allergy 04-17-20 23 [facility] (4 sources) Lidocaine Drug Allergy 04-17-20 [facility] NEGATED: Highlighted row has been ruled out! (1 source) Other Propensity to adverse reactions 10-08-19 17 Swelling [facility] Medications Current Medications Medication Drug Class(es) Dates Sig (Normalized) Sig (Original) codeine phosphate 2 mg/ml / guaiFENesin 20 mg/ml oral solution (1 source) Opioid Agonist Start: 11-13-2021 End: 11-18-2021 take 5-10 mL by mouth four times daily as needed for cough codeine-guaiFENesi n (ROBITUSSIN AC) 10-100 mg/5 mL syrup Indications: URI with cough and congestion Take 5-10 mL by mouth four times daily as needed for cough for up to 5 days. May cause drowsiness. 120 mL 0 11/13/2021 11/18/2021 Active Completed/Discontinued Medications Medication Drug Class(es) Dates Sig (Normalized) Sig (Original) acetaminophen 500 mg oral tablet (20 sources) take 1 tablet by mouth every six hours as needed acetaminophen (TYLENOL) 500 mg tablet Take 500 mg by mouth every 6 hours as needed. 0 Active Problems Active Problems Problem Classification Problem Date Documented Date Episodic/Chronic Anal and rectal conditions (1 source) Perianal pain; Translations: [Other specified diseases of anus and rectum] 04-18-2023 Episodic Asthma (20 sources) Intrinsic asthma without status asthmaticus; Translations: [Mild intermittent asthma, uncomplicated] Onset: 06-26-2015 06-26-2015 Chronic Diabetes mellitus without complication (3 sources) Hyperglycemia; Translations: [Hyperglycemia, unspecified] Episodic Genitourinary symptoms and ill-defined conditions (1 source) Increased frequency of urination; Translations: [Frequency of micturition] Episodic Hemorrhoids (3 sources) External hemorrhoids; Translations: [Residual hemorrhoidal skin tags] Onset: 04-17-2023 04-14-2023 Episodic Immunity disorders (1 source) Sarcoidosis; Translations: [Sarcoidosis, unspecified] Chronic Mood disorders (20 sources) Depressive disorder; Translations: [Other specified depressive episodes] Onset: 10-25-2008 10-25-2008 Chronic Nonmalignant breast conditions (4 sources) Breast lump; Translations: [Unspecified lump in the left breast, lower inner quadrant] Episodic Nutritional deficiencies (4 sources) Vitamin D deficiency; Translations: [Vitamin D deficiency, unspecified] Onset: 10-02-2021 Chronic Nutritional deficiencies (2 sources) Iron deficiency; Translations: [Iron deficiency] Episodic Other circulatory disease (2 sources) Thready pulse; Translations: [Other specified symptoms and signs involving the circulatory and respiratory systems] Episodic Other connective tissue disease (20 sources) H/O: musculoskeletal disease; Translations: [Personal history of other diseases of the musculoskeletal system and connective tissue] 05-04-2017 Episodic Other connective tissue disease (2 sources) Pain in left foot; Translations: [Pain in left foot] Episodic Other lower respiratory disease (1 source) Cough; Translations: [Acute cough] 01-12-2023 Episodic Other nervous system disorders (20 sources) Benign intracranial hypertension; Translations: [Benign intracranial hypertension] Onset: 05-13-2013 05-13-2013 Chronic Other non-traumatic joint disorders (2 sources) Pain in right knee; Translations: [Pain in joint, lower leg] Episodic Other nutritional; endocrine; and metabolic disorders (5 sources) Morbid obesity; Translations: [Morbid (severe) obesity due to excess calories] Chronic Other nutritional; endocrine; and metabolic disorders (3 sources) Severe obesity; Translations: [Morbid (severe) obesity due to excess calories] Chronic Other skin disorders (1 source) Mass of skin; Translations: [Localized swelling, mass and lump, unspecified] Episodic Other upper respiratory disease (20 sources) Allergic rhinitis; Translations: [Allergic rhinitis, unspecified] Onset: 06-26-2015 06-26-2015 Chronic Other upper respiratory infections (1 source) Upper respiratory infection; Translations: [Acute upper respiratory infection, unspecified] Episodic Residual codes; unclassified (20 sources) Sleep apnea; Translations: [Sleep apnea, unspecified] Onset: 03-18-2022 Chronic Residual codes; unclassified (1 source) Tenderness ; Translations: [Pain, unspecified] Episodic Residual codes; unclassified (1 source) Procedure not done; Translations: [Procedure and treatment not carried out, unspecified reason] Episodic Residual codes; unclassified (1 source) Tobacco user; Translations: [Tobacco use] Episodic Sprains and strains (2 sources) Sprain of left foot; Translations: [Unspecified sprain of left foot, initial encounter] Episodic Superficial injury; contusion (1 source) Contusion of left foot; Translations: [Contusion of left foot, initial encounter] Episodic Unclassified (1 source) NO SHOW Unclassified (1 source) Acute cough; Translations: [Acute cough] Onset: 01-12-2023 Urinary tract infections (1 source) Acute cystitis; Translations: [Acute cystitis without hematuria] Episodic Viral infection (2 sources) Disease caused by 2019-nCoV; Translations: [COVID-19] Episodic Past or Other Problems Problem Classification Problem Date Documented Date Episodic/Chronic Abdominal pain (20 sources) Left lower quadrant pain; Translations: [Suprapubic pain] Onset: 01-01-2012 01-01-2012 Episodic E Codes: Natural/environment (3 sources) Repetitive motion disorder; Translations: [Overexertion from repetitive movements, initial encounter] Onset: 11-11-2022 Episodic Miscellaneous mental health disorders (20 sources) Emotional problems; Translations: [Other symptoms and signs involving emotional state] Onset: 10-25-2008 10-25-2008 Episodic Other circulatory disease (1 source) Other specified symptoms and signs involving the circulatory and respiratory systems; Translations: [Diminished pulse] Onset: 11-11-2022 Episodic Other connective tissue disease (1 source) Pain in left foot; Translations: [Left foot pain] Onset: 10-14-2022 Episodic Other non-traumatic joint disorders (20 sources) Multiple joint pain; Translations: [Pain in unspecified joint] Onset: 12-19-2021 Episodic Other non-traumatic joint disorders (20 sources) Pain in elbow; Translations: [Pain in left elbow] Onset: 03-05-2020 03-05-2020 Episodic Other non-traumatic joint disorders (1 source) Pain in unspecified joint; Translations: [Polyarthralgia] Onset: 10-02-2021 Episodic Other screening for suspected conditions (not mental disorders or infectious disease) (20 sources) High enzyme level in serum; Translations: [Other specified abnormal findings of blood chemistry] Onset: 12-19-2021 Episodic Residual codes; unclassified (20 sources) History of decompression of ulnar nerve; Translations: [Other specified postprocedural states] Onset: 03-05-2020 03-05-2020 Episodic Results Test Name Value Interpretation Reference Range Facil ity Vital Signs Date Time Vital Sign Value Performing Clinician Facility 04-17-2023 11:36-0500 Body height 160 cm Jessica Buck MD Work Phone: [facility] 04-17-2023 11:36-0500 Body temperature 97.11 [degF] Jessica Buck MD Work Phone: [facility] 04-17-2023 11:36-0500 Body weight 116.48 kg Jessica Buck MD Work Phone: [facility] 04-17-2023 11:36-0500 Diastolic blood pressure 78 mm[Hg] Jessica Buck MD Work Phone: [facility] 04-17-2023 11:36-0500 Heart rate 89 /min Jessica Buck MD Work Phone: [facility] 04-17-2023 11:36-0500 SaO2% (BldA) [Mass fraction] 99 % Jessica Buck MD Work Phone: [facility] 04-17-2023 11:36-0500 Systolic blood pressure 132 mm[Hg] Jessica Buck MD Work Phone: [facility] 04-14-2023 10:31-0500 Body weight 116.12 kg Arnaud Joi T[employer] BUILDER AND E[employer]OR.[employer]ER Work Phone: [facility] 04-14-2023 10:31-0500 Diastolic blood pressure 70 mm[Hg] Arnaud Joi T[employer] BUILDER AND [employer]OR.[employer] P[employer]ER Work Phone: [facility] 04-14-2023 10:31-0500 Heart rate 94 /min Arnaud Joi T[employer] BU[employer]DER AND E[employer]OR.[employer] P[employer]ER Work Phone: [facility] 04-14-2023 10:31-0500 SaO2% (BldA) [Mass fraction] 98 % Arnaud Joi [employer] BUILDER AND E[employer]OR.[employer] P[employer]ER Work Phone: [facility] 04-14-2023 10:31-0500 Systolic blood pressure 110 mm[Hg] Arnaud Joi T[employer] BUILDER AND E[employer]OR.[employer] P[employer]ER Work Phone: [facility] 04-07-2023 13:48-0500 Body height 157.5 cm Arnaud Joi T[employer] BUILDER AND E[employer]OR.[employer] P[employer]ER Work Phone: [facility] 04-07-2023 13:48-0500 Body weight 113.85 kg Arnaud Joi T[employer] BUILDER AND E[employer]OR.[employer] P[employer]ER Work Phone: [facility] 04-07-2023 13:48-0500 Diastolic blood pressure 70 mm[Hg] Arnaud Joi T[employer] BUILDER AND E[employer]OR.TEST P[employer]ER Work Phone: [facility] 04-07-2023 13:48-0500 Heart rate 100 /min Arnaud Joi T[employer] BUILDER AND E[employer]OR.[employer] P[employer]ER Work Phone: [facility] 04-07-2023 13:48-0500 SaO2% (BldA) [Mass fraction] 98 % Arnaud Joi T[employer] BUILDER AND E[employer]OR.[employer] P[employer]ER Work Phone: [facility] 04-07-2023 13:48-0500 Systolic blood pressure 130 mm[Hg] Arnaud Joi T[employer] BU[employer]DER AND E[employer]OR.[employer] P[employer]ER Work Phone: [facility] 01-12-2023 14:04-0400 Body temperature 99 [degF] Ramon Bogner PA-C Work Phone: [facility] 01-12-2023 [id number] Body weight 117.84 kg Ramon Bogner PA-C Work Phone: [facility] 01-12-2023 14:04-0400 Diastolic blood pressure 58 mm[Hg] Ramon Bogner PA-C Work Phone: [facility] 01-12-2023 14:04-0400 Heart rate 102 /min Ramon Bogner PA-C Work Phone: [facility] 01-12-2023 [id number] Respiratory rate 20 /min Ramon Bogner PA-C Work Phone: [facility] 01-12-2023 14:04-0400 SaO2% (BldA) [Mass fraction] 98 % Ramon Bogner PA-C Work Phone: [facility] 01-12-2023 14:04-0400 Systolic blood pressure 116 mm[Hg] Ramon Bogner PA-C Work Phone: [facility] 09-02-2022 10:51-0400 Body height 160 cm Rod Reynolds MD Work Phone: [facility] 09-02-2022 10:51-0400 Body temperature 98.01 [degF] Rod Reynolds MD Work Phone: [facility] 09-02-2022 10:51-0400 Body weight 108.41 kg Rod Reynolds MD Work Phone: [facility] 09-02-2022 10:51-0400 Diastolic blood pressure 70 mm[Hg] Rod Reynolds MD Work Phone: [facility] 09-02-2022 10:51-0400 Heart rate 92 /min Rod Reynolds MD Work Phone: [facility] 09-02-2022 10:51-0400 Respiratory rate 12 /min Rod Reynolds MD Work Phone: [facility] 09-02-2022 10:51-0400 SaO2% (BldA) [Mass fraction] 99 % Rod Reynolds MD Work Phone: [facility] 09-02-2022 10:51-0400 Systolic blood pressure 124 mm[Hg] Rod Reynolds MD Work Phone: [facility] 07-29-2022 11:38-0500 Body height 160 cm Rod Reynolds MD Work Phone: [facility] 07-29-2022 11:38-0500 Body temperature 98.29 [degF] Rod Reynolds MD Work Phone: [facility] 07-29-2022 11:38-0500 Body weight 110.22 kg Rod Reynolds MD Work Phone: [facility] 07-29-2022 11:38-0500 Diastolic blood pressure 70 mm[Hg] Rod Reynolds MD Work Phone: [facility] 07-29-2022 11:38-0500 Heart rate 92 /min Rod Reynolds MD Work Phone: [facility] 07-29-2022 11:38-0500 Respiratory rate 14 /min Rod Reynolds MD Work Phone: [facility] 07-29-2022 11:38-0500 SaO2% (BldA) [Mass fraction] 99 % Rod Reynolds MD Work Phone: [facility] 07-29-2022 11:38-0500 Systolic blood pressure 124 mm[Hg] Rod Reynolds MD Work Phone: [facility] 07-04-2022 12:01-0500 Body height 160 cm Rod Reynolds MD Work Phone: [facility] 07-04-2022 12:01-0500 Body temperature 98.4 [degF] Rod Reynolds MD Work Phone: [facility] 07-04-2022 12:01-0500 Body weight 112.04 kg Rod Reynolds MD Work Phone: [facility] 07-04-2022 12:01-0500 Diastolic blood pressure 78 mm[Hg] Rod Reynolds MD Work Phone: [facility] 07-04-2022 12:01-0500 Heart rate 66 /min Rod Reynolds MD Work Phone: [facility] 07-04-2022 12:01-0500 Respiratory rate 14 /min Rod Reynolds MD Work Phone: [facility] 07-04-2022 12:01-0500 SaO2% (BldA) [Mass fraction] 100 % Rod Reynolds MD Work Phone: [facility] 07-04-2022 12:01-0500 Systolic blood pressure 124 mm[Hg] Rod Reynolds MD Work Phone: [facility] 06-16-2022 15:05-0500 Body temperature 98.91 [degF] Aliya Hill APRN.TEST PULLER Work Phone: [facility] 06-16-2022 15:05-0500 Body weight 113.4 kg Aliya Hill APRN.TEST PULLER Work Phone: [facility] 06-16-2022 15:05-0500 Diastolic blood pressure 80 mm[Hg] Aliya Hill APRN.TEST PULLER Work Phone: [facility] 06-16-2022 15:05-0500 Heart rate 92 /min Aliya Hill APRN.TEST PULLER Work Phone: [facility] 06-16-2022 15:05-0500 Respiratory rate 18 /min Aliya Hill APRN.TEST PULLER Work Phone: [facility] 06-16-2022 15:05-0500 SaO2% (BldA) [Mass fraction] 99 % Aliya Hill APRN.TEST PULLER Work Phone: [facility] 06-16-2022 15:05-0500 Systolic blood pressure 138 mm[Hg] Aliya Hill APRN.TEST PULLER Work Phone: [facility] 03-18-2022 15:46-0400 Body weight 108.86 kg Rod Reynolds MD Work Phone: [facility] 03-18-2022 15:46-0400 Diastolic blood pressure 70 mm[Hg] Rod Reynolds MD Work Phone: [facility] 03-18-2022 15:46-0400 Heart rate 85 /min Rod Reynolds MD Work Phone: [facility] 03-18-2022 15:46-0400 SaO2% (BldA) [Mass fraction] 99 % Rod Reynolds MD Work Phone: [facility] 03-18-2022 15:46-0400 Systolic blood pressure 116 mm[Hg] Rod Reynolds MD Work Phone: [facility] 03-03-2022 16:09-0400 Body height 160 cm Rod Reynolds MD Work Phone: [facility] 03-03-2022 16:09-0400 Body weight 106.14 kg Rod Reynolds MD Work Phone: [facility] 03-03-2022 16:09-0400 Diastolic blood pressure 62 mm[Hg] Rod Reynolds MD Work Phone: [facility] 03-03-2022 16:09-0400 Heart rate 94 /min Rod Reynolds MD Work Phone: [facility] 03-03-2022 16:09-0400 Respiratory rate 16 /min Rod Reynolds MD Work Phone: [facility] 03-03-2022 16:09-0400 SaO2% (BldA) [Mass fraction] 98 % Rod Reynolds MD Work Phone: [facility] 03-03-2022 16:09-0400 Systolic blood pressure 122 mm[Hg] Rod Reynolds MD Work Phone: [facility] 10-21-2021 22:57-0400 Body height 160 cm Steven Estrada MD Work Phone: [facility] 10-21-2021 22:57-0400 Heart rate 90 /min Steven Estrada MD Work Phone: [facility] 10-21-2021 22:57-0400 Respiratory rate 16 /min Steven Estrada MD Work Phone: [facility] 10-21-2021 22:57-0400 SaO2% (BldA) [Mass fraction] 100 % Steven Estrada MD Work Phone: [facility] 10-21-2021 22:23-0400 Body temperature 98.49 [degF] Steven Estrada MD Work Phone: [facility] 10-21-2021 22:23-0400 Diastolic blood pressure 75 mm[Hg] Steven Estrada MD Work Phone: [facility] 10-21-2021 22:23-0400 Systolic blood pressure 105 mm[Hg] Steven Estrada MD Work Phone: [facility] 10-13-2021 15:26-0400 Body temperature 98.8 [degF] Prakash Pendleomero TANK BUILDER AND ERECTOR.TEST P[employer]ER Work Phone: [facility] 10-13-2021 15:26-0400 Body weight 111.13 kg Prakash Pendleomero TANK BUILDER AND ERECTOR.TEST P[employer]ER Work Phone: [facility] 10-13-2021 15:26-0400 Diastolic blood pressure 66 mm[Hg] Prakash Pendlebury TANK BUILDER AND ERECTOR.TEST P[employer]ER Work Phone: [facility] 10-13-2021 15:26-0400 Heart rate 96 /min Prakash Pendlebury TANK BUILDER AND ERECTOR.TEST P[employer]ER Work Phone: [facility] 10-13-2021 15:26-0400 Respiratory rate 16 /min Prakash Pendlebury TANK BUILDER AND ERECTOR.TEST P[employer]ER Work Phone: [facility] 10-13-2021 15:26-0400 SaO2% (BldA) [Mass fraction] 99 % Prakash Pendlebury T[employer] BUILDER AND ERECTOR.TEST P[employer]ER Work Phone: [facility] 10-13-2021 15:26-0400 Systolic blood pressure 118 mm[Hg] Prakash Pendlebury T[employer] BUILDER AND ERECTOR.TEST P[employer]ER Work Phone: [facility] 10-11-2021 09:03-0400 Body weight 110.22 kg Yg Freeman MD Work Phone: [facility] 10-11-2021 09:03-0400 Diastolic blood pressure 82 mm[Hg] Yg Freeman MD Work Phone: [facility] 10-11-2021 09:03-0400 Heart rate 76 /min Yg Freeman MD Work Phone: [facility] 10-11-2021 09:03-0400 Systolic blood pressure 122 mm[Hg] Yg Freeman MD Work Phone: [facility] 10-02-2021 14:01-0400 Body height 160 cm Sarah Raymond MD Work Phone: [facility] 10-02-2021 14:01-0400 Body temperature 98.29 [degF] Sarah Raymond MD Work Phone: [facility] 10-02-2021 14:01-0400 Body weight 110.22 kg Sarah Raymond MD Work Phone: [facility] 10-02-2021 14:01-0400 Diastolic blood pressure 103 mm[Hg] Sarah Raymond MD Work Phone: [facility] 10-02-2021 14:01-0400 Heart rate 89 /min Sarah Raymond MD Work Phone: [facility] 10-02-2021 14:01-0400 Systolic blood pressure 126 mm[Hg] Sarah Raymond MD Work Phone: [facility] 08-26-2021 11:00-0400 Body weight 111.58 kg Monica Older TANK BUILDER AND ERECTOR.[employer] P[employer]ER Work Phone: [facility] 08-26-2021 11:00-0400 Diastolic blood pressure 78 mm[Hg] Monica Older TANK BUILDER AND ERECTOR.TEST P[employer]ER Work Phone: [facility] 08-26-2021 11:00-0400 Heart rate 80 /min Monica Older T[employer] BUILDER AND ERECTOR.TEST P[employer]ER Work Phone: [facility] 08-26-2021 11:00-0400 Respiratory rate 16 /min Monica Ricketts APRN.TEST PULLER Work Phone: [facility] 08-26-2021 11:00-0400 Systolic blood pressure 126 mm[Hg] Monica Ricketts T[employer] BUILDER AND ERECTOR.TEST P[employer]ER Work Phone: [facility] 01-04-2019 20:16-0400 BP Diastolic 61 mm[Hg] [place], [place] 01-04-2019 20:16-0400 BP Systolic 108 mm[Hg] [place] 01-04-2019 20:16-0400 Pulse (Heart Rate) 73 /min [place], [place] 01-04-2019 20:16-0400 Pulse Oximetry 96 % [place] 01-04-2019 20:16-0400 Respiratory Rate 16 /min [place], [place] 01-04-2019 18:32-0400 BMI (Body Mass Index) 40.74 kg/m2 [place], [place] 01-04-2019 18:32-0400 Body Temperature 98.29 [degF] [place] 01-04-2019 18:32-0400 Body weight 104.33 kg [place] 01-04-2019 18:32-0400 Height 160 cm [place] Encounters Encounter Date Encounter Type Care Provider Facility Start: 05-03-2023 Orders Only Arnaud Joi A PRN.TEST PULLER Work Phone: Pre Anesthesia Start: 04-22-2023 ambulatory Arnaud Joi A PRN.TEST P[employer]ER Work Phone: [facility] Start: 04-22-2023 Follow-up encounter Arnaud Britton er T[employer] BUILDER AND E[employer]OR.TEST P[employer]ER Work Phone: Internal Medicine [place] Procedures Date Procedure Procedure Detail Performing Clinician Start: 11-11-2022 Radex foot complete minimum 3 views Alex Meek Work Phone: Start: 06-16-2022 End: 06-16-2022 Iadna chlamydia trachomatis amplified probe tq Aliya Hill T[employer] BUILDER AND E[employer]OR.[employer] P[employer]ER Work Phone: Start: 06-16-2022 BACTERIAL VAGINOSIS AMPLIFICATION Aliya Sergio CANO.TEST PULLER Work Phone: Start: 06-16-2022 Urnls dip stick/tabl et rgnt auto w/o microscopy [facility] Provider Start: 10-08-2021 Us breast uni real t miguel with image limited Antonella Bravo T[employer] BUILDER AND E[employer]OR.[employer] Work Phone: Start: 10-08-2021 Diagnostic mammograp hy computer-aided detcj uni Antonella Bravo T[employer] BU[employer]DER AND E[employer]OR.PROPERTY ADJUSTER Work Phone: Start: 01-04-2019 CT ABDOMEN PELVIS W CONTRAST Jemal Mone [employer] Work Phone: Start: 01-04-2019 Assay of lipase [facility] Work Phone: Start: 01-04-2019 Blood count complete auto&auto difrntl wbc [facility] Work Phone: Start: 01-04-2019 Comprehensive metabo lic panel [facility] Work Phone: Start: 01-04-2019 Urine test visual color cmprsn meths [facility] Work Phone: Start: 01-04-2019 Urnls dip stick/tabl et rgnt auto w/o microscopy [facility] Work Phone: Plan of Treatment Date Care Activity Detail Author Start: 10-23-2024 Urine microalbumin profile [facility] Start: 04-14-2024 Annual PCP Team [employer] amaris Disease Visit Annual PCP Team Chronic Disease Visit [facility] Start: 04-07-2024 Annual PCP Team [employer] amaris Disease Visit Annual PCP Team Chronic Disease Visit [facility] Start: 10-15-2023 ANNUAL PCP TEAM [employer] SPECIALIST AM[facility] DISEASE VISIT ANNUAL PCP TEAM CHRONIC DISEASE VISIT [facility] Start: 09-03-2023 ANNUAL PCP TEAM [employer]OTE[employer] SPECIALIST AM[place] DISEASE VISIT ANNUAL PCP TEAM CHRONIC DISEASE VISIT [facility] Start: 07-30-2023 ANNUAL PCP TEAM [employer]OTE[employer] SPECIALIST AM[place] DISEASE VISIT ANNUAL PCP TEAM CHRONIC DISEASE VISIT [facility] Start: 07-04-2023 ANNUAL PCP TEAM [employer]OTECTION SPECIALIST AM[place] DISEASE VISIT ANNUAL PCP TEAM CHRONIC DISEASE VISIT [facility] Start: 03-18-2023 ANNUAL PCP TEAM [employer] PROTECTION SPECIALIST [facility] DISEASE VISIT ANNUAL PCP TEAM CHRONIC DISEASE [facility]ISIT [facility] [facility] Start: 03-03-2023 ANNUAL PCP TEAM SOURCE WATER PROTECTION SPECIALIST AMARIS DISEASE VISIT ANNUAL PCP TEAM CHRONIC DISEASE VISIT [facility] Start: 01-23-2023 Influenza vaccination [facility] Start: 11-21-2022 Influenza vaccination INFLUENZA (#1) [facility] Immunizations Immunization Date Immunization Notes Care Provider Fa cility 03-20-2016 influenza, injectabl e, quadrivalent, contains preservative Monica Older TANK BUILDER AND E[employer]OR.TEST PULLER Work Phone: [facility] 03-20-2016 influenza virus vacc ine, unspecified formulation Xr Mob Work Phone: [facility] 06-26-2015 pneumococcal polysaccharide vaccine, 23 valent Monica Older TANK BUILDER AND E[employer]OR.TEST PULLER Work Phone: [facility] 03-28-2014 influenza, seasonal, injectable Monica Older TANK BUILDER AND ERECTOR.TEST PULLER Work Phone: [facility] Payers Date Payer Category Payer Medicaid [id number] 2014 Medicaid [employer] [id number] 2014-Present [phone] [address] [place] [address] Medicaid [id number] 2014 Medicaid [id number] 2014 Medicaid [id number] Social History Date Type Detail Facility Start: 01-04-2019 End: 03-17-2022 Tobacco smoking status NHIS Current every day smoker [facility] Start: 01-04-2019 End: 10-29-2022 Cigarettes smoked current (pack per day) - Reported [facility] Start: 01-04-2019 End: 10-29-2022 Alcohol intake No [facility] Start: 1990 Sex Assigned At Not on file [facility] [place], [place] End: 03-05-2023 History of tobacco use Cigarette Smoker [facility] Start: 03-28-2014 End: 04-07-2023 Tobacco use and exposure Smokeless tobacco non-user [facility] Start: 08-02-2021 End: 04-17-2023 Alcohol intake Current non-drinker of alcohol (finding) [facility] Start: 07-21-2019 End: 04-20-2021 History SDOH Alcohol Frequency 1 [facility] Start: 07-21-2019 History SDOH Alcohol Std Drinks 98 [facility] Start: 07-03-2019 End: 04-17-2022 History SDOH Social Connections Phone 5 [facility] Start: 07-03-2019 End: 04-17-2022 History SDOH Social Connections Get Together 2 [facility] Start: 07-03-2019 End: 04-17-2022 History SDOH Social Connections Living 3 [facility] Start: 07-11-2019 End: 04-17-2022 History SDOH Physical Activity DPW 0 [facility] Start: 08-05-2019 End: 04-17-2022 History SDOH Financial 4 [facility] Start: 10-06-2019 Education 18 [facility] Start: 1990 Sex Assigned At Female [facility] Start: 08-11-2021 End: 12-04-2021 Exposure to SARS-CoV-2 (event) Unable to assess [facility] Start: 09-22-2021 End: 03-18-2022 Exposure to SARS-CoV-2 (event) Not sure [facility] Do you belong to any clubs or organizations such as quaker groups, unions, fraternal or athletic groups, or school groups? No [facility] Are you now , , , , never or living with a partner? [facility] How often to you hav e a drink containing alcohol? Monthly or less [facility] How many standard dr inks containing alcohol do you have on a typical day? 1 or 2 [facility] How often do you hav e 6 or more drinks on 1 occasion? Never [facility] How hard is it for y ou to pay for the very basics like food, housing, medical care, and heating Not hard at all [facility] Do you feel stress - tense, restless, nervous, or anxious, or unable to sleep at night because your mind is troubled all the time - these days [OSQ] Rather much [facility] (I/We) worried wheth er (my/our) food would run out before (I/we) got money to buy more. Never true [facility] Start: 06-21-2019 Gender identity Identifies as female gender (finding) [facility] Start: 06-21-2019 Sexual orientation Heterosexual (finding) [facility] Start: 04-07-2023 Tobacco smoking status NHIS Ex-smoker [facility] Work Phone: End: 03-05-2023 History of tobacco use Current smoker [facility] Work Phone: Medical Equipment Procedure Code Equipment Code Equipment Origin al Text Equipment Identifier Dates [id number] Implant - [id number] Start: 06-03-2011 Clinical Notes 01-07-2012 to 05-01-2023 Telephone Encounter - Arnaud Vaughan APRN.CNP - 05/01/2023 9:05 AM Jessica Rasmussen MD - 04/17/2023 11:48 AM Dora Leonard LPN - 04/17/2023 11:35 AM ESTPatient InstructionsInstructions Note Date & Type Note Facility 05-01-2023 Miscellaneous Notes documented in this encounter [facility] 04-17-2023 Note HNO ID: [id number] Author: Jessica Buck MD Service: ? Author Type: Physician Type: Progress Notes Filed: 04/18/2023 12:53 PM Note Text: HISTORY AND PHYSICAL Heather Parrish 1990 REFERRING PHYSICIAN: Arnaud Vaughan APRN.CNP CHIEF COMPLAINT: Consult (HEMORRHOIDS/) HPI: The patient is a 32 year old female with a complaint of perianal pain. She states that this is at her hemorrhoids site. She had previous procedures at [facility] She states that she had painful external hemorrhoid in the past and these were excised by Dr. [place]. I have asked her specifically if these were thrombosed hemorrhoids and she states no. I asked specifically if her external hemorrhoid was excised and she states yes and that she had no pain after surgery. I have explained to her that the surgery results in significant postoperative pain/discomfort and I can only prescribe a limited amount of narcotic pain medications. She states that she will be OK with acetaminophen only. 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 Negative. [place] her abd pain was coming from scar tissue EGD 07/27/2019 [place]. Hpylori and small bowel bx negative KNEE SURGERY HX Right 04/30/2022 [facility] LEFT WRIST CARPAL TUNNEL ONLY Left 2012 LIG/TRNSXJ FLP TUBE ABDL/VAG APPR UNI/BI 06/03/2011 Tubal ligation OTHER SURGICAL HISTORY (PLEASE SPECIFY) HX Left 12/28/2019 Left ulnar nerve release/ubital tunnel release OVARIAN CYSTECTOMY 09/2018 [facility] PAST SURGICAL HISTORY OF 02/05/2012 right carpel tunnel,left PAST SURGICAL HISTORY OF hysterectomy without bso PAST SURGICAL HISTORY OF 06/21/2014 excision of sebaceous cyst behind right knee Dr Calderon TONSILLECTOMY PRIMARY/SECONDARY Tonsillectomy AND ADNOIDS TOT ABD HYST W/WO RMVL TUBE OVARY W/COLPURETHRXY Hysterectomy with MMK Current Outpatient Medications Medication Sig lidocaine (HEMORRHOIDAL RELIEF) crea Apply to affected area as needed. Phentermine HCl 37.5 mg tablet Take 1 tablet by mouth once daily for 30 days. acetaminophen (TYLENOL) 500 mg tablet Take 500 mg by mouth every 6 hours as needed. tirzepatide (MOUNJARO) 2.5 mg/0.5 mL pen injector Inject 2.5 mg subcutaneously one time a week. (Patient not taking: Reported on 04/14/2023) albuterol HFA (PROVENTIL HFA, VENTOLIN HFA) 90 mcg/actuation inhaler Inhale 2 Puffs as instructed every 4 hours as needed for wheezing/shortness of breath. (Patient not taking: Reported on 04/07/2023) No current facility-administered medications for this visit. ALLERGIES: Ceclor [Cefaclor], Nickel, Antihistamines - Alkylamine, Benadryl [Diphenhydramine Hcl], Bupivacaine, Lidocaine, and Morphine PERSONAL HISTORY: Social History Tobacco Use Smoking status: Former Packs/day: 0.50 Years: 5.00 Additional pack years: 0.00 Total pack years: 2.50 Types: Cigarettes Quit date: 03/05/2023 Years since quittin.1 Smokeless tobacco: Never Vaping Use Vaping Use: Never used Substance Use Topics Alcohol use: No Drug use: No FAMILY HISTORY Problem Relation Age of Onset Diabetes Mother ddd Hypertension Mother other (Other) Mother Coronary Artery Disease Father CA x 3 < age 40 Diabetes Father Hypertension Father Obesity Sister Diabetes Sister Hypertension Sister Colon Cancer Maternal Grandmother Cancer Maternal Grandmother RECTAL Kidney Disease Maternal Grandmother Diabetes Maternal Grandfather Cataract Maternal Grandfather Hypertension Maternal Grandfather Heart Attack Maternal Grandfather other (Other) Maternal Grandfather ddd Cancer Paternal Grandmother RECTAL AND BREAST, Diabetes Paternal Grandmother Hypertension Paternal Grandmother Glaucoma Paternal Grandmother Cataract Paternal Grandfather Heart Attack Daughter Seizures Daughter Bipolar disorder Daughter Insomnia Daughter The review of systems data was entered by the nurse and reviewed by ar Nursing Notes: Dora Marroquin LPN 04/17/2023 11:37 AM Signed REVIEW OF SYSTEMS: General: The patient denies fatigue, denies weight loss, denies weight gain, denies feeling hot, and denies feelings of cold. Eyes: The patient denies glaucoma, denies eye injury/surgery, wears glasses or contacts. Ear/Nose/Throat: The patient NOTES allergies, denies hayfever, denies ear infections, and denies bloody noses. Ca (more content not included)... [facility] 04-17-2023 History of Presen t illness Narrative HISTORY AND PHYSICAL Heather Parrish 1990 REFERRING PHYSICIAN: Arnaud Vaughan APRN.TEST PULLER CHIEF COMPLAINT: Consult (HEMORRHOIDS/) HPI: The patient is a 32 year old female with a complaint of perianal pain. She states that this is at her hemorrhoids site. She had previous procedures at [facility] She states that she had painful external hemorrhoid in the past and these were excised by Dr. Munoz. I have asked her specifically if these were thrombosed hemorrhoids and she states no. I asked specifically if her external hemorrhoid was excised and she states yes and that she had no pain after surgery. I have explained to her that the surgery results in significant postoperative pain/discomfort and I can only prescribe a limited amount of narcotic pain medications. She states that she will be OK with acetaminophen only. 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 Negative. [place] her abd pain was coming from scar tissue EGD 07/27/2019 [place]. Hpylori and small bowel bx negative KNEE SURGERY HX Right 04/30/2022 [place] LEFT WRIST CARPAL TUNNEL ONLY Left 2012 LIG/TRNSXJ FLP TUBE ABDL/VAG APPR UNI/BI 06/03/2011 Tubal ligation OTHER SURGICAL HISTORY (PLEASE SPECIFY) HX Left 12/28/2019 Left ulnar nerve release/ubital tunnel release OVARIAN CYSTECTOMY 09/2018 [facility] PAST SURGICAL HISTORY OF 02/05/2012 right carpel tunnel,left PAST SURGICAL HISTORY OF hysterectomy without bso PAST SURGICAL HISTORY OF 06/21/2014 excision of sebaceous cyst behind right knee Dr Calderon TONSILLECTOMY PRIMARY/SECONDARY <AGE 10 Tonsillectomy AND ADNOIDS TOT ABD HYST W/WO RMVL TUBE OVARY W/COLPURETHRXY Hysterectomy with MMK Current Outpatient Medications Medication Sig lidocaine (HEMORRHOIDAL RELIEF) crea Apply to affected area as needed. Phentermine HCl 37.5 mg tablet Take 1 tablet by mouth once daily for 30 days. acetaminophen (TYLENOL) 500 mg tablet Take 500 mg by mouth every 6 hours as needed. tirzepatide (MOUNJARO) 2.5 mg/0.5 mL pen injector Inject 2.5 mg subcutaneously one time a week. (Patient not taking: Reported on 04/14/2023) albuterol HFA (PROVENTIL HFA, VENTOLIN HFA) 90 mcg/actuation inhaler Inhale 2 Puffs as instructed every 4 hours as needed for wheezing/shortness of breath. (Patient not taking: Reported on 04/07/2023) No current facility-administered medications for this visit. ALLERGIES: Ceclor [Cefaclor], Nickel, Antihistamines - Alkylamine, Benadryl [Diphenhydramine Hcl], Bupivacaine, Lidocaine, and Morphine PERSONAL HISTORY: Social History Tobacco Use Smoking status: Former Packs/day: 0.50 Years: 5.00 Additional pack years: 0.00 Total pack years: 2.50 Types: Cigarettes Quit date: 03/05/2023 Years since quittin.1 Smokeless tobacco: Never Vaping Use Vaping Use: Never used Substance Use Topics Alcohol use: No Drug use: No FAMILY HISTORY Problem Relation Age of Onset Diabetes Mother ddd Hypertension Mother other (Other) Mother Coronary Artery Disease Father CA x 3 < age 40 Diabetes Father Hypertension Father Obesity Sister Diabetes Sister Hypertension Sister Colon Cancer Maternal Grandmother Cancer Maternal Grandmother RECTAL Kidney Disease Maternal Grandmother Diabetes Maternal Grandfather Cataract Maternal Grandfather Hypertension Maternal Grandfather Heart Attack Maternal Grandfather other (Other) Maternal Grandfather ddd Cancer Paternal Grandmother RECTAL AND BREAST, Diabetes Paternal Grandmother Hypertension Paternal Grandmother Glaucoma Paternal Grandmother Cataract Paternal Grandfather Heart Attack Daughter Seizures Daughter Bipolar disorder Daughter Insomnia Daughter The review of systems data was entered by the nurse and reviewed by ar Nursing Notes: Dora Marroquin LPN 04/17/2023 11:37 AM Signed REVIEW OF SYSTEMS: General: The patient denies fatigue, denies weight loss, denies weight gain, denies feeling hot, and denies feelings of cold. Eyes: The patient denies glaucoma, denies eye injury/surgery, wears glasses or contacts. Ear/Nose/Throat: The patient NOTES allergies, denies hayfever, denies ear infections, and denies bloody noses. Cardiovascular: The patient denies chest pain, denies heart disease, denies high blood pressure,denies cardiac stent, denies prior heart attack, denies irregular heart beat, denies high cholesterol, denies poor circulation, denies heart failure, other cardiac issues, denies claudication, denies cold feet, denies peripheral arterial stent. Respiratory: The patient denies tuberculosis, denies pneumonia, denies frequent cough, denies pulmonary embolism, denies shortness of breath, and denies coughing up blood. Gastrointestinal: The patient denies difficulty swallowing, denies acid reflux, denies ulcers, denies vomiting, denies jaundice/hepatitis, denies gallbladder problems, denies black or tarry stools, NOTES hemorrhoids, denies bleeding from rectum, NOTES diverticulitis, NOTES constipation, NOTES diarrhea, denies loss of stool control, and NOTES hernias. Kidney/Bladder: The patient NOTES kidney stones, denies urine infections, and denies bloody urine. Skin: The patient denies a history of skin cancer, NOTES bleeding/changing moles, and denies a history of skin rash. Neurologic: The patient denies a history of epilepsy/convulsions, NOTES headaches, denies head/spinal injuries, and denies stroke/TIA. Psychiatric: The patient denies psychiatric medications, denies depression, and denies voices, denies substance abuse. Endocrine: The patient denies thyroid disorders, denies diabetes, and denies hormonal problems. Hematologic: The patient denies a history of bruising, denies bleeding, and denies anemia, denies blood clots. Infections: The patient denies a history of measles and mumps, denies rheumatic fever, and denies sexually transmitted diseases. Musculoskeletal: The patient denies back pain/injury, NOTES back problems, denies sciatica, denies knee/foot trouble, NOTES arthritis, or denies gout. When was patient's last Mammogram screening? 2021 Last Colonoscopy: 2020 Dora Marroquin LPN PHYSICAL EXAMINATION: General: The patient is 32 year old female, well nourished, well hydrated in no acute distress. The patient is oriented to time, place, and person. VITALS: Blood pressure 132/78, pulse 89, temperature 36.2 C (97.1 F), height 160 cm (5' 3 ), weight 116.5 kg (256 lb 12.8 oz), last menstrual period 07/20/2011, SpO2 99 %. Body mass index is 45.49 kg/m . Head: Normal cephalic, atraumatic Eyes: pupils are equally round, sclera are clear/anicteric Neck is supple with no tracheal deviation Cardiac: regular Respiratory: Normal respiratory excursion and pattern. Abdominal exam: benign Perianal: just prying apart buttocks caused patient to yell out in pain, minimal examination of the area - caused pain, external hemorrhoid with base - small wound 2mm - no thrombosed hemorrhoid Extremities: no clubbing, cyanosis or edema. Neuro: non focal Psych: normal mood Assessment IMPRESSION: perianal severe pain, external hemorrhoid with small wound - no thrombosis PLAN: I have discussed the above with the patient. She states that she had painful external hemorrhoid in the past and these were excised by Dr. Munoz. I have asked her specifically if these were thrombosed hemorrhoids and she states no. I asked specifically if her external hemorrhoid was excised and she states yes and that she had no pain after surgery. I have explained to her that the surgery (external hemorrhoidectomy) results in significant postoperative pain/discomfort and I can only prescribe a limited amount of narcotic pain medications. She states that she will be OK with acetaminophen only. I have questioned her repeatedly on whether the previous episodes were thrombosed hemorrhoids and she states no. I have offered external hemorrhoidectomy. I have explained the procedure to the patient. I have counseled the patient as to the risks of the procedure, including but not limited to: infection, bleeding, injury to any blood vessels/nerves, scar tissue, continued postoperative pain ( I have stressed this to patient and that I will only offer a limited amount of pain medications after the procedure - the patient states that she will only use acetaminophen), wound infections, complications of anesthesia, etc. - the patient understands. The patient wishes to proceed. To be done with MAC/local at [facility] I have answered all questions to the patient s satisfaction and the patient has no further questions. I have confirmed and edited as necessary, the PFSH and ROS obtained by others. Consultation requested by Arnaud Vaughan for an opinion regarding patient's perianal pain and hemorrhoids. My final recommendations will be communicated back to the requesting physician by way of shared Medical record or letter to requesting physician via [place] mail. . Diagnoses: (K64.4) External hemorrhoids (K62.89) Perianal pain Return to Clinic: The patient will be scheduled at [facility] for procedure as above. I spent a total of 31 minutes on the date of the service which included preparing to see the patient with review of any pertinent laboratory studies/radiological imaging/medical records, [id number] patient care, obtaining oral medical history from the patient in this encounter, performing a medically appropriate examination, counseling and educating the patient/family/caregiver, and ordering and/or scheduling of medications/tests/procedures, and completing appropriate medical documentation. Jessica Buck MD documented in this encounter [facility] 04-17-2023 Nurse Note REVIEW OF SYSTEMS: General: The patient denies fatigue, denies weight loss, denies weight gain, denies feeling hot, and denies feelings of cold. Eyes: The patient denies glaucoma, denies eye injury/surgery, wears glasses or contacts. Ear/Nose/Throat: The patient NOTES allergies, denies hayfever, denies ear infections, and denies bloody noses. Cardiovascular: The patient denies chest pain, denies heart disease, denies high blood pressure,denies cardiac stent, denies prior heart attack, denies irregular heart beat, denies high cholesterol, denies poor circulation, denies heart failure, other cardiac issues, denies claudication, denies cold feet, denies peripheral arterial stent. Respiratory: The patient denies tuberculosis, denies pneumonia, denies frequent cough, denies pulmonary embolism, denies shortness of breath, and denies coughing up blood. Gastrointestinal: The patient denies difficulty swallowing, denies acid reflux, denies ulcers, denies vomiting, denies jaundice/hepatitis, denies gallbladder problems, denies black or tarry stools, NOTES hemorrhoids, denies bleeding from rectum, NOTES diverticulitis, NOTES constipation, NOTES diarrhea, denies loss of stool control, and NOTES hernias. Kidney/Bladder: The patient NOTES kidney stones, denies urine infections, and denies bloody urine. Skin: The patient denies a history of skin cancer, NOTES bleeding/changing moles, and denies a history of skin rash. Neurologic: The patient denies a history of epilepsy/convulsions, NOTES headaches, denies head/spinal injuries, and denies stroke/TIA. Psychiatric: The patient denies psychiatric medications, denies depression, and denies voices, denies substance abuse. Endocrine: The patient denies thyroid disorders, denies diabetes, and denies hormonal problems. Hematologic: The patient denies a history of bruising, denies bleeding, and denies anemia, denies blood clots. Infections: The patient denies a history of measles and mumps, denies rheumatic fever, and denies sexually transmitted diseases. Musculoskeletal: The patient denies back pain/injury, NOTES back problems, denies sciatica, denies knee/foot trouble, NOTES arthritis, or denies gout. When was patient's last Mammogram screening? 2021 Last Colonoscopy: 2020 Dora Marroquin LPN documented in this encounter [facility] 04-14-2023 Note HNO ID: [id number] Author: Arnaud Vaughan APRN.TEST PULLER Service: ? Author Type: Nurse Practitioner Type: Progress Notes Filed: 04/14/2023 11:07 AM Note Text: SUBJECTIVE Heather Parrish is a 32 year old female here today for acute concern. Chief Complaint Patient presents with: Rectal Problem: hemorrhoid returned in same spot of previous one that was removed HPI Heather Parrish is a 32 year old female. Here today for issues with a hemorrhoid in the same prior area as in the past. Has occurred several other times. Has tried topical treatments but not helpful. Irritation, no pain with bowel movements but is tender when cleaning the area/wiping, bleeding with cleaning. Gets routine colonoscopies. Dr. Munoz usually does this. Has had hemorrhoids removed in the past but requires sedation to do this so typically is done with her colonoscopy. History of diverticulosis and chron's. Her medications were reviewed today and her list is now up to date. Medications Current Outpatient Medications Medication Sig Phentermine HCl 37.5 mg tablet Take 1 tablet by mouth once daily for 30 days. acetaminophen (TYLENOL) 500 mg tablet Take 500 mg by mouth every 6 hours as needed. lidocaine (HEMORRHOIDAL RELIEF) crea Apply to affected area as needed. tirzepatide (MOUNJARO) 2.5 mg/0.5 mL pen injector Inject 2.5 mg subcutaneously one time a week. (Patient not taking: Reported on 04/14/2023) albuterol HFA (PROVENTIL HFA, VENTOLIN HFA) 90 mcg/actuation inhaler Inhale 2 Puffs as instructed every 4 hours as needed for wheezing/shortness of breath. (Patient not taking: Reported on 04/07/2023) No current facility-administered medications for this visit. ALLERGIES Allergen Reactions Ceclor [Cefaclor] Mental Status Change DROWSINESS A CHILD Nickel Rash Antihistamines - Al* Other: See Comments Skin patch test came back positive Benadryl [Diphenhyd* Other: See Comments Anxious, vomiting, rash Morphine Mental Status Change ACTIVE PROBLEM LIST Sleep Apnea - 03/18/2022 High Serum Angiotensin Converting Enzyme (Elaine) - 12/19/2021 Polyarthralgia - 12/19/2021 Pain in Left Elbow - 03/05/2020 S/P Cubital Tunnel Release - 03/05/2020 History of Sacroiliac Joint Dysfunction Intrinsic Asthma Without Status Asthmaticus - 06/26/2015 Allergic Rhinitis - 06/26/2015 Pseudotumor Cerebri - 05/13/2013 Pelvic Pain in Female - 01/01/2012 Depressive Disorder, Not Elsewhere Classified - 10/25/2008 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 Negative for constipation, diarrhea, nausea and vomiting. OBJECTIVE BP 110/70 Pulse 94 Wt 256 lb (116.1kg) SpO2 98% LMP 07/20/2011 Physical Exam Vitals and nursing note reviewed. Constitutional: General: She is awake. She is not in acute distress. Appearance: Normal appearance. She is well-developed and well-groomed. She is not ill-appearing, toxic-appearing or diaphoretic. HENT: Head: Normocephalic. Right Ear: External ear normal. Left Ear: External ear normal. Nose: Nose normal. Eyes: General: Vision grossly intact. Conjunctiva/sclera: Conjunctivae normal. Pupils: Pupils are equal, round, and reactive to light. Neck: Vascular: No JVD. Trachea: Trachea normal. Pulmonary: Effort: Pulmonary effort is normal. No accessory muscle usage, prolonged expiration or respiratory distress. Musculoskeletal: Cervical back: Neck supple. Skin: General: Skin is warm and dry. Capillary Refill: Capillary refill takes less than 2 seconds. Neurological: General: No focal deficit present. Mental Status: She is alert and oriented to person, place, and time. Mental status is at baseline. Psychiatric: Attention and Perception: Attention and perception normal. Mood and Affect: Mood and affect normal. Speech: Speech normal. Behavior: Behavior normal. Behavior is cooperative. Thought Content: Thought content normal. Cognition and Memory: Cognition and memory normal. Judgment: Judgment normal. ASSESSMENT/PLAN: 1. External hemorrhoids - ICD9: 455.3, ICD10: K64.4 Issues with severe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 cutting left palm open. Patient declined stitches in ER. Area was steri-stripped and glued. Patient has kept area covered. Steri strips and glue since have since fallen off. Area is open.. Patient has no feeling in first finger and thumb since accident. Area is warm with no redness. Answer Assessment - Initial Assessment Questions 1. APPEARANCE of INJURY: Area is an inch long 2. SIZE: Blade of knife went through about an inch 3. BLEEDING: There is blood on the gauze. 4. LOCATION: Left Palm 5. ONSET: 11/25/2022 6. MECHANISM: Cut self with pocket knife accidently 7. TETANUS: 10/23/2014 Tip of blade is jagged; and not straight. Protocols used: Neurologic Neeycdg-[id number]-WV, Cuts and Txhsjffaepi-CDMDG-PQ documented in this encounter [facility] 11-11-2022 Note HNO ID: [id number] Author: RT Houston(R) Service: ? Author Type: Source Water Protection Specialist Type: Progress Notes Filed: 11/11/2022 10:14 AM Note Text: Radiology Service Progress Note PATIENT NAME: Heather Parrish DATE OF SERVICE: November 11, 2022 TIME: 10:03 AM PATIENT IDENTITY VERIFICATION COMPLETED USING TWO (2) IDENTIFIERS: Name and Date of confirmed by patient verbally. FALL SCREENING: Has the patient had 2 falls in the last year or 1 fall with injury or currently using an Ambulatory Assistive Device (Walker, Cane, Wheelchair, Crutches, etc.)? No PATIENT GENDER DATA: Female. status: : No status: NO. PATIENT RELEVANT IMPLANT DATA REVIEWED: Yes RADIOLOGY DEPARTMENT: General X-ray: Exam(s) Completed: Lower Extremity X-Ray(s): Foot, Left PERIPHERAL IV DATA: Not applicable SIGNED BY: RT Houston(R) November 11, 2022 10:03 AM [facility] 11-11-2022 Note HNO ID: [id number] Author: Alex Meek Service: ? Author Type: Physician Type: Progress Notes Filed: 11/11/2022 12:41 PM Note Text: Initial Podiatric Office Visit: Chief Complaint: This 32 year old female who presents with chief complaint:left foot pain HPI Patient presents to clinic for evaluation of left foot. She has pain that wraps around the bottom and top of her left foot. She states the pain started on the top of her foot 2 weeks after she saw me in 2021. She states that her life got so busy that she was not able to make an appointment. She states the pain hurts her all the time. She states the pain is present when she is ambulatory and she states the pain is also present at rest. Patient has tried ice, heat, tylenol, elvation, new inserts. Nothing seems to help. She is also noticing pain in the burning is present in her left 4th toe. PAIN EVALUATION 11/11/2022 0923 Pain Level: 6 Pain Location: Foot-Left Description: Sharp;Stabbing;Cramping;Sore Duration Amount of Time: 3 Duration Units: Months Frequency: Continuous Intervention/Comfort measure: Reposition;Relaxation;Medication ;Cold;Heat;Exercise;Massage Hemoglobin A1C (%) Date Value 03/24/2022 5.6 06/08/2019 5.6 03/20/2016 5.7 PCP: Rod Reynolds MD PAST MEDICAL HISTORY Diagnosis Date Benign intracranial hypertension Bilateral headache Chronic abdominal pain crohn's/diverticulitis Depression Dysthymic disorder Depression (non-psychotic) History of sacroiliac joint dysfunction 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 acetaminophen (TYLENOL) 500 mg tablet Take 500 mg by mouth every 6 hours as needed. No current facility-administered medications for this visit. ALLERGIES Allergen Reactions Ceclor [Cefaclor] Mental Status Change DROWSINESS A CHILD Nickel Rash Antihistamines - Al* Other: See Comments Skin patch test came back positive Benadryl [Diphenhyd* Other: See Comments Anxious, vomiting, rash Morphine Mental Status Change PAST SURGICAL HISTORY Procedure Laterality Date ABDOMINOPLASTY 07/25/2014 revision-Dr Miki Man [facility] DELIVERY ONLY 2006, 2008 x 2 COLONOSCOPY 07/27/2019 [place]. Negative. [place] her abd pain was coming from scar tissue EGD 07/27/2019 [facility]. Hpylori and small bowel bx negative KNEE SURGERY HX Right 04/30/2022 Dr.Mollison- [place]- [facility] LEFT WRIST CARPAL TUNNEL ONLY Left 2013 LIG/TRNSXJ FLP TUBE ABDL/VAG APPR UNI/BI 06/03/2011 Tubal ligation OTHER SURGICAL HISTORY (PLEASE SPECIFY) HX Left 12/28/2019 Left ulnar nerve release/ubital tunnel release OVARIAN CYSTECTOMY 09/2018 [facility]- PAST SURGICAL HISTORY OF 02/05/2012 right carpel tunnel,left PAST SURGICAL HISTORY OF hysterectomy without bso PAST SURGICAL HISTORY OF 06/21/2014 excision of sebaceous cyst behind right knee Dr Calderon TONSILLECTOMY PRIMARY/SECONDARY Tonsillectomy AND ADNOIDS TOT ABD HYST W/WO RMVL TUBE OVARY W/COLPURETHRXY Hysterectomy with MMK FAMILY HISTORY Problem Relation Age of Onset Diabetes Mother ddd Hypertension Mother other (Other) Mother Coronary Artery Disease Father CA x 3 < age 40 Diabetes Father Hypertension Father Obesity Sister Diabetes Sister Hypertension Sister Colon Cancer Maternal Grandmother Cancer Maternal Grandmother RECTAL Kidney Disease Maternal Grandmother Diabetes Maternal Grandfather Cataract Maternal Grandfather Hypertension Maternal Grandfather Heart Attack Maternal Grandfather other (Other) Maternal Grandfather ddd Cancer Paternal Grandmother RECTAL AND BREAST, Diabetes Paternal Grandmother Hypertension Paternal Grandmother Glaucoma Paternal Grandmother Cataract Paternal Grandfather Heart Attack Daughter Seizures Daughter Bipolar disorder Daughter Insomnia Daughter Social History Tobacco Use Smoking status: Every Day Packs/day: 0.50 Years: 5.00 Pack years: 2.50 Types: Cigarettes Smokeless tobacco: Never Vaping Use Vaping Use: Never used Substance Use Topics Alcohol use: No Drug use: No REVIEW OF SYSTEMS GENERAL: Negative for Malaise, significant weight loss, fever RESPIRATORY: Negative for cough, wheezing and shortness of breath CARDIOVASCULAR: Negative for chest pain, leg swelling and palpitations GI: Negative for abdominal discomfort, blood in stools or black stools and change in bowel habits : Negative for dysuria, frequency and incontinence MUSCULOSKELETAL: Negative for joint pain or swelling, back pain, and muscle pain. SKIN: Negative for lesions, rash, and itching. HEMATOLOGY/LYMPHOLOGY Negative for prolonged bleeding, bruising easily, and swollen nodes. (more content not included)... [facility] 11-11-2022 Note HNO ID: [id number] Author: Harper Rojas LPN Service: ? Author Type: LICENSED NURSE Type: Progress Notes Filed: 11/11/2022 12:41 PM Note Text: AMB ROOMING INTAKE FLOWSHEET DATA Pain Pain Level: 6 Pain Location: Foot-Left Description: Sharp, Stabbing, Cramping, Sore Duration Amount of Time: 3 Duration Units: Months Frequency: Continuous Intervention/Comfort measure: Reposition, Relaxation, Medication, Cold, Heat, Exercise, Massage Patient presents with: Left Foot - Established Patient, Pain, Swelling, Numbness Harper Rojas LPN [facility] 11-11-2022 History of Presen t illness Narrative Initial Podiatric Office Visit: Chief Complaint: This 32 year old female who presents with chief complaint:left foot pain HPI Patient presents to clinic for evaluation of left foot. She has pain that wraps around the bottom and top of her left foot. She states the pain started on the top of her foot 2 weeks after she saw me in 2021. She states that her life got so busy that she was not able to make an appointment. She states the pain hurts her all the time. She states the pain is present when she is ambulatory and she states the pain is also present at rest. Patient has tried ice, heat, tylenol, elvation, new inserts. Nothing seems to help. She is also noticing pain in the burning is present in her left 4th toe. PAIN EVALUATION 11/11/2022 0923 Pain Level: 6 Pain Location: Foot-Left Description: Sharp;Stabbing;Cramping;Sore Duration Amount of Time: 3 Duration Units: Months Frequency: Continuous Intervention/Comfort measure: Reposition;Relaxation;Medication ;Cold;Heat;Exercise;Massage Hemoglobin A1C (%) Date Value 03/24/2022 5.6 06/08/2019 5.6 03/20/2016 5.7 PCP: Rod Reynolds MD PAST MEDICAL HISTORY Diagnosis Date Benign intracranial hypertension Bilateral headache Chronic abdominal pain crohn's/diverticulitis Depression Dysthymic disorder Depression (non-psychotic) History of sacroiliac joint dysfunction 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 acetaminophen (TYLENOL) 500 mg tablet Take 500 mg by mouth every 6 hours as needed. No current facility-administered medications for this visit. ALLERGIES Allergen Reactions Ceclor [Cefaclor] Mental Status Change DROWSINESS A CHILD Nickel Rash Antihistamines - Al* Other: See Comments Skin patch test came back positive Benadryl [Diphenhyd* Other: See Comments Anxious, vomiting, rash Morphine Mental Status Change PAST SURGICAL HISTORY Procedure Laterality Date ABDOMINOPLASTY 07/25/2014 revision-Dr Miki Man [facility] DELIVERY ONLY 2005, 2007 x 2 COLONOSCOPY 07/27/2019 [place]. Negative. [place] her abd pain was coming from scar tissue EGD 07/27/2019 [place]. Hpylori and small bowel bx negative KNEE SURGERY HX Right 04/30/2022 Dr.Mollison- [place] LEFT WRIST CARPAL TUNNEL ONLY Left 2012 LIG/TRNSXJ FLP TUBE ABDL/VAG APPR UNI/BI 06/03/2011 Tubal ligation OTHER SURGICAL HISTORY (PLEASE SPECIFY) HX Left 12/28/2019 Left ulnar nerve release/ubital tunnel release OVARIAN CYSTECTOMY 09/2018 [facility] PAST SURGICAL HISTORY OF 02/05/2012 right carpel tunnel,left PAST SURGICAL HISTORY OF hysterectomy without bso PAST SURGICAL HISTORY OF 06/21/2014 excision of sebaceous cyst behind right knee Dr Calderon TONSILLECTOMY PRIMARY/SECONDARY <AGE 10 Tonsillectomy AND ADNOIDS TOT ABD HYST W/WO RMVL TUBE OVARY W/COLPURETHRXY Hysterectomy with MMK FAMILY HISTORY Problem Relation Age of Onset Diabetes Mother ddd Hypertension Mother other (Other) Mother Coronary Artery Disease Father CA x 3 < age 40 Diabetes Father Hypertension Father Obesity Sister Diabetes Sister Hypertension Sister Colon Cancer Maternal Grandmother Cancer Maternal Grandmother RECTAL Kidney Disease Maternal Grandmother Diabetes Maternal Grandfather Cataract Maternal Grandfather Hypertension Maternal Grandfather Heart Attack Maternal Grandfather other (Other) Maternal Grandfather ddd Cancer Paternal Grandmother RECTAL AND BREAST, Diabetes Paternal Grandmother Hypertension Paternal Grandmother Glaucoma Paternal Grandmother Cataract Paternal Grandfather Heart Attack Daughter Seizures Daughter Bipolar disorder Daughter Insomnia Daughter Social History Tobacco Use Smoking status: Every Day Packs/day: 0.50 Years: 5.00 Pack years: 2.50 Types: Cigarettes Smokeless tobacco: Never Vaping Use Vaping Use: Never used Substance Use Topics Alcohol use: No Drug use: No REVIEW OF SYSTEMS GENERAL: Negative for Malaise, significant weight loss, fever RESPIRATORY: Negative for cough, wheezing and shortness of breath CARDIOVASCULAR: Negative for chest pain, leg swelling and palpitations GI: Negative for abdominal discomfort, blood in stools or black stools and change in bowel habits : Negative for dysuria, frequency and incontinence MUSCULOSKELETAL: Negative for joint pain or swelling, back pain, and muscle pain. SKIN: Negative for lesions, rash, and itching. HEMATOLOGY/LYMPHOLOGY Negative for prolonged bleeding, bruising easily, and swollen nodes. ENDOCRINE: Negative for cold or heat intolerance, polyuria, polydipsia and goiter. NEURO: negative Physical Exam: Constitutional: Pt is a well developed 32 year old female who is alert, oriented and cooperative Eyes: Following during examination. No redness or drainage. Respiratory: RR normal and nonlabored. Even breathing. No evidence of distress or shortness of breath. Psychology: Patient is engaged during conversation. Normal affect and mood. Does not appear depressed or anxious during encounter. Vascular: Dorsalis pedis and posterior tibial pulses palpable as b/l Capillary Fill time < 5 seconds to digits 1-5 b/l Skin temperature warm to warm proximal to distal b/l Hair growth present to digits Neurological: intact light touch/epicritic sensation b/l intact protective sensation no significant neurological deficits Dermatological: Nails 1-5 b/l appear normal. Webspaces clean and dry 1-4 b/l. Skin appears well hydrated and supple. good color, texture, turgor. No open lesions present. No callosities present. Musculoskeletal/Orthopaedic: Patient has pain to palpation of left 1st and 2nd metatarsal. Patient has pain to left forefoot. No calf pain Foot type is neutral structurally AJ ROM is full with knee extended and flexed 1st MPJ is full when loaded and no pain or crepitus are noted with ROM. MTJ, STJ are full and free of pain and crepitus. +5/5 muscle strength dorsiflexion, plantarflexion, inversion, eversion b/l Radiographs: ordered ASSESSMENT: (X50.3XXA) Repetitive stress injury (primary encounter diagnosis) (M79.672) Left foot pain (R09.89) Diminished pulse PLAN: 1. History and physical examination performed. 2. Discussed left foot pain. She is in significant pain. I recommend placing her in boot. She already has one so she will use this. 3. Will repeat xrays to assure no stress fracture 4. Discussed oral steroid. Will prescribe that 5. Will also order pvr to access perfusion to left foot 6. Smoking cessation discussed Alex Meek DPM Podiatry [address] [facility] [id number] Dept: [phone] Dept AMB ROOMING INTAKE FLOWSHEET DATA Pain Pain Level: 6 Pain Location: Foot-Left Description: Sharp, Stabbing, Cramping, Sore Duration Amount of Time: 3 Duration Units: Months Frequency: Continuous Intervention/Comfort measure: Reposition, Relaxation, Medication, Cold, Heat, Exercise, Massage Patient presents with: Left Foot - Established Patient, Pain, Swelling, Numbness Harper Rojas LPN documented in this encounter [facility] 10-14-2022 Note HNO ID: [id number] Author: RT [place](R) Service: ? Author Type: Source Water Protection Specialist Type: Progress Notes Filed: 10/14/2022 4:03 PM Note Text: Radiology Service Progress Note PATIENT NAME: Heather Parrish DATE OF SERVICE: October 14, 2022 TIME: 3:49 PM PATIENT IDENTITY VERIFICATION COMPLETED USING TWO (2) IDENTIFIERS: Name and Date of confirmed by patient verbally. FALL SCREENING: Has the patient had 2 falls in the last year or 1 fall with injury or currently using an Ambulatory Assistive Device (Walker, Cane, Wheelchair, Crutches, etc.)? No PATIENT GENDER DATA: Female. status: : No status: NO. PATIENT RELEVANT IMPLANT DATA REVIEWED: Yes RADIOLOGY DEPARTMENT: General X-ray: Exam(s) Completed: Lower Extremity X-Ray(s): Foot, Left PERIPHERAL IV DATA: Not applicable SIGNED BY: RT Houston(R) October 14, 2022 3:49 PM [facility] 10-14-2022 Note HNO ID: [id number] Author: Arnaud Vaughan APRN.TEST PULLER Service: ? Author Type: Nurse Practitioner Type: Progress Notes Filed: 10/14/2022 4:30 PM Note Text: SUBJECTIVE Heather Parrish is a 32 year old female here today for acute concerns. Chief Complaint Patient presents with: Pain: left foot for about 3 months HPI Heather Parrish is a 32 year old female established patient of Dr. Reynolds who presents today acutely for concerns of foot pain. Pain to both feet actually but left is worse than right and has some different symptoms. Onset was about 3 months ago. Pain is to the medial aspect just proximal to the big toe and then it extends down to the toe. She states it feels like a bone bruise. Pain is constant. Has tried several things at home like heat, ice, elevation. No swelling, no redness and no warmth. She also gets periodic tightening in both feet, feels like the muscles pull tight. Her medications were reviewed today and her list is now up to date. Medications Current Outpatient Medications Medication Sig metroNIDAZOLE (FLAGYL) 500 mg tablet Take 1 tablet by mouth twice daily for 7 days. Phentermine HCl 37.5 mg capsule Take 1 capsule by mouth once daily for 90 days. acetaminophen (TYLENOL) 500 mg tablet Take 500 mg by mouth every 6 hours as needed. No current facility-administered medications for this visit. ALLERGIES Allergen Reactions Ceclor [Cefaclor] Mental Status Change DROWSINESS A CHILD Nickel Rash Antihistamines - Al* Other: See Comments Skin patch test came back positive Benadryl [Diphenhyd* Other: See Comments Anxious, vomiting, rash Morphine Mental Status Change ACTIVE PROBLEM LIST Sleep Apnea - 03/18/2022 High Serum Angiotensin Converting Enzyme (Elaine) - 12/19/2021 Polyarthralgia - 12/19/2021 Pain in Left Elbow - 03/05/2020 S/P Cubital Tunnel Release - 03/05/2020 History of Sacroiliac Joint Dysfunction Intrinsic Asthma Without Status Asthmaticus - 06/26/2015 Allergic Rhinitis - 06/26/2015 Pseudotumor Cerebri - 05/13/2013 Pelvic Pain in Female - 01/01/2012 Depressive Disorder, Not Elsewhere Classified - 10/25/2008 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 Negative for joint swelling. OBJECTIVE BP 120/76 Pulse 89 Wt 245 lb (111.1kg) SpO2 98% LMP 07/20/2011 Physical Exam Vitals and nursing note reviewed. Constitutional: General: She is awake. She is not in acute distress. Appearance: Normal appearance. She is well-developed and well-groomed. She is not ill-appearing, toxic-appearing or diaphoretic. HENT: Head: Normocephalic. Right Ear: External ear normal. Left Ear: External ear normal. Nose: Nose normal. Eyes: General: Vision grossly intact. Conjunctiva/sclera: Conjunctivae normal. Pupils: Pupils are equal, round, and reactive to light. Neck: Vascular: No JVD. Trachea: Trachea normal. Cardiovascular: Pulses: Normal pulses. Dorsalis pedis pulses are 2+ on the left side. Posterior tibial pulses are 2+ on the left side. Pulmonary: Effort: Pulmonary effort is normal. No accessory muscle usage, prolonged expiration or respiratory distress. Musculoskeletal: Cervical back: Neck supple. Feet: Feet: Left foot: Skin integrity: Skin integrity normal. Toenail Condition: Left toenails are normal. Skin: General: Skin is warm and dry. Capillary Refill: Capillary refill takes less than 2 seconds. Neurological: General: No focal deficit present. Mental Status: She is alert and oriented to person, place, and time. Mental status is at baseline. Psychiatric: Attention and Perception: Attention and perception normal. Mood and Affect: Mood and affect normal. Speech: Speech normal. Behavior: Behavior normal. Behavior is cooperative. Thought Content: Thought content normal. Cognition and Memory: Cognition and memory normal. Judgment: Judgment normal. ASSESSMENT/PLAN: 1. Left foot pain - ICD9: 729.5, ICD10: M79.672 (primary diagnosis) Will check an xray given how severe her pain is and plan for follow up with podiatry. Declines any medications. - XR FOOT GENERAL 3V AP/LAT/OBL LEFT - CONSULT TO PODIATRY 2. Bilateral foot pain - ICD9: 729.5, ICD10: M79.671, M79.672 See #1 Portions of this note have been entered by ancillary staff. I have reviewed and when necessary edited, so that they are an adequate record of my encounter with this patient Please note that parts of this document were created using voice recognition software and therefore may contain grammatical errors. Patient verbalizes understanding of instructions from to (more content not included)... [facility] 10-09-2022 Note HNO ID: [id number] Author: Madison Jones APRN.TEST PULLER Service: ? Author Type: Nurse Practitioner Type: Progress Notes Filed: 10/09/2022 4:16 PM Note Text: Subjective Vaginal Problem Pertinent negatives include no chills, fever or rash. Heather Parrish is a 32 year old female who presents with vaginal odor and slight itchy irritation, she was treated in May for trichomonas and states she did not have full resolution of symptoms, she believes the medication did not work, or possibly believes she needs a higher dosage. She feels these symptoms are certainly due to trichomonas. She denies the possibility of a re-exposure to trichomonas. Review of Systems Constitutional: Negative for chills and fever. Genitourinary: Positive for frequency and vaginal discharge. See HPI Skin: Negative for itching and rash. BP 132/78 Pulse 90 Temp 36.3 ?C (97.3 ?F) (Tympanic) Resp 18 Wt 110.7 kg (244 lb) LMP 07/20/2011 SpO2 98% BMI 43.22 kg/m? 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 Negative. [place] her abd pain was coming from scar tissue EGD 07/27/2019 [place]. Hpylori and small bowel bx negative KNEE SURGERY HX Right 04/30/2022 Dr.Mollison- [place]- [facility] LEFT WRIST CARPAL TUNNEL ONLY Left 2012 LIG/TRNSXJ FLP TUBE ABDL/VAG APPR UNI/BI 06/03/2011 Tubal ligation OTHER SURGICAL HISTORY (PLEASE SPECIFY) HX Left 12/28/2019 Left ulnar nerve release/ubital tunnel release OVARIAN CYSTECTOMY 09/2018 [facility]- PAST SURGICAL HISTORY OF 02/05/2012 right carpel tunnel,left PAST SURGICAL HISTORY OF hysterectomy without bso PAST SURGICAL HISTORY OF 06/21/2014 excision of sebaceous cyst behind right knee Dr Calderon TONSILLECTOMY PRIMARY/SECONDARY Tonsillectomy AND ADNOIDS TOT ABD HYST W/WO RMVL TUBE OVARY W/COLPURETHRXY Hysterectomy with MMK ALLERGIES Ceclor [Cefaclor], Nickel, Antihistamines - Alkylamine, Benadryl [Diphenhydramine Hcl], and Morphine MEDICATIONS Phentermine HCl 37.5 mg capsule Take 1 capsule by mouth once daily for 90 days. acetaminophen (TYLENOL) 500 mg tablet Take 500 mg by mouth every 6 hours as needed. FAMILY HISTORY Problem Relation Age of Onset Diabetes Mother ddd Hypertension Mother other (Other) Mother Coronary Artery Disease Father CA x 3 < age 40 Diabetes Father Hypertension Father Obesity Sister Diabetes Sister Hypertension Sister Colon Cancer Maternal Grandmother Cancer Maternal Grandmother RECTAL Kidney Disease Maternal Grandmother Diabetes Maternal Grandfather Cataract Maternal Grandfather Hypertension Maternal Grandfather Heart Attack Maternal Grandfather other (Other) Maternal Grandfather ddd Cancer Paternal Grandmother RECTAL AND BREAST, Diabetes Paternal Grandmother Hypertension Paternal Grandmother Glaucoma Paternal Grandmother Cataract Paternal Grandfather Heart Attack Daughter Seizures Daughter Bipolar disorder Daughter Insomnia Daughter Social History Tobacco Use Smoking status: Every Day Packs/day: 0.50 Years: 5.00 Pack years: 2.50 Types: Cigarettes Smokeless tobacco: Never Vaping Use Vaping Use: Never used Substance Use Topics Alcohol use: No Drug use: No Objective Physical Exam Vitals and nursing note reviewed. Constitutional: Appearance: Normal appearance. She is obese. Genitourinary: Comments: Patient refuses exam. Will self-swab. Neurological: Mental Status: She is alert. ASSESSMENT/PLAN: 1. Urinary frequency - ICD9: 788.41, ICD10: R35.0 acute - Send urine for culture - Patient education for prevention given - UA DIP, URINE (POC) - URINE CULTURE - RADHA / TRICHOMONAS AMPLIFICATION - BACTERIAL VAGINOSIS AMPLIFICATION - GC/CHLAMYDIA DNA DET - will treat based on testing results. - Follow-up with your PCP in 3-5 days if symptoms have not improved or sooner if symptoms worsen - Discussed red flags and need for immediate medical evaluation if any occur. - Discussed supportive care treatment with fluids, rest and analgesia. - Discussed expected course of illness Madison Jones APRN.[facility] 09-02-2022 Note HNO ID: [id number] Author: Rod Reynolds MD Service: ? Author Type: Physician Type: Progress Notes Filed: 09/02/2022 1:17 PM Note Text: Reason for Visit Patient presents with: Follow Up: earl Heather Parrish is a 32 year old female who presents here today for Above Complaints. Health Maintenance HEPATITIS B(1 of 3 - 3-dose series) COVID-19 VACCINE(1) SPIROMETRY PNEUMOCOCCAL(2 - PCV) HPI Has been on the phentermine for the past 2 months and going into the 3rd months. She has lost around 11 pounds in the past 2 months. Had the knee scope and meniscus was cut and scraped out and bone scraping was done. She is feeling much better and able to exercise. She has started going to the gym now. She is still doing keto diet. 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 Negative. [place] her abd pain was coming from scar tissue EGD 07/27/2019 [place]. Hpylori and small bowel bx negative KNEE SURGERY HX Right 04/30/2022 [place]- [facility] LEFT WRIST CARPAL TUNNEL ONLY Left 2013 LIG/TRNSXJ FLP TUBE ABDL/VAG APPR UNI/BI 06/03/2011 Tubal ligation OTHER SURGICAL HISTORY (PLEASE SPECIFY) HX Left 12/28/2019 Left ulnar nerve release/ubital tunnel release OVARIAN CYSTECTOMY 09/2018 [facility]- PAST SURGICAL HISTORY OF 02/05/2012 right carpel tunnel,left PAST SURGICAL HISTORY OF hysterectomy without bso PAST SURGICAL HISTORY OF 06/21/2014 excision of sebaceous cyst behind right knee Dr Calderon TONSILLECTOMY PRIMARY/SECONDARY Tonsillectomy AND ADNOIDS TOT ABD HYST W/WO RMVL TUBE OVARY W/COLPURETHRXY Hysterectomy with MMK FAMILY HISTORY Problem Relation Age of Onset Diabetes Mother ddd Hypertension Mother other (Other) Mother Coronary Artery Disease Father CA x 3 < age 40 Diabetes Father Hypertension Father Obesity Sister Diabetes Sister Hypertension Sister Colon Cancer Maternal Grandmother Cancer Maternal Grandmother RECTAL Kidney Disease Maternal Grandmother Diabetes Maternal Grandfather Cataract Maternal Grandfather Hypertension Maternal Grandfather Heart Attack Maternal Grandfather other (Other) Maternal Grandfather ddd Cancer Paternal Grandmother RECTAL AND BREAST, Diabetes Paternal Grandmother Hypertension Paternal Grandmother Glaucoma Paternal Grandmother Cataract Paternal Grandfather Heart Attack Daughter Seizures Daughter Bipolar disorder Daughter Insomnia Daughter Social History Tobacco Use Smoking status: Every Day Packs/day: 0.50 Years: 5.00 Pack years: 2.50 Types: Cigarettes Smokeless tobacco: Never Vaping Use Vaping Use: Never used Substance Use Topics Alcohol use: No Drug use: No Past medical history, appointments, medications, allergies reviewed. Pertinent Lab/Diagnostic Studies are reviewed and discussed today Current Outpatient Medications: ergocalciferol 50,000 unit capsule (VITAMIN D2, DRISDOL) albuterol HFA (PROVENTIL HFA, VENTOLIN HFA) 90 mcg/actuation inhaler acetaminophen (TYLENOL) 500 mg tablet Review of Systems CONSTITUTIONAL: No fevers, chills night sweats, unintended weight loss CARDIOVASCULAR: No chest pain, dyspnea, palpitations, orthopnea, PND, ankle edema. PULM: No dyspnea, unexplained cough. GI: No dysphagia/odynophagia, problematic reflux, constipation, diarrhea, changes in stool habits, hematochezia, melena. : No new urinary complaints, including dysuria, gross hematuria or pyuria. NEURO: No new balance problems, peripheral weakness/paresthesias or numbness of concern. Physical Exam BP 124/70 (BP Site: Left Arm, BP Position: Sitting, BP Cuff Size: Large Adult) Pulse 92 Temp 36.7 ?C (98 ?F) Resp 12 Ht 160 cm (5' 3 ) Wt 108.4 kg (239 lb) LMP 07/20/2011 SpO2 99% BMI 42.34 kg/m? General appearance: Well appearing, alert, in no acute distress, well nourished. Skin: Skin color, texture, turgor normal, no suspicious rashes or lesions Head: Normocephalic, no masses, lesions, tenderness or abnormalities Eyes: Anicteric sclera. Pupils are equally round and reactive to light. Extraocular movements are intact. Lungs: Lungs clear to auscultation. No wheezing, rhonchi, rales Heart: RRR without murmur, gallop, or rubs. Extremities: No deformities, edema, skin discoloration, clubbing or cyanosis. Good capillary refill. ASSESSMENT/PLAN: 1. Morbid obesity (more content not included)... [facility] 09-02-2022 History of Presen t illness Narrative Reason for Visit Patient presents with: Follow Up: earl Parrish is a 32 year old female who presents here today for Above Complaints. Health Maintenance HEPATITIS B(1 of 3 - 3-dose series) COVID-19 VACCINE(1) SPIROMETRY PNEUMOCOCCAL(2 - PCV) HPI Has been on the phentermine for the past 2 months and going into the 3rd months. She has lost around 11 pounds in the past 2 months. Had the knee scope and meniscus was cut and scraped out and bone scraping was done. She is feeling much better and able to exercise. She has started going to the gym now. She is still doing keto diet. 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 Negative. [place] her abd pain was coming from scar tissue EGD 07/27/2019 [place]. Hpylori and small bowel bx negative KNEE SURGERY HX Right 04/30/2022 Dr.Mollison- [place]- [facility] LEFT WRIST CARPAL TUNNEL ONLY Left 2012 LIG/TRNSXJ FLP TUBE ABDL/VAG APPR UNI/BI 06/03/2011 Tubal ligation OTHER SURGICAL HISTORY (PLEASE SPECIFY) HX Left 12/28/2019 Left ulnar nerve release/ubital tunnel release OVARIAN CYSTECTOMY 09/2018 [facility]- PAST SURGICAL HISTORY OF 02/05/2012 right carpel tunnel,left PAST SURGICAL HISTORY OF hysterectomy without bso PAST SURGICAL HISTORY OF 06/21/2014 excision of sebaceous cyst behind right knee Dr Calderon TONSILLECTOMY PRIMARY/SECONDARY <AGE 10 Tonsillectomy AND ADNOIDS TOT ABD HYST W/WO RMVL TUBE OVARY W/COLPURETHRXY Hysterectomy with MMK FAMILY HISTORY Problem Relation Age of Onset Diabetes Mother ddd Hypertension Mother other (Other) Mother Coronary Artery Disease Father CA x 3 < age 40 Diabetes Father Hypertension Father Obesity Sister Diabetes Sister Hypertension Sister Colon Cancer Maternal Grandmother Cancer Maternal Grandmother RECTAL Kidney Disease Maternal Grandmother Diabetes Maternal Grandfather Cataract Maternal Grandfather Hypertension Maternal Grandfather Heart Attack Maternal Grandfather other (Other) Maternal Grandfather ddd Cancer Paternal Grandmother RECTAL AND BREAST, Diabetes Paternal Grandmother Hypertension Paternal Grandmother Glaucoma Paternal Grandmother Cataract Paternal Grandfather Heart Attack Daughter Seizures Daughter Bipolar disorder Daughter Insomnia Daughter Social History Tobacco Use Smoking status: Every Day Packs/day: 0.50 Years: 5.00 Pack years: 2.50 Types: Cigarettes Smokeless tobacco: Never Vaping Use Vaping Use: Never used Substance Use Topics Alcohol use: No Drug use: No Past medical history, appointments, medications, allergies reviewed. Pertinent Lab/Diagnostic Studies are reviewed and discussed today Current Outpatient Medications: ergocalciferol 50,000 unit capsule (VITAMIN D2, DRISDOL) albuterol HFA (PROVENTIL HFA, VENTOLIN HFA) 90 mcg/actuation inhaler acetaminophen (TYLENOL) 500 mg tablet Review of Systems CONSTITUTIONAL: No fevers, chills night sweats, unintended weight loss CARDIOVASCULAR: No chest pain, dyspnea, palpitations, orthopnea, PND, ankle edema. PULM: No dyspnea, unexplained cough. GI: No dysphagia/odynophagia, problematic reflux, constipation, diarrhea, changes in stool habits, hematochezia, melena. : No new urinary complaints, including dysuria, gross hematuria or pyuria. NEURO: No new balance problems, peripheral weakness/paresthesias or numbness of concern. Physical Exam BP 124/70 (BP Site: Left Arm, BP Position: Sitting, BP Cuff Size: Large Adult) Pulse 92 Temp 36.7 C (98 F) Resp 12 Ht 160 cm (5' 3 ) Wt 108.4 kg (239 lb) LMP 07/20/2011 SpO2 99% BMI 42.34 kg/m General appearance: Well appearing, alert, in no acute distress, well nourished. Skin: Skin color, texture, turgor normal, no suspicious rashes or lesions Head: Normocephalic, no masses, lesions, tenderness or abnormalities Eyes: Anicteric sclera. Pupils are equally round and reactive to light. Extraocular movements are intact. Lungs: Lungs clear to auscultation. No wheezing, rhonchi, rales Heart: RRR without murmur, gallop, or rubs. Extremities: No deformities, edema, skin discoloration, clubbing or cyanosis. Good capillary refill. ASSESSMENT/PLAN: 1. Morbid obesity (HCC) - ICD9: 278.01, ICD10: E66.01 Every 3 months for a year she will take the medication - PHENTERMINE 37.5 MG CAPSULE - PHENTERMINE 37.5 MG CAPSULE Rod Reynolds MD documented in this encounter [facility] 07-29-2022 Note HNO ID: [id number] Author: Rod Reynolds MD Service: ? Author Type: Physician Type: Progress Notes Filed: 07/29/2022 12:08 PM Note Text: Reason for Visit Patient presents with: Follow Up: 1 month follow up-adipex Heather Parrish is a 32 year old female who presents here today for Above Complaints.. Health Maintenance HEPATITIS B(1 of 3 - 3-dose series) COVID-19 VACCINE(1) SPIROMETRY PNEUMOCOCCAL(2 - PCV) HPI Patient has lost around 4 pounds, in the past month Had more energy in the day, sleeping better, appetites is much lesser, she does not crave food. She finally is able to walk as she is released to walk after surgical procedure And can walk and exercise so that she is hoping will help her in the coming months. The orthopeds wanted to do her left knee as well. She has generalized oa and wanted suggestions We discussed antiinflammatoyr diet. And for weight more like a keto diet. No problem-specific Assessment AND Plan notes found for this encounter. 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 Negative. [place] her abd pain was coming from scar tissue EGD 07/27/2019 [place]. Hpylori and small bowel bx negative KNEE SURGERY HX Right 04/30/2022 Dr.Mollison- [place] LEFT WRIST CARPAL TUNNEL ONLY Left 2012 LIG/TRNSXJ FLP TUBE ABDL/VAG APPR UNI/BI 06/03/2011 Tubal ligation OTHER SURGICAL HISTORY (PLEASE SPECIFY) HX Left 12/28/2019 Left ulnar nerve release/ubital tunnel release OVARIAN CYSTECTOMY 09/2018 [facility]- PAST SURGICAL HISTORY OF 02/05/2012 right carpel tunnel,left PAST SURGICAL HISTORY OF hysterectomy without bso PAST SURGICAL HISTORY OF 06/21/2014 excision of sebaceous cyst behind right knee Dr Calderon TONSILLECTOMY PRIMARY/SECONDARY Tonsillectomy AND ADNOIDS TOT ABD HYST W/WO RMVL TUBE OVARY W/COLPURETHRXY Hysterectomy with MMK FAMILY HISTORY Problem Relation Age of Onset Diabetes Mother ddd Hypertension Mother other (Other) Mother Coronary Artery Disease Father CA x 3 < age 40 Diabetes Father Hypertension Father Obesity Sister Diabetes Sister Hypertension Sister Colon Cancer Maternal Grandmother Cancer Maternal Grandmother RECTAL Kidney Disease Maternal Grandmother Diabetes Maternal Grandfather Cataract Maternal Grandfather Hypertension Maternal Grandfather Heart Attack Maternal Grandfather other (Other) Maternal Grandfather ddd Cancer Paternal Grandmother RECTAL AND BREAST, Diabetes Paternal Grandmother Hypertension Paternal Grandmother Glaucoma Paternal Grandmother Cataract Paternal Grandfather Heart Attack Daughter Seizures Daughter Bipolar disorder Daughter Insomnia Daughter Social History Tobacco Use Smoking status: Every Day Packs/day: 0.50 Years: 5.00 Pack years: 2.50 Types: Cigarettes Smokeless tobacco: Never Vaping Use Vaping Use: Never used Substance Use Topics Alcohol use: No Drug use: No Past medical history, appointments, medications, allergies reviewed. Pertinent Lab/Diagnostic Studies are reviewed and discussed today Current Outpatient Medications: Phentermine HCl 37.5 mg capsule ergocalciferol 50,000 unit capsule (VITAMIN D2, DRISDOL) albuterol HFA (PROVENTIL HFA, VENTOLIN HFA) 90 mcg/actuation inhaler acetaminophen (TYLENOL) 500 mg tablet Review of Systems CONSTITUTIONAL: No fevers, chills night sweats, unintended weight loss CARDIOVASCULAR: No chest pain, dyspnea, palpitations, orthopnea, PND, ankle edema. PULM: No dyspnea, unexplained cough. GI: No dysphagia/odynophagia, problematic reflux, constipation, diarrhea, changes in stool habits, hematochezia, melena. : No new urinary complaints, including dysuria, gross hematuria or pyuria. NEURO: No new balance problems, peripheral weakness/paresthesias or numbness of concern. Physical Exam BP 124/70 (BP Site: Left Arm, BP Position: Sitting, BP Cuff Size: Large Adult) Pulse 92 Temp 36.8 ?C (98.3 ?F) Resp 14 Ht 160 cm (5' 3 ) Wt 110.2 kg (243 lb) LMP 07/20/2011 SpO2 99% BMI 43.05 kg/m? General appearance: Well appearing, alert, in no acute distress, well nourished. Skin: Skin color, texture, turgor normal, no suspicious rashes or lesions Head: Normocephalic, no masses, lesions, tenderness or abnormalities Eyes: Anicteric sclera. Pupils are equally round and reactive to light. Extraocular movements ar (more content not included)... [facility] 07-29-2022 Instructions Rod Reynolds MD - 07/29/2022 11:58 AM EST Glucosamine sulfate- its a supplement to see if that helps. documented in this encounter [facility] 07-29-2022 History of Presen t illness Narrative Reason for Visit Patient presents with: Follow Up: 1 month follow up-earl Gonzalez Francois is a 32 year old female who presents here today for Above Complaints.. Health Maintenance HEPATITIS B(1 of 3 - 3-dose series) COVID-19 VACCINE(1) SPIROMETRY PNEUMOCOCCAL(2 - PCV) HPI Patient has lost around 4 pounds, in the past month Had more energy in the day, sleeping better, appetites is much lesser, she does not crave food. She finally is able to walk as she is released to walk after surgical procedure And can walk and exercise so that she is hoping will help her in the coming months. The orthopeds wanted to do her left knee as well. She has generalized oa and wanted suggestions We discussed antiinflammatoyr diet. And for weight more like a keto diet. No problem-specific Assessment & Plan notes found for this encounter. 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 Negative. [place] her abd pain was coming from scar tissue EGD 07/27/2019 [place]. Hpylori and small bowel bx negative KNEE SURGERY HX Right 04/30/2022 Dr.Mollison- [place] LEFT WRIST CARPAL TUNNEL ONLY Left 2012 LIG/TRNSXJ FLP TUBE ABDL/VAG APPR UNI/BI 06/03/2011 Tubal ligation OTHER SURGICAL HISTORY (PLEASE SPECIFY) HX Left 12/28/2019 Left ulnar nerve release/ubital tunnel release OVARIAN CYSTECTOMY 09/2018 [facility] PAST SURGICAL HISTORY OF 02/05/2012 right carpel tunnel,left PAST SURGICAL HISTORY OF hysterectomy without bso PAST SURGICAL HISTORY OF 06/21/2014 excision of sebaceous cyst behind right knee Dr Calderon TONSILLECTOMY PRIMARY/SECONDARY <AGE 10 Tonsillectomy AND ADNOIDS TOT ABD HYST W/WO RMVL TUBE OVARY W/COLPURETHRXY Hysterectomy with MMK FAMILY HISTORY Problem Relation Age of Onset Diabetes Mother ddd Hypertension Mother other (Other) Mother Coronary Artery Disease Father CA x 3 < age 40 Diabetes Father Hypertension Father Obesity Sister Diabetes Sister Hypertension Sister Colon Cancer Maternal Grandmother Cancer Maternal Grandmother RECTAL Kidney Disease Maternal Grandmother Diabetes Maternal Grandfather Cataract Maternal Grandfather Hypertension Maternal Grandfather Heart Attack Maternal Grandfather other (Other) Maternal Grandfather ddd Cancer Paternal Grandmother RECTAL AND BREAST, Diabetes Paternal Grandmother Hypertension Paternal Grandmother Glaucoma Paternal Grandmother Cataract Paternal Grandfather Heart Attack Daughter Seizures Daughter Bipolar disorder Daughter Insomnia Daughter Social History Tobacco Use Smoking status: Every Day Packs/day: 0.50 Years: 5.00 Pack years: 2.50 Types: Cigarettes Smokeless tobacco: Never Vaping Use Vaping Use: Never used Substance Use Topics Alcohol use: No Drug use: No Past medical history, appointments, medications, allergies reviewed. Pertinent Lab/Diagnostic Studies are reviewed and discussed today Current Outpatient Medications: Phentermine HCl 37.5 mg capsule ergocalciferol 50,000 unit capsule (VITAMIN D2, DRISDOL) albuterol HFA (PROVENTIL HFA, VENTOLIN HFA) 90 mcg/actuation inhaler acetaminophen (TYLENOL) 500 mg tablet Review of Systems CONSTITUTIONAL: No fevers, chills night sweats, unintended weight loss CARDIOVASCULAR: No chest pain, dyspnea, palpitations, orthopnea, PND, ankle edema. PULM: No dyspnea, unexplained cough. GI: No dysphagia/odynophagia, problematic reflux, constipation, diarrhea, changes in stool habits, hematochezia, melena. : No new urinary complaints, including dysuria, gross hematuria or pyuria. NEURO: No new balance problems, peripheral weakness/paresthesias or numbness of concern. Physical Exam BP 124/70 (BP Site: Left Arm, BP Position: Sitting, BP Cuff Size: Large Adult) Pulse 92 Temp 36.8 C (98.3 F) Resp 14 Ht 160 cm (5' 3 ) Wt 110.2 kg (243 lb) LMP 07/20/2011 SpO2 99% BMI 43.05 kg/m General appearance: Well appearing, alert, in no acute distress, well nourished. Skin: Skin color, texture, turgor normal, no suspicious rashes or lesions Head: Normocephalic, no masses, lesions, tenderness or abnormalities Eyes: Anicteric sclera. Pupils are equally round and reactive to light. Extraocular movements are intact. Lungs: Lungs clear to auscultation. No wheezing, rhonchi, rales Heart: RRR without murmur, gallop, or rubs. Extremities: No deformities, edema, skin discoloration, clubbing or cyanosis. Good capillary refill. ASSESSMENT/PLAN: 1. Polyarthralgia - ICD9: 719.49, ICD10: M25.50 (primary diagnosis) We discussed antiinflammatory diet and trial of glucosamine 2. Morbid obesity (HCC) - ICD9: 278.01, ICD10: E66.01 Stable Refill of the adipex Rod Reynolds MD documented in this encounter [facility] 07-10-2022 Miscellaneous Notes Reviewed with Dr. Reynolds as it shows her having once prescription of this last February which has not been 6 months. Per PCP patient was not able to complete that because of needing surgery. Refill sent as previously sent by PCP. Monica Ricketts APRN.CNP Pharmacy sending in requesting for the last prescription they received on 07/04/22 did not have a BMI put on it. Please resubmit with BMI listed. I have added it to the prescription. Gerri Echols LPN documented in this encounter [facility] 07-08-2022 Miscellaneous Notes Being addressed in a refill encounter dated 07/04/22. documented in this encounter [facility] 07-04-2022 Note HNO ID: [id number] Author: Rod Reynolds MD Service: ? Author Type: Physician Type: Progress Notes Filed: 07/04/2022 7:10 PM Note Text: Reason for Visit Patient presents with: Follow Up: weight loss Heather Parrish is a 32 year old female who presents here today for Above Complaints. Health Maintenance HEPATITIS B(1 of 3 - 3-dose series) COVID-19 VACCINE(1) SPIROMETRY PNEUMOCOCCAL(2 - PCV) HPI Had a surgery in February that intercepted her adipex rx. So she wants to continue I would consider that extraneous circumstance. She has been eating better and exercising No problem-specific Assessment AND Plan notes found for this encounter. 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 Negative. [place] her abd pain was coming from scar tissue EGD 07/27/2019 [place]. Hpylori and small bowel bx negative KNEE SURGERY HX Right 04/30/2022 Dr.Mollison- [place] LEFT WRIST CARPAL TUNNEL ONLY Left 2013 LIG/TRNSXJ FLP TUBE ABDL/VAG APPR UNI/BI 06/03/2011 Tubal ligation OTHER SURGICAL HISTORY (PLEASE SPECIFY) HX Left 12/28/2019 Left ulnar nerve release/ubital tunnel release OVARIAN CYSTECTOMY 09/2018 [facility] PAST SURGICAL HISTORY OF 02/05/2012 right carpel tunnel,left PAST SURGICAL HISTORY OF hysterectomy without bso PAST SURGICAL HISTORY OF 06/21/2014 excision of sebaceous cyst behind right knee Dr Calderon TONSILLECTOMY PRIMARY/SECONDARY Tonsillectomy AND ADNOIDS TOT ABD HYST W/WO RMVL TUBE OVARY W/COLPURETHRXY Hysterectomy with MMK FAMILY HISTORY Problem Relation Age of Onset Diabetes Mother ddd Hypertension Mother other (Other) Mother Coronary Artery Disease Father CA x 3 < age 40 Diabetes Father Hypertension Father Obesity Sister Diabetes Sister Hypertension Sister Colon Cancer Maternal Grandmother Cancer Maternal Grandmother RECTAL Kidney Disease Maternal Grandmother Diabetes Maternal Grandfather Cataract Maternal Grandfather Hypertension Maternal Grandfather Heart Attack Maternal Grandfather other (Other) Maternal Grandfather ddd Cancer Paternal Grandmother RECTAL AND BREAST, Diabetes Paternal Grandmother Hypertension Paternal Grandmother Glaucoma Paternal Grandmother Cataract Paternal Grandfather Heart Attack Daughter Seizures Daughter Bipolar disorder Daughter Insomnia Daughter Social History Tobacco Use Smoking status: Every Day Packs/day: 0.50 Years: 5.00 Pack years: 2.50 Types: Cigarettes Smokeless tobacco: Never Vaping Use Vaping Use: Never used Substance Use Topics Alcohol use: No Drug use: No Past medical history, appointments, medications, allergies reviewed. Pertinent Lab/Diagnostic Studies are reviewed and discussed today Current Outpatient Medications: ergocalciferol 50,000 unit capsule (VITAMIN D2, DRISDOL) albuterol HFA (PROVENTIL HFA, VENTOLIN HFA) 90 mcg/actuation inhaler acetaminophen (TYLENOL) 500 mg tablet Review of Systems CONSTITUTIONAL: No fevers, chills night sweats, unintended weight loss CARDIOVASCULAR: No chest pain, dyspnea, palpitations, orthopnea, PND, ankle edema. PULM: No dyspnea, unexplained cough. GI: No dysphagia/odynophagia, problematic reflux, constipation, diarrhea, changes in stool habits, hematochezia, melena. : No new urinary complaints, including dysuria, gross hematuria or pyuria. NEURO: No new balance problems, peripheral weakness/paresthesias or numbness of concern. Physical Exam BP 124/78 (BP Site: Left Arm, BP Position: Sitting, BP Cuff Size: Large Adult) Pulse 66 Temp 36.9 ?C (98.4 ?F) Resp 14 Ht 160 cm (5' 3 ) Wt 112 kg (247 lb) LMP 07/20/2011 SpO2 100% BMI 43.75 kg/m? General appearance: Well appearing, alert, in no acute distress, well nourished. Skin: Skin color, texture, turgor normal, no suspicious rashes or lesions Head: Normocephalic, no masses, lesions, tenderness or abnormalities Eyes: Anicteric sclera. Pupils are equally round and reactive to light. Extraocular movements are intact. Lungs: Lungs clear to auscultation. No wheezing, rhonchi, rales Heart: RRR without murmur, gallop, or rubs. ASSESSMENT/PLAN: 1. Morbid obesity (HCC) - ICD9: 278.01, ICD10: E66.01 Discussed Contraindications, went over each one and over side effects. tolerance, continuity of medication, controlled medication so cannot be replaced if stolen or if l (more content not included)... [facility] 07-04-2022 History of Presen t illness Narrative Reason for Visit Patient presents with: Follow Up: weight loss Heather Parrish is a 32 year old female who presents here today for Above Complaints. Health Maintenance HEPATITIS B(1 of 3 - 3-dose series) COVID-19 VACCINE(1) SPIROMETRY PNEUMOCOCCAL(2 - PCV) HPI Had a surgery in February that intercepted her adipex rx. So she wants to continue I would consider that extraneous circumstance. She has been eating better and exercising No problem-specific Assessment & Plan notes found for this encounter. 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 Negative. [place] her abd pain was coming from scar tissue EGD 07/27/2019 [place]. Hpylori and small bowel bx negative KNEE SURGERY HX Right 04/30/2022 Dr.Mollison- [place]- [facility] LEFT WRIST CARPAL TUNNEL ONLY Left 2012 LIG/TRNSXJ FLP TUBE ABDL/VAG APPR UNI/BI 06/03/2011 Tubal ligation OTHER SURGICAL HISTORY (PLEASE SPECIFY) HX Left 12/28/2019 Left ulnar nerve release/ubital tunnel release OVARIAN CYSTECTOMY 09/2018 [facility]- PAST SURGICAL HISTORY OF 02/05/2012 right carpel tunnel,left PAST SURGICAL HISTORY OF hysterectomy without bso PAST SURGICAL HISTORY OF 06/21/2014 excision of sebaceous cyst behind right knee Dr Calderon TONSILLECTOMY PRIMARY/SECONDARY <AGE 10 Tonsillectomy AND ADNOIDS TOT ABD HYST W/WO RMVL TUBE OVARY W/COLPURETHRXY Hysterectomy with MMK FAMILY HISTORY Problem Relation Age of Onset Diabetes Mother ddd Hypertension Mother other (Other) Mother Coronary Artery Disease Father CA x 3 < age 40 Diabetes Father Hypertension Father Obesity Sister Diabetes Sister Hypertension Sister Colon Cancer Maternal Grandmother Cancer Maternal Grandmother RECTAL Kidney Disease Maternal Grandmother Diabetes Maternal Grandfather Cataract Maternal Grandfather Hypertension Maternal Grandfather Heart Attack Maternal Grandfather other (Other) Maternal Grandfather ddd Cancer Paternal Grandmother RECTAL AND BREAST, Diabetes Paternal Grandmother Hypertension Paternal Grandmother Glaucoma Paternal Grandmother Cataract Paternal Grandfather Heart Attack Daughter Seizures Daughter Bipolar disorder Daughter Insomnia Daughter Social History Tobacco Use Smoking status: Every Day Packs/day: 0.50 Years: 5.00 Pack years: 2.50 Types: Cigarettes Smokeless tobacco: Never Vaping Use Vaping Use: Never used Substance Use Topics Alcohol use: No Drug use: No Past medical history, appointments, medications, allergies reviewed. Pertinent Lab/Diagnostic Studies are reviewed and discussed today Current Outpatient Medications: ergocalciferol 50,000 unit capsule (VITAMIN D2, DRISDOL) albuterol HFA (PROVENTIL HFA, VENTOLIN HFA) 90 mcg/actuation inhaler acetaminophen (TYLENOL) 500 mg tablet Review of Systems CONSTITUTIONAL: No fevers, chills night sweats, unintended weight loss CARDIOVASCULAR: No chest pain, dyspnea, palpitations, orthopnea, PND, ankle edema. PULM: No dyspnea, unexplained cough. GI: No dysphagia/odynophagia, problematic reflux, constipation, diarrhea, changes in stool habits, hematochezia, melena. : No new urinary complaints, including dysuria, gross hematuria or pyuria. NEURO: No new balance problems, peripheral weakness/paresthesias or numbness of concern. Physical Exam BP 124/78 (BP Site: Left Arm, BP Position: Sitting, BP Cuff Size: Large Adult) Pulse 66 Temp 36.9 C (98.4 F) Resp 14 Ht 160 cm (5' 3 ) Wt 112 kg (247 lb) LMP 07/20/2011 SpO2 100% BMI 43.75 kg/m General appearance: Well appearing, alert, in no acute distress, well nourished. Skin: Skin color, texture, turgor normal, no suspicious rashes or lesions Head: Normocephalic, no masses, lesions, tenderness or abnormalities Eyes: Anicteric sclera. Pupils are equally round and reactive to light. Extraocular movements are intact. Lungs: Lungs clear to auscultation. No wheezing, rhonchi, rales Heart: RRR without murmur, gallop, or rubs. ASSESSMENT/PLAN: 1. Morbid obesity (HCC) - ICD9: 278.01, ICD10: E66.01 Discussed Contraindications, went over each one and over side effects. tolerance, continuity of medication, controlled medication so cannot be replaced if stolen or if lost. Advised exercising along with this will really help the patient reach her goal of loosing weight. Short term use of this med was discussed. Negative for all the following :Hypersensitivity or idiosyncrasy to phentermine or other sympathomimetic amines or any component of the formulation; history of cardiovascular disease (arrhythmias, congestive heart failure, coronary artery disease, stroke, uncontrolled hypertension); hyperthyroidism, glaucoma, agitated states, history of drug abuse; use during or within 14 days following MAO inhibitor therapy; , breast-feeding - PHENTERMINE 37.5 MG CAPSULE - HGB A1C Rod Reynolds MD documented in this encounter [facility] 06-18-2022 Miscellaneous Notes Pt was notified of the results. Pt verbalized understanding. Shanda Flores MA ----- Message from Madison Jones APRN.TEST PULLER sent at 06/18/2022 7:16 AM EST ----- Urine culture did not show clear evidence of infection. She can stop taking Macrobid (nitrofurantoin), continue Flagyl for trichomonas treatment. If not improving, recommend follow up with PCP. Madison Jones CNP documented in this encounter [facility] 06-17-2022 Miscellaneous Notes Patient calls and notified of results and providers instructions. Patient verbalizes understanding. Patient asking if should also be tested and treated. Notified patient anyone that she has been sexually active with should be tested and treated. Aileen Avery RN Left message for patient to return call. Rimma Shaikh Please notify patient that vaginal culture was positive for bacterial vaginosis, which is an over growth of normal vaginal bacteria, as well as trichomonas, which is a sexually transmitted infection. Both can be treated by metronidazole 500 mg twice a day for 7 days. No alcohol while taking. May continue macrobid til urine culture is back. - will call if urine culture negative Prescription sent to Sara Gillis APRN.IRVIN documented in this encounter [facility] 06-16-2022 Note HNO ID: [id number] Author: Aliya Hill APRN.IRVIN Service: ? Author Type: Nurse Practitioner Type: Progress Notes Filed: 06/16/2022 3:46 PM Note Text: CC: Patient presents with: UTI: Possible uti, pressure x 2 weeks Patient initially wanted treatment for UTI with no urine sample. Did explain we can not treat without a positive test result. Patient was able to give the sample. HPI Heather Parrish is a 32 year old female who presents with complaint of possible UTI. These symptoms have been present for 14 days. Associated symptoms: burning and frequency Denies: hematuria, pressure, fever, chills, sweats, abdominal pain, and flank pain Treatments: nothing The ROS was otherwise negative. PMH, Medications, labs, allergies, and recent past visits with PCP were reviewed and updated as able. PHYSICAL EXAM: BP 138/80 Pulse 92 Temp 37.2 ?C (98.9 ?F) Resp 18 Wt 113.4 kg (250 lb) LMP 10/22/2011 SpO2 99% BMI 44.29 kg/m? General: Well appearing and alert CV: Regular rate and rhythm without obvious murmur Lungs: clear to auscultation bilaterally Back: straight and symmetric Abdomen: denies physical exam due to previous tummy tuck surgery. 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 Negative. [place] her abd pain was coming from scar tissue EGD 07/27/2019 [place]. Hpylori and small bowel bx negative LEFT WRIST CARPAL TUNNEL ONLY Left 2012 LIG/TRNSXJ FLP TUBE ABDL/VAG APPR UNI/BI 06/03/2011 Tubal ligation OTHER SURGICAL HISTORY (PLEASE SPECIFY) HX Left 12/28/2019 Left ulnar nerve release/ubital tunnel release OVARIAN CYSTECTOMY 09/2018 [facility]- PAST SURGICAL HISTORY OF 02/05/2012 right carpel tunnel,left PAST SURGICAL HISTORY OF hysterectomy without bso PAST SURGICAL HISTORY OF 06/21/14 excision of sebaceous cyst behind right knee Dr Calderon TONSILLECTOMY PRIMARY/SECONDARY Tonsillectomy AND ADNOIDS TOT ABD HYST W/WO RMVL TUBE OVARY W/COLPURETHRXY Hysterectomy with MMK ALLERGIES Ceclor [Cefaclor], Nickel, Antihistamines - Alkylamine, Benadryl [Diphenhydramine Hcl], and Morphine MEDICATIONS acetaminophen (TYLENOL) 500 mg tablet Take 500 mg by mouth every 6 hours as needed. ergocalciferol 50,000 unit capsule (VITAMIN D2, DRISDOL) Take 1 capsule by mouth two times a week. TO BE TAKEN ORALLY DIRECTED. Take 1 tablet by mouth twice weekly [id number], then decrease to 1 tablet weekly. (Patient not taking: Reported on 06/16/2022) albuterol HFA (PROVENTIL HFA, VENTOLIN HFA) 90 mcg/actuation inhaler Inhale 2 Puffs as instructed every 4 hours as needed. FAMILY HISTORY Problem Relation Age of Onset Diabetes Mother ddd Hypertension Mother other (Other) Mother Coronary Artery Disease Father CA x 3 < age 40 Diabetes Father Hypertension Father Obesity Sister Diabetes Sister Hypertension Sister Colon Cancer Maternal Grandmother Cancer Maternal Grandmother RECTAL Kidney Disease Maternal Grandmother Diabetes Maternal Grandfather Cataract Maternal Grandfather Hypertension Maternal Grandfather Heart Attack Maternal Grandfather other (Other) Maternal Grandfather ddd Cancer Paternal Grandmother RECTAL AND BREAST, Diabetes Paternal Grandmother Hypertension Paternal Grandmother Glaucoma Paternal Grandmother Cataract Paternal Grandfather Heart Attack Daughter Seizures Daughter Bipolar disorder Daughter Insomnia Daughter Social History Tobacco Use Smoking status: Every Day Packs/day: 0.50 Years: 5.00 Pack years: 2.50 Types: Cigarettes Smokeless tobacco: Never Vaping Use Vaping Use: Never used Substance Use Topics Alcohol use: No Drug use: No ASSESSMENT/PLAN: 1. Urinary frequency - ICD9: 788.41, ICD10: R35.0 - BACTERIAL VAGINOSIS AMPLIFICATION - RADHA / TRICHOMONAS AMPLIFICATION - GC/CHLAMYDIA DNA DET - NITROFURANTOIN MONOHYDRATE AND MACROCRYSTAL 100 MG ORAL CAP - URINE CULTURE Patient was adamant that this feels the same as past urinary tract infections so Macrobid twice a day for 5 days was prescribed if the culture comes back and shows that the medication needs changed please change at that time. Treated for anything else at this time if any test come back positive please treat at this time Prescription instructions reviewed with patient as applicable. Potential red flag symptoms discussed with the patient such as worsening abdomina (more content not included)... [facility] 06-16-2022 History of Presen t illness Narrative CC: Patient presents with: UTI: Possible uti, pressure x 2 weeks Patient initially wanted treatment for UTI with no urine sample. Did explain we can not treat without a positive test result. Patient was able to give the sample. HPI Heather Parrish is a 32 year old female who presents with complaint of possible UTI. These symptoms have been present for 14 days. Associated symptoms: burning and frequency Denies: hematuria, pressure, fever, chills, sweats, abdominal pain, and flank pain Treatments: nothing The ROS was otherwise negative. PMH, Medications, labs, allergies, and recent past visits with PCP were reviewed and updated as able. PHYSICAL EXAM: BP 138/80 Pulse 92 Temp 37.2 C (98.9 F) Resp 18 Wt 113.4 kg (250 lb) LMP 10/22/2011 SpO2 99% BMI 44.29 kg/m General: Well appearing and alert CV: Regular rate and rhythm without obvious murmur Lungs: clear to auscultation bilaterally Back: straight and symmetric Abdomen: denies physical exam due to previous tummy tuck surgery. 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 Negative. [place] her abd pain was coming from scar tissue EGD 07/27/2019 [place]. Hpylori and small bowel bx negative LEFT WRIST CARPAL TUNNEL ONLY Left 2012 LIG/TRNSXJ FLP TUBE ABDL/VAG APPR UNI/BI 06/03/2011 Tubal ligation OTHER SURGICAL HISTORY (PLEASE SPECIFY) HX Left 12/28/2019 Left ulnar nerve release/ubital tunnel release OVARIAN CYSTECTOMY 09/2018 [facility] PAST SURGICAL HISTORY OF 02/05/2012 right carpel tunnel,left PAST SURGICAL HISTORY OF hysterectomy without bso PAST SURGICAL HISTORY OF 06/21/14 excision of sebaceous cyst behind right knee Dr Calderon TONSILLECTOMY PRIMARY/SECONDARY <AGE 10 Tonsillectomy AND ADNOIDS TOT ABD HYST W/WO RMVL TUBE OVARY W/COLPURETHRXY Hysterectomy with [facility]K ALLERGIES Ceclor [Cefaclor], Nickel, Antihistamines - Alkylamine, Benadryl [Diphenhydramine Hcl], and Morphine MEDICATIONS acetaminophen (TYLENOL) 500 mg tablet Take 500 mg by mouth every 6 hours as needed. ergocalciferol 50,000 unit capsule (VITAMIN D2, DRISDOL) Take 1 capsule by mouth two times a week. TO BE TAKEN ORALLY DIRECTED. Take 1 tablet by mouth twice weekly [id number], then decrease to 1 tablet weekly. (Patient not taking: Reported on 06/16/2022) albuterol HFA (PROVENTIL HFA, VENTOLIN HFA) 90 mcg/actuation inhaler Inhale 2 Puffs as instructed every 4 hours as needed. FAMILY HISTORY Problem Relation Age of Onset Diabetes Mother ddd Hypertension Mother other (Other) Mother Coronary Artery Disease Father CA x 3 < age 40 Diabetes Father Hypertension Father Obesity Sister Diabetes Sister Hypertension Sister Colon Cancer Maternal Grandmother Cancer Maternal Grandmother RECTAL Kidney Disease Maternal Grandmother Diabetes Maternal Grandfather Cataract Maternal Grandfather Hypertension Maternal Grandfather Heart Attack Maternal Grandfather other (Other) Maternal Grandfather ddd Cancer Paternal Grandmother RECTAL AND BREAST, Diabetes Paternal Grandmother Hypertension Paternal Grandmother Glaucoma Paternal Grandmother Cataract Paternal Grandfather Heart Attack Daughter Seizures Daughter Bipolar disorder Daughter Insomnia Daughter Social History Tobacco Use Smoking status: Every Day Packs/day: 0.50 Years: 5.00 Pack years: 2.50 Types: Cigarettes Smokeless tobacco: Never Vaping Use Vaping Use: Never used Substance Use Topics Alcohol use: No Drug use: No ASSESSMENT/PLAN: 1. Urinary frequency - ICD9: 788.41, ICD10: R35.0 - BACTERIAL VAGINOSIS AMPLIFICATION - RADHA / TRICHOMONAS AMPLIFICATION - GC/CHLAMYDIA DNA DET - NITROFURANTOIN MONOHYDRATE & MACROCRYSTAL 100 MG ORAL CAP - URINE CULTURE Patient was adamant that this feels the same as past urinary tract infections so Macrobid twice a day for 5 days was prescribed if the culture comes back and shows that the medication needs changed please change at that time. Treated for anything else at this time if any test come back positive please treat at this time Prescription instructions reviewed with patient as applicable. Potential red flag symptoms discussed with the patient such as worsening abdominal pain fever nausea vomiting. With patient's diverticulitis history patient said she recently got over diverticulitis and just seen GI and got a clean [facility]. Says it does not feel the same. Reviewed appropriate action plan to take if red flag symptoms occur. Patient agreeable to treatment plan. Aliya Hill APRN.CNP documented in this encounter [facility] 04-10-2022 Miscellaneous Notes Patient notified, patient has already started Vit D and Iron, Patient has been seen by Ortho and has a tear in the meniscus and ACL, surgery is scheduled. I do not see that [place] labs were addressed She seems to be iron deficient but likely this is from her inflammation and not true deficience, her vit d is low and there is some suggest of inflammation in her body which could very well be the knee problem that she is having. Advice vit d supplements, as far as the iron is concerned try eating food high in iron but usually when the inflammation gets better her issues will be better too. Regards, Rod Reynolds MD documented in this encounter [facility] 03-18-2022 History of Presen t illness Narrative Reason for Visit Patient presents with: Follow Up Heather Parrish is a 31 year old female who presents here today for Above Complaints.. Health Maintenance HEPATITIS B(1 of 3 - 3-dose series) SPIROMETRY PNEUMOCOCCAL(2 - PCV) INFLUENZA(1) HPI Seen ortho, who notes she has meniscal tear, needs arthroscopy for treatment. Refuses MRI and that Is limiting her treatment. Refuses mri due to having bad experience in that place. This has been interfering with her Job. She has to do a lot of walking, sitting and that is not helping her much. Vit d was very low 5 months ago, she has been taking vit d, iron supplements. Lost and gained weigth,. She was doing keto and stopped because of life stressors but will go back on it. She is down to half pack from 3 packs a day. 3 months ago. She is working on getting it down her way Refused flu shot today. Some concern with sarcoidosis, due to ELAINE being high, but pulm ruled out at this point No problem-specific Assessment & Plan notes found for this encounter. 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 Negative. [place] her abd pain was coming from scar tissue EGD 07/27/2019 [place]. Hpylori and small bowel bx negative LEFT WRIST CARPAL TUNNEL ONLY Left 2012 LIG/TRNSXJ FLP TUBE ABDL/VAG APPR UNI/BI 06/03/2011 Tubal ligation OTHER SURGICAL HISTORY (PLEASE SPECIFY) HX Left 12/28/2019 Left ulnar nerve release/ubital tunnel release OVARIAN CYSTECTOMY 09/2018 [facility] PAST SURGICAL HISTORY OF 02/05/2012 right carpel tunnel,left PAST SURGICAL HISTORY OF hysterectomy without bso PAST SURGICAL HISTORY OF 06/21/14 excision of sebaceous cyst behind right knee Dr Calderon TONSILLECTOMY PRIMARY/SECONDARY <AGE 10 Tonsillectomy AND ADNOIDS TOT ABD HYST W/WO RMVL TUBE OVARY W/COLPURETHRXY Hysterectomy with MMK FAMILY HISTORY Problem Relation Age of Onset Diabetes Mother ddd Hypertension Mother other (Other) Mother Coronary Artery Disease Father CA x 3 < age 40 Diabetes Father Hypertension Father Obesity Sister Diabetes Sister Hypertension Sister Colon Cancer Maternal Grandmother Cancer Maternal Grandmother RECTAL Kidney Disease Maternal Grandmother Diabetes Maternal Grandfather Cataract Maternal Grandfather Hypertension Maternal Grandfather Heart Attack Maternal Grandfather other (Other) Maternal Grandfather ddd Cancer Paternal Grandmother RECTAL AND BREAST, Diabetes Paternal Grandmother Hypertension Paternal Grandmother Glaucoma Paternal Grandmother Cataract Paternal Grandfather Heart Attack Daughter Seizures Daughter Bipolar disorder Daughter Insomnia Daughter Social History Tobacco Use Smoking status: Every Day Packs/day: 0.50 Years: 5.00 Pack years: 2.50 Types: Cigarettes Smokeless tobacco: Never Vaping Use Vaping Use: Never used Substance Use Topics Alcohol use: No Drug use: No Past medical history, appointments, medications, allergies reviewed. Pertinent Lab/Diagnostic Studies are reviewed and discussed today Current Outpatient Medications: albuterol HFA (PROVENTIL HFA, VENTOLIN HFA) 90 mcg/actuation inhaler acetaminophen (TYLENOL) 500 mg tablet Review of Systems CONSTITUTIONAL: No fevers, chills night sweats, unintended weight loss CARDIOVASCULAR: No chest pain, dyspnea, palpitations, orthopnea, PND, ankle edema. PULM: No dyspnea, unexplained cough. GI: No dysphagia/odynophagia, problematic reflux, constipation, diarrhea, changes in stool habits, hematochezia, melena. : No new urinary complaints, including dysuria, gross hematuria or pyuria. NEURO: No new balance problems, peripheral weakness/paresthesias or numbness of concern. Physical Exam BP 116/70 Pulse 85 Wt 108.9 kg (240 lb) LMP 10/22/2011 SpO2 99% BMI 42.51 kg/m General appearance: Well appearing, alert, in no acute distress, well nourished. Skin: Skin color, texture, turgor normal, no suspicious rashes or lesions Head: Normocephalic, no masses, lesions, tenderness or abnormalities Eyes: Anicteric sclera. Pupils are equally round and reactive to light. Extraocular movements are intact. Lungs: Lungs clear to auscultation. No wheezing, rhonchi, rales Heart: RRR without murmur, gallop, or rubs. Extremities: No deformities, edema, skin discoloration, clubbing or cyanosis. Good capillary refill. ASSESSMENT/PLAN: 1. Chronic pain of right knee - ICD9: 719.46, 338.29, ICD10: M25.561, G89.29 (primary diagnosis) - CONSULT TO ORTHOPAEDICS - [facility] 2. Iron deficiency - ICD9: 280.9, ICD10: E61.1 - IRON + TIBC - FERRITIN BLD 3. Vitamin D deficiency - ICD9: 268.9, ICD10: E55.9 - VITAMIN D 25 HYDROXY 4. Tobacco abuse disorder - ICD9: 305.1, ICD10: Z72.0 - Cessation encouraged. - Physiologic and physical aspects of tobacco addiction as well as strategies for quitting were discussed. - Counseling was given focusing on the harmful effects of this addiction especially given the patient's medical condition(s) which will be worsened because of the chemicals in tobacco. 5. Vitamin B12 deficiency - ICD9: 266.2, ICD10: E53.8 - VITAMIN B12 BLOOD 6. Elevated blood sugar - ICD9: 790.29, ICD10: R73.9 7. Sleep apnea, unspecified type - ICD9: 780.57, ICD10: G47.30 8. Morbid obesity (HCC) - ICD9: 278.01, ICD10: E66.01 Stable - Continue current medications - PHENTERMINE 37.5 MG CAPSULE Rod Reynolds MD documented in this encounter [facility] 03-03-2022 History of Presen t illness Narrative Reason for Visit Patient presents with: Same Day Appointment: right knee pain x 4 days Heather Parrish is a 31 year old female who presents here today for Above Complaints.. Health Maintenance HEPATITIS B(1 of 3 - 3-dose series) SPIROMETRY PNEUMOCOCCAL(2 - PCV) INFLUENZA(1) HPI Used to play soft ball in school and sustained injury from hyperextension and since then she has had troubles with her knee on and off. She notes that she used to get effusions removed and sometimes steroid injections given but she is not For the past 4./5 days, her right knee is hurting. She feels a pinching pain with certain angles of movement. In the past wrapping it would help her. But that has not been helping her now. She has taken tylenol. Does not help much. There is no pain when she is not moving it is only when she moves into certain angles. She had a x-ray that was done before around 8 months ago which did not show arthritis although she kept telling me the entire visit that because of the hyperextension injury she was told that she had arthritis at age 15. I told her that if she had arthritis it would show on the x-ray and likely does not that it is most likely meniscal, ligament, bursitis issue but we can repeat an x-ray to make sure there is no bony involvement. Knee exam: Was unable to fully examine her knee because there was pain. To palpation pain was in the medial aspect of the inferior lower patella.. There was a lot of pain when I tried to push in that particular area. The rest of the knee looked normal. Due to limitation of pain I did not examine it fully No problem-specific Assessment & Plan notes found for this encounter. 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 Negative. [place] her abd pain was coming from scar tissue EGD 07/27/2019 [place]. Hpylori and small bowel bx negative LEFT WRIST CARPAL TUNNEL ONLY Left 2012 LIG/TRNSXJ FLP TUBE ABDL/VAG APPR UNI/BI 06/03/2011 Tubal ligation OTHER SURGICAL HISTORY (PLEASE SPECIFY) HX Left 12/28/2019 Left ulnar nerve release/ubital tunnel release OVARIAN CYSTECTOMY 09/2018 [facility] PAST SURGICAL HISTORY OF 02/05/2012 right carpel tunnel,left PAST SURGICAL HISTORY OF hysterectomy without bso PAST SURGICAL HISTORY OF 06/21/14 excision of sebaceous cyst behind right knee Dr Calderon TONSILLECTOMY PRIMARY/SECONDARY <AGE 10 Tonsillectomy AND ADNOIDS TOT ABD HYST W/WO RMVL TUBE OVARY W/COLPURETHRXY Hysterectomy with MMK FAMILY HISTORY Problem Relation Age of Onset Diabetes Mother ddd Hypertension Mother other (Other) Mother Coronary Artery Disease Father CA x 3 < age 40 Diabetes Father Hypertension Father Obesity Sister Diabetes Sister Hypertension Sister Colon Cancer Maternal Grandmother Cancer Maternal Grandmother RECTAL Kidney Disease Maternal Grandmother Diabetes Maternal Grandfather Cataract Maternal Grandfather Hypertension Maternal Grandfather Heart Attack Maternal Grandfather other (Other) Maternal Grandfather ddd Cancer Paternal Grandmother RECTAL AND BREAST, Diabetes Paternal Grandmother Hypertension Paternal Grandmother Glaucoma Paternal Grandmother Cataract Paternal Grandfather Heart Attack Daughter Seizures Daughter Bipolar disorder Daughter Insomnia Daughter Social History Tobacco Use Smoking status: Every Day Packs/day: 2.00 Years: 5.00 Pack years: 10.00 Types: Cigarettes Smokeless tobacco: Never Vaping Use Vaping Use: Never used Substance Use Topics Alcohol use: No Drug use: No Past medical history, appointments, medications, allergies reviewed. Pertinent Lab/Diagnostic Studies are reviewed and discussed today Current Outpatient Medications: albuterol HFA (PROVENTIL HFA, VENTOLIN HFA) 90 mcg/actuation inhaler acetaminophen (TYLENOL) 500 mg tablet Review of Systems CONSTITUTIONAL: No fevers, chills night sweats, unintended weight loss CARDIOVASCULAR: No chest pain, dyspnea, palpitations, orthopnea, PND, ankle edema. PULM: No dyspnea, unexplained cough. GI: No dysphagia/odynophagia, problematic reflux, constipation, diarrhea, changes in stool habits, hematochezia, melena. : No new urinary complaints, including dysuria, gross hematuria or pyuria. NEURO: No new balance problems, peripheral weakness/paresthesias or numbness of concern. Physical Exam BP 122/62 (BP Site: Left Arm, BP Position: Sitting, BP Cuff Size: Large Adult) Pulse 94 Resp 16 Ht 160 cm (5' 3 ) Wt 106.1 kg (234 lb) LMP 10/22/2011 SpO2 98% BMI 41.45 kg/m General appearance: Well appearing, alert, in no acute distress, well nourished. Skin: Skin color, texture, turgor normal, no suspicious rashes or lesions Head: Normocephalic, no masses, lesions, tenderness or abnormalities Eyes: Anicteric sclera. Pupils are equally round and reactive to light. Extraocular movements are intact. Lungs: Lungs clear to auscultation. No wheezing, rhonchi, rales Heart: RRR without murmur, gallop, or rubs. Extremities: No deformities, edema, skin discoloration, clubbing or cyanosis. Good capillary refill. ASSESSMENT/PLAN: 1. Acute pain of right knee - ICD9: 719.46, ICD10: M25.561 Oral steroids were given to see if it would help with decrease some inflammation with a negative x-ray I think that she may have more of a meniscal injury or a bursa inflammation. But deferred to Ortho - CONSULT TO ORTHOPAEDICS - XR KNEE GENERAL 4V AP BOTH/PA BOTH/LAT/MERC RIGHT Rod Reynolds MD documented in this encounter [facility] 12-19-2021 Note HNO ID: [id number] Author: Sarah Raymond MD Service: ? Author Type: Physician Type: Progress Notes Filed: 04/05/2022 4:47 PM Note Text: This note was created using Ruzukuriter. Subjective Heather Parrish is a 31 year old female. Today is one of better days Joints pains and stiffness Getting worse Skin is getting worse Rashes and dryness worse Mostly in the legs Not new spots Knee pain and knee swelling This is going on for few year Soft ball and attributes this issue to knee pain Review of Systems Objective Last Menstrual Period 10/22/2011 Physical Exam Assessment and Plan First visit 10/02/21 Polyarthralgia ( intermittent fevers periodic fever syndrome ?) SLE ? Current no evidence of same 10/02/21 Syphilis Ab HIV Hepatitis C antibody, Hepatitis B S Ag negative 08/14 2019 RF FELICIA negative CK 49, ESR 18 622 Ch50 normal CCP ANCA negative TPO Ab negative 04/15 Anti-cardiolipin ab, anti b-2 glycoprotein-1 ab, LA negative. 11/13 IgA, IgG Transglutaminase Ab: negative, IgA (mg/dl): 172, IgG 1123 Post vaccination diptheria antibody tetanus antibody normal, vaccination pneumococcal not done 11/13 Vit d 15, 1,25 OH vit d 48 normal ELAINE 57 high .. 09/12 chest xr : Lungs and pleura there are a few small opacified granuloma in both lungs with small calcified lymph nodes in both faith. 2006 CT abd : There appears to be a vague rounded low density lesion in the dome of the right lobe of the liver on SP 521. That measured about 8 mm in size. There is also a small rounded low density lesion in the midportion of the right lobe on SP 458. That measures about 6 mm in diameter. No gallstones are identified. The spleen is unremarkable in appearance, CT abd : There is a calcified granuloma in the left lung base. There appears to be a small amount of patchy infiltrate in the posterior aspect of the extreme left lung base. There is a small rounded nodular density containing a central calcification in the posteromedial aspect of the left lung base. There is a calcified granuloma in the anterior aspect of the right lung base 10/12 US abd spleen normal CT chest (11/15/2021): Normal unenhanced CT of the chest without mediastinal lymphadenopathy Complete PFT (11/29/2021): Isolated reduction diffusion capacity (FVC 82%, FEV1 73%, TLC 90%, DLCO 47%) Alpha-1 antitrypsin (11/08/2021): Normal (MM (((09/2021 history : diagnosis as teen SLE, but later on testing negative positive, [facility], now retired) ( fatique, malar rash, polyarthralgia, random fever) ( skin dry, seeking derm ,teenager, dry eye dry mouth 2020 onset ) ( Joint pain since teenage, am stiff hurts ) ( main issue, muscle aches ) ( shoulder stiff, elbow hurt, wrist stiff, hand hurt ) ( intermittent hip pain from back ? ) ( knee pain bilateral, no inj done ) ( ankle pain bilateral, feet pains ) ( fatique age 13 ) ( hair loss 2000 onset) (random fever time to time, years ) ( highest 103, resolves within same, day, more as teen ) ( age 12 ) ( 3 miscarriages, no DVT, no Raynaud's Phenomenon) ( skin issue mild photosensitivity , no Erythema nodosum, no iritis uveitis. )))) (10/13 exam visit diffuse tenderness ) TREATMENT Eye drops seeing optha 10/02/21 11/04/21 discuss more next visit, ELAINE high, chest xr with granuloma , reevaluate next visit. (( abn MRI ) 11/05/21 given treatment options, emperic treatment, Wants to see Dr. Mccrary ( pulm ) ( patient choice ) send to him, see If can get bronchoscopic biopsy . Sarcoid old likely burnt out vs active, not wanting plaquenil without confirmation. 12/19/21 Pulm seen, testing not planned as far as biopsy, no tissue proof of sarcoid. Periodic fever syndrome possible, daughter allready established with Rheum and can get testing for this. Drug and disease monitoring 08/13 tsh normal , cmp Na 134 cbc diff normal , HgAic 5.6 06/14 urine normal 05/2019 Vit d 11 10/02/212013 iron work up normal, B12 folic acid normal Fibromyalgia ( diagnosis) TREATMENT Patient does not think correct diagnosis 10/02/21 10/02/21 diffuse myofascial tenderness is there. Costochondritis (2021 onset ) Neck pain 1999 onset ( no jaw pain ) 08/2019 xr CS normal 10/02/21 observe Low back pain 2009 onset ( localized ) 08/2019 Xr LS xr Sarcoiliac joint normal Hip pain ( Sarcoiliac joint inj done for Sarcoiliac joint dysunction with relief ) 07/16 right hip xr normal Knee pain 2020 right knee xr normal ( soft ball attributes this knee pain ) 12/19/21 Paresthesia ( 2019 onset ) Hand ( tingle and ache off and on ) EMG done past CTS surg and repeat EMG normal (ulnar nerve surg bilateral done ) Feet ( tingle and ache off and on ) 10/02/21 Allergic Rhinitis and Allergic Conjunctivitis ( year around, never skin tested ) No asthma Atopic derm as kid face 10/02/21 No food allergy Hives generalized intermittent 10/02/21 ( related to use of anti histamines ) No cholinergic u (more content not included)... [facility] 12-19-2021 History of Presen t illness Narrative This note was created using NoteWriter. Subjective Heather Parrish is a 31 year old female. Today is one of better days Joints pains and stiffness Getting worse Skin is getting worse Rashes and dryness worse Mostly in the legs Not new spots Knee pain and knee swelling This is going on for few year Soft ball and attributes this issue to knee pain Review of Systems Objective Last Menstrual Period 10/22/2011 Physical Exam Assessment and Plan First visit 10/02/21 Polyarthralgia ( intermittent fevers periodic fever syndrome ?) SLE ? Current no evidence of same 10/02/21 Syphilis Ab HIV Hepatitis C antibody, Hepatitis B S Ag negative 08/14 2019 RF FELICIA negative CK 49, ESR 18 622 Ch50 normal CCP ANCA negative TPO Ab negative 11/13 IgA, IgG Transglutaminase Ab: negative, IgA (mg/dl): 172, IgG 1123 Post vaccination diptheria antibody tetanus antibody normal, vaccination pneumococcal not done 11/13 Vit d 15, 1,25 OH vit d 48 normal ELAINE 57 high .. 09/12 chest xr : Lungs and pleura there are a few small opacified granuloma in both lungs with small calcified lymph nodes in both faith. 2006 CT abd : There appears to be a vague rounded low density lesion in the dome of the right lobe of the liver on SP 521. That measured about 8 mm in size. There is also a small rounded low density lesion in the midportion of the right lobe on SP 458. That measures about 6 mm in diameter. No gallstones are identified. The spleen is unremarkable in appearance, CT abd : There is a calcified granuloma in the left lung base. There appears to be a small amount of patchy infiltrate in the posterior aspect of the extreme left lung base. There is a small rounded nodular density containing a central calcification in the posteromedial aspect of the left lung base. There is a calcified granuloma in the anterior aspect of the right lung base 10/12 US abd spleen normal CT chest (11/15/2021): Normal unenhanced CT of the chest without mediastinal lymphadenopathy Complete PFT (11/29/2021): Isolated reduction diffusion capacity (FVC 82%, FEV1 73%, TLC 90%, DLCO 47%) Alpha-1 antitrypsin (11/08/2021): Normal (MM (((09/2021 history : diagnosis as teen SLE, but later on testing negative positive, [facility], now retired) ( fatique, malar rash, polyarthralgia, random fever) ( skin dry, seeking derm ,teenager, dry eye dry mouth 2020 onset ) ( Joint pain since teenage, am stiff hurts ) ( main issue, muscle aches ) ( shoulder stiff, elbow hurt, wrist stiff, hand hurt ) ( intermittent hip pain from back ? ) ( knee pain bilateral, no inj done ) ( ankle pain bilateral, feet pains ) ( fatique age 13 ) ( hair loss 2000 onset) (random fever time to time, years ) ( highest 103, resolves within same, day, more as teen ) ( age 12 ) ( 3 miscarriages, no DVT, no Raynaud's Phenomenon) ( skin issue mild photosensitivity , no Erythema nodosum, no iritis uveitis. )))) (10/13 exam visit diffuse tenderness ) TREATMENT Eye drops seeing optha 10/02/21 11/04/21 discuss more next visit, EALINE high, chest xr with granuloma , reevaluate next visit. (( abn MRI ) 11/05/21 given treatment options, emperic treatment, Wants to see Dr. Mccrary ( pulm ) ( patient choice ) send to him, see If can get bronchoscopic biopsy . Sarcoid old likely burnt out vs active, not wanting plaquenil without confirmation. 12/19/21 Pulm seen, testing not planned as far as biopsy, no tissue proof of sarcoid. Periodic fever syndrome possible, daughter allready established and can get testing. Drug and disease monitoring 08/13 tsh normal , cmp Na 134 cbc diff normal , HgAic 5.6 06/14 urine normal 05/2019 Vit d 11 10/02/212013 iron work up normal, B12 folic acid normal Fibromyalgia ( diagnosis) TREATMENT Patient does not think correct diagnosis 10/02/21 10/02/21 diffuse myofascial tenderness is there. Costochondritis (2021 onset ) Neck pain 1999 onset ( no jaw pain ) 08/2019 xr CS normal 10/02/21 observe Low back pain 2009 onset ( localized ) 08/2019 Xr LS xr Sarcoiliac joint normal Hip pain ( Sarcoiliac joint inj done for Sarcoiliac joint dysunction with relief ) 07/16 right hip xr normal Knee pain 2020 right knee xr normal ( soft ball attributes this knee pain ) 12/19/21 Paresthesia ( 2019 onset ) Hand ( tingle and ache off and on ) EMG done past CTS surg and repeat EMG normal (ulnar nerve surg bilateral done ) Feet ( tingle and ache off and on ) 10/02/21 Allergic Rhinitis and Allergic Conjunctivitis ( year around, never skin tested ) No asthma Atopic derm as kid face 10/02/21 No food allergy Hives generalized intermittent 10/02/21 ( related to use of anti histamines ) No cholinergic urticaria, no EIA 10/02/21 ( pneumonia 6 time, recurrent sinus infection, used to get ear infection, no tubes ) 10/02/21 Pseudotumor cerebri 2014 diagnosis 11/05 CT scan head sinus sinus normal : Slit-like ventricles and suspected empty sella turcica which can findings with idiopathic intracranial hypertension 11/05 MRI MR brain normal . Could not tolerate med 10/02/21 ( for headache uses tylenol prn ) Sees optha regular and normal exam 10/02/21 ( last time 10/13 ) ( Every 6 months ) Hidradenitis Suppurativa ( genital axilla 2009 ) ( no genital oral sore, no uveitis ) 2020 Colonoscopy ( family history of colon cancer ) 10/12 US abd spleen normal Sleep study 12/19/21 seen pulm ( stops breathing at night ) [facility] diagnosis 2015 ( never went on CPAP ) was taking care of daughter illness. Rash ( lower ext ) derm seen, no clear diagnosis ( skin biopsy not pursued as allergic to local anesthesia ) ( video visit : 12/19/21 not clear but definitely no panniculitis ) Metal allergy Nickel rash poision samra rashes Other abdomenoplasty and then revision 10/02/21 ( 2015 ) Pain mgt Antihistamine allergy ?? 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 Not biological dad Biological dad ( her daughter's father ) in [place] ( ex schizophrenia, bipolar ) ( his mom with RA ) One sister biological wt issue, bipolar 10/02/21 No brother 10/02/21 Father 49 CA age 15, Diabetes Mellitus Type II HTN 10/02/21 Mother 50 10/02/21 LA +, Diabetes Mellitus Type II HTN arthritis 10/02/21 (Mom's mom with RA ) ( mother with lupus anti coagulant ) 12/19/21 documented in this encounter [facility] 12-12-2021 Miscellaneous Notes Linked to appointment. Victorina Srivastava RN Order signed. Please file pending order for pelvic ultrasound. We will then link to her upcoming appointment. Thank you. Victorina Srivastava RN documented in this encounter [facility] 11-13-2021 History of Presen t illness Narrative Chief Complaint Patient presents with: Covid19 Concern HPI Heather Parrish is a 31 year old female who is contacted today for a virtual/telemedicine visit. This is an established patient of Dr. Rod Reynolds MD. Patient notes she has covid for the 3rd time. Started with symptoms 2 days not. Sinuses and headache, sore throat, myalgia, cough, severe fatigue, cannot lay flat ,sat are normal Nose is really stuffy. The last time she had covid was last year at [facility]. She had covid prior to that beginning of last year in 2020. She was recently diagnosed with sarcoidosis, at least a possibility. She refused paxlovid, although I told her that she is likely immunocompromized and would need medication but she did not want any, she is also not vaccinated and refuses to consider vaccine after she is gotten better. 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 Negative. [place] her abd pain was coming from scar tissue EGD 07/27/2019 [place]. Hpylori and small bowel bx negative LEFT WRIST CARPAL TUNNEL ONLY Left 2012 LIG/TRNSXJ FLP TUBE ABDL/VAG APPR UNI/BI 06/03/2011 Tubal ligation OTHER SURGICAL HISTORY (PLEASE SPECIFY) HX Left 12/28/2019 Left ulnar nerve release/ubital tunnel release OVARIAN CYSTECTOMY 09/2018 [facility] PAST SURGICAL HISTORY OF 02/05/2012 right carpel tunnel,left PAST SURGICAL HISTORY OF hysterectomy without bso PAST SURGICAL HISTORY OF 06/21/14 excision of sebaceous cyst behind right knee Dr Calderon TONSILLECTOMY PRIMARY/SECONDARY <AGE 10 Tonsillectomy AND ADNOIDS TOT ABD HYST W/WO RMVL TUBE OVARY W/COLPURETHRXY Hysterectomy with MMK Family History FAMILY HISTORY Problem Relation Age of Onset Diabetes Mother ddd Hypertension Mother other (Other) Mother Coronary Artery Disease Father CA x 3 < age 40 Diabetes Father Hypertension Father Obesity Sister Diabetes Sister Hypertension Sister Colon Cancer Maternal Grandmother Cancer Maternal Grandmother RECTAL Kidney Disease Maternal Grandmother Diabetes Maternal Grandfather Cataract Maternal Grandfather Hypertension Maternal Grandfather Heart Attack Maternal Grandfather other (Other) Maternal Grandfather ddd Cancer Paternal Grandmother RECTAL AND BREAST, Diabetes Paternal Grandmother Hypertension Paternal Grandmother Glaucoma Paternal Grandmother Cataract Paternal Grandfather Heart Attack Daughter Seizures Daughter Bipolar disorder Daughter Insomnia Daughter Patient Allergies ALLERGIES Allergen Reactions Ceclor [Cefaclor] Mental Status Change DROWSINESS A CHILD Nickel Rash Antihistamines - Al* Other: See Comments Skin patch test came back positive Benadryl [Diphenhyd* Other: See Comments Anxious, vomiting, rash Morphine Mental Status Change Current Medications Current Outpatient Medications on File Prior to Visit Medication Sig acetaminophen (TYLENOL) 500 mg tablet Take 500 mg by mouth every 6 hours as needed. No current facility-administered medications on file prior to visit. Social History Social History Tobacco Use Smoking status: Current Every Day Smoker Packs/day: 2.00 Years: 5.00 Pack years: 10.00 Types: Cigarettes Smokeless tobacco: Never Used Vaping Use Vaping Use: Never used Substance Use Topics Alcohol use: No Drug use: No Review of Symptoms GENERAL: No weight loss. No malaise or fevers HEENT: Negative for headaches No eye discharge or redness No earaches or drainage No sore throat Nose POS/NEG for congestion and nasal discharge NECK: Negative for lumps, pain or significant neck swelling RESPIRATORY: No wheezing, SOB, Difficulty breathing. CARDIOVASCULAR: Negative for chest pain GI: No nausea, vomiting, or diarrhea MUSCULOSKELETAL: Negative for muscle aches or bodyaches SKIN: Negative for lesions, rash, and itching Neuro: No lightheadedness or dizziness EXAM: LMP 10/22/2011 Deferred physical exam as visit was completed over the phone. Virtual visit completed using video, limited exam completed. General Appearance: Well appearing, alert, in no acute distress, well-hydrated, well nourished. Skin: Skin color Head: Normocephalic Psych: Attitude - cooperative, easily engaged in conversation Appearance - normal, hygiene and grooming appropriate Affect - euthymic, normal mood Mental status: Alert, attentive. Speech is clear and fluent with good repetition, comprehension Coordination: No abnormal or extraneous movements. Gait/Stance: Posture is normal. Health Maintenance List SPIROMETRY Never done PNEUMOCOCCAL(2 - PCV) due on 06/26/2016 COVID-19 VACCINE(1) due on 06/17/2022 INFLUENZA(Season Ended) due on 01/23/2022 ANNUAL PCP TEAM CHRONIC DISEASE VISIT due on 10/11/2022 DTAP,TDAP,TD(2 - Td or Tdap) due on 10/23/2024 HEPATITIS C SCREENING Completed HIV SCREENING Completed PAP TESTING Discontinued HPV TESTING Discontinued Data reviewed Last 5 Encounter BP Readings: Date: BP: 10/13/2021 118/66 10/11/2021 122/82 10/02/2021 126/103 08/26/2021 126/78 08/02/2021 124/74 BMI Readings from Last 5 Encounters: 10/13/21 : 43.40 kg/m 10/11/21 : 43.05 kg/m 10/02/21 : 43.05 kg/m 08/26/21 : 42.52 kg/m 08/02/21 : 42.52 kg/m Last 5 Encounter Wt Readings: Date: Wt: 10/13/2021 111.1 kg (245 lb) 10/11/2021 110.2 kg (243 lb) 10/02/2021 110.2 kg (243 lb) 08/26/2021 111.6 kg (246 lb) 08/02/2021 111.6 kg (246 lb) Medication and allergy list reviewed, reconciled and updated 11/13/2021 ASSESSMENT/PLAN: 1. Mild intermittent intrinsic asthma without status asthmaticus without complication - ICD9: 493.10, ICD10: J45.20 (primary diagnosis) Mild intermittent Asthma stable Does not have an inhaler 2. Pseudotumor cerebri - ICD9: 348.2, ICD10: G93.2 3. Sarcoidosis - ICD9: 135, ICD10: D86.9 New diagnosis, still awaiting confirmation 4. COVID - ICD9: 079.89, ICD10: U07.1 5. COVID-19 virus infection - ICD9: 079.89, ICD10: U07.1 3 rd infection in 5 months, offered paxlovid but she refused 6. URI with cough and congestion - ICD9: 465.9, ICD10: J06.9 - Discussed viral etiology and rationale for treatment. - Symptomatic treatment with prn analgesia - Supportive care with fluids and rest - CODEINE 10 MG-GUAIFENESIN 100 MG/5 ML ORAL LIQUID Rod Reynolds MD documented in this encounter [facility] 11-05-2021 Miscellaneous Notes Faxed referral to [phone] Mccrary in [place]. Wendy Sanchez Sludge Control Attendant documented in this encounter [facility] 11-05-2021 Note HNO ID: [id number] Author: Sarah Raymond MD Service: ? Author Type: Physician Type: Progress Notes Filed: 11/05/2021 8:12 AM Note Text: This note was created using Ruzukuriter. Subjective Heather Parrish is a 31 year old female. Doing OK Still hurt Low grade fever Not above 100 Diffuse joint pain Morning stiffness is lasting about 30 minutes to one hour. Review of Systems Objective Last Menstrual Period 10/22/2011 Physical Exam Assessment and Plan First visit 10/02/21 SLE ? Current no evidence of same 10/02/21 Syphilis Ab HIV Hepatitis C antibody, Hepatitis B S Ag negative 08/14 2019 RF FELICIA negative CK 49, ESR 18 622 Ch50 normal CCP ANCA negative TPO Ab negative 11/13 IgA, IgG Transglutaminase Ab: negative, IgA (mg/dl): 172, IgG 1123 Post vaccination diptheria antibody tetanus antibody normal, vaccination pneumococcal not done 11/13 Vit d 15, 1,25 OH vit d 48 normal ELAINE 57 high .. 09/12 chest xr : Lungs and pleura there are a few small opacified granuloma in both lungs with small calcified lymph nodes in both faith. 2006 CT abd : There appears to be a vague rounded low density lesion in the dome of the right lobe of the liver on SP 521. That measured about 8 mm in size. There is also a small rounded low density lesion in the midportion of the right lobe on SP 458. That measures about 6 mm in diameter. No gallstones are identified. The spleen is unremarkable in appearance, CT abd : There is a calcified granuloma in the left lung base. There appears to be a small amount of patchy infiltrate in the posterior aspect of the extreme left lung base. There is a small rounded nodular density containing a central calcification in the posteromedial aspect of the left lung base. There is a calcified granuloma in the anterior aspect of the right lung base 10/12 US abd spleen normal (((09/2021 history : diagnosis as teen SLE, but later on testing negative positive, [place] [facility], now retired) ( fatique, malar rash, polyarthralgia, random fever) ( skin dry, seeking derm ,teenager, dry eye dry mouth 2019 onset ) ( Joint pain since teenage, am stiff hurts ) ( main issue, muscle aches ) ( shoulder stiff, elbow hurt, wrist stiff, hand hurt ) ( intermittent hip pain from back ? ) ( knee pain bilateral, no inj done ) ( ankle pain bilateral, feet pains ) ( fatique age 13 ) ( hair loss 2000 onset) (random fever time to time, years ) ( highest 103, resolves within same, day, more as teen ) ( 3 miscarriages, no DVT, no Raynaud's Phenomenon) ( skin issue mild photosensitivity , no Erythema nodosum, no iritis uveitis. )))) (10/13 exam visit diffuse tenderness ) TREATMENT Eye drops seeing optha 10/02/21 11/04/21 discuss more next visit, ELAINE high, chest xr with granuloma , reevaluate next visit. (( abn MRI ) 11/05/21 given treatment options, emperic treatment, Wants to see Dr. Mccrary ( pulm ) ( patient choice ) send to him, see If can get bronchoscopic biopsy . Sarcoid old likely burnt out vs active, not wanting plaquenil without confirmation. Drug and disease monitoring 08/13 tsh normal , cmp Na 134 cbc diff normal , HgAic 5.6 06/14 urine normal 05/2019 Vit d 11 10/02/212013 iron work up normal, B12 folic acid normal Fibromyalgia ( diagnosis) TREATMENT Patient does not think correct diagnosis 10/02/21 10/02/21 diffuse myofascial tenderness is there. Costochondritis (2021 onset ) Neck pain 1999 onset ( no jaw pain ) 08/2019 xr CS normal 10/02/21 observe Low back pain 2009 onset ( localized ) 08/2019 Xr LS xr Sarcoiliac joint normal Hip pain ( Sarcoiliac joint inj done for Sarcoiliac joint dysunction with relief ) 07/16 right hip xr normal Knee pain 2020 right knee xr normal Paresthesia ( 2019 onset ) Hand ( tingle and ache off and on ) EMG done past CTS surg and repeat EMG normal (ulnar nerve surg bilateral done ) Feet ( tingle and ache off and on ) 10/02/21 Allergic Rhinitis and Allergic Conjunctivitis ( year around, never skin tested ) No asthma Atopic derm as kid face 10/02/21 No food allergy Hives generalized intermittent 10/02/21 ( related to use of anti histamines ) No cholinergic urticaria, no EIA 10/02/21 ( pneumonia 6 time, recurrent sinus infection, used to get ear infection, no tubes ) 10/02/21 Pseudotumor cerebri 2013 diagnosis 11/05 CT scan head sinus sinus normal : Slit-like ventricles and suspected empty sella turcica which can findings with idiopathic intracranial hypertension 11/05 MRI MR brain normal . Could not tolerate med 10/02/21 ( for headache uses tylenol prn ) Sees optha regular and normal exam 10/02/21 ( last time 10/13 ) ( Every 6 months ) Hidradenitis Suppurativa ( genital axilla 2009 ) ( no genital oral sore, no uveitis ) 2020 Colonoscopy ( family history of colon cancer ) 10/12 US abd spleen normal Metal allergy Nickel rash poision samra rashes Other abdomenoplasty and then revision 10/02/21 (more content not included)... [facility] 11-05-2021 History of Presen t illness Narrative This note was created using Ruzukuriter. Subjective Heather Parrish is a 31 year old female. Doing OK Still hurt Low grade fever Not above 100 Diffuse joint pain Morning stiffness is lasting about 30 minutes to one hour. Review of Systems Objective Last Menstrual Period 10/22/2011 Physical Exam Assessment and Plan First visit 10/02/21 SLE ? Current no evidence of same 10/02/21 Syphilis Ab HIV Hepatitis C antibody, Hepatitis B S Ag negative 08/14 2019 RF FELICIA negative CK 49, ESR 18 622 Ch50 normal CCP ANCA negative TPO Ab negative 11/13 IgA, IgG Transglutaminase Ab: negative, IgA (mg/dl): 172, IgG 1123 Post vaccination diptheria antibody tetanus antibody normal, vaccination pneumococcal not done 11/13 Vit d 15, 1,25 OH vit d 48 normal ELAINE 57 high .. 09/12 chest xr : Lungs and pleura there are a few small opacified granuloma in both lungs with small calcified lymph nodes in both faith. 2006 CT abd : There appears to be a vague rounded low density lesion in the dome of the right lobe of the liver on SP 521. That measured about 8 mm in size. There is also a small rounded low density lesion in the midportion of the right lobe on SP 458. That measures about 6 mm in diameter. No gallstones are identified. The spleen is unremarkable in appearance, CT abd : There is a calcified granuloma in the left lung base. There appears to be a small amount of patchy infiltrate in the posterior aspect of the extreme left lung base. There is a small rounded nodular density containing a central calcification in the posteromedial aspect of the left lung base. There is a calcified granuloma in the anterior aspect of the right lung base 10/12 US abd spleen normal (((09/2021 history : diagnosis as teen SLE, but later on testing negative positive, [place] [facility], now retired) ( fatique, malar rash, polyarthralgia, random fever) ( skin dry, seeking derm ,teenager, dry eye dry mouth 2019 onset ) ( Joint pain since teenage, am stiff hurts ) ( main issue, muscle aches ) ( shoulder stiff, elbow hurt, wrist stiff, hand hurt ) ( intermittent hip pain from back ? ) ( knee pain bilateral, no inj done ) ( ankle pain bilateral, feet pains ) ( fatique age 13 ) ( hair loss 1999 onset) (random fever time to time, years ) ( highest 103, resolves within same, day, more as teen ) ( 3 miscarriages, no DVT, no Raynaud's Phenomenon) ( skin issue mild photosensitivity , no Erythema nodosum, no iritis uveitis. )))) (10/13 exam visit diffuse tenderness ) TREATMENT Eye drops seeing optha 10/02/21 11/04/21 discuss more next visit, ELAINE high, chest xr with granuloma , reevaluate next visit. (( abn MRI ) 11/05/21 given treatment options, emperic treatment, Wants to see Dr. Mccrary ( pulm ) ( patient choice ) send to him, see If can get bronchoscopic biopsy . Sarcoid old likely burnt out vs active, not wanting plaquenil without confirmation. Drug and disease monitoring 08/13 tsh normal , cmp Na 134 cbc diff normal , HgAic 5.6 06/14 urine normal 05/2019 Vit d 11 10/02/212013 iron work up normal, B12 folic acid normal Fibromyalgia ( diagnosis) TREATMENT Patient does not think correct diagnosis 10/02/21 10/02/21 diffuse myofascial tenderness is there. Costochondritis (2021 onset ) Neck pain 1999 onset ( no jaw pain ) 08/2019 xr CS normal 10/02/21 observe Low back pain 2009 onset ( localized ) 08/2019 Xr LS xr Sarcoiliac joint normal Hip pain ( Sarcoiliac joint inj done for Sarcoiliac joint dysunction with relief ) 07/16 right hip xr normal Knee pain 2020 right knee xr normal Paresthesia ( 2019 onset ) Hand ( tingle and ache off and on ) EMG done past CTS surg and repeat EMG normal (ulnar nerve surg bilateral done ) Feet ( tingle and ache off and on ) 10/02/21 Allergic Rhinitis and Allergic Conjunctivitis ( year around, never skin tested ) No asthma Atopic derm as kid face 10/02/21 No food allergy Hives generalized intermittent 10/02/21 ( related to use of anti histamines ) No cholinergic urticaria, no EIA 10/02/21 ( pneumonia 6 time, recurrent sinus infection, used to get ear infection, no tubes ) 10/02/21 Pseudotumor cerebri 2014 diagnosis 11/05 CT scan head sinus sinus normal : Slit-like ventricles and suspected empty sella turcica which can findings with idiopathic intracranial hypertension 11/05 MRI MR brain normal . Could not tolerate med 10/02/21 ( for headache uses tylenol prn ) Sees optha regular and normal exam 10/02/21 ( last time 10/13 ) ( Every 6 months ) Hidradenitis Suppurativa ( genital axilla 2009 ) ( no genital oral sore, no uveitis ) 2020 Colonoscopy ( family history of colon cancer ) 10/12 US abd spleen normal Metal allergy Nickel rash poision samra rashes Other abdomenoplasty and then revision 10/02/21 ( 2015 ) Pain mgt Antihistamine allergy ?? 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 Not biological dad Biological dad ( her daughter's father ) in [place] ( ex schizophrenia, bipolar ) ( his mom with RA ) One sister biological wt issue, bipolar 10/02/21 No brother 10/02/21 Father 49 CA age 15, Diabetes Mellitus Type II HTN 10/02/21 Mother 50 10/02/21 [place] +, Diabetes Mellitus Type II HTN arthritis 10/02/21 (Mom's mom with RA ) documented in this encounter [facility] 10-21-2021 Hospital Discharg e instructions Steven Estrada MD - 10/21/2021 Ice and elevate is much as possible. Nonweightbearing until follow-up. Continue Naprosyn twice daily. Okay to take Tylenol between doses of Naprosyn. The following attachments cannot be sent through Care Everywhere.Foot Sprain (Gabonese)documented in this encounter [facility] [address] Work Phone: 10-14-2021 Instructions Alex Meek - 10/14/2021 10:07 AM EDT Continue with naproxen as prescribed Consider gel insert for cushion Ice foot x 10 minutes twice to three times daily. Use cold water bath tub x 10 minutes Rest foot If condition fails to improve, consider mri documented in this encounter [facility] 10-14-2021 History of Presen t illness Narrative Consultation requested by Dr. Bravo for an opinion regarding left heel pain. My final recommendations will be communicated back to the requesting physician by way of shared Medical record or letter to requesting physician via US mail. Initial Podiatric Office Visit: Chief Complaint: This 31 year old female who presents with chief complaint:left foot pain HPI Patient presents to clinic for evaluation of left foot. Patient states that about 4-5 days ago, she stepped on a foreign body, (daughter's toy vs plug). She denies any break in skin. She states that when she stepped on the foreign body, she felt like the tendon in her foot tore. She developed immediate pain and skin discoloration. She went to urgent care yesterday and [facility]. [facility] and had xrays done. xrays were negative for fracture. She was given post-op shoe but that causes her to experience more pain. She was given prescription for naproxen but she has yet to orange picker. She has been taking tylenol which is not helping. She states the surgical shoe causes her more pain. She has been wearing sandals. 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 No current facility-administered medications for this visit. ALLERGIES Allergen Reactions Ceclor [Cefaclor] Mental Status Change DROWSINESS A CHILD Nickel Rash Antihistamines - Al* Other: See Comments Skin patch test came back positive Benadryl [Diphenhyd* Other: See Comments Anxious, vomiting, rash Morphine Mental Status Change PAST SURGICAL HISTORY Procedure Laterality Date ABDOMINOPLASTY 07/25/14 revision-Dr Miki Man [facility] DELIVERY ONLY 2005, 2007 x 2 COLONOSCOPY 07/27/2019 [place]. Negative. [place] her abd pain was coming from scar tissue EGD 07/27/2019 [place]. Hpylori and small bowel bx negative LEFT WRIST CARPAL TUNNEL ONLY Left 2012 LIG/TRNSXJ FLP TUBE ABDL/VAG APPR UNI/BI 06/03/2011 Tubal ligation OTHER SURGICAL HISTORY (PLEASE SPECIFY) HX Left 12/28/2019 Left ulnar nerve release/ubital tunnel release OVARIAN CYSTECTOMY 09/2018 [facility] PAST SURGICAL HISTORY OF 02/05/2012 right carpel tunnel,left PAST SURGICAL HISTORY OF hysterectomy without bso PAST SURGICAL HISTORY OF 06/21/14 excision of sebaceous cyst behind right knee Dr Calderon TONSILLECTOMY PRIMARY/SECONDARY <AGE 10 Tonsillectomy AND ADNOIDS TOT ABD HYST W/WO RMVL TUBE OVARY W/COLPURETHRXY Hysterectomy with MMK FAMILY HISTORY Problem Relation Age of Onset Diabetes Mother ddd Hypertension Mother other (Other) Mother Coronary Artery Disease Father CA x 3 < age 40 Diabetes Father Hypertension Father Obesity Sister Diabetes Sister Hypertension Sister Colon Cancer Maternal Grandmother Cancer Maternal Grandmother RECTAL Kidney Disease Maternal Grandmother Diabetes Maternal Grandfather Cataract Maternal Grandfather Hypertension Maternal Grandfather Heart Attack Maternal Grandfather other (Other) Maternal Grandfather ddd Cancer Paternal Grandmother RECTAL AND BREAST, Diabetes Paternal Grandmother Hypertension Paternal Grandmother Glaucoma Paternal Grandmother Cataract Paternal Grandfather Heart Attack Daughter Seizures Daughter Bipolar disorder Daughter Insomnia Daughter Social History Tobacco Use Smoking status: Current Every Day Smoker Packs/day: 2.00 Years: 5.00 Pack years: 10.00 Types: Cigarettes Smokeless tobacco: Never Used Vaping Use Vaping Use: Never used Substance Use Topics Alcohol use: No Drug use: No REVIEW OF SYSTEMS GENERAL: Negative for Malaise, significant weight loss, fever RESPIRATORY: Negative for cough, wheezing and shortness of breath CARDIOVASCULAR: Negative for chest pain, leg swelling and palpitations GI: Negative for abdominal discomfort, blood in stools or black stools and change in bowel habits : Negative for dysuria, frequency and incontinence MUSCULOSKELETAL: Negative for joint pain or swelling, back pain, and muscle pain. SKIN: Negative for lesions, rash, and itching. HEMATOLOGY/LYMPHOLOGY Negative for prolonged bleeding, bruising easily, and swollen nodes. ENDOCRINE: Negative for cold or heat intolerance, polyuria, polydipsia and goiter. NEURO: negative Physical Exam: Constitutional: Pt is a well developed 31 year old female who is alert, oriented and cooperative Eyes: Following during examination. No redness or drainage. Respiratory: RR normal and nonlabored. Even breathing. No evidence of distress or shortness of breath. Psychology: Patient is engaged during conversation. Normal affect and mood. Does not appear depressed or anxious during encounter. Vascular: Dorsalis pedis and posterior tibial pulses palpable as b/l Capillary Fill time < 5 seconds to digits 1-5 b/l Skin temperature warm to warm proximal to distal b/l Hair growth present to digits Neurological: intact light touch/epicritic sensation b/l intact protective sensation no significant neurological deficits Dermatological: Linear discoloration of left great toenail. Webspaces clean and dry 1-4 b/l. Skin appears well hydrated and supple. good color, texture, turgor. No open lesions present. No callosities present. Musculoskeletal/Orthopaedic: Patient has pain to palpation of left medial arch overlying abductor hallucis. There is pain to medial calcaneal tubercle. AJ ROM is full with knee extended and flexed 1st MPJ is full when loaded and mild pain or crepitus are noted with ROM. Patient able to contact all toes with only slight decreased strength of left 2nd toe. MTJ, STJ are full and free of pain and crepitus. +5/5 muscle strength dorsiflexion, plantarflexion, inversion, eversion b/l Radiographs: xrays performed from outside hospital. No fracture noted. ASSESSMENT: (S93.602A) Sprain of left foot, initial encounter (primary encounter diagnosis) (S90.32XA) Contusion of left foot, initial encounter PLAN: 1. History and physical examination performed. 2. Discussed sprain of left foot/contusion of left foot. I see no break in skin that would have led to any foreign body. Cannot exclude irritation along medial and central band of plantar fascia. 3. Offered patient boot but she elected to forego this. Will treat with gel isnerts, icing x 10 min tid, nsaids. If pain faisl to improve, will obtain mri 4. Discussed linear discoloration of left great toenail. Discussed monitoring to see if this progresses. If this fails to progress, would consider biopsy 5. F/u in 1 week for left foot pain Alex Meek DPM Podiatry [address] [facility] [id number] Dept: [phone] Dept documented in this encounter [facility] 10-13-2021 History of Presen t illness Narrative Nontoxic-appearing female presents urgent care chief complaint left foot pain. Duration of symptoms 4 to 5 days. Associated symptoms left foot pain swelling. Patient states she stepped on a foreign body 4 to 5 days ago. Patient states felt like she ruptured the tendon when she stepped on this foreign body. Patient states she lost full range of motion of her second digit left foot. Patient states pain is 10 out of 10. I discussed treatment options with patient's. We discussed getting her in podiatry tomorrow and x-rays. Patient states with the amount of pain she is in she did like to have x-rays today. States she will be seen at [facility] for further evaluation care. Patient verbalized understand agrees with plan of care. Prakash Laurent APRN.IRVIN documented in this encounter [facility] 10-11-2021 History of Presen t illness Narrative Patient presents with: Follow Up: breast pain area has seen rheum to follow up HPI: Patient presents today for office visit for follow up. Recently saw rheum who ordered a Large amount of testing but none is done yet. She still feels a lump and pain is getting worse. Has some moles and saw dermatology. Saw general surgery. Has a lump right under the left breast. It growing and getting more sore. She is worried basically because of the breast cancer history in her family. No trauma. No shortness of breath. No chest pain with exertion. Had seen communications specialist recently. See notes below. Had xray of ribs ordered and not done. Had mammogram and us done. See previous ov: Was seen for this almost 2 years and ago and states it has tripled in size and has slowly been increasing in pain since. Currently unable to wear a bra because it is so tender. Pain radiates across left rib cage. Within the last 2 years has had multiple work up for this. Normal Diagnostic Mammogram and US of Left Breast and normal Chest xray. States she also saw Dr. Munoz at [facility]. Was told this was costochondritis and she would probably need surgery in the future for this. Was seen for this less than 2 months ago with mammogram and US ordered but has not had them completed. Also requesting new terminal operator. Was diagnosed with Lupus as a child, used to see Dr. Parson locally but is requesting a different provider. Impression IMPRESSION: INCOMPLETE: NEEDS ADDITIONAL IMAGING EVALUATION There is no mammographic abnormality seen in the left breast to correspond with the reported palpable abnormality; however, further workup with ultrasound is recommended. IMPRESSION: BENIGN FINDING Further management should be based on clinical assessment. There is no sonographic evidence of malignancy. Return to annual mammogram screening schedule is recommended. Lazaro Hernandez M.D. MEDICATIONS: No current outpatient medications on file. No current facility-administered medications for this visit. 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 Negative. [place] her abd pain was coming from scar tissue EGD 07/27/2019 Tammy. Hpylori and small bowel bx negative LEFT WRIST CARPAL TUNNEL ONLY Left 2012 LIG/TRNSXJ FLP TUBE ABDL/VAG APPR UNI/BI 06/03/2011 Tubal ligation OTHER SURGICAL HISTORY (PLEASE SPECIFY) HX Left 12/28/2019 Left ulnar nerve release/ubital tunnel release OVARIAN CYSTECTOMY 09/2018 [facility] PAST SURGICAL HISTORY OF 02/05/2012 right carpel tunnel,left PAST SURGICAL HISTORY OF hysterectomy without bso PAST SURGICAL HISTORY OF 06/21/14 excision of sebaceous cyst behind right knee Dr Calderon TONSILLECTOMY PRIMARY/SECONDARY <AGE 10 Tonsillectomy AND ADNOIDS TOT ABD HYST W/WO RMVL TUBE OVARY W/COLPURETHRXY Hysterectomy with MMK FAMILY HISTORY Problem Relation Age of Onset Diabetes Mother ddd Hypertension Mother other (Other) Mother Coronary Artery Disease Father CA x 3 < age 40 Diabetes Father Hypertension Father Obesity Sister Diabetes Sister Hypertension Sister Colon Cancer Maternal Grandmother Cancer Maternal Grandmother RECTAL Kidney Disease Maternal Grandmother Diabetes Maternal Grandfather Cataract Maternal Grandfather Hypertension Maternal Grandfather Heart Attack Maternal Grandfather other (Other) Maternal Grandfather ddd Cancer Paternal Grandmother RECTAL AND BREAST, Diabetes Paternal Grandmother Hypertension Paternal Grandmother Glaucoma Paternal Grandmother Cataract Paternal Grandfather Heart Attack Daughter Seizures Daughter Bipolar disorder Daughter Insomnia Daughter Social History Tobacco Use Smoking status: Current Every Day Smoker Packs/day: 2.00 Years: 5.00 Pack years: 10.00 Types: Cigarettes Smokeless tobacco: Never Used Vaping Use Vaping Use: Never used Substance Use Topics Alcohol use: No Drug use: No Reviewed current medications, allergies, past medical history, surgical history, family history and social history today. REVIEW OF SYSTEMS All other reviewed and negative other than HPI. HEALTH MAINTENANCE: Reviewed health maintenance issues today and recommended the following in detail. SPIROMETRY Never done VITALS: BP 122/82 Pulse 76 Wt 110.2 kg (243 lb) LMP 10/22/2011 BMI 43.05 kg/m Last 4 Encounter Wt Readings: Date: Wt: 10/11/2021 110.2 kg (243 lb) 10/02/2021 110.2 kg (243 lb) 08/26/2021 111.6 kg (246 lb) 08/02/2021 111.6 kg (246 lb) PHYSICAL EXAMINATION: General appearance: Well appearing, alert, in no acute distress, well-hydrated, well nourished. Skin: Skin color, texture, turgor normal, no suspicious rashes or lesions Head: Normocephalic, no masses, lesions, tenderness or abnormalities Lungs: Lungs clear to auscultation. No wheezing, rhonchi, rales Heart: RRR without murmur, gallop, or rubs. No ectopy Abdomen: Normal abdominal exam, Abdomen soft, non-tender. Bowel sounds normal. No masses, organomegaly Chest wall: has an area of tenderness in lower left breast superficial to the chest wall on top of the rib/muscle. ASSESSMENT/PLAN: 1. Breast pain, left - ICD9: 611.71, ICD10: N64.4 - discussed limiting caffeine. Getting previously ordered labs and xray. Follow up with pcp after testing. - CONSULT TO BREAST CENTER Yg Freeman documented in this encounter [facility] 10-02-2021 Note HNO ID: [id number] Author: Sarah Raymond MD Service: ? Author Type: Physician Type: Progress Notes Filed: 11/03/2021 9:25 PM Note Text: This note was created using [employer]. Subjective Heather Parrish is a 31 year old female. SLE ? Current no evidence of same 10/02/21 wants to see if with this issue ( diagnosis as teen, but later on testing negative positive) ( fatique, malar rash, polyarthralgia, random fever) ( skin dry, seeking derm ,teenager, dry eye dry mouth 2020 onset ) ( Joint pain since teenage, am stiff hurts ) ( main issue, muscle aches ) ( shoulder stiff, elbow hurt, wrist stiff, hand hurt ) ( intermittent hip pain from back ? ) ( knee pain bilateral, no inj done ) ( ankle pain bilateral, feet pains ) ( fatique age 13 ) ( hair loss 2000 onset 0 (random fever time to time, years ) ( highest 103, resolves within same, day, more as teen ) No history of any recurrent thrombotic events. No history of Raynaud or Livedo reticularis. Patient has no history of pleuritis, pericarditis, seizures, psychosis, malar or discoid rashes. Has no history of hematologic issues, renal issues ( proteinuria or hematuria) . Review of Systems Respiratory: Negative. Cardiovascular: Negative. Objective Blood Pressure 126/103 (BP Site: Right Leg) Pulse 89 Temperature 36.8 ?C (98.3 ?F) (Temporal) Height 160 cm (5' 3 ) Weight 110.2 kg (243 lb) Last Menstrual Period 10/22/2011 Body Mass Index 43.05 kg/m? Physical Exam Vitals reviewed. Constitutional: General: She is not in acute distress. Appearance: She is not ill-appearing or toxic-appearing. Cardiovascular: Rate and Rhythm: Normal rate and regular rhythm. Heart sounds: Normal heart sounds. No murmur heard. No friction rub. No gallop. Pulmonary: Effort: No respiratory distress. Breath sounds: Normal breath sounds. No stridor. No wheezing or rhonchi. Abdominal: General: There is no distension. Palpations: Abdomen is soft. There is no mass. Tenderness: There is no abdominal tenderness. Hernia: No hernia is present. Musculoskeletal: Right shoulder: Normal. Left shoulder: Normal. Right elbow: Normal. Left elbow: Normal. Right wrist: Normal. Left wrist: Normal. Right hand: Normal. Left hand: Normal. Cervical back: No rigidity or tenderness. Thoracic back: Normal. Lumbar back: Decreased range of motion. Right hip: Normal. Left hip: Normal. Right knee: Normal. Left knee: Normal. Right lower leg: No edema. Right ankle: Normal. Left ankle: Normal. Right foot: Normal. Left foot: Normal. Comments: Tenderness diffuse No clear synovitis enthesitis Chest wall tenderness is there. Lymphadenopathy: Cervical: No cervical adenopathy. Skin: Findings: No rash. Psychiatric: Mood and Affect: Mood normal. Behavior: Behavior normal. Thought Content: Thought content normal. Judgment: Judgment normal. Assessment and Plan First visit 10/02/21 Has been advised to see Rheum suspect Sjog[facility] Rheum last teen ? ( Linda at that time ) PCP notes reviewed . SLE ? Current no evidence of same 10/02/21 Syphilis Ab HIV Hepatitis C antibody, Hepatitis B S Ag negative 08/14 2019 RF FELICIA negative CK 49, ESR 18 622 Ch50 normal CCP ANCA negative TPO Ab negative 11/13 IgA, IgG Transglutaminase Ab: negative, IgA (mg/dl): 172, IgG 1123 Post vaccination diptheria antibody tetanus antibody normal, vaccination pneumococcal not done 11/13 Vit d 15, 1,25 OH vit d 48 normal ELAINE 57 high .. 09/12 chest xr : Lungs and pleura there are a few small opacified granuloma in both lungs with small calcified lymph nodes in both faith ( diagnosis as teen, but later on testing negative positive) ( fatique, malar rash, polyarthralgia, random fever) ( skin dry, seeking derm ,teenager, dry eye dry mouth 2020 onset ) ( Joint pain since teenage, am stiff hurts ) ( main issue, muscle aches ) ( shoulder stiff, elbow hurt, wrist stiff, hand hurt ) ( intermittent hip pain from back ? ) ( knee pain bilateral, no inj done ) ( ankle pain bilateral, feet pains ) ( fatique age 13 ) ( hair loss 2000 onset 0 (random fever time to time, years ) ( highest 103, resolves within same, day, more as teen ) ( 3 miscarriages, no DVT, no Raynaud's Phenomenon) ( skin issue mild photosensitivity ) TREATMENT Eye drops seeing optha 10/02/21 10/02/21 2 daughter with JRA, periodic fever syndrome ? Sarcoid? get labs 10/02/21 11/04/21 discuss more next visit, ELAINE high, chest xr with granuloma , reevaluate next visit. Drug and disease monitoring 08/13 tsh normal , cmp Na 134 cbc diff normal , HgAic 5.6 06/14 urine normal 05/2019 Vit d 11 10/02/212013 iron work up normal, B12 folic acid normal Fibromyalgia ( diagnosis) TREATMENT Patient does not think correct diagnosis 10/02/21 10/02/21 diffuse myofascial tenderness is there. Costochondritis (2021 onset ) Neck pain 2000 onset ( no jaw pain ) 08/2019 xr CS normal (more content not included)... [facility] 10-02-2021 History of Presen t illness Narrative This note was created using [employer]. Subjective Heather Parrish is a 31 year old female. SLE ? Current no evidence of same 10/02/21 wants to see if with this issue ( diagnosis as teen, but later on testing negative positive) ( fatique, malar rash, polyarthralgia, random fever) ( skin dry, seeking derm ,teenager, dry eye dry mouth 2019 onset ) ( Joint pain since teenage, am stiff hurts ) ( main issue, muscle aches ) ( shoulder stiff, elbow hurt, wrist stiff, hand hurt ) ( intermittent hip pain from back ? ) ( knee pain bilateral, no inj done ) ( ankle pain bilateral, feet pains ) ( fatique age 13 ) ( hair loss 2000 onset 0 (random fever time to time, years ) ( highest 103, resolves within same, day, more as teen ) No history of any recurrent thrombotic events. No history of Raynaud or Livedo reticularis. Patient has no history of pleuritis, pericarditis, seizures, psychosis, malar or discoid rashes. Has no history of hematologic issues, renal issues ( proteinuria or hematuria) . Review of Systems Respiratory: Negative. Cardiovascular: Negative. Objective Blood Pressure 126/103 (BP Site: Right Leg) Pulse 89 Temperature 36.8 C (98.3 F) (Temporal) Height 160 cm (5' 3 ) Weight 110.2 kg (243 lb) Last Menstrual Period 10/22/2011 Body Mass Index 43.05 kg/m Physical Exam Vitals reviewed. Constitutional: General: She is not in acute distress. Appearance: She is not ill-appearing or toxic-appearing. Cardiovascular: Rate and Rhythm: Normal rate and regular rhythm. Heart sounds: Normal heart sounds. No murmur heard. No friction rub. No gallop. Pulmonary: Effort: No respiratory distress. Breath sounds: Normal breath sounds. No stridor. No wheezing or rhonchi. Abdominal: General: There is no distension. Palpations: Abdomen is soft. There is no mass. Tenderness: There is no abdominal tenderness. Hernia: No hernia is present. Musculoskeletal: Right shoulder: Normal. Left shoulder: Normal. Right elbow: Normal. Left elbow: Normal. Right wrist: Normal. Left wrist: Normal. Right hand: Normal. Left hand: Normal. Cervical back: No rigidity or tenderness. Thoracic back: Normal. Lumbar back: Decreased range of motion. Right hip: Normal. Left hip: Normal. Right knee: Normal. Left knee: Normal. Right lower leg: No edema. Right ankle: Normal. Left ankle: Normal. Right foot: Normal. Left foot: Normal. Comments: Tenderness diffuse No clear synovitis enthesitis Chest wall tenderness is there. Lymphadenopathy: Cervical: No cervical adenopathy. Skin: Findings: No rash. Psychiatric: Mood and Affect: Mood normal. Behavior: Behavior normal. Thought Content: Thought content normal. Judgment: Judgment normal. Assessment and Plan First visit 10/02/21 Has been advised to see Rheum suspect Sjogren Rheum last teen ? ( Linda at that time ) PCP notes reviewed . SLE ? Current no evidence of same 10/02/21 Syphilis Ab HIV Hepatitis C antibody, Hepatitis B S Ag negative 08/14 2019 RF FELICIA negative CK 49, ESR 18 09/12 chest xr : Lungs and pleura there are a few small opacified granuloma in both lungs with small calcified lymph nodes in both faith ( diagnosis as teen, but later on testing negative positive) ( fatique, malar rash, polyarthralgia, random fever) ( skin dry, seeking derm ,teenager, dry eye dry mouth 2020 onset ) ( Joint pain since teenage, am stiff hurts ) ( main issue, muscle aches ) ( shoulder stiff, elbow hurt, wrist stiff, hand hurt ) ( intermittent hip pain from back ? ) ( knee pain bilateral, no inj done ) ( ankle pain bilateral, feet pains ) ( fatique age 13 ) ( hair loss 2000 onset 0 (random fever time to time, years ) ( highest 103, resolves within same, day, more as teen ) ( 3 miscarriages, no DVT, no Raynaud's Phenomenon) ( skin issue mild photosensitivity ) TREATMENT Eye drops seeing optha 10/02/21 10/02/21 2 daughter with JRA, periodic fever syndrome ? Sarcoid get labs 10/02/21 Drug and disease monitoring 08/13 tsh normal , cmp Na 134 cbc diff normal , HgAic 5.6 06/14 urine normal 05/2019 Vit d 11 10/02/212013 iron work up normal, B12 folic acid normal Fibromyalgia ( diagnosis) TREATMENT Patient does not think correct diagnosis 10/02/21 10/02/21 diffuse myofascial tenderness is there. Costochondritis (2021 onset ) Neck pain 1999 onset ( no jaw pain ) 08/2019 xr CS normal 10/02/21 observe Low back pain 2009 onset ( localized ) 08/2019 Xr LS xr Sarcoiliac joint normal Hip pain ( Sarcoiliac joint inj done for Sarcoiliac joint dysunction with relief ) 07/16 right hip xr normal Knee pain 2020 right knee xr normal Paresthesia ( 2019 onset ) Hand ( tingle and ache off and on ) EMG done past CTS surg and repeat EMG normal (ulnar nerve surg bilateral done ) Feet ( tingle and ache off and on ) 10/02/21 Allergic Rhinitis and Allergic Conjunctivitis ( year around, never skin tested ) No asthma Atopic derm as kid face 10/02/21 No food allergy Hives generalized intermittent 10/02/21 ( related to use of anti histamines ) No cholinergic urticaria, no EIA 10/02/21 ( pneumonia 6 time, recurrent sinus infection, used to get ear infection, no tubes ) 10/02/21 Pseudotumor cerebri 2014 diagnosis 11/05 CT scan head sinus sinus normal : Slit-like ventricles and suspected empty sella turcica which can findings with idiopathic intracranial hypertension 11/05 MRI MR brain normal . Could not tolerate med 10/02/21 ( for headache uses tylenol prn ) Sees optha regular and normal exam 10/02/21 ( last time 10/13 ) ( Every 6 months ) Hidradenitis Suppurativa ( genital axilla 2009 ) ( no genital oral sore, no uveitis ) 2020 Colonoscopy ( family history of colon cancer ) 10/12 US abd spleen normal Metal allergy Nickel rash poision samra rashes Other abdomenoplasty and then revision 10/02/21 ( 2015 ) Pain mgt Antihistamine allergy ?? 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 Not biological dad Biological dad in [place] ( ex schizophrenia, bipolar ) ( his mom with RA ) One sister biological wt issue, bipolar 10/02/21 No brother 10/02/21 Father 49 CA age 15, Diabetes Mellitus Type II HTN 10/02/21 Mother 50 10/02/21 [place] +, Diabetes Mellitus Type II HTN arthritis 10/02/21 No history of psoriasis, ulcerative colitis, Chron's disease, celiac disease or iritis / uveitis in family. During this patient visit I have spent approximately 40 minutes out of 45 in counseling regarding coordinating care and coordinating care. documented in this encounter [facility] 08-26-2021 History of Presen t illness Narrative CC: Patient presents with: Recheck: L breast sore under breast HPI Heather Parrish is a 31 year old female who presents today for pain under her left breast. Was seen for this almost 2 years and ago and states it has tripled in size and has slowly been increasing in pain since. Currently unable to wear a bra because it is so tender. Pain radiates across left rib cage. Within the last 2 years has had multiple work up for this. Normal Diagnostic Mammogram and US of Left Breast and normal Chest xray. States she also saw Dr. Munoz at [facility]. Was told this was costochondritis and she would probably need surgery in the future for this. Was seen for this less than 2 months ago with mammogram and US ordered but has not had them completed. Also requesting new terminal operator. Was diagnosed with Lupus as a child, used to see Dr. Parson locally but is requesting a different provider. 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 Negative. [place] her abd pain was coming from scar tissue EGD 07/27/2019 Tammy. Hpylori and small bowel bx negative LEFT WRIST CARPAL TUNNEL ONLY Left 2012 LIG/TRNSXJ FLP TUBE ABDL/VAG APPR UNI/BI 06/03/2011 Tubal ligation OTHER SURGICAL HISTORY (PLEASE SPECIFY) HX Left 12/28/2019 Left ulnar nerve release/ubital tunnel release OVARIAN CYSTECTOMY 09/2018 [facility] PAST SURGICAL HISTORY OF 02/05/2012 right carpel tunnel,left PAST SURGICAL HISTORY OF hysterectomy without bso PAST SURGICAL HISTORY OF 06/21/14 excision of sebaceous cyst behind right knee Dr Calderon TONSILLECTOMY PRIMARY/SECONDARY <AGE 10 Tonsillectomy AND ADNOIDS TOT ABD HYST W/WO RMVL TUBE OVARY W/COLPURETHRXY Hysterectomy with MMK ALLERGIES Ceclor [Cefaclor], Nickel, Antihistamines - Alkylamine, Benadryl [Diphenhydramine Hcl], and Morphine MEDICATIONS No prescriptions on file. FAMILY HISTORY Problem Relation Age of Onset Diabetes Mother ddd Hypertension Mother other (Other) Mother Coronary Artery Disease Father CA x 3 < age 40 Diabetes Father Hypertension Father Obesity Sister Diabetes Sister Hypertension Sister Colon Cancer Maternal Grandmother Cancer Maternal Grandmother RECTAL Kidney Disease Maternal Grandmother Diabetes Maternal Grandfather Cataract Maternal Grandfather Hypertension Maternal Grandfather Heart Attack Maternal Grandfather other (Other) Maternal Grandfather ddd Cancer Paternal Grandmother RECTAL AND BREAST, Diabetes Paternal Grandmother Hypertension Paternal Grandmother Glaucoma Paternal Grandmother Cataract Paternal Grandfather Heart Attack Daughter Seizures Daughter Bipolar disorder Daughter Insomnia Daughter Social History Tobacco Use Smoking status: Current Every Day Smoker Packs/day: 2.00 Years: 5.00 Pack years: 10.00 Types: Cigarettes Smokeless tobacco: Never Used Vaping Use Vaping Use: Never used Substance Use Topics Alcohol use: No Drug use: No PHYSICAL EXAM BP 126/78 Pulse 80 Resp 16 Wt 111.6 kg (246 lb) LMP 10/22/2011 BMI 42.52 kg/m General Appearance: well appearing, in no acute distress, alert Skin: Mass noted below left breast around 7 o'clock position, no redness or discoloration, very tender with light palpation. No other abnormalities noted Eyes: conjunctiva pink and moist, no icterus, sclera white, non-injected Lungs: Lungs clear to auscultation. No wheezing, rhonchi, rales. Heart: RRR without murmur, gallop, or rubs. No ectopy Health maintenance reviewed with patient: SPIROMETRY Never done COVID-19 VACCINE(1) due on 06/17/2022 INFLUENZA(Season Ended) due on 01/23/2022 ANNUAL PCP TEAM CHRONIC DISEASE VISIT due on 06/17/2022 DTAP,TDAP,TD(2 - Td or Tdap) due on 10/23/2024 ONE PNEUMOVAX PRIOR TO AGE 65 Completed HEPATITIS C SCREENING Completed HIV SCREENING Completed MENINGOCOCCAL CONJUGATE Aged Out PAP TESTING Discontinued HPV TESTING Discontinued DATA REVIEWED: No new labs ASSESSMENT/PLAN: 1. Breast lump on left side at 7 o'clock position - ICD9: 611.72, ICD10: N63.24 (primary diagnosis) - With the lump being lower, extremely tender, and no recent chest xray - will order xray of ribs - Patient needs to get previous ordered testing completed. - Naproxen as ordered - Get [facility] records - unsure if Dr. Munoz had other diagnostic studies available that he reviewed to determine if surgery would eventually be needed - Follow up depending on results. 2. Localized skin mass, lump, or swelling - ICD9: 782.2, ICD10: R22.9 - as above - XR RIBS/CHEST 3V AP RIB/OBLS/CXR LEFT 3. Tenderness - ICD9: 780.99, ICD10: R52 As above - XR RIBS/CHEST 3V AP RIB/OBLS/CXR LEFT 4. Arthralgia of multiple joints - ICD9: 719.49, ICD10: M25.50 - no record of recent positive lupus tests, per patient she has a history of this and daughter has lupus as well. CRP slightly elevated less than 2 years ago, but FELICIA negative. Will consult to rheum for further evaluation. - CONSULT TO RHEUM/IMMUN DISEASE Prescription instructions reviewed with patient as applicable. Potential red flag symptoms discussed with the patient. Reviewed appropriate action plan to take if red flag symptoms occur. Patient agreeable to treatment plan. Monica Ricketts APRN.CNP documented in this encounter [facility] documented in this encounter [facility]08-15-2012 History of Past illness Narrative* Problem Noted Date Resolved Date Irregular menses 01/07/2012 12/26/2014 Previous delivery, antepartum condition or complication 08/06/2007 07/16/2011 documented as of this encounter (statuses as of 08/26/2021) [facility] History of Past illness Narrative* Problem Noted Date Resolved Date Irregular menses 01/07/2012 12/26/2014 Previous delivery, antepartum condition or complication 08/06/2007 07/16/2011 documented as of this encounter (statuses as of 10/02/2021) [facility] History of Past illness Narrative* Problem Noted Date Resolved Date Irregular menses 01/07/2012 12/26/2014 Previous delivery, antepartum condition or complication 08/06/2007 07/16/2011 documented as of this encounter (statuses as of 10/09/2021) [facility] History of Past illness Narrative* Problem Noted Date Resolved Date Irregular menses 01/07/2012 12/26/2014 Previous delivery, antepartum condition or complication 08/06/2007 07/16/2011 documented as of this encounter (statuses as of 10/11/2021) [address]2012 History of Past illness Narrative* Problem Noted Date Resolved Date Irregular menses 01/07/2012 12/26/2014 Previous delivery, antepartum condition or complication 08/06/2007 07/16/2011 documented as of this encounter (statuses as of 10/13/2021) [address] History of Past illness Narrative* Problem Noted Date Resolved Date Irregular menses 01/07/2012 12/26/2014 Previous delivery, antepartum condition or complication 08/06/2007 07/16/2011 documented as of this encounter (statuses as of 10/14/2021) [address] History of Past illness Narrative* Problem Noted Date Resolved Date Irregular menses 01/07/2012 12/26/2014 Previous delivery, antepartum condition or complication 08/06/2007 07/16/2011 documented as of this encounter (statuses as of 10/17/2021) [address] History of Past illness Narrative* Problem Noted Date Resolved Date Irregular menses 01/07/2012 12/26/2014 Previous delivery, antepartum condition or complication 08/06/2007 07/16/2011 documented as of this encounter (statuses as of 11/05/2021) [address] History of Past illness Narrative* Problem Noted Date Resolved Date Irregular menses 01/07/2012 12/26/2014 Previous delivery, antepartum condition or complication 08/06/2007 07/16/2011 documented as of this encounter (statuses as of 11/05/2021) [address]2012 History of Past illness Narrative* Problem Noted Date Resolved Date Irregular menses 01/07/2012 12/26/2014 Previous delivery, antepartum condition or complication 08/06/2007 07/16/2011 documented as of this encounter (statuses as of 11/13/2021) [address]2012 History of Past illness Narrative* Problem Noted Date Resolved Date Irregular menses 01/07/2012 12/26/2014 Previous delivery, antepartum condition or complication 08/06/2007 07/16/2011 documented as of this encounter (statuses as of 12/12/2021) [place] [address]15-2012 History of Past illness Narrative* Problem Noted Date Resolved Date Irregular menses 01/07/2012 12/26/2014 Previous delivery, antepartum condition or complication 08/06/2007 07/16/2011 documented as of this encounter (statuses as of 12/19/2021) [facility]15-2012 History of Past illness Narrative* Problem Noted Date Resolved Date Irregular menses 01/07/2012 12/26/2014 Previous delivery, antepartum condition or complication 08/06/2007 07/16/2011 documented as of this encounter (statuses as of 12/20/2021) [place] [address]2012 History of Past illness Narrative* Problem Noted Date Resolved Date Irregular menses 01/07/2012 12/26/2014 Previous delivery, antepartum condition or complication 08/06/2007 07/16/2011 documented as of this encounter (statuses as of 12/26/2021) [place] [address]-2012 History of Past illness Narrative* Problem Noted Date Resolved Date Irregular menses 01/07/2012 12/26/2014 Previous delivery, antepartum condition or complication 08/06/2007 07/16/2011 documented as of this encounter (statuses as of 03/03/2022) [facility]2012 History of Past illness Narrative* Problem Noted Date Resolved Date Irregular menses 01/07/2012 12/26/2014 Previous delivery, antepartum condition or complication 08/06/2007 07/16/2011 documented as of this encounter (statuses as of 03/18/2022) [facility]2012 History of Past illness Narrative* Problem Noted Date Resolved Date Irregular menses 01/07/2012 12/26/2014 Previous delivery, antepartum condition or complication 08/06/2007 07/16/2011 documented as of this encounter (statuses as of 04/10/2022) [facility] History of Past illness Narrative* Problem Noted Date Resolved Date Irregular menses 01/07/2012 12/26/2014 Previous delivery, antepartum condition or complication 08/06/2007 07/16/2011 documented as of this encounter (statuses as of 06/17/2022) [facility] History of Past illness Narrative* Problem Noted Date Resolved Date Irregular menses 01/07/2012 12/26/2014 Previous delivery, antepartum condition or complication 08/06/2007 07/16/2011 documented as of this encounter (statuses as of 06/18/2022) [address] History of Past illness Narrative* Problem Noted Date Resolved Date Irregular menses 01/07/2012 12/26/2014 Previous delivery, antepartum condition or complication 08/06/2007 07/16/2011 documented as of this encounter (statuses as of 07/05/2022) [address]2012 History of Past illness Narrative* Problem Noted Date Resolved Date Irregular menses 01/07/2012 12/26/2014 Previous delivery, antepartum condition or complication 08/06/2007 07/16/2011 documented as of this encounter (statuses as of 07/08/2022) [address]2012 History of Past illness Narrative* Problem Noted Date Resolved Date Irregular menses 01/07/2012 12/26/2014 Previous delivery, antepartum condition or complication 08/06/2007 07/16/2011 documented as of this encounter (statuses as of 07/10/2022) [address]2012 History of Past illness Narrative* Problem Noted Date Resolved Date Irregular menses 01/07/2012 12/26/2014 Previous delivery, antepartum condition or complication 08/06/2007 07/16/2011 documented as of this encounter (statuses as of 07/29/2022) [address]2012 History of Past illness Narrative* Problem Noted Date Resolved Date Irregular menses 01/07/2012 12/26/2014 Previous delivery, antepartum condition or complication 08/06/2007 07/16/2011 documented as of this encounter (statuses as of 09/03/2022) [address]2012 History of Past illness Narrative* Problem Noted Date Resolved Date Irregular menses 01/07/2012 12/26/2014 Previous delivery, antepartum condition or complication 08/06/2007 07/16/2011 documented as of this encounter (statuses as of 11/11/2022) [address]2012 History of Past illness Narrative* Problem Noted Date Diagnosed Date Resolved Date Irregular menses 01/07/2012 12/26/2014 Previous delivery, antepartum condition or complication 08/06/2007 07/16/2011 documented as of this encounter (statuses as of 12/02/2022) [address]2012 History of Past illness Narrative* Problem Noted Date Diagnosed Date Resolved Date Irregular menses 01/07/2012 12/26/2014 Previous delivery, antepartum condition or complication 08/06/2007 07/16/2011 documented as of this encounter (statuses as of 01/13/2023) [address]2012 History of Past illness Narrative* Problem Noted Date Diagnosed Date Resolved Date Irregular menses 01/07/2012 12/26/2014 Previous delivery, antepartum condition or complication 08/06/2007 07/16/2011 documented as of this encounter (statuses as of 03/29/2023) [address]2012 History of Past illness Narrative* Problem Noted Date Diagnosed Date Resolved Date Irregular menses 01/07/2012 12/26/2014 Previous delivery, antepartum condition or complication 08/06/2007 07/16/2011 documented as of this encounter (statuses as of 04/08/2023) [address]2012 History of Past illness Narrative* Problem Noted Date Diagnosed Date Resolved Date Irregular menses 01/07/2012 12/26/2014 Previous delivery, antepartum condition or complication 08/06/2007 07/16/2011 documented as of this encounter (statuses as of 04/14/2023) [address]2012 History of Past illness Narrative* Problem Noted Date Diagnosed Date Resolved Date Irregular menses 01/07/2012 12/26/2014 Previous delivery, antepartum condition or complication 08/06/2007 07/16/2011 documented as of this encounter (statuses as of 04/18/2023) [address]2012 History of Past illness Narrative* Problem Noted Date Diagnosed Date Resolved Date Irregular menses 01/07/2012 12/26/2014 Previous delivery, antepartum condition or complication 08/06/2007 07/16/2011 documented as of this encounter (statuses as of 04/23/2023) [address]2012 History of Past illness Narrative* Problem Noted Date Diagnosed Date Resolved Date Irregular menses 01/07/2012 12/26/2014 Previous delivery, antepartum condition or complication 08/06/2007 07/16/2011 documented as of this encounter (statuses as of 05/01/2023) [facility]2012 History of Past illness Narrative* Problem Noted Date Diagnosed Date Resolved Date Irregular menses 01/07/2012 12/26/2014 Previous delivery, antepartum condition or complication 08/06/2007 07/16/2011 documented as of this encounter (statuses as of 05/03/2023) [facility] note* Diagnosis Polyarthralgia- Primary Pain in joint, multiple sites Vitamin D deficiency Unspecified vitamin D deficiency documented in this encounter [facility] note* Diagnosis Breast lump on left side at 7 o'clock position Lump or mass in breast documented in this encounter [facility] note* Diagnosis Breast pain, left- Primary Mastodynia [facility]* Diagnosis Procedure not carried out- Primary Procedure not carried out for other reasons documented in this encounter [facility] note* Diagnosis Sprain of left foot, initial encounter- Primary Contusion of left foot, initial encounter documented in this encounter [facility] note* Diagnosis Foot sprain, left, subsequent encounter- Primary documented in this encounter [employer]: Evaluation note* Diagnosis 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 documented in this encounter [facility] note* Diagnosis Mild intermittent intrinsic asthma without status asthmaticus without complication- Primary Pseudotumor cerebri Benign intracranial hypertension Sarcoidosis COVID COVID-19 virus infection URI with cough and congestion documented in this encounter [facility] note* Diagnosis Pelvic pain in female- Primary Unspecified symptom associated with female genital organs [facility]* Diagnosis NO SHOW- Primary [facility]* Diagnosis 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 Polyarthralgia Pain in joint, multiple sites documented in this encounter [facility]* Diagnosis Acute pain of right knee- Primary [facility]* Diagnosis Chronic pain of right knee- Primary Iron deficiency Iron deficiency anemia, unspecified Vitamin D deficiency Unspecified vitamin D deficiency Tobacco abuse disorder Tobacco use disorder Vitamin B12 deficiency Other B-complex deficiencies Elevated blood sugar Other abnormal glucose Sleep apnea, unspecified type Morbid obesity (HCC) Morbid obesity [facility] Diagnosis Vitamin D deficiency- Primary Unspecified vitamin D deficiency [facility]* Diagnosis Urinary frequency- Primary [facility]* Diagnosis Morbid obesity (HCC)- Primary Morbid obesity [facility]* Diagnosis Class 3 severe obesity with body mass index (BMI) of 40.0 to 44.9 in adult, unspecified obesity type, unspecified whether serious comorbidity present (HCC)- Primary Morbid obesity (HCC) Morbid obesity [facility] Diagnosis Morbid obesity (HCC)- Primary Morbid obesity Polyarthralgia Pain in joint, multiple sites [facility]* Diagnosis Repetitive stress injury- Primary Unspecified site of sprain and strain Left foot pain Pain in limb Diminished pulse Other symptoms involving cardiovascular system documented in this encounter [facility] note* Diagnosis Acute cough- Primary documented in this encounter [facility] note* Diagnosis Left foot pain Pain in limb Repetitive stress injury Unspecified site of sprain and strain Diminished pulse Other symptoms involving cardiovascular system [facility]* Diagnosis Class 3 severe obesity with body mass index (BMI) of 40.0 to 44.9 in adult, unspecified obesity type, unspecified whether serious comorbidity present (HCC)- Primary Pre-diabetes Other abnormal glucose documented in this encounter [facility] note* Diagnosis External hemorrhoids- Primary External hemorrhoids without mention of complication [facility] Diagnosis External hemorrhoids External hemorrhoids without mention of complication Perianal pain Anal or rectal pain External hemorrhoids External hemorrhoids without mention of complication Perianal pain Anal or rectal pain documented in this encounter [facility] note* Diagnosis Pre-diabetes Other abnormal glucose Class 3 severe obesity with body mass index (BMI) of 40.0 to 44.9 in adult, unspecified obesity type, unspecified whether serious comorbidity present (HCC) External hemorrhoids External hemorrhoids without mention of complication Perianal pain Anal or rectal pain documented in this encounter [facility] for referral (narrative)* Diagnostic Procedure Only (Routine) - Pending Review Specialty Diagnoses / Procedures Referred By Stormy t Referred To Contact XR IMAGING Diagnoses Tenderness Localized skin mass, lump, or swelling Procedures XR RIBS/CHEST 3V AP RIB/OBLS/CXR LEFT RADEX RIBS UNI W/POSTEROANT CH MINIMUM 3 VIEWS Monica Ricketts APRN.TEST PULLER [address] [place] [address] Xr Imaging Referral ID Status Reason Start Date Expiration Date Visits Requested Visits Authorized [id number] Pending Review Auto-Generat ed Referral 08/26/2021 09/25/2022 1 1 * Consult, Test, Treat (Routine) - Authorized Specialty Diagnoses / Procedures Referred By Stormy t Referred To Contact Rheumatology Diagnoses Arthralgia of multiple joints Procedures CONSULT TO RHEUM/IMMUN DISEASE OFFICE/OUTPATIENT NEW [facility] MDM 60-74 MINUTES Monica Ricketts APRN.TEST PULLER [address] [place] [address] Referral ID Status Reason Start Date Expiration Date Visits Requested Visits Authorized [id number] Authorized PCP Requested Referral 08/26/2021 08/26/2022 1 1 [facility] for referral (narrative)* Diagnostic Procedure Only (Routine) - Closed Specialty Diagnoses / Procedures Referred By Contkaycee t Referred To Contact BR IMAGING Diagnoses Breast lump on left side at 7 o'clock position Procedures GREG DIAGNOSTIC LT DIAGNOSTIC MAMMOGRAPHY COMPUTER-AIDED DETCJ Antonella Bustillo APRN.PROPERTY ADJUSTER [address] [place] [address] [facility] [address] [place] [address] Referral ID Status Reason Start Date Expiration Date V isits Requested Visits Authorized [id number] Closed Auto-Generate d Referral 06/17/2021 07/17/2022 1 1 [facility] for referral (narrative)* Diagnostic Procedure Only (Routine) - Closed Specialty Diagnoses / Procedures Referred By Contac t Referred To Contact BR IMAGING Diagnoses Breast lump on left side at 7 o'clock position Procedures US BREAST LTD LT US BREAST UNI REAL TIME WITH IMAGE LIMITED Antonella Bravo APRN.PROPERTY ADJUSTER [address] [place] [address] [facility] [address] [place] [address] Referral ID Status Reason Start Date Expiration Date V isits Requested Visits Authorized [id number] Closed Auto-Generate d Referral 06/17/2021 07/17/2022 1 1 [facility] for referral (narrative)* Diagnostic Procedure Only (Routine) - Authorized Specialty Diagnoses / Procedures Referred By Contac t Referred To Contact [facility] Diagnoses Pelvic pain in female Procedures PELVIC US WHI US PELVIC NONOBSTETRIC REAL-TIME IMAGE COMPLETE Leonie Hollins MD [address] [place] [address] [facility] [address] [place] [address] Referral ID Status Reason Start Date Expiration Date Visits Requested Visits Authorized [id number] Authorized Auto-Generat ed Referral 12/12/2021 12/12/2022 1 1 [facility] for referral (narrative)* Diagnostic Procedure Only (Routine) - Pending Review Specialty Diagnoses / Procedures Referred By Contac t Referred To Contact XR IMAGING Diagnoses Acute pain of right knee Procedures XR KNEE GENERAL 4V AP BOTH/PA BOTH/LAT/MERC RIGHT RADIOLOGIC EXAM KNEE COMPLETE 4/MORE VIEWS Rod Reynolds MD [address] [place] [address] Xr Imaging Referral ID Status Reason Start Date Expiration Date Visits Requested Visits Authorized [id number] Pending Review Auto-Generat ed Referral 04/02/2023 1 1 * Consult, Test, Treat (Routine) - Authorized Specialty Diagnoses / Procedures Referred By Contac t Referred To Contact Orthopedics Diagnoses Acute pain of right knee Procedures CONSULT TO ORTHOPAEDICS OFFICE/OUTPATIENT NEW HIGH MDM 60-74 MINUTES Rod Reynolds MD [address] [place] [address] Referral ID Status Reason Start Date Expiration Date Visits Requested Visits Authorized [id number] Authorized PCP Requested Referral 2 03/03/2023 1 1 [facility] for referral (narrative)* Outpatient Procedure (Routine) - Authorized Specialty Diagnoses / Procedures Referred By Contac t Referred To Contact [facility] Diagnoses Left foot pain Repetitive stress injury Diminished pulse Procedures PVR ANK PRESS PHILIP VAS LAB NON-INVAS PHYSIOLOGIC STD EXTREMITY ART 2 LEVEL Alex Meek [address] [place] [address] [facility] [address] [place] [address] Referral ID Status Reason Start Date Expiration Date Visits Requested Visits Authorized [id number] Authorized Auto-Generat ed Referral 11/11/2022 11/11/2023 1 1 * Diagnostic Procedure Only (Routine) - Closed Specialty Diagnoses / Procedures Referred By Contac t Referred To Contact XR IMAGING Diagnoses Left foot pain Repetitive stress injury Diminished pulse Procedures XR FOOT GENERAL 3V AP/LAT/OBL LEFT RADEX FOOT COMPLETE MINIMUM 3 VIEWS Alex Meek [address] [place] [address] Xr Imaging Referral ID Status Reason Start Date Expiration Date V isits Requested Visits Authorized [id number] Closed Auto-Generate d Referral 11/11/2022 12/11/2023 1 1 [facility] for referral (narrative)* Diagnostic Procedure Only (Routine) - Closed Specialty Diagnoses / Procedures Referred By Contac t Referred To Contact XR IMAGING Diagnoses Left foot pain Repetitive stress injury Diminished pulse Procedures XR FOOT GENERAL 3V AP/LAT/OBL LEFT RADEX FOOT COMPLETE MINIMUM 3 VIEWS Testmolina, Alex [address] [place] [address] [place] [address] Referral ID Status Reason Start Date Expiration Date V isits Requested Visits Authorized [id number] Closed Auto-Generate d Referral 11/11/2022 12/11/2023 1 1 [facility] for visit Narrative* Diagnostic Procedure Only (Routine) - Closed Specialty Diagnoses / Procedures Referred By Contac t Referred To Contact BR IMAGING Diagnoses Breast lump on left side at 7 o'clock position Procedures GREG DIAGNOSTIC LT DIAGNOSTIC MAMMOGRAPHY COMPUTER-AIDED DETCJ UNI Antonella Bravo, TANK BUILDER AND ERECTOR.PROPERTY ADJUSTER [address] [place] [address] [facility] [address] [place] [address] Referral ID Status Reason Start Date Expiration Date V isits Requested Visits Authorized [id number] Closed Auto-Generate d Referral 06/17/2021 07/17/2022 1 1 [facility] for visit Narrative* Diagnostic Procedure Only (Routine) - Closed Specialty Diagnoses / Procedures Referred By Contkaycee t Referred To Contact BR IMAGING Diagnoses Breast lump on left side at 7 o'clock position Procedures US BREAST LTD LT US BREAST UNI REAL TIME WITH IMAGE LIMITED Antonella Bravo, TANK BUILDER AND ERECTOR.PROPERTY ADJUSTER [address] [place] [address] [facility] [address] [place] [address] Referral ID Status Reason Start Date Expiration Date V isits Requested Visits Authorized [id number] Closed Auto-Generate d Referral 06/17/2021 07/17/2022 1 1 [facility] for visit Narrative* Diagnostic Procedure Only (Routine) - Closed Specialty Diagnoses / Procedures Referred By Contac t Referred To Contact XR IMAGING Diagnoses Left foot pain Repetitive stress injury Diminished pulse Procedures XR FOOT GENERAL 3V AP/LAT/OBL LEFT RADEX FOOT COMPLETE MINIMUM 3 VIEWS Alex Meek [address] [place] [address] [place] [address] Referral ID Status Reason Start Date Expiration Date V isits Requested Visits Authorized [id number] Closed Auto-Generate d Referral 11/11/2022 12/11/2023 1 1 [facility] Discharge Instructions * Attachments The following attachments cannot be sent through Care Everywhere. * Urinary Tract: Female: Anatomy Sketch (Gabonese) documented in this encounter Assessments Diagnosis Abdominal pain, left lower quadrant- Primary Suprapubic abdominal pain Abdominal pain, other specified site Acute cystitis without hematuria Acute cystitis Advance Directives Documents on File Type Date Recorded Patient Dissolver Operator Expl anation Advance Directives and Living Will Power of Psychiatry Adult Physician Documents on File Type Date Recorded Patient Dissolver Operator Expl anation ACP-Advance Directive ACP-Power of Psychiatry Adult Physician Summary Purpose Family History No Family History Records FoundNo Family History Records FoundNo Family History Records FoundNo Family History Records Found Reason for Referral Specialty Diagnoses / Procedures Referred By Contac t Referred To Contact Breast Diseases Diagnoses Breast pain, left Procedures CONSULT TO BREAST CENTER OFFICE/OUTPATIENT [facility] 60-74 MINUTES Yg Freeman MD [address] [place] [address] Referral ID Status Reason Start Date Expiration Date Visits Requested Visits Authorized [id number] Authorized PCP Requested Referral 10/11/2021 10/11/2022 1 1 Specialty Diagnoses / Procedures Referred By Contac t Referred To Contact Orthopedic Surgery Diagnoses Foot sprain, left, subsequent encounter Steven Estrada MD [address] [place] [address] [facility] [address] [address] [place] [address] Referral ID Status Reason Start Date Expiration Date V isits Requested Visits Authorized [id number] Open Second Opinion 10/21/2021 10/21/2022 1 1 Scheduling Instructions [facility] Orthopedics Foot/Ankle Lower Extremities - [address] [facility] [address] [place] [address] Specialty Diagnoses / Procedures Referred By Contac t Referred To Contact Rod Reynolds MD [address] [place] [address] Referral ID Status Reason Start Date Expiration Date Visits Re quested Visits Authorized [id number] Closed 1 1 Specialty Diagnoses / Procedures Referred By Contac t Referred To Contact Orthopedics Diagnoses Chronic pain of right knee Procedures CONSULT TO ORTHOPAEDICS OFFICE/OUTPATIENT [facility] 60-74 MINUTES Rod Reynolds MD [address] [place] [id number] Referral ID Status Reason Start Date Expiration Date Visits Requested Visits Authorized [id number] Authorized PCP Requested Referral 2 03/18/2023 1 1 Specialty Diagnoses / Procedures Referred By Contac t Referred To Contact Diagnoses Pre-diabetes Class 3 severe obesity with body mass index (BMI) of 40.0 to 44.9 in adult, unspecified obesity type, unspecified whether serious comorbidity present (HCC) Arnaud Vaughan APRN.TEST PULLER [address] [place] [address] Referral ID Status Reason Start Date Expiration Date Visits Re quested Visits Authorized [id number] Closed 1 1 Specialty Diagnoses / Procedures Referred By Contac t Referred To Contact General Surgery Diagnoses External hemorrhoids Procedures CONSULT TO GENERAL SURGERY OFFICE/OUTPATIENT [facility] 60-74 MINUTES Arnaud Vaughan APRN.TEST PULLER [address] [place] [address] Referral ID Status Reason Start Date Expiration Date Visits Requested Visits Authorized [id number] Authorized PCP Requested Referral 3 04/13/2024 1 1 Referral ID Status Reason Start Date Expiration Date Visits Re quested Visits Authorized [id number] Closed 1 1 Additional Source Comments Reason for Visit (unrecogniz ed section and content) Reason Comments Recheck L breast sore under breast Reason Comments New Patient dx with lupus yrs ag o- as teenager Dry Mouth and eyes Rash Musculoskeletal Problem generalized stif fness, possible costocondritis Reason Comments Follow Up breast pain area has seen rheum to follow up Reason Comments Pain (foot) left x 4-5 days, manish pped on something Reason Comments New Pain Specialty Diagnoses / Procedures Referred By Contac t Referred To Contact Podiatry Diagnoses Heel pain, bilateral Procedures CONSULT TO PODIATRY OFFICE/OUTPATIENT [facility] 60-74 MINUTES Antonella Bravo, TANK BUILDER AND ERECTOR.PROPERTY ADJUSTER [address] [place] [address] Referral ID Status Reason Start Date Expiration Date V isits Requested Visits Authorized [id number] Closed PCP Requested Referral 06/17/2021 06/17/2022 1 1 Reason Comments Foot Pain left foot/ankle/heel /toes Reason Comments Joint Pain Reason Comments Initial Consult pulmonary Reason Comments Covid19 Concern Reason Comments Orders Reason Comments No Show Reason Comments Follow Up Reason Comments Same Day Appointment right knee pain x 4 days Reason Comments Follow Up Reason Comments Results Reason Comments UTI Possible uti, pressu re x 2 weeks Reason Comments Follow Up weight loss Reason Comments Med Change Request Reason Comments Follow Up 1 month follow up-ad ipex Reason Comments Follow Up adipex Reason Comments Established Patient Pain Swelling Numbness Specialty Diagnoses / Procedures Referred By Contac t Referred To Contact Podiatry Diagnoses Left foot pain Procedures CONSULT TO PODIATRY OFFICE/OUTPATIENT [facility] 60-74 MINUTES Arnaud Vaughan APRN.TEST PULLER [address] [place] [address] Referral ID Status Reason Start Date Expiration Date V isits Requested Visits Authorized [id number] Closed PCP Requested Referral 10/14/2022 10/14/2023 1 1 Reason Comments numbness to first finger and thumb Laceration Reason Comments Cough Chest congestion, SO B, loss of voice, ST x4 days Reason Comments Weight Problem Reason Comments Rectal Problem hemorrhoid returned in same spot of previous one that was removed Reason Comments Consult HEMORRHOIDS Specialty Diagnoses / Procedures Referred By Contac t Referred To Contact General Surgery Diagnoses External hemorrhoids Procedures CONSULT TO GENERAL SURGERY OFFICE/OUTPATIENT [facility] 60-74 MINUTES Arnaud Vaughna APRN.TEST PULLER [address] [place] [address] Referral ID Status Reason Start Date Expiration Date V isits Requested Visits Authorized [id number] Closed PCP Requested Referral 04/14/2023 04/13/2024 1 1 INFORMATION SOURCE (unrecogn ized section and content) DATE CREATED AUTHOR AUTHOR'S ORGANIZ ATION 09/25/2020 [facility] ([place]) DATE CREATED AUTHOR AUTHOR'S ORGANIZ ATION 04/06/2022 [facility] DATE CREATED AUTHOR AUTHOR'S ORGANIZ ATION 04/18/2023 [facility] Source Comments (unrecognize d section and content) In the event this informatio n is protected by the Federal Confidentiality of Alcohol and Drug Abuse Patient Records regulations: The Federal rules restrict any use of the information to criminally investigate or prosecute any alcohol or drug abuse patient.[facility] the event this information is protected by the Federal Confidentiality of Alcohol and Drug Abuse Patient Records regulations: The Federal rules restrict any use of the information to criminally investigate or prosecute any alcohol or drug abuse patient.[facility] CenterIn the event this information is protected by the Federal Confidentiality of Alcohol and Drug Abuse Patient Records regulations: The Federal rules restrict any use of the information to criminally investigate or prosecute any alcohol or drug abuse patient.[facility] CenterIn the event this information is protected by the Federal Confidentiality of Alcohol and Drug Abuse Patient Records regulations: The Federal rules restrict any use of the information to criminally investigate or prosecute any alcohol or drug abuse patient.[facility] CenterIn the event this information is protected by the Federal Confidentiality of Alcohol and Drug Abuse Patient Records regulations: The Federal rules restrict any use of the information to criminally investigate or prosecute any alcohol or drug abuse patient.[facility] CenterIn the event this information is protected by the Federal Confidentiality of Alcohol and Drug Abuse Patient Records regulations: The Federal rules restrict any use of the information to criminally investigate or prosecute any alcohol or drug abuse patient.[facility] CenterIn the event this information is protected by the Federal Confidentiality of Alcohol and Drug Abuse Patient Records regulations: The Federal rules restrict any use of the information to criminally investigate or prosecute any alcohol or drug abuse patient.[facility] CenterIn the event this information is protected by the Federal Confidentiality of Alcohol and Drug Abuse Patient Records regulations: The Federal rules restrict any use of the information to criminally investigate or prosecute any alcohol or drug abuse patient.[facility] CenterIn the event this information is protected by the Federal Confidentiality of Alcohol and Drug Abuse Patient Records regulations: The Federal rules restrict any use of the information to criminally investigate or prosecute any alcohol or drug abuse patient.[facility] CenterIn the event this information is protected by the Federal Confidentiality of Alcohol and Drug Abuse Patient Records regulations: The Federal rules restrict any use of the information to criminally investigate or prosecute any alcohol or drug abuse patient.[facility] CenterIn the event this information is protected by the Federal Confidentiality of Alcohol and Drug Abuse Patient Records regulations: The Federal rules restrict any use of the information to criminally investigate or prosecute any alcohol or drug abuse patient.[facility] CenterIn the event this information is protected by the Federal Confidentiality of Alcohol and Drug Abuse Patient Records regulations: The Federal rules restrict any use of the information to criminally investigate or prosecute any alcohol or drug abuse patient.[facility] CenterIn the event this information is protected by the Federal Confidentiality of Alcohol and Drug Abuse Patient Records regulations: The Federal rules restrict any use of the information to criminally investigate or prosecute any alcohol or drug abuse patient.[facility] CenterIn the event this information is protected by the Federal Confidentiality of Alcohol and Drug Abuse Patient Records regulations: The Federal rules restrict any use of the information to criminally investigate or prosecute any alcohol or drug abuse patient.[facility] CenterIn the event this information is protected by the Federal Confidentiality of Alcohol and Drug Abuse Patient Records regulations: The Federal rules restrict any use of the information to criminally investigate or prosecute any alcohol or drug abuse patient.[facility] CenterIn the event this information is protected by the Federal Confidentiality of Alcohol and Drug Abuse Patient Records regulations: The Federal rules restrict any use of the information to criminally investigate or prosecute any alcohol or drug abuse patient.[facility] CenterIn the event this information is protected by the Federal Confidentiality of Alcohol and Drug Abuse Patient Records regulations: The Federal rules restrict any use of the information to criminally investigate or prosecute any alcohol or drug abuse patient.[facility] CenterIn the event this information is protected by the Federal Confidentiality of Alcohol and Drug Abuse Patient Records regulations: The Federal rules restrict any use of the information to criminally investigate or prosecute any alcohol or drug abuse patient.[facility] CenterIn the event this information is protected by the Federal Confidentiality of Alcohol and Drug Abuse Patient Records regulations: The Federal rules restrict any use of the information to criminally investigate or prosecute any alcohol or drug abuse patient.[facility] CenterIn the event this information is protected by the Federal Confidentiality of Alcohol and Drug Abuse Patient Records regulations: The Federal rules restrict any use of the information to criminally investigate or prosecute any alcohol or drug abuse patient.[facility] CenterIn the event this information is protected by the Federal Confidentiality of Alcohol and Drug Abuse Patient Records regulations: The Federal rules restrict any use of the information to criminally investigate or prosecute any alcohol or drug abuse patient.[facility] CenterIn the event this information is protected by the Federal Confidentiality of Alcohol and Drug Abuse Patient Records regulations: The Federal rules restrict any use of the information to criminally investigate or prosecute any alcohol or drug abuse patient.[facility] CenterIn the event this information is protected by the Federal Confidentiality of Alcohol and Drug Abuse Patient Records regulations: The Federal rules restrict any use of the information to criminally investigate or prosecute any alcohol or drug abuse patient.[facility] CenterIn the event this information is protected by the Federal Confidentiality of Alcohol and Drug Abuse Patient Records regulations: The Federal rules restrict any use of the information to criminally investigate or prosecute any alcohol or drug abuse patient.[facility] CenterIn the event this information is protected by the Federal Confidentiality of Alcohol and Drug Abuse Patient Records regulations: The Federal rules restrict any use of the information to criminally investigate or prosecute any alcohol or drug abuse patient.[facility] CenterIn the event this information is protected by the Federal Confidentiality of Alcohol and Drug Abuse Patient Records regulations: The Federal rules restrict any use of the information to criminally investigate or prosecute any alcohol or drug abuse patient.[facility] CenterIn the event this information is protected by the Federal Confidentiality of Alcohol and Drug Abuse Patient Records regulations: The Federal rules restrict any use of the information to criminally investigate or prosecute any alcohol or drug abuse patient.[facility] CenterIn the event this information is protected by the Federal Confidentiality of Alcohol and Drug Abuse Patient Records regulations: The Federal rules restrict any use of the information to criminally investigate or prosecute any alcohol or drug abuse patient.[facility] CenterIn the event this information is protected by the Federal Confidentiality of Alcohol and Drug Abuse Patient Records regulations: The Federal rules restrict any use of the information to criminally investigate or prosecute any alcohol or drug abuse patient.[facility] CenterIn the event this information is protected by the Federal Confidentiality of Alcohol and Drug Abuse Patient Records regulations: The Federal rules restrict any use of the information to criminally investigate or prosecute any alcohol or drug abuse patient.[facility] CenterIn the event this information is protected by the Federal Confidentiality of Alcohol and Drug Abuse Patient Records regulations: The Federal rules restrict any use of the information to criminally investigate or prosecute any alcohol or drug abuse patient.[facility] CenterIn the event this information is protected by the Federal Confidentiality of Alcohol and Drug Abuse Patient Records regulations: The Federal rules restrict any use of the information to criminally investigate or prosecute any alcohol or drug abuse patient.[facility] CenterIn the event this information is protected by the Federal Confidentiality of Alcohol and Drug Abuse Patient Records regulations: The Federal rules restrict any use of the information to criminally investigate or prosecute any alcohol or drug abuse patient.[facility] CenterIn the event this information is protected by the Federal Confidentiality of Alcohol and Drug Abuse Patient Records regulations: The Federal rules restrict any use of the information to criminally investigate or prosecute any alcohol or drug abuse patient.[facility] CenterIn the event this information is protected by the Federal Confidentiality of Alcohol and Drug Abuse Patient Records regulations: The Federal rules restrict any use of the information to criminally investigate or prosecute any alcohol or drug abuse patient.[facility] CenterIn the event this information is protected by the Federal Confidentiality of Alcohol and Drug Abuse Patient Records regulations: The Federal rules restrict any use of the information to criminally investigate or prosecute any alcohol or drug abuse patient.[facility] Care Teams (unrecognized sec tion and content) Dinkey Brakeman Relationship Specialty Start Date End Date Rod Reynolds MD [address] [place] [address] PCP - General Internal Medicine 06/06/19 Dinkey Brakeman Relationship Specialty Start Date End Date Rod Reynolds MD [address] [place] [address] PCP - General Internal Medicine 06/06/19 Dinkey Brakeman Relationship Specialty Start Date End Date Rod Reynolds MD [address] [place] [address] PCP - General Internal Medicine 06/06/19 Dinkey Brakeman Relationship Specialty Start Date End Date Rod Reynolds MD [address] [place] [address] PCP - General Internal Medicine 06/06/19 Dinkey Brakeman Relationship Specialty Start Date End Date Rod Reynolds MD [address] [place] [address] PCP - General Internal Medicine 06/06/19 Dinkey Brakeman Relationship Specialty Start Date End Date [email or web address] Neftali Oliva PCP - General 04/22/16 Dinkey Brakeman Relationship Specialty Start Date End Date Rod Reynolds MD [address] [place] [address] PCP - General Internal Medicine 06/06/19 Dinkey Brakeman Relationship Specialty Start Date End Date Rod Reynolds MD [address] [place] [address] PCP - General Internal Medicine 06/06/19 Dinkey Brakeman Relationship Specialty Start Date End Date Rod Reynolds MD [address] [place] [address] PCP - General Internal Medicine 06/06/19 Dinkey Brakeman Relationship Specialty Start Date End Date Rod Reynolds MD [address] [place] [address] PCP - General Internal Medicine 06/06/19 Dinkey Brakeman Relationship Specialty Start Date End Date Rod Reynolds MD [address] [place] [address] PCP - General Internal Medicine 06/06/19 Dinkey Brakeman Relationship Specialty Start Date End Date Rod Reynolds MD [address] [place] [address] PCP - General Internal Medicine 06/06/19 Dinkey Brakeman Relationship Specialty Start Date End Date Rod Reynolds MD [address] [place] [address] PCP - General Internal Medicine 06/06/19 Dinkey Brakeman Relationship Specialty Start Date End Date Rod Reynolds MD [address] [place] [address] PCP - General Internal Medicine 06/06/19 Dinkey Brakeman Relationship Specialty Start Date End Date Rod Reynolds MD [address] [place] [address] PCP - General Internal Medicine 06/06/19 Dinkey Brakeman Relationship Specialty Start Date End Date Rod Reynolds MD [address] [facility] [place] [address] PCP - General Internal Medicine 06/06/19 Dinkey Brakeman Relationship Specialty Start Date End Date Rod Reynolds MD [address] [facility] [place] [address] PCP - General Internal Medicine 06/06/19 Dinkey Brakeman Relationship Specialty Start Date End Date Rod Reynolds MD [address] [facility] [place] [address] PCP - General Internal Medicine 06/06/19 Dinkey Brakeman Relationship Specialty Start Date End Date Rod Reynolds MD [address] [facility] [place] [address] PCP - General Internal Medicine 06/06/19 Dinkey Brakeman Relationship Specialty Start Date End Date Rod Reynolds MD [address] [facility] [place] [address] PCP - General Internal Medicine 06/06/19 Dinkey Brakeman Relationship Specialty Start Date End Date Rod Reynolds MD [address] [facility] [place] [address] PCP - General Internal Medicine 06/06/19 Dinkey Brakeman Relationship Specialty Start Date End Date Rod Reynolds MD [address] [facility] [place] [address] PCP - General Internal Medicine 06/06/19 Dinkey Brakeman Relationship Specialty Start Date End Date Rod Reynolds MD [address] [place], [place] [address] PCP - General Internal Medicine 06/06/19 Dinkey Brakeman Relationship Specialty Start Date End Date Rod Reynolds MD [address] [place], [place] [address] PCP - General Internal Medicine 06/06/19 Dinkey Brakeman Relationship Specialty Start Date End Date Rod Reynolds MD [address] [place], [place] [address] PCP - General Internal Medicine 06/06/19 Dinkey Brakeman Relationship Specialty Start Date End Date Rod Reynolds MD [address] [place], [place] [address] PCP - General Internal Medicine 06/06/19 Scheduled Active and Recently Administ ered Medications (unrecognized section and content) FOR RECORDS PERTAINING TO PATIENTS WHO ARE OR HAVE BEEN ENROLLED IN A CHEMICAL DEPENDENCY/SUBSTANCEABUSE PROGRAM, SOME INFORMATION MAY BE OMITTED. This clinical summary was aggregated from multiple sources. Caution should be exercised in using it in the provision of clinical care. This summary normalizes information from multiple sources, and as a consequence, information in this document may materially change the coding, format and clinical context of patient data. In addition, data may be omitted in some cases. CLINICAL DECISIONS SHOULD BE BASED ON THE PRIMARY CLINICAL RECORDS. [employer] provides no warranty or guarantee of the accuracy or completeness of information in this document.
[2023-07-25] MEDS: Ketorolac 30 MG/ML Syringe IV (20:09)
[2023-07-25] MEDS: Ondansetron 4 MG/2 ML Vial IV (20:09)
[2023-07-25 20:48] VITALS: BP 166/89; PULSE 89; RESP 16; TEMP 36.6; O2SAT 99
== END 2023-07-25 20:50 | disposition home or self-care (01) ==
PROVIDERS: Emergency Provider Emergency Medicine; PCP Internal Medicine; Visit Provider Emergency Medicine
DX: G43.909 Migraine, unspecified, not intractable, without status migrainosus (principal); G93.2 Benign intracranial hypertension; F17.210 Nicotine dependence, cigarettes, uncomplicated; K21.9 Gastro-esophageal reflux disease without esophagitis; H53.8 Other visual disturbances; H92.09 Otalgia, unspecified ear
CPT/HCPCS: 96374; 96375; 99282; J2405

== ENCOUNTER 2023-10-04 12:34 | Emergency (ER) | payer BC, SELFPAY ==
[2023-10-04 12:35] VITALS: BP 130/54; PULSE 111; RESP 18; TEMP 36.4; O2SAT 99; BMI 33.5
--- NOTE | 2023-10-04 13:03 | ED.RN ---
Pt stated that she was going to come back when it was less busy.
== END 2023-10-04 13:03 | disposition left against medical advice (07) ==
LOC: ED 13:03
PROVIDERS: PCP Internal Medicine
DX: Z53.21 Procedure and treatment not carried out due to patient leaving prior to being seen by health care provider (principal)

== ENCOUNTER 2023-12-03 23:03 | Emergency (ER) | payer MEDICAID, SELFPAY ==
[2023-12-03 23:04] VITALS: BP 119/95; PULSE 89; RESP 16; TEMP 36.1; O2SAT 98; BMI 43.5
[2023-12-03 23:42] LABS: Mucous, Urine 0 SEEN /hpf (<or=2+); White Blood Cells 0 SEEN /hpf (0-5)
[2023-12-03 23:43] LABS: Absolute Lymphocyte Count 2.57 X10^3/uL (0.83-4.51); Absolute Neutrophil Count 5.7 X10^3/uL (2.0-7.7); Basophil# 0.04 X10^3/uL; Basophil% 0.4 % (0-1); Eosinophil# 0.12 X10^3/uL; Eosinophils% 1.3 % (0-5); Hematocrit 37.8 % (37-47); Hemoglobin 12.4 g/dL (12.0-15.0); Lymphocyte # 2.57 X10^3/ul (0.83-4.51); Lymphocyte % 28.4 % (19-41); Mean Corp Hgb Conc 32.8 g/dL (32-36); Mean Corpuscular Volume 88.3 fL (81-99); Mean Platelet Vol. 9.8 fl (6.2-12.0); Monocyte# 0.58 X10^3/uL; Monocyte% 6.4 % (0-10); NRBC Flagged by Analyzer 0 % (0-5); Neutrophil # 5.69 X10^3/uL (2.7-7.7); Neutrophil % 63.1 % (47-70); Platelet Count 368 K/mm3 (150-450); RBC Distribution Width CV 13.3 % (11.6-14.6); RBC Distribution Width SD 42.7 fl (35.1-43.9); Red Blood Count 4.28 M/mm3 (4.2-5.4)
[2023-12-04 00:02] LABS: Internal QC Validated? YES +Cl - CLEAR BKGD; Pregnancy, Serum, hCG Quali. NEGATIVE Negative
[2023-12-04 00:04] LABS: ALB/GLOB Ratio 0.9 RATIO (0.9-2.4); AST(SGOT) 23 U/L (15-37); Alanine Aminotransfer ALT/SGPT 45 U/L (13-56); Albumin, Serum 3.7 g/dL (3.2-5.0); Alkaline Phosphatase 75 U/L (45-117); Anion Gap 7 (5-15); BUN 11 mg/dL (7-18); BUN/Creat Ratio 13.1 RATIO (10-20); Calcium,Total 9.7 mg/dL (8.5-10.1); Chloride 101 mmol/L (98-107); Color, Urine Yellow (Yellow); Creatinine, Serum 0.84 mg/dL (0.55-1.02); EST Glomerular Filtration Rate 82 mL/min (>60); Est Glom Filt Rate - Afr Amer 99 mL/min (>60); Estimated Creatinine Clearance 112.21 ml/min; Globulin 4.2 g/dL (2.2-4.2); Glucose 100 mg/dL (74-106); Glucose, Dipstick Normal (Normal); Ketone-Dipstick Negative (Negative); Leukocyte Esterase-Dipstick Negative /ul (Negative); Lipase 21 U/L (13-75); Nitrite-Dipstick Negative (Negative); Occult Blood-Urine Negative /ul (Negative); Potassium 3.8 mmol/L (3.5-5.1); Protein, Total 7.9 g/dL (6.4-8.2); Protein-Dipstick Negative (Negative); Sodium Level 134 mmol/L (136-145); Specific Gravity, Urine 1.025 (1.002-1.030); Urine Bilirubin Dipstick Negative (Negative); Urine Clarity Clear (Clear); Urine Urobilinogen Normal (Normal)
[2023-12-04 00:14] LABS: Bacteria 2+ /hpf (None Seen); Red Blood Cells-Urine 0-5 SEEN /hpf (0-5); Squamous Epithelial Cells - UA 10-25 SEEN /hpf (5-10)
--- NOTE | 2023-12-04 00:21 | CT_ITS ---
EXAM: CT ABDOMEN AND PELVIS WITH IV CONTRAST- CT Abdomen And Pelvis W/ Contrast Injection HISTORY: hernia TECHNIQUE: Routine protocol CT abdomen pelvis. IV Contrast: IV 100mL Isovue-370 . Oral Contrast: without. Sagittal and coronal images were reconstructed. RADIATION DOSAGE (If Supplied By Facility): CTDIvol = ( 22.03 ) mGy, DLP = ( 1253.80 ) mGycm Individualized dose optimization techniques were used for this CT. COMPARISON: CT abdomen and pelvis 06/22/2019. LIMITATIONS: None. FINDINGS: LOWER CHEST: Lung bases are clear. LIVER: Fatty infiltration. Several small low-attenuation lesions not completely characterized, no significant change compared to prior. GALLBLADDER/BILE DUCTS: Unremarkable. PANCREAS: Unremarkable. SPLEEN: Small calcifications previous granulomatous process. ADRENAL GLANDS: Unremarkable. KIDNEYS / URETERS: Unremarkable. BOWEL / MESENTERY: Scattered diverticula in the colon. No bowel obstruction. APPENDIX: Identified and normal. No evidence of acute appendicitis. PERITONEUM: No free air. No free fluid. VESSELS: Abdominal aorta is normal caliber. RETROPERITONEUM: Unremarkable. REPRODUCTIVE ORGANS: Uterus is not identified. BLADDER: Unremarkable. ABDOMINAL WALL: Small periumbilical hernia contains only fat, no bowel, with mild stranding in the hernia site and minimal stranding in the abdomen just deep to the hernia. Similar small supraumbilical hernia contains only fat, no bowel, with no stranding. BONES: No acute abnormality. Bilateral pars defects at L5 without significant spondylolisthesis, and mild degenerative changes. OTHER: None. CT/Abdomen/Pelvis W IV Cont ONLY IMPRESSION: Small fat-containing periumbilical hernia with findings that can be seen with incarceration. Additional small fat-containing supraumbilical hernia without evidence of complication. No acute intra-abdominal findings. Colonic diverticulosis without evidence of acute diverticulitis. Hepatic lesions not completely characterized but unchanged, likely hemangiomas. Electronically Signed: Christine Magana MD at 1:15 EDT ,
--- NOTE | 2023-12-04 00:22 | EDS_ITS ---
HPI HPI - GI History of Present Illness Chief Complaint: Abd Pain Narrative Narrative: 33-year-old female presenting with abdominal pain. She states she has a history of abdominal adhesions and multiple hernias and repairs. Patient states that she has been having abdominal pain above her umbilicus for couple days. She feels like she can eat. She states her stomach feels like it is expanding. She has nausea that is pretty severe. She also complains of acid reflux. She has had bowel movements the last 2 days. PFSH PFSH Medical History Left knee pain Tear of medial meniscus of right knee Osteoarthritis of right knee Wears glasses Anxiety Anemia History of pain when walking Patellofemoral syndrome, right Anxiety GERD (gastroesophageal reflux disease) Intra-abdominal adhesions Acute pelvic pain Ovarian cyst Smoker Family history of skin cancer Recent weight loss Swelling of vulva Late effect of complications of surgical and medical care Carpal tunnel syndrome pseudo angel cerebri Headache Fatigue Sacroiliac joint dysfunction Sacroiliitis Home Medications ?Medication ?Instructions ?Recorded ?Last Taken ?Type phentermine 37.5 mg tablet 37.5 mg PO DAILY 12/04/23 Unknown History semaglutide (weight loss) 0.5 See Rx Instructions subcut QWEEK 12/04/23 Unknown History mg/0.5 mL subcutaneous pen injector Allergy/AdvReac Type Severity Reaction Status Date / Time Antihistamines - Alkylamine Allergy Severe Rash/Behavi Verified 12/03/23 23:04 ors diphenhydramine (From Allergy Mild rash Verified 12/03/23 23:04 Benadryl) codeine Allergy Swelling Verified 12/03/23 23:04 nickel Allergy Rash Verified 12/03/23 23:04 pseudoephedrine Allergy Swelling Verified 12/03/23 23:04 lidocaine AdvReac Intermediate MRSA Verified 12/03/23 23:04 morphine AdvReac mental Verified 12/03/23 23:04 status change Family History Mother Arthritis High cholesterol Thyroid disorder Diabetes Grandmother History of blood transfusion Bowel disease Skin cancer Colon cancer Diabetes Kidney disease Breast cancer Heart disease Grandfather Diabetes Hypertension CVA (cerebral vascular accident) Kidney disease Colon cancer Father Diabetes Heart disease High cholesterol Hypertension Surgical History Hx of decompression of ulnar nerve history c-scope (~07/27/19) History of esophagogastroduodenoscopy (EGD) (~07/27/19) History of arthroplasty of right knee S/P left oophorectomy (~10/14/18) H/O: hysterectomy History of abdominoplasty History of carpal tunnel surgery History of abdominoplasty History of delivery Social History Smoking Status: Current every day smoker tobacco type: cigarettes Tobacco: How many years used: 19 Electronic Cigarette Use: not used second hand exposure: Yes alcohol intake: never substance use type: does not use caffeine: Yes what type of physical activity do you participate in: none seatbelt use: always do you feel safe at home: Yes 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 ROS ED Constitutional Constitutional ED: Denies chills, fever(s) or sweats Eyes Eyes: Denies blurry vision or change in vision ENT ENT ED: Denies ear pain or sore throat Cardiovascular Cardiovascular: Denies chest pain, palpitations or racing heartbeat Respiratory/Chest Respiratory/Chest: Denies cough, dyspnea or sputum Gastrointestinal Gastrointestinal: Reports abdominal pain, nausea and vomiting; Denies constipation or diarrhea Genitourinary Genitourinary ED: Denies dysuria, hematuria or urinary frequency Musculoskeletal Musculoskeletal: Denies arthralgias, myalgias or neck pain Integumentary Denies abscess, Abrasions or rash Neurologic Neurologic: Denies headache(s), paresthesias or weakness Psychiatric Psychiatric: Denies anxiety, depression, suicidal ideation or suicidal thoughts Endocrine Endocrinology: Denies polydipsia or polyuria EXAM Physical Exam Const Vital Signs: 12/03/23 23:04 12/04/23 01:03 12/04/23 02:44 Temperature 97 F L 98.4 F Temperature Source Temporal Pulse Rate 89 73 80 Respiratory Rate 16 18 16 Blood Pressure 119/95 H 136/55 H 125/59 H Blood Pressure Mean 103 82 81 Pulse Ox 98 97 95 Oxygen Delivery Method Room Air Room Air Positive well nourished General Appearance ED: NAD; Negative for pallor HEENT Reports moist mucous membranes normocephalic and atraumatic Eyes PERRL Resp normal respiratory effort Cardio regular rate and regular rhythm GI GI Narrative: Hernia noted above the umbilicus Palpation: tender periumbilical Neuro CN's II-XII intact bilaterally Sensorium / Orientation: alert Motor Exam: strength 5/5 throughout Psych mental status grossly normal and thought process normal Skin General Skin Exam: Negative for jaundice or pallor MDM MDM MDM Narrative Medical decision making narrative: Patient presenting with abdominal pain and concern for hernia. She states has been out for a couple of days. Is just above the umbilicus. Patient refuses pain medication but states she will take something for nausea and for acid reflux. I gave her Zofran and Protonix. Patient presenting with right flank pain. Differential includes colitis, diverticulitis, gastritis, pancreatitis, constipation, UTI, pyelonephritis, renal calculi, ureteral calculi, bowel obstruction, malignancy, dehydration, electrolyte abnormalities, , ectopic , ovarian cyst, ovarian torsion, hernia. CBC will be obtained to assess white blood cell count, hemoglobin, platelets. CMP to assess renal function, electrolytes, liver function, glucose. Lipase to assess for pancreatitis. Urinalysis to assess for UTI. CBC shows normal white blood count 9.0. Hemoglobin 12.4. Platelets are normal at 368. Renal function electrolytes within normal limits. LFTs and lipase are normal. Urinalysis negative for infection. CT of the abdomen pelvis with IV contrast was obtained and does not show any acute findings. There is a small fat-containing umbilical hernia. She is able to push the hernia out if she increases her for abdominal pressure but when she relaxes it does reduce itself. For this reason I gave the patient a binder. She declined any pain medication. Discharged home in stable condition. Impression: 1. Abdominal pain Lab Data Attestation: I reviewed the patient's lab results. Labs: Laboratory Results - last 24 hr 12/03/23 23:38 WBC 9.0 RBC 4.28 Hgb 12.4 Hct 37.8 MCV 88.3 MCH 29.0 MCHC 32.8 RDW Std Deviation 42.7 RDW Coeff of Terry 13.3 Plt Count 368 MPV 9.8 Immature Gran % (Auto) 0.400 Neut % (Auto) 63.1 Lymph % (Auto) 28.4 [place] % (Auto) 6.4 Eos % (Auto) 1.3 Baso % (Auto) 0.4 Absolute Neuts (auto) 5.7 Absolute Lymphs (auto) 2.57 Nucleated RBC % 0 Sodium 134 L Potassium 3.8 Chloride 101 Carbon Dioxide 26.0 Anion Gap 7 BUN 11 Creatinine 0.84 Estim Creat Clear Calc 112.21 Est GFR (MDRD) Af Amer 99 Est GFR (MDRD) Non-Af 82 BUN/Creatinine Ratio 13.1 Glucose 100 Calcium 9.7 Total Bilirubin 0.40 AST 23 ALT 45 Alkaline Phosphatase 75 Total Protein 7.9 Albumin 3.7 Globulin 4.2 Albumin/Globulin Ratio 0.9 Lipase 21 Serum , Qual NEGATIVE Urine Color Yellow Urine Clarity Clear Urine pH 6.0 Ur Specific [place] 1.025 Urine Protein Negative Urine Glucose (UA) Normal Urine Ketones Negative Urine Occult Blood Negative Urine Nitrite Negative Urine Bilirubin Negative Urine Urobilinogen Normal Ur Leukocyte Esterase Negative Urine RBC 0-5 SEEN Urine WBC 0 SEEN Ur Squamous Epith Cells 10-25 SEEN Urine Bacteria 2+ Urine Mucus 0 SEEN Radiography Diagnostic Testing: Clinical Impression(s) from Imaging Studies Abdomen/Pelvis CT 12/04/23 00:21 IMPRESSION: Small fat-containing periumbilical hernia with findings that can be seen with incarceration. Additional small fat-containing supraumbilical hernia without evidence of complication. No acute intra-abdominal findings. Colonic diverticulosis without evidence of acute diverticulitis. Hepatic lesions not completely characterized but unchanged, likely hemangiomas. Electronically Signed: Christine Magana MD at 1:15 EDT , Discharge Plan Triage Chief Complaint: Abd Pain ED Provider: Mike Stone Dx/Rx/DC Orders Instructions: ED Abdominal Pain Unkn Cause Fem Prescriptions: No Action phentermine 37.5 mg tablet 37.5 mg PO DAILY semaglutide (weight loss) 0.5 mg/0.5 mL pen injector See Rx Instructions subcut QWEEK Rx Instructions: Inject 0.1ml (0.25mg) subcutaneously once weekly for 4 weeks, then 0.2ml (0.5mg) once weekly for 4 weeks, then as directed subcutaneously every week; Primary Care Provider: Erika Reynolds Referrals: Erika Reynolds MD [Primary Care Provider] - Print Language: Congolese Disposition Disposition: Home, Self Care Discharge Date/Time: 12/04/23 02:45
[2023-12-04] MEDS: Ondansetron 4 MG/2 ML Vial IV (00:52)
[2023-12-04] MEDS: Pantoprazole Sodium 40 MG in 0.9% Normal Saline (100mL MB+) 100 ML 330 MG IV (00:52)
[2023-12-04 01:03] VITALS: BP 136/55; PULSE 73; RESP 18; O2SAT 97
--- NOTE | 2023-12-04 02:43 | ED.RN ---
ABDOMINAL BINDER APPLIED. PATIENT DEMONSTRATES UNDERSTANDING OF USAGE AND APPLICATION. PATIENT LEFT W/ BINDER IN PLACE. APPLICATION TOLERATED WELL.
[2023-12-04 02:44] VITALS: BP 125/59; PULSE 80; RESP 16; TEMP 36.9; O2SAT 95
== END 2023-12-04 02:45 | disposition home or self-care (01) ==
PROVIDERS: Emergency Provider Student in an Organized Health Care Education/Training Program; PCP Internal Medicine; Visit Provider Student in an Organized Health Care Education/Training Program
DX: R10.9 Unspecified abdominal pain (principal); K21.9 Gastro-esophageal reflux disease without esophagitis; K42.9 Umbilical hernia without obstruction or gangrene; F17.210 Nicotine dependence, cigarettes, uncomplicated; Z87.19 Personal history of other diseases of the digestive system; K57.30 Diverticulosis of large intestine without perforation or abscess without bleeding
CPT/HCPCS: 74177; 80053; 81001; 83690; 84703; 85025; 96365; 96375; 99283; Q9967; A4216; J2405